=== PATIENT | female | born 1945 | race Caucasian/White ===

== ENCOUNTER 2019-07-06 10:15 | Outpatient (CLI) | payer MEDICARE, SELFPAY ==
[2019-07-06 10:27] LABS: Basophils Absolute Auto 0.04 K/mm3 (0.00-0.10); Basophils Percent Auto 0.6 % (0.0-1.0); Eosinophils Percent Auto 1.4 % (1.0-6.0); Hematocrit 41.4 % (35.0-42.0); Hemoglobin 13.6 g/dL (11.7-13.8); Immature Granulocyte Absolute 0.02 K/mm3 (0.00-0.00); Immature Granulocyte Percent A 0.3 % (0.0-0.0); Lymphocytes Absolute Auto 1.87 K/mm3 (1.10-4.50); Lymphocytes Percent Auto 26.4 % (18.0-42.0); Mean Corpuscular HGB Conc 32.9 g/dL (32.0-36.0); Mean Corpuscular Hemoglobin 32.6 pg (27.0-31.0); Mean Corpuscular Volume 99.3 fL (78.0-102.0); Mean Platelet Volume 10.6 fl (9.2-11.8); Monocytes Absolute Auto 0.55 K/mm3 (0.10-0.90); Monocytes Percent Auto 7.8 % (2.0-11.0); Neutrophils Absolute Auto 4.5 K/mm3 (1.7-7.2); Neutrophils Percent Auto 63.5 % (50.0-70.0); Platelet Count Result 237 K/mm3 (150-420); Red Blood Count 4.17 M/mm3 (4.20-5.40); Red Cell Distribution Width 12.1 % (11.6-14.4); White Blood Count 7.1 K/mm3 (4.8-10.8)
[2019-07-06 11:57] LABS: Alanine Aminotransferase 14 U/L (14-59); Albumin Level 4.2 g/dL (3.4-5.0); Alkaline Phosphatase 65 U/L (46-116); Anion Gap 11.5 mmol/L (7-16); Aspartate Amino Transferase 18 U/L (15-37); Bilirubin,Total 0.5 mg/dL (0.00-1.00); Blood Urea Nitrogen 17 mg/dL (7-18); Calcium 9.2 mg/dL (8.5-10.1); Carbon Dioxide 33 mmol/L (21-32); Chloride 103 mmol/L (98-108); Estimated Glomerular Filt Rate 49; Folic Acid 17.1 ng/mL (8.6->20); Glucose 90 mg/dL (70-99); Osmolality Calculated 297 mOsm/kg (285-295); Potassium 4.5 mmol/L (3.5-5.1); Sodium 143 mmol/L (136-145); Total Protein 7.2 g/dL (6.4-8.2); Vitamin B12 409 pg/mL (193-986)
[2019-07-06 12:10] LABS: Thyroid Stimulating Hormone Reflex 2.58 u/IU/mL (0.36-3.74)
== END 2019-07-06 10:16 | disposition home or self-care (01) ==
LOC: CHSLAB 10:19
PROVIDERS: PCP Family Medicine; Visit Provider Family Medicine
DX: R53.83 Other fatigue (principal)
CPT/HCPCS: 36415; 80053; 82607; 82746; 84443; 85025

== ENCOUNTER 2019-10-25 12:10 | Outpatient (CLI) | payer MEDICARE, SELFPAY ==
--- NOTE | ~2019-10-25 | US_ITS ---
EXAMINATION: US carotid duplex BI DATE: 10/25/2019 16:28 INDICATION: Carotid bruit. TECHNIQUE: Grayscale, color Doppler, and pulsed Doppler images of the cervical carotid arteries were obtained. The degree of vessel stenosis is placed in one of the following categories: normal, <50%, 5 0-69%, >=70% but less than near-occlusion, near-occlusion, or total occlusion. Note that percent sten osis relative to normal distal artery lumen diameter is indirectly measured from velocity measurement s as described by Navid, et al. Radiology 2003; 229:340-346. COMPARISON: Ultrasound 08/17/2013 FINDINGS: RIGHT: The right common carotid artery (CCA) peak systolic velocity (PSV) is 62 cm/s. The right internal car otid artery (ICA) PSV is 67 cm/s. The right ICA end-diastolic velocity (EDV) is 13 cm/s. The right IC A/CCA PSV ratio is 1.1. Grayscale and color Doppler images yield an estimate of <50% diameter reducti on from plaque in the ICA. There is antegrade flow in the right vertebral artery. LEFT: The left CCA PSV is 74 cm/s. The left ICA PSV is 70 cm/s. The left ICA EDV is 11 cm/s. The left ICA/C CA PSV ratio is 0.9. Grayscale and color Doppler images yield an estimate of <50% diameter reduction from plaque in the ICA. There is antegrade flow in the left vertebral artery. IMPRESSION: 1. <50% stenosis in the right internal carotid artery. 2. <50% stenosis in the left internal carotid artery. Reviewed, dictated and finalized at location A.
== END 2019-10-25 12:11 | disposition home or self-care (01) ==
LOC: CHSIMG 12:11
PROVIDERS: PCP Internal Medicine; Visit Provider Internal Medicine
DX: R06.00 Dyspnea, unspecified (principal); R09.89 Other specified symptoms and signs involving the circulatory and respiratory systems
CPT/HCPCS: 93306; 93880

== ENCOUNTER 2020-08-15 15:28 | Outpatient (CLI) | payer MEDICARE, SELFPAY ==
--- NOTE | ~2020-08-15 | XR_ITS ---
EXAMINATION: XR lumbar spine 2-3V DATE: 08/15/2020 15:49 INDICATION: Chronic low back pain. TECHNIQUE: 3 views of lumbar spine were obtained. COMPARISON: Lumbar spine radiographs 07/22/2017 FINDINGS: There is 3 degrees levocurvature of lumbar spine. Vertebral body heights are normal. There is mildly decreased disc height at L2-L3 and L4-L5 and severely decreased disc height at L5-S1. There are endplate osteophytes at all levels. There is multilevel facet joint osteoarthritis, severe at L5 -S1. IMPRESSION: 1. Severe lower lumbar spondylosis. Reviewed, dictated and finalized at location A.
== END 2020-08-15 15:29 | disposition home or self-care (01) ==
LOC: CHSIMG 15:31
PROVIDERS: PCP Internal Medicine; Visit Provider Internal Medicine
DX: M54.5 Low back pain (principal)
CPT/HCPCS: 72100

== ENCOUNTER 2020-11-08 10:12 | Outpatient (CLI) | payer MEDICARE, SELFPAY ==
--- NOTE | ~2020-11-08 | XR_ITS ---
EXAMINATION: XR chest 2V 11/08/2020 10:54 INDICATION: Dyspnea. Chronic fatigue. PROCEDURE: PA and lateral views of the chest COMPARISON: 09/26/2014 FINDINGS: The lungs are clear. There is a calcified nodule in the right upper thorax. The cardiomedia stinal silhouette is within normal limits. There are no pleural effusions. There is no pneumothorax suspected. IMPRESSION: 1: NO ACUTE CARDIOPULMONARY DISEASE. Reviewed, dictated and finalized at location A.
[2020-11-08 10:47] LABS: Basophils Absolute Auto 0.03 K/mm3 (0.00-0.10); Basophils Percent Auto 0.6 % (0.0-1.0); Eosinophils Absolute Auto 0.17 K/mm3 (0.02-0.50); Eosinophils Percent Auto 3.3 % (1.0-6.0); Hemoglobin 13.2 g/dL (11.7-13.8); Immature Granulocyte Absolute 0.01 K/mm3 (0.00-0.00); Immature Granulocyte Percent A 0.2 % (0.0-0.0); Lymphocytes Absolute Auto 1.82 K/mm3 (1.10-4.50); Lymphocytes Percent Auto 35.2 % (18.0-42.0); Mean Corpuscular Hemoglobin 32.9 pg (27.0-31.0); Mean Corpuscular Volume 99.8 fL (78.0-102.0); Mean Platelet Volume 10.8 fl (9.2-11.8); Monocytes Absolute Auto 0.46 K/mm3 (0.10-0.90); Monocytes Percent Auto 8.9 % (2.0-11.0); Neutrophils Absolute Auto 2.7 K/mm3 (1.7-7.2); Neutrophils Percent Auto 51.8 % (50.0-70.0); Platelet Count Result 224 K/mm3 (150-420); Red Blood Count 4.01 M/mm3 (4.20-5.40); Red Cell Distribution Width 12.6 % (11.6-14.4); White Blood Count 5.2 K/mm3 (4.8-10.8)
[2020-11-08 12:08] LABS: Erythrocyte Sedimentation Rate 22 mm/hr (0-20)
[2020-11-08 12:17] LABS: Alanine Aminotransferase 16 U/L (14-59); Albumin Level 4.1 g/dL (3.4-5.0); Alkaline Phosphatase 65 U/L (46-116); Anion Gap 11 mmol/L (8-16); Aspartate Amino Transferase 19 U/L (15-37); Bilirubin,Total 0.5 mg/dL (0.00-1.00); Blood Urea Nitrogen 27 mg/dL (7-18); Carbon Dioxide 30 mmol/L (21-32); Chloride 103 mmol/L (98-108); Estimated Glomerular Filt Rate 45; Free T3 3.07 pg/mL (2.18-3.98); Free T4 Free Thyroxine 1.53 ng/dL (0.76-1.46); Glucose 90 mg/dL (70-99); NT Pro B Type Natriuretic Pept 268 pg/mL (0-450); Osmolality Calculated 303 mOsm/kg (285-295); Potassium 4.7 mmol/L (3.5-5.1); Sodium 144 mmol/L (136-145); Total Protein 6.9 g/dL (6.4-8.2)
[2020-11-08 12:44] LABS: CRP < 0.5 mg/dL (0.0-0.9)
== END 2020-11-08 10:13 | disposition home or self-care (01) ==
LOC: CHSLAB 10:15
PROVIDERS: PCP Internal Medicine; Visit Provider Internal Medicine
DX: R06.00 Dyspnea, unspecified (principal); R53.82 Chronic fatigue, unspecified; R00.2 Palpitations
CPT/HCPCS: 36415; 71046; 80053; 83880; 84439; 84443; 84481; 85025; 85652; 86140

== ENCOUNTER 2020-11-16 11:14 | Outpatient (CLI) | payer MEDICARE, SELFPAY | END 2020-11-16 11:15 | disposition home or self-care (01) | LOC: CHSIMG 11:15 | PROVIDERS: PCP Internal Medicine; Visit Provider Internal Medicine | DX: I34.0 Nonrheumatic mitral (valve) insufficiency (principal) | CPT/HCPCS: 93306 ==

== ENCOUNTER 2021-05-23 11:34 | Outpatient (CLI) | payer MEDICARE, SELFPAY ==
--- NOTE | ~2021-05-23 | DEXA_ITS ---
Bone Density Report Name: JOSÉ MIGUEL CRAVEN Age: 75 Sex: Female Ethnicity: White Date of : 1945 Indication: postmenopausal; screening for osteoporosis; height loss; prior fracture; hysterectomy; Referring Provider: Sowmya Lilly Study: Bone densitometry was performed. Exam Date: May 23, 2021 Accession number: [id number] Bone Density: Region BMD T-score Z-score Classification AP Spine(L1-L4) 0.910 -1.2 1.3 Osteopenia Femoral Neck (Left) 0.577 -2.5 -0.3 Osteoporosis Total Hip (Left) 0.777 -1.4 0.6 Osteopenia Femoral Neck (Right) 0.540 -2.8 -0.6 Osteoporosis Total Hip (Right) 0.754 -1.5 0.4 Osteopenia Femoral Neck Mean 0.558 -2.6 -0.4 Osteoporosis Total Hip Mean 0.766 -1.4 0.5 Osteopenia World Health Organization criteria for BMD impression classify patients as: Normal (T-score at or above -1.0), Osteopenia (T-score between -1.0 and -2.5), or Osteoporosis (T-score at or below -2.5). 10-year Fracture Risk: FRAX not reported because: Some T-score for Spine Total or Hip Total or Femoral Neck at or below -2.5 Clinical Information Provided by Patient: Has had a low trauma fracture Has used the following medications: HRT (i.e. estrogen/hormone therapy), Calcium Has the following medical conditions: Hysterectomy Patient maximum height was 61 Menopause Age: 44 No regular weight bearing exercise Drinks caffeinated beverages Onset of menses at age 11 Number of children 4 Impression: The patient has established osteoporosis, based on the Right Femoral Neck T-score and the existence of a prior fracture. The patient has risk factors, including: previous fracture. Discussion: HIGH RISK OF FRACTURE. BONE DENSITY IS UNDESIRABLY LOW AT ONE OR MORE SKELETAL SITES, CONSISTENT WITH POSTMENOPAUSAL OSTEOPOROSIS. This patient's lowest T-score, in a patient who has previously fractured, meets the World Health Organization's (WHO) criteria for severe osteoporosis. In untreated patients, the risk of osteoporotic fracture increases approximately two-fold for each 1.0 SD decrease in T-score. Low bone density is not the only risk factor for fracture; also consider factors such as patient's age, frailty or poor health, risk of falling, risk of injury, previous osteoporotic fracture, family history of osteoporosis, cigarette smoking, low body weight, etc. Not everyone with low bone mineral density has osteoporosis; osteomalacia and other metabolic bone disorders should also be considered. Patients who have osteoporosis should be evaluated for specific diseases and conditions (secondary causes) that may cause or contribute to bone loss. The [place] [employer] Clinical Endocrinologists (AACE) and National Osteoporosis Foundation (NOF) recommend pharmacologic intervention for all postmenop
--- NOTE | ~2021-05-23 | MM_ITS ---
EXAMINATION: MM screening [facility] HISTORY: Screening mammogram TECHNIQUE: Craniocaudal and mediolateral oblique 3-D tomosynthesis images were obtained and synthetic 2-D images were generated. CAD analysis was submitted and interpreted. COMPARISON: 05/05/2019, 02/24/2018, 08/25/2015 BREAST PARENCHYMAL COMPOSITION: There are scattered areas of fibroglandular density. FINDINGS: RIGHT BREAST: There is no evidence of suspicious mass, calcification, or architectural distortion to suggest malignancy. There has been no significant interval change. LEFT BREAST: There are grouped calcifications in the posterior third of the outer breast best appreci ated 10 cm from the nipple on the craniocaudal view. IMPRESSION: 1. Left breast calcifications. 2. Magnification views are recommended. BI-RADS Category 0: Incomplete: Needs additional imaging evaluation. Reviewed, dictated and finalized at location A. MANAGEMENT SPECIALIST
== END 2021-05-23 11:35 | disposition home or self-care (01) ==
LOC: CHSIMG 11:35
PROVIDERS: PCP Internal Medicine; Visit Provider Internal Medicine
DX: Z12.31 Encounter for screening mammogram for malignant neoplasm of breast (principal); M81.0 Age-related osteoporosis without current pathological fracture
CPT/HCPCS: 77063; 77067; 77080

== ENCOUNTER 2021-05-25 08:51 | Outpatient (CLI) | payer MEDICARE, SELFPAY ==
--- NOTE | ~2021-05-25 | MM_ITS ---
EXAMINATION: MM diagnostic [facility] HISTORY: Left breast calcifications on screening mammogram TECHNIQUE: Magnification views of the left breast were performed and synthetic 2-D images were genera josue. CAD analysis was submitted and interpreted. COMPARISON: 05/23/2021, 05/05/2019, 02/24/2018 FINDINGS: There is subtle grouped calcifications in the posterior third of the outer breast approxima tely 10 cm from the nipple. The morphology is difficult to discern due to their small size. No associ ated mass is identified. IMPRESSION: 1. Probably benign left breast calcifications. 2. Recommend 6 month follow-up left diagnostic mammogram. BI-RADS category 3, probably benign findings. Reviewed, dictated and finalized at location A. PRESIDENT NETWORK
== END 2021-05-25 08:52 | disposition home or self-care (01) ==
LOC: CHSIMG 08:51
PROVIDERS: PCP Internal Medicine; Visit Provider Internal Medicine
DX: R92.8 Other abnormal and inconclusive findings on diagnostic imaging of breast (principal)
CPT/HCPCS: 77061; 77065; G0279

== ENCOUNTER 2021-06-19 12:47 | Outpatient (CLI) | payer MEDICARE, SELFPAY ==
[2021-06-19 13:04] VITALS: BP 123/59; PULSE 60; RESP 14; TEMP 36.6; O2SAT 96
[2021-06-19 13:07] VITALS: BMI 27.8
[2021-06-19] MEDS: ZOLEDRONIC ACID 5 MG/100 ML 100 ML 400 MG IVPB (13:15)
--- NOTE | 2021-06-19 13:15 | PC.NURSE ---
Patient here for yearly Reclast IV infusion. Education on medication given. No concerns voiced. IV Reclast administered. see MAR. Tolerated well. Safe exit of hospital.KJ
== END 2021-06-19 12:48 | disposition home or self-care (01) ==
PROVIDERS: PCP Internal Medicine; Visit Provider Internal Medicine
DX: M81.0 Age-related osteoporosis without current pathological fracture (principal)
CPT/HCPCS: 96365; 96374; J3489

== ENCOUNTER 2021-10-12 11:09 | Outpatient (CLI) | payer MEDICARE, SELFPAY ==
--- NOTE | ~2021-10-12 | XR_ITS ---
EXAMINATION: XR lumbar spine 2-3V DATE: 10/12/2021 11:30 INDICATION: Low back pain TECHNIQUE: Anteroposterior and lateral views of the lumbar spine, and cone-down lateral view of the l umbosacral junction were obtained. COMPARISON: 08/15/2020 FINDINGS: Bone alignment is normal. There is no fracture. There is mild loss of intervertebral disc s pace height at L2-3 and L4-5 and severe loss of disc space height at L5-S1. Severe facet osteoarthrit is is present at L5-S1. The bowel gas pattern is unremarkable. Phleboliths are noted in the pelvis. IMPRESSION: 1. Severe lower lumbar spondylosis without acute findings or significant interval change. Reviewed, dictated and finalized at location F. IMPRESSION: 1. Severe lower lumbar spondylosis without acute findings or significant interv al change.
== END 2021-10-12 11:10 | disposition home or self-care (01) ==
LOC: CHSLAB 11:11
PROVIDERS: PCP Internal Medicine; Visit Provider Internal Medicine
DX: M54.50 Low back pain, unspecified (principal)
CPT/HCPCS: 72100

== ENCOUNTER 2021-12-11 01:03 | Day surgery (SDC) | payer MEDICARE, SELFPAY ==
--- NOTE | 2021-12-06 15:30 | PC.NURSE ---
Report to the Outpatient Waiting Room, entrance under the green pavilion located off [facility], at time 0600 on date _12/11/21 . OR Time: __729 . - You and your visitor will be asked to self-screen and do not enter if you have any COVID symptoms. - Only one visitor and NO children visitors are allowed at this time. - The patient visitor is requested to leave or wait in car when not with patient due to restrictions. - A mask is required within the hospital. Patients may have clear liquids (water, carbonated beverages, clear teas, apple juice) until 3 hours prior to surgery with a maximum of 20 ounces. - No food from midnight until time of surgery - Infants may have breast milk until 4 hours before surgery, infant formula 6 hours prior to surgery. - Children will be allowed to drink immediately following surgery. If applicable, please bring a bottle or sippy cup to assist with drinking. Juice, water, soda, and popsicles are readily available. For infants on formula, please bring formula the day of surgery. Pacifiers are allowed. Take the following medications with a SIP of water the morning of surgery: __CITALOPRAM Medications to discontinue per physician ____NONE Date to take last dose Please no make-up, nail persian, hairspray, perfume, deodorant, or body powder the day of surgery. No jewelry (including any body piercings) or valuables the day of surgery, leave them at home. Please take a shower or bath the night before, or the morning of, surgery with an antibacterial soap. Wear comfortable, loose fitting clothing. Children are encouraged to wear pajamas. - Jewelry must be removed prior to entering the operating room. Rings and piercings that are not removed may be cut off. - The hospital will not accept responsibility for valuables. - Please leave all valuables, including medications, at home the day of surgery. If you are going home after surgery, a licensed regional driver must drive you home. - NO public transportation without another adult. - We recommend that an adult stay with you for 24 hours following discharge. - We also recommend that you do not drive, make important decision, drink alcoholic beverages, or take any drugs that were not prescribed by your health care provider for at least 24 hours after your discharge time. For Pediatric surgeries, we recommend two adults accompany the child home (only one inside the building at this time). Follow any additional instructions given to you from your surgeon. If you or anyone in your household have experienced Covid symptoms in the past week, please notify your surgeon or the nurse liaison at the phone number below for possible testing. Telephone instructions given to __PATIENT and asked if any additional questions and then verbalized understanding. Patient advised to call surgeon office or pre surgery nurse liaison [phone] if any additional questions.
[2021-12-06 15:35] VITALS: BMI 27.0
--- NOTE | 2021-12-10 13:29 | P.PNAN_ITS ---
Anes - Initial Pre Proc Eval Procedure: Operation Date: 12/11/21 12:30 Proposed Procedures p Excision Left Lateral Chest Wall Mass - Prosper Norton DO Date/Time: 12/10/21 13:29 Surgeon: Prosper Norton DO Pre Op Diagnosis: Left Lateral Chest Wall Mass Patient Data Age: 76 Gender: F Height: 1.55 m Weight: 64.9 kg Allergies Allergy/AdvReac Type Severity Reaction Status Date / Time Sulfa (Sulfonamide Allergy Intermediate HIVES Verified 12/11/21 10:40 Antibiotics) DIARRHEA Home Medications Medication Instructions Recorded Confirmed Type citalopram 40 mg tablet 40 mg PO DAILY #90 tabs 07/12/19 12/06/21 Rx furosemide 40 mg tablet (Lasix) 40 mg PO QAM #90 tabs 07/16/19 12/06/21 Rx losartan 50 mg-hydrochlorothiazide 1 tablet PO DAILY 12/06/21 12/06/21 History 12.5 mg tablet Patient hx anesthesia problems: none Family hx anesthesia problems: none Results Review: All pre-operative results and documents have been reviewed as part of the pre- operative evaluation. [facility], LAT[facility] Past Medical History Medical History (Updated 12/10/21 @ 13:30 by Ryan Arnold MD) CAD (coronary artery disease) Depression GERD (gastroesophageal reflux disease) Hypersomnia Hypertension Mass of left chest wall Osteoporosis Surgical History Surgical History H/O removal of cyst Breast cyst removed-Benign History of back surgery 2018. Herniated Disk. History of hysterectomy History of surgery on arm Family History Family History Other Heart disease Social History Social History Smoking packs per day: 0.5 Smoking cigarettes per day: 10.0 Years smoked: 15 Smoking pack-years: 7.50 Smoking status: Former smoker Tobacco type: cigarettes Smoking end date: 04/14/79 Alcohol intake: current Drinks per week: 14 Alcohol use details: RED WINE Substance use: never Living arrangements: with family Additional living arrangements comments: . Spiritual care concerns: No Anes - Eval Final PreProcedure Day of Procedure 12/10/21 13:29 Patient weight: overweight Heart: regular rate and rhythm Lungs: clear to auscultation and normal air movement Airway: Mallampati scale class II Neurological: alert and oriented Last oral intake: >/= 8 hours ASA classification: III Emergent: no Anesthetic plan: proceed Anesthesia type and monitoring: general GIVS Results Review: All pre-operative results and documents have been reviewed as part of the pre- operative evaluation. Informed Consent: The patient's anesthetic plan and its attendant risks and benefits were discussed with the patient/family/POA. Questions were solicited and answers provided to the satisfaction of the patient/family/POA.
[2021-12-11 11:04] VITALS: BP 147/52; PULSE 53; RESP 14; TEMP 37.4; O2SAT 96
[2021-12-11] MEDS: LACTATED RINGERS 1,000 ML 30 ML IV CONT (11:12)
--- NOTE | 2021-12-11 12:46 | WPDHPUPDATE1 ---
History and Physical Update Update Date/Time: 12/11/21 12:46 History and Physical has been reviewed, including an updated exam of the patient. There are NO changes in the patient's condition. Risks, benefits, and alternatives have been discussed and questions answered. Patient agrees to proceed with procedure.
--- NOTE | 2021-12-11 12:46 | PM.IMHP ---
H&P: HPI History of Present Illness Date/Time: 12/11/21 12:47 Chief Complaint: Chest wall mass Narrative: This is a 76-year-old woman who presents for excision of left lateral chest wall mass. She denies any changes since last seen in the office. Review of Systems Review of Systems: All systems reviewed & are unremarkable except as noted in HPI and below Constitutional: Constitutional: Denies chills, Denies fever(s), Denies headache(s) and Denies weight loss Eyes: Eyes: Denies change in vision ENT: Denies dizziness, Denies headache(s), Denies neck mass and Denies throat swelling Cardiovascular: Cardiovascular: Denies chest pain, Denies lightheadedness and Denies dyspnea Respiratory: Respiratory: Denies cough, Denies dyspnea and Denies wheezing Gastrointestinal: Gastrointestinal: Denies abdominal pain, Denies change in bowel habits, Denies nausea and Denies vomiting Genitourinary: Genitourinary: Denies hematuria and Denies dysuria Musculoskeletal: Musculoskeletal: Reports as per HPI Integumentary/Breasts: Skin/Breast: Reports as per HPI Neurologic: Denies dizziness and Denies headache(s) Allergic/Immunologic: Allergic/Immunologic: Denies throat swelling and Denies wheezing [facility] Past Medical History Medical History (Updated 12/10/21 @ 13:30 by Ryan Arnold MD) CAD (coronary artery disease) Depression GERD (gastroesophageal reflux disease) Hypersomnia Hypertension Mass of left chest wall Osteoporosis Surgical History Surgical History H/O removal of cyst Breast cyst removed-Benign History of back surgery 2018. Herniated Disk. History of hysterectomy History of surgery on arm Family History Family History Other Heart disease Social History Social History Smoking packs per day: 0.5 Smoking cigarettes per day: 10.0 Years smoked: 15 Smoking pack-years: 7.50 Smoking status: Former smoker Tobacco type: cigarettes Smoking end date: 04/14/79 Alcohol intake: current Drinks per week: 14 Alcohol use details: RED WINE Substance use: never Living arrangements: with family Additional living arrangements comments: . Spiritual care concerns: No Meds Home Medications and Allergies Home Medications Medication Instructions Recorded Confirmed Type citalopram 40 mg tablet 40 mg PO DAILY #90 tabs 07/12/19 12/06/21 Rx furosemide 40 mg tablet (Lasix) 40 mg PO QAM #90 tabs 07/16/19 12/06/21 Rx losartan 50 mg-hydrochlorothiazide 1 tablet PO DAILY 12/06/21 12/06/21 History 12.5 mg tablet Allergies Allergy/AdvReac Type Severity Reaction Status Date / Time Sulfa (Sulfonamide Allergy Intermediate HIVES Verified 12/11/21 10:40 Antibiotics) DIARRHEA Vital Signs Vital Signs - 24 hr 12/11/21 11:04 Temperature 37.4 C Pulse Rate 53 L Respiratory Rate 14 Blood Pressure 147/52 H Pulse Oximetry 96 Oxygen Delivery Room Air Exam Const: General: no acute distress and alert Orientation/consciousness: patient oriented x3 HENMT: Head: normocephalic and atraumatic Ears: hearing grossly normal bilaterally General nose exam: Normal nares present Mouth: Yes Normal oral and palatal mucosa present Eyes: Periorbital: periorbital findings normal Sclera: sclerae normal EOM: EOMs intact bilaterally Neck: Neck: normal visual inspection, no lymphadenopathy and trachea midline Chest: Chest palpation & inspection: normal inspection of the chest Resp: Effort & Inspection: normal respiratory effort Auscultation: clear to auscultation bilaterally Cardio: Jugular venous distension: no JVD Rate: regular rate Rhythm: regular rhythm Heart sounds: S1 normal heart sound present and S2 normal heart sound present Peripheral pulses: Peripheral pulses 2+ throughout GI: Inspection: normal to i
[2021-12-11] MEDS: LIDO 1%/EPINEPHRINE 1:100,000 50 ML VIAL 10 ML INFILTRATE (13:20)
--- NOTE | 2021-12-11 13:35 | W.PM.PROC2 ---
Procedure Note - Detailed Date of Procedure 12/11/21 Pre-op Diagnosis Left Lateral Chest Wall Mass Post-op Diagnosis Same Procedure Performed Excision of 3 cm left lateral chest wall mass Surgeon Prosper Norton DO School Traffic Supervisor Tayla Haq NP Anesthesia MAC and Local (1% lidocaine with epinephrine) Indications This is a 76-year-old woman who presented with a lump on her left lateral chest wall that had increased in size over time and is now causing some discomfort. She thinks the lump has been there for about 10 years, but recently she has started having some soreness in the region. She was found to have a mobile subcutaneous mass that was likely a lipoma. Discussions were made with the patient about treatment options and decision was made to proceed with excision of the 3 cm left chest wall mass. Findings The left chest wall mass was completely excised. This appeared to be a lipoma within the subcutaneous space. The mass was completely excised and sent to the lab for pathology. No other masses were palpable within the wound bed. Description of Procedure Procedure as well as risks, benefits, and alternatives were discussed with the patient. Written consent was obtained and placed in chart prior to procedure. Patient was brought back to surgical suite. She was placed supine on operating table. Time-out was done to confirm patient and procedure. She was then positioned into right lateral position and her left chest wall area was prepped and draped in sterile fashion using chlorhexidine prep. IV sedation was administered by the anesthesia department. 1% lidocaine with epinephrine was infiltrated locally around the mass. A 15 blade scalpel was then used to make a 4 cm incision directly over the mass. Electrocautery was used for hemostasis and for dissection through the subcutaneous tissue. The mass was identified and carefully dissected free using electrocautery. It was removed completely and sent to the lab for pathology. The wound bed was then inspected. Hemostasis was achieved with electrocautery. No other masses were palpable. The deep dermis is then reapproximated using 3-0 Vicryl inverted interrupted sutures. The skin was approximated using 4 Monocryl running subcuticular suture. Exofin glue was applied on top. The patient was then awakened from anesthesia and transferred to recovery. Estimated Blood Loss 5 Pathology Yes (3 cm left chest wall mass) Complications No immediate complications Condition Stable Disposition Same day [facility] Billing Surgery - Charge Forward: Surgery Billing
[2021-12-11 13:36] VITALS: BP 120/53; PULSE 67; RESP 14; O2SAT 98
[2021-12-11 14:05] VITALS: BP 135/63; PULSE 62; RESP 14; O2SAT 98
[2021-12-11 14:35] VITALS: BP 151/56; PULSE 59; RESP 14
== END 2021-12-11 14:41 | disposition home or self-care (01) ==
PROVIDERS: PCP Internal Medicine; Visit Provider Surgery
PROC: (CPT 21552; principal; 2021-12-11 12:30)
DX: D17.1 Benign lipomatous neoplasm of skin and subcutaneous tissue of trunk (principal); I10 Essential (primary) hypertension; I25.10 Atherosclerotic heart disease of native coronary artery without angina pectoris; M81.0 Age-related osteoporosis without current pathological fracture; K21.9 Gastro-esophageal reflux disease without esophagitis; F32.A Depression, unspecified; Z87.891 Personal history of nicotine dependence
CPT/HCPCS: 21552; 88304; A9270; J2704; J7120

== ENCOUNTER 2021-12-23 07:36 | Emergency (ER) | payer MEDICARE, SELFPAY ==
--- NOTE | ~2021-12-23 | CT_ITS ---
EXAMINATION: CT chest abdomen pelvis wo con DATE: 12/23/2021 08:31 INDICATION: Fall last evening. Lower abdominal pain, lower back and buttock pain TECHNIQUE: Computed tomography (CT) of the chest, abdomen, and pelvis was performed without intraveno us contrast. Automated exposure control and iterative reconstruction technique were employed. Exam do se: 635.28 mGy-cm total exam DLP. COMPARISON: 02/09/2019 CT abdomen pelvis 11/08/2020 PA and lateral chest FINDINGS: CHEST CT: Right upper lobe calcified pulmonary granulomas and calcified right paratracheal and hilar nodes, con sistent with old pulmonary granulomatous disease. There are numerous calcified hepatic and splenic gr anulomas as well. No pulmonary infiltrate or consolidation or pulmonary mass lesion. Up to 1.5 cm left thyroid hypoattenuating mass; consider thyroid ultrasound examination for further e valuation. 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 Normal heart size. No pericardial or pleural effusion. No hilar or mediastinal mass lesion or lymphadenopathy. ABDOMEN/PELVIS CT: Diffuse hepatic steatosis. Multiple splenic and scattered hepatic calcified granulomas. No hepatic, splenic, pancreatic, and adrenal or renal space-occupying mass lesion is detected. No uri nary tract calculus or hydroureteronephrosis. The urinary bladder is unremarkable. Status post hyster ectomy. There is atherosclerotic calcification but normal caliber of the abdominal aorta. No intraperitoneal or retroperitoneal or pelvic mass lesion or adenopathy or ascites. There is a moderately prominent of fecal material in the rectum and colon. No bowel obstruction, devin l wall thickening, pneumatosis or intraperitoneal free air. The appendix is not visualized. Small fat-containing umbilical hernia. Moderate anterior wedge compression fracture deformity of L1, new since 10/31/2020. Degenerative changes of thoracic and lumbar spine including severe degenerative disc disease at L5-S1 . IMPRESSION: Moderate anterior wedge compression fracture deformity of L1, new since 11/08/2020 Degenerative changes of thoracic and lumbar spine including severe degenerative disc disease at L5-S1 1.5 cm left thyroid hypoattenuating mass; consider elective outpatient thyroid ultrasound examination Status post right thyroid lobectomy Hepatic steatosis Status post hysterectomy Reviewed, dictated and finalized at [facility]. Reviewed, dictated and finalized at [facility].
--- NOTE | ~2021-12-23 | CT_ITS ---
EXAMINATION: CT brain wo con DATE: 12/23/2021 08:29 INDICATION: Fall, head injury TECHNIQUE: Computed tomography (CT) of the head was performed without intravenous contrast. The mA wa s adjusted according to patient size. Iterative reconstruction technique was employed. Exam dose: 52 9.67 mGy-cm total exam DLP. COMPARISON: 02/09/2019 CT head FINDINGS: Bilateral carotid siphon internal carotid artery calcifications. There is nonspecific dimin ished attenuation of the cerebral white matter, likely due to chronic small vessel ischemic changes. No intracranial mass lesion or hemorrhage or cerebrovascular accident is detected. No midline shift or mass effect effect. Moderate central and cortical cerebral atrophy. No subdural or epidural hematoma. No fracture or bone destruction of the cranial vault. Included mastoid air cells and paranasal sinuse s are normally developed and aerated. IMPRESSION: Cerebral atherosclerosis and chronic small vessel ischemic changes of the cerebral white matter Moderate central and cortical cerebral atrophy No acute intracranial finding or skull fracture Reviewed, dictated and finalized at [facility]. Reviewed, dictated and finalized at [facility].
[2021-12-23 07:40] VITALS: BP 175/69; PULSE 72; RESP 18; TEMP 36.9; O2SAT 97
--- NOTE | 2021-12-23 08:03 | ECG_ITS ---
Measurements Intervals [place] Rate: 70 P: 54 [place]: 173 QRS: 10 QRSD: 93 T: 4 QT: 412 QTc: 446 Interpretive Statements SINUS RHYTHM BORDERLINE ST-T WAVE ABNORMALITY- ANT/INF LEADS BASELINE ARTIFACT- I, II, III, AVR, AVL, AVF BORDERLINE ECG NO PREVIOUS ECG AVAILABLE FOR COMPARISON Electronically Signed On 12-23-2021 12:24:26 CDT by John Lee D.O.
[2021-12-23] MEDS: SODIUM CHLORIDE 0.9% IV 500 ML 999 ML IV CONT (08:41)
[2021-12-23] MEDS: PANTOPRAZOLE SODIUM IV 40 MG VIAL IV PUSH (08:43)
[2021-12-23] MEDS: ONDANSETRON INJ 4 MG/2 ML VIAL IV PUSH (08:43)
[2021-12-23] MEDS: MORPHINE SULFATE (*CRX) 2 MG/ML INJ IV PUSH (08:51)
[2021-12-23 09:11] LABS: Basophils Absolute Auto 0.03 K/mm3 (0.00-0.10); Basophils Percent Auto 0.5 % (0.0-1.0); Eosinophils Absolute Auto 0.06 K/mm3 (0.02-0.50); Hematocrit 36.7 % (35.0-42.0); Hemoglobin 12.2 g/dL (11.7-13.8); Immature Granulocyte Absolute 0.02 K/mm3 (0.00-0.00); Immature Granulocyte Percent A 0.3 % (0.0-0.0); Lymphocytes Absolute Auto 0.75 K/mm3 (1.10-4.50); Lymphocytes Percent Auto 12.9 % (18.0-42.0); Mean Corpuscular HGB Conc 33.2 g/dL (32.0-36.0); Mean Corpuscular Hemoglobin 33.3 pg (27.0-31.0); Mean Corpuscular Volume 100.3 fL (78.0-102.0); Mean Platelet Volume 11.2 fl (9.2-11.8); Monocytes Percent Auto 6.9 % (2.0-11.0); Neutrophils Absolute Auto 4.6 K/mm3 (1.7-7.2); Neutrophils Percent Auto 78.4 % (50.0-70.0); Platelet Count Result 204 K/mm3 (150-420); Red Blood Count 3.66 M/mm3 (4.20-5.40); White Blood Count 5.8 K/mm3 (4.8-10.8)
[2021-12-23 09:32] LABS: Lactic Acid Reflex 0.8 mmol/L (0.4-2.0)
[2021-12-23 09:39] LABS: Alanine Aminotransferase 13 U/L (14-59); Alkaline Phosphatase 58 U/L (46-116); Anion Gap 10 mmol/L (8-16); Aspartate Amino Transferase 18 U/L (15-37); Bilirubin,Total 0.9 mg/dL (0.00-1.00); Blood Urea Nitrogen 28 mg/dL (7-18); Calcium 8.8 mg/dL (8.5-10.1); Carbon Dioxide 26 mmol/L (21-32); Chloride 102 mmol/L (98-108); Estimated CRCL calculation 28 ml/min; Estimated Glomerular Filt Rate 39; Glucose 101 mg/dL (70-99); Lipase 121 U/L (73-393); Osmolality Calculated 291 mOsm/kg (285-295); Potassium 4.3 mmol/L (3.5-5.1); Sodium 138 mmol/L (136-145); Total Protein 7.1 g/dL (6.4-8.2); Troponin I 17.4 ng/L (0.00-60.4)
[2021-12-23 10:10] VITALS: BP 113/54; PULSE 72; RESP 20; TEMP 36.9; O2SAT 97
--- NOTE | 2021-12-23 10:17 | ED.FALL ---
HPI - Fall General Chief Complaint: Fall Stated Complaint: fall, low back pain and abd pain Time Seen by Provider: 12/23/21 07:40 Source: patient, family and RN notes reviewed Mode of arrival: wheelchair Limitations: no limitations History of Present Illness HPI Narrative: pt hit buttocks and has LBP. also abdominal pain and distention. complaint: fall Onset (ago): day(s) (1) Fall from: standing Place fall occurred: home Loss of consciousness: none Prolonged down time: no Symptoms prior to fall: none Context: tripped/slipped Location of injury: back and buttocks Severity: moderate Quality: dull and aching Related Data Home Medications Medication Instructions Recorded Confirmed losartan 50 mg-hydrochlorothiazide 1 tablet PO DAILY 12/06/21 12/23/21 12.5 mg tablet Allergies Allergy/AdvReac Type Severity Reaction Status Date / Time Sulfa (Sulfonamide Allergy Intermediate HIVES Verified 12/11/21 10:40 Antibiotics) DIARRHEA Review of Systems Review of Systems: All systems reviewed & are unremarkable except as noted in HPI and below Constitutional: Constitutional: Reports no additional constitutional complaints Eyes: Eyes: Reports no additional eye complaints ENT: Reports system reviewed and no additional complaints, except as documented Cardiovascular: Cardiovascular: Reports no additional cardiovascular complaints Respiratory: Respiratory: Reports no additional respiratory complaints Gastrointestinal: Gastrointestinal: Reports no additional gastrointestinal complaints and Reports abdominal pain Genitourinary: Genitourinary: Reports no additional female genitourinary complaints Musculoskeletal: Musculoskeletal: Reports no additional musculoskeletal complaints, Reports back pain and Reports arthralgias (right hip pain) Integumentary/Breasts: Skin/Breast: Reports system reviewed and no additional complaints, except as docu Neurologic: Reports system reviewed and no additional complaints, except as documented Psychiatric: Psychiatric: Reports no additional psychiatric complaints Endocrine: Endocrine: Reports no additional endocrine complaints Hematologic/Lymphatic: Hematologic/Lymphatic: Reports no additional hematologic/lymphatic complaints Allergic/Immunologic: Allergic/Immunologic: Reports no additional allergic/immunologic complaints PMFSH Past Medical History Medical History Backache, unspecified (08/26/17) CAD (coronary artery disease) Depression GERD (gastroesophageal reflux disease) Hypersomnia Hypertension Mass of left chest wall Osteoporosis Surgical History Surgical History H/O removal of cyst Breast cyst removed-Benign History of back surgery 2018. Herniated Disk. History of hysterectomy History of surgery on arm Family History Family History Other Heart disease Social History Social History Smoking packs per day: 0.5 Smoking cigarettes per day: 10.0 Years smoked: 15 Smoking pack-years: 7.50 Smoking status: Former smoker Tobacco type: cigarettes Smoking end date: 04/14/79 Alcohol intake: current Drinks per week: 14 Alcohol use details: RED WINE Substance use: never Additional living arrangements comments: . Spiritual care concerns: No Exam Const: General: no acute distress Nutritional Appearance: well nourished Orientation/consciousness: patient oriented x3 Limitations: no limitations HENMT: Head: normal to inspection Ears: external ears normal, TM's normal bilaterally and EAC's normal General nose exam: Normal external nose present and Normal nares present Face and sinus: normal facial exam and sinuses nontender Mouth: Yes Normal oral and palatal mucosa present and Yes moist mucous membranes Te
[2021-12-23 10:36] VITALS: BP 113/54; PULSE 64; RESP 20; TEMP 36.3; O2SAT 97
== END 2021-12-23 10:45 | disposition home or self-care (01) ==
PROVIDERS: Emergency Provider Emergency Medicine; PCP Internal Medicine
DX: M54.50 Low back pain, unspecified (principal); W19.XXXA Unspecified fall, initial encounter; I25.10 Atherosclerotic heart disease of native coronary artery without angina pectoris; K21.9 Gastro-esophageal reflux disease without esophagitis; I10 Essential (primary) hypertension; M81.0 Age-related osteoporosis without current pathological fracture; Z87.891 Personal history of nicotine dependence
CPT/HCPCS: 36415; 70450; 71250; 74176; 80053; 83605; 83690; 84484; 85025; 93005; 96374; 96375; 99284; C9113; J2270; J2405; J7040

== ENCOUNTER 2021-12-26 11:46 | Outpatient (CLI) | payer MEDICARE, SELFPAY ==
--- NOTE | ~2021-12-26 | US_ITS ---
EXAMINATION: US thyroid DATE: 12/26/2021 12:28 INDICATION: Thyroid nodule. TECHNIQUE: Multiple ultrasound images of the thyroid were obtained. COMPARISON: None. FINDINGS: The right thyroid lobe is absent. The left thyroid lobe measures 4.9 x 1.5 x 2.2 cm. In the left thy roid lobe, there is a 2.5 cm solid, hypoechoic, wider than tall nodule with smooth margin without ech ogenic foci (TI-RADS TR4). IMPRESSION: 1. Left thyroid nodule. Given the history of thyroid surgery, comparison with outside imaging is varinder mmended. If there is no comparison imaging available, consider ultrasound-guided fine-needle aspirati on. Reviewed, dictated and finalized at [facility]. IMPRESSION: 1. Left thyroid nodule. Given the history of thyroid surgery, comparison with o utside imaging is recommended. If there is no comparison imaging available, con manager video games ultrasound-guided fine-needle aspiration.
--- NOTE | ~2021-12-26 | CT_ITS ---
EXAMINATION: CT lumbar spine wo con DATE: 12/26/2021 12:18 INDICATION: Acute low back pain. Fall. TECHNIQUE: Computed tomography (CT) of the lumbar spine was performed without intravenous contrast. A utomated exposure control and iterative reconstruction technique were employed. The dose-length produ ct was 469.09 mGy-cm. COMPARISON: CT lumbar spine 08/07/2017, CT abdomen and pelvis 12/23/2021 FINDINGS: There is 11 degrees levoscoliosis of lumbar spine. There is a burst fracture of L1 with 2/5 loss of height and retropulsion of bone 3 mm into central spinal canal. There is moderately decrease d disc height at L2-L3 and L4-L5 and severely decreased disc height at L5-S1 with endplate remodeling . The following disc levels are specifically discussed: L1-L2: The disc is bulging. There is mild bilateral facet joint osteoarthritis. There is mild bilater al neural foraminal stenosis. There is no central canal stenosis. L2-L3: The disc is bulging. There is mild bilateral facet joint osteoarthritis. There is mild bilater al neural foraminal stenosis. There is mild central canal stenosis. L3-L4: The disc is bulging. There is mild right and moderate left facet joint osteoarthritis. There i s mild bilateral neural foraminal stenosis. There is mild central canal stenosis. L4-L5: The disc is bulging. There is moderate and severe left facet joint osteoarthritis. There is mi ld bilateral neural foraminal stenosis. There is mild central canal stenosis. L5-S1: The disc is bulging. There is moderate right and severe left facet joint osteoarthritis. There is mild right and moderate left neural foraminal stenosis. There is mild central canal stenosis. IMPRESSION: 1. L1 burst fracture, worsened from 12/23/2021. 2. Severe lumbar spondylosis. 3. Lumbar levoscoliosis. Reviewed, dictated and finalized at [facility].
== END 2021-12-26 11:47 | disposition home or self-care (01) ==
PROVIDERS: PCP Internal Medicine; Visit Provider Internal Medicine
DX: M54.50 Low back pain, unspecified (principal); E04.1 Nontoxic single thyroid nodule
CPT/HCPCS: 72131; 76536

== ENCOUNTER 2021-12-26 14:35 | Emergency (ER) | payer MEDICARE, SELFPAY ==
[2021-12-26 14:52] VITALS: BP 119/50; PULSE 77; RESP 16; TEMP 36.6; O2SAT 97
--- NOTE | 2021-12-26 15:30 | ED.LOWEXIN ---
HPI - Extremity Injury (Lower) General Chief Complaint: Extremity Injury, Lower Stated Complaint: sent by PCP Time Seen by Provider: 12/26/21 15:22 History of Present Illness HPI Narrative: 76-year-old female presents to the emergency room for evaluation of low back pain following a mechanical fall from a standing position. Patient states that she was at family members wedding dancing when she lost her footing and slipped and fell landing on her backside. Patient was complaining of lower back pain at that time. States that she went and saw her family practice doctor and the following day and had imaging ordered. Family physician called the ER today stating that there was a possible L1 burst fracture and wanted her to follow-up with neurosurgery. Presently patient is complaining of lower back pain that radiates anteriorly into her abdomen. Denies any saddle anesthesia or lower extremity paresthesias. Reports that she began experiencing some urinary incontinence today, but is also been diagnosed with a urinary tract infection. Denies any bowel incontinence. Patient is ambulatory with mild pain Related Data Home Medications Medication Instructions Recorded Confirmed losartan 50 mg-hydrochlorothiazide 1 tablet PO DAILY 12/06/21 12/23/21 12.5 mg tablet Allergies Allergy/AdvReac Type Severity Reaction Status Date / Time Sulfa (Sulfonamide Allergy Intermediate HIVES Verified 12/26/21 14:55 Antibiotics) DIARRHEA Review of Systems Review of Systems: CONSTITUTIONAL: Denies fever, chills, or sweats. EYES: Denies visual changes, redness, or discharge. ENT: Denies rhinorrhea, congestion, sore throat, or otalgia. CARDIOVASCULAR: Denies chest pain, palpitations, or edema. RESPIRATORY: Denies cough or dyspnea. GASTROINTESTINAL: Denies abdominal pain, nausea, vomiting, or diarrhea. GENITOURINARY: Denies dysuria or hematuria. SKIN: Denies rash or itching. MUSCULOSKELETAL: Reports low back pain NEUROLOGIC: Denies headache, numbness, dizziness, or weakness. PSYCHIATRIC: Denies anxiety or depression. [facility] Past Medical History Medical History Backache, unspecified (08/26/17) CAD (coronary artery disease) Depression GERD (gastroesophageal reflux disease) Hypersomnia Hypertension Mass of left chest wall Osteoporosis Surgical History Surgical History H/O removal of cyst Breast cyst removed-Benign History of back surgery 2018. Herniated Disk. History of hysterectomy History of surgery on arm Family History Family History Other Heart disease Social History Social History Smoking packs per day: 0.5 Smoking cigarettes per day: 10.0 Years smoked: 15 Smoking pack-years: 7.50 Smoking status: Former smoker Tobacco type: cigarettes Smoking end date: 04/14/79 Alcohol intake: current Drinks per week: 14 Alcohol use details: RED WINE Substance use: never Additional living arrangements comments: . Spiritual care concerns: No Exam Narrative: GENERAL: Well-appearing, well-nourished, no physical limitations, and in no acute distress. HEAD: Normocephalic, atraumatic. EYES: Conjunctivae normal, PERRLA and EOMI. CHEST: Clear to auscultation. No respiratory distress. No wheezes rales or rhonchi. No tenderness. HEART: Regular rate and rhythm. No murmur heard. Normal peripheral pulses. ABDOMEN: Soft, nontender, nondistended, normal active bowel sounds. BACK: Midline tenderness to the lumbar spine. Limited range of motion due to pain no step-offs EXTREMITIES: Normal range of motion. No edema. No clubbing or cyanosis SKIN: Warm, dry, no rash. No noted wounds NEURO: No focal deficits. Alert and oriented x3. MAEW. CN's II-XI intact bilaterally, normal gait PSYCH: Cooperative.
== END 2021-12-26 16:39 | disposition home or self-care (01) ==
LOC: ANHED 16:30
PROVIDERS: Emergency Provider Nurse Practitioner Family; PCP Internal Medicine
DX: S32.011A Stable burst fracture of first lumbar vertebra, initial encounter for closed fracture (principal); S39.92XA Unspecified injury of lower back, initial encounter; I25.10 Atherosclerotic heart disease of native coronary artery without angina pectoris; K21.9 Gastro-esophageal reflux disease without esophagitis; I10 Essential (primary) hypertension; M81.0 Age-related osteoporosis without current pathological fracture; Z90.710 Acquired absence of both cervix and uterus; Z87.891 Personal history of nicotine dependence; W01.0XXA Fall on same level from slipping, tripping and stumbling without subsequent striking against object, initial encounter; Y93.41 Activity, dancing
CPT/HCPCS: 99283

== ENCOUNTER 2022-01-11 11:31 | Emergency (ER) | payer MEDICARE, SELFPAY ==
--- NOTE | ~2022-01-11 | XR_ITS ---
EXAMINATION: XR abdomen/kub 1V INDICATION: Abdominal pain TECHNIQUE: Supine view of the abdomen is obtained. COMPARISON: None FINDINGS: There is a moderate volume of colonic stool. Dilated loops of bowel are evident. The visual ized lung bases are clear. Punctate left upper quadrant calcifications likely healed granulomatous di sease of the spleen. There are phleboliths of pelvis. There is mild osteoarthritis of the hips. IMPRESSION: 1. Moderate volume of colonic stool. Reviewed, dictated and finalized at location [facility].
[2022-01-11 11:56] VITALS: BP 146/97; PULSE 76; RESP 20; TEMP 36.7; O2SAT 98
--- NOTE | 2022-01-11 11:58 | ECG_ITS ---
Measurements Intervals [place] Rate: 68 P: 56 IA: 164 QRS: 29 QRSD: 90 T: 27 QT: 403 QTc: 431 Interpretive Statements SINUS RHYTHM NONSPECIFIC ST & T-WAVE ABNORMALITY- ANTEROLAT/INF LEADS BASELINE ARTIFACT- I, II, AVR, AVL, AVF, V1 BORDERLINE ECG COMPARED TO ECG 12/23/2021 08:40:23 NO SIGNIFICANT CHANGES Electronically Signed On 01-11-2022 16:48:12 CDT by John Lee D.O.
--- NOTE | 2022-01-11 12:20 | ED.GENADULT ---
HPI - General Adult General Chief complaint: Weakness Stated complaint: weight los/shaky/ swollen neck/cant eat Time Seen by Provider: 01/11/22 11:46 History of Present Illness HPI narrative: Cesia is a 76F with a PMH of HTN, osteoporosis, depression, CAD, GERD and a recent lumbar fracture on 12/26 for which she is wearing a brace. She was also given a fentanyl patch for pain but stopped it a couple days ago because when thought it caused neck pain so she is taking tramadol now. She has also had severe constipation. She went a week without a BM but then took a laxative. She is still a few days between BMs. Since the fracture she has also had some nausea, indigestion, belching, poor appetite, lightheaded and weak. No saddle anesthesia, loss of bowel or bladder control noted or paralysis. Related Data Home Medications Medication Instructions Recorded Confirmed losartan 50 mg-hydrochlorothiazide 1 tablet PO DAILY 12/06/21 01/11/22 12.5 mg tablet fentanyl 12 mcg/hr transdermal 1 patch topical Q72H 01/11/22 01/11/22 patch Allergies Allergy/AdvReac Type Severity Reaction Status Date / Time Sulfa (Sulfonamide Allergy Intermediate HIVES Verified 01/11/22 13:19 Antibiotics) DIARRHEA Review of Systems Review of Systems: All systems reviewed & are unremarkable except as noted in HPI and below PMFSH Past Medical History Medical History Backache, unspecified (08/26/17) CAD (coronary artery disease) Depression GERD (gastroesophageal reflux disease) Hypersomnia Hypertension Mass of left chest wall Osteoporosis Surgical History Surgical History H/O removal of cyst Breast cyst removed-Benign History of back surgery 2018. Herniated Disk. History of hysterectomy History of surgery on arm Family History Family History Other Heart disease Social History Social History Smoking packs per day: 0.5 Smoking cigarettes per day: 10.0 Years smoked: 15 Smoking pack-years: 7.50 Smoking status: Former smoker Tobacco type: cigarettes Smoking end date: 04/14/79 Alcohol intake: current Drinks per week: 14 Alcohol use details: RED WINE Substance use: never Additional living arrangements comments: . Spiritual care concerns: No Exam Const: General: healthy appearing, no acute distress and alert; No confusion Nutritional Appearance: well nourished Orientation/consciousness: patient oriented x3 HENMT: Head: normal to inspection Ears: external ears normal General nose exam: Normal external nose present Eyes: Conjunctivae: conjunctivae normal Pupils: Equal, round and reactive pupils present Neck: Neck: normal visual inspection Chest: Chest palpation & inspection: normal inspection of the chest Resp: Effort & Inspection: normal respiratory effort Auscultation: clear to auscultation bilaterally Cardio: Rate: regular rate Rhythm: regular rhythm Heart sounds: no murmurs GI: Other: Normal to inspection. TTP in the epigastric region and lower abdomen bilaterally. No guarding or rebound tenderness. : Other: No CVA tenderness Skin: General skin exam: normal color Rashes: no rashes Neuro: General: patient oriented x3, moves all extremities, no focal motor deficits and CN's II-XI intact bilaterally Extrem: General: normal to inspection Psych: Mental Status: mental status grossly normal Course Course Emergency Course: Cesia declined meds. Ordered EKG and labs as well as KUB. EKG showed NSR with a rate of 68, normal axis, no ectopy and no ST elevation/depression EXAMINATION: XR abdomen/kub 1V INDICATION: Abdominal pain TECHNIQUE: Supine view of the abdomen is obtained. COMPARISON: None FINDINGS: There is a moderate volume of colonic stool.
[2022-01-11 12:45] LABS: Basophils Absolute Auto 0.04 K/mm3 (0.00-0.10); Basophils Percent Auto 0.7 % (0.0-1.0); Eosinophils Absolute Auto 0.04 K/mm3 (0.02-0.50); Eosinophils Percent Auto 0.7 % (1.0-6.0); Hematocrit 37.7 % (35.0-42.0); Hemoglobin 12.8 g/dL (11.7-13.8); Immature Granulocyte Absolute 0.03 K/mm3 (0.00-0.00); Immature Granulocyte Percent A 0.6 % (0.0-0.0); Lymphocytes Absolute Auto 1.17 K/mm3 (1.10-4.50); Lymphocytes Percent Auto 21.7 % (18.0-42.0); Mean Corpuscular Hemoglobin 33.2 pg (27.0-31.0); Mean Corpuscular Volume 97.9 fL (78.0-102.0); Monocytes Absolute Auto 0.43 K/mm3 (0.10-0.90); Neutrophils Absolute Auto 3.7 K/mm3 (1.7-7.2); Neutrophils Percent Auto 68.3 % (50.0-70.0); Platelet Count Result 250 K/mm3 (150-420); Red Blood Count 3.85 M/mm3 (4.20-5.40); Red Cell Distribution Width 12.5 % (11.6-14.4); White Blood Count 5.4 K/mm3 (4.8-10.8)
[2022-01-11 12:50] LABS: Lactic Acid Reflex 1.1 mmol/L (0.4-2.0)
[2022-01-11 12:57] LABS: Add Urine Microscopic? YES; Appearance Urine Clear (Clear); Bacteria Urine 1+ /hpf; Bilirubin Urine 2+ (Negative); Blood Urine Negative (Negative); Color Urine Yellow (Yellow); Glucose Urine UA Negative (Negative); Ketones Urine 1+ (Negative); Leukocyte Esterase Ur Negative (Negative); Nitrate Urine Negative (Negative); Protein Urine 1+ (Negative); RBC Urine None seen /hpf (0-2); Specific Grav Ur >= 1.030 (1.010-1.020); Squamous Epithelial Cell Urine Few /hpf (Few); WBC Urine None seen /hpf (0-3)
[2022-01-11 12:59] LABS: Alanine Aminotransferase 11 U/L (14-59); Albumin Level 4.4 g/dL (3.4-5.0); Alkaline Phosphatase 168 U/L (46-116); Anion Gap 10 mmol/L (8-16); Aspartate Amino Transferase 17 U/L (15-37); Bilirubin,Total 0.7 mg/dL (0.00-1.00); Blood Urea Nitrogen 40 mg/dL (7-18); CRP < 0.2 mg/dL (0.0-0.9); Calcium 9.4 mg/dL (8.5-10.1); Carbon Dioxide 26 mmol/L (21-32); Chloride 101 mmol/L (98-108); Estimated CRCL calculation 18 ml/min; Estimated Glomerular Filt Rate 27; Glucose 130 mg/dL (70-99); Lipase 194 U/L (73-393); Magnesium 2.1 mg/dL (1.8-2.4); Osmolality Calculated 295 mOsm/kg (285-295); Potassium 3.8 mmol/L (3.5-5.1); Sodium 137 mmol/L (136-145); Total Protein 7.8 g/dL (6.4-8.2)
[2022-01-11] MEDS: SODIUM CHLORIDE 0.9% IV 1,000 ML 999 ML IV CONT (13:45)
[2022-01-11 14:10] VITALS: BP 147/82; PULSE 72; RESP 20; O2SAT 98
[2022-01-11 15:21] VITALS: BP 145/79; PULSE 77; RESP 20; O2SAT 98
== END 2022-01-11 15:29 | disposition home or self-care (01) ==
PROVIDERS: Emergency Provider Family Medicine; PCP Internal Medicine
DX: N17.9 Acute kidney failure, unspecified (principal); K59.09 Other constipation; I25.10 Atherosclerotic heart disease of native coronary artery without angina pectoris; K21.9 Gastro-esophageal reflux disease without esophagitis; I10 Essential (primary) hypertension; M81.0 Age-related osteoporosis without current pathological fracture; Z87.891 Personal history of nicotine dependence
CPT/HCPCS: 36415; 74018; 80053; 81001; 83605; 83690; 83735; 84443; 84484; 85025; 85610; 86140; 93005; 96360; 96361; 99284; J7030

== ENCOUNTER 2022-02-08 11:48 | Outpatient (CLI) | payer MEDICARE, SELFPAY ==
--- NOTE | ~2022-02-08 | US_ITS ---
EXAMINATION: US FNA w image guidance DATE: 02/08/2022 13:18 INDICATION: Left thyroid nodule TECHNIQUE: A time-out was performed to verify the patient's name, date of , and procedure to be performed . The procedure and its benefits and risks were discussed with the patient. Risks specifically discus sed included bleeding and infection. The patient understood the risks and agreed to proceed. The neck was prepped and draped in the usual sterile manner. 3 mL 1% lidocaine was used for local anesthesia . 6 passes were made with a 25G needle into the lesion. Appropriate needle location was documented with continuous sonographic guidance. A sterile bandage was applied. There were no immediate compli cations. FINDINGS: Grayscale ultrasound images demonstrate biopsy needles advanced into a 1.8 x 1.7 x 1.4 cm predominant ly solid nodules of concern at the inferior left thyroid. IMPRESSION: 1. Successful ultrasound-guided fine needle aspiration of a 1.8 cm left thyroid nodule of concern. Reviewed, dictated and finalized at location [facility]. IMPRESSION: 1. Successful ultrasound-guided fine needle aspiration of a 1.8 cm left thyroi d nodule of concern.
== END 2022-02-08 11:49 | disposition home or self-care (01) ==
PROVIDERS: PCP Internal Medicine; Visit Provider Internal Medicine
DX: E04.1 Nontoxic single thyroid nodule (principal)
CPT/HCPCS: 10005; 88173; 88305

== ENCOUNTER 2022-02-27 13:22 | Outpatient (CLI) | payer MEDICARE, SELFPAY ==
--- NOTE | ~2022-02-27 | XR_ITS ---
XR lumbar spine 2-3V DATE: 02/27/2022 13:48 INDICATION: L1 vertebral fracture after fall in December TECHNIQUE: AP, lateral, coned lateral lumbosacral views COMPARISON: 12/26/2021 CT lumbar spine FINDINGS: Again noted is prominent burst fracture deformity of L1, relatively stable since 12/26/2021. No other fracture or bone destruction is evident. Included lower thoracic and lumbar pedicles are in tact. There is osteopenia. There is minimal levoscoliosis of the thoracolumbar spine. No spondylolisthesis. There is degenerative disc disease throughout the lumbar spine, most prominent at L5-S1. The sacroiliac joints are intact. IMPRESSION: Stable burst fracture of L1 since 12/26/2021 Multilevel degenerative disc disease Reviewed, dictated and finalized at [facility]. [facility]
== END 2022-02-27 13:23 | disposition home or self-care (01) ==
LOC: CHSIMG 13:24
PROVIDERS: PCP Internal Medicine; Visit Provider Internal Medicine
DX: S32.019D Unspecified fracture of first lumbar vertebra, subsequent encounter for fracture with routine healing (principal)
CPT/HCPCS: 72100

== ENCOUNTER 2022-03-05 10:55 | Outpatient (RCR) | payer MEDICARE, SELFPAY ==
--- NOTE | 2022-03-05 11:42 | PTOPEVAL1 ---
Assessment and note entered by Chitra Beverly, PT Evaluation Information Assessment Status Evaluation Diagnosis LBP, L1 Fx Onset 12/23/21 Subjective Information Cesia Doss reports she slipped on some water on cement on 12/23/21 and landed on her buttocks. She went to the ER the next day due to severe pain and underwent x-rays and a CT scan that showed a L1 fracture. She was put into a brace for 6 weeks. She is still getting pain in the lower back with prolonged sitting and frequent bending. Reported Pain Level Pain Score 5: Self Report Assessment PT Clinical Summary Cesia Doss presents with low back pain following a L1 fracture sustained on 12/23/21 after a fall on wet concrete. 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 She objectively demonstrates decreased lumbar ROM, decreased core and hip strength, tenderness and tension in the lumbar paraspinals, and decreased functional abilities. She will benefit from skilled PT to address these physical and functional limitations. Plan of Care Interventions Electrical Stimulation,Hot Pack/Cold Pack,Manual Therapy,Neuro Re-education,Patient/Caregiver Educati,Therapeutic Activities,Therapeutic Exercise PT Services Indicated Yes Treatment Frequency and 3 times a week for 12 visits Duration These treatments will address the objective and functional deficits as defined above. The patient will be advanced safely and appropriately in order for the patient to progress towards his/her prior level of function. Additional exercises will be introduced and as well as a comprehensive home exercise program upon discharge, if needed, ?to ensure carryover of functional gains achieved in the clinic. This treatment plan has been reviewed and agreement upon by the patient.
--- NOTE | 2022-07-30 16:35 | PCPTNOTE ---
07/30/22: Patient was last treated in PT on 04/01/22 and has not returned. She is discharged. Chitra Beverly, PT
== END 2022-04-01 23:59 | disposition home or self-care (01) ==
LOC: CHSPT 10:55
PROVIDERS: PCP Internal Medicine; Visit Provider Internal Medicine
DX: M54.9 Dorsalgia, unspecified (principal); S32.019D Unspecified fracture of first lumbar vertebra, subsequent encounter for fracture with routine healing
CPT/HCPCS: 97014; 97110; 97140; 97161; G0283

== ENCOUNTER 2022-04-01 09:37 | Outpatient (CLI) | payer MEDICARE, SELFPAY ==
--- NOTE | ~2022-04-01 | XR_ITS ---
Lumbosacral Spine: AP and lateral views Clinical History: L1 fracture, pain COMPARISON: 02/27/2022 Findings: Moderate compression fracture deformity of L1 is unchanged from prior exam. Stable facet franky int degenerative changes in the lower lumbar spine. Stable grade 1 anterolisthesis of L5 over S1. The intervertebral disc spaces are preserved. The sacroiliac joints are normally outlined. Impression: Stable L1 compression fracture. Stable degenerative changes and grade 1 anterolisthesis of L5 over S1. Reviewed, dictated and finalized at location [] ER MEASURER Impression: Stable L1 compression fracture. Stable degenerative changes and grade 1 anterolisthesis of L5 over S1.
== END 2022-04-01 09:38 | disposition home or self-care (01) ==
LOC: CHSLAB 09:40
PROVIDERS: PCP Internal Medicine; Visit Provider Internal Medicine
DX: M48.56XA Collapsed vertebra, not elsewhere classified, lumbar region, initial encounter for fracture (principal); M43.17 Spondylolisthesis, lumbosacral region
CPT/HCPCS: 72100

== ENCOUNTER 2022-07-11 09:46 | Outpatient (CLI) | payer MEDICARE, SELFPAY ==
[2022-07-11] MEDS: ZOLEDRONIC ACID 5 MG/100 ML 100 ML 300 MG IVPB (10:05)
[2022-07-11 10:11] VITALS: BP 154/54; PULSE 58; RESP 14; TEMP 36.4; O2SAT 98; BMI 26.6
--- NOTE | 2022-07-11 10:24 | PC.NURSE ---
Patient here for yearly IV Reclast infusion. No concerns voiced. Education given. Reports no problem with it last year. IV Reclast administered. See MAR. Tolerated well. Safe exit of hospital per ambulatory per self.
== END 2022-07-11 09:47 | disposition home or self-care (01) ==
PROVIDERS: PCP Internal Medicine; Visit Provider Internal Medicine
DX: M81.0 Age-related osteoporosis without current pathological fracture (principal)
CPT/HCPCS: 96365; 96374; J3489

== ENCOUNTER 2023-01-15 11:44 | Outpatient (CLI) | payer MEDICARE, SELFPAY ==
--- NOTE | ~2023-01-15 | XR_ITS ---
XR hand RT min 3V DATE: 01/15/2023 11:58 INDICATION: Right hand pain, thumb pain for 3 weeks TECHNIQUE: 3 views COMPARISON: None FINDINGS: Diffuse osteopenia. There is chondrocalcinosis. ]There is moderate osteoarthritis at the first carpometacarpal joint. There is osteoarthritic change of mild to moderate degree at some interphalangeal joints. No fracture or dislocation, periosteal reaction or bone destruction or erosive change. IMPRESSION: Osteopenia Polyarticular osteoarthritis Reviewed, dictated and finalized at location B.
== END 2023-01-15 11:45 | disposition home or self-care (01) ==
LOC: CHSIMG 11:46
PROVIDERS: PCP Internal Medicine; Visit Provider Internal Medicine
DX: M79.641 Pain in right hand (principal); M85.88 Other specified disorders of bone density and structure, other site; M19.041 Primary osteoarthritis, right hand
CPT/HCPCS: 73130

== ENCOUNTER 2023-03-11 09:13 | Outpatient (CLI) | payer MEDICARE, SELFPAY ==
--- NOTE | ~2023-03-11 | MM_ITS ---
EXAMINATION: MM diagnostic arianne BI w elba HISTORY: Previously recommended follow-up of left breast calcifications TECHNIQUE: ML, MLO and CC 3-D tomosynthesis images of both breasts were performed and synthetic 2-D i mages were generated. Magnification views of left breast. CAD analysis was submitted and interpreted. COMPARISON: 07/23/2021 diagnostic left mammogram May 23, 2021, May 05, 2019 bilateral screening mammogram examinations BREAST PARENCHYMAL COMPOSITION: The breasts are heterogeneously dense, which may obscure small masses . FINDINGS: There are scattered benign calcifications. No malignant calcifications are detected. IMPRESSION: 1. Benign calcifications 2. Routine annual mammographic examination is recommended. BI-RADS Category 2: Benign finding(s). Reviewed, dictated and finalized at location A. DIRECTOR
--- NOTE | ~2023-03-11 | US_ITS ---
US pelvic limited 03/11/2023 09:35 Indication: Incontinence. Evaluate post void residual. Procedure: High-resolution Limited pelvic ultrasound using transabdominal technique Comparison: No prior studies for comparison. Findings: Bladder wall is unremarkable. No focal bladder wall abnormalities. Prevoid volume is 39 cc. Postvoid volume is 5 cc. Impression: 1: Unremarkable pelvic ultrasound. Reviewed, dictated and finalized at location L. FORM INSPECTOR Impression: 1: Unremarkable pelvic ultrasound.
== END 2023-03-11 09:14 | disposition home or self-care (01) ==
PROVIDERS: PCP Internal Medicine; Visit Provider Internal Medicine
DX: N39.41 Urge incontinence (principal); R92.8 Other abnormal and inconclusive findings on diagnostic imaging of breast
CPT/HCPCS: 76857; 77062; 77066; G0279

== ENCOUNTER 2023-03-28 15:13 | Outpatient (CLI) | payer MEDICARE, SELFPAY ==
--- NOTE | ~2023-03-28 | XR_ITS ---
EXAMINATION: XR chest 2V DATE: 03/28/2023 15:47 INDICATION: Upper respiratory infection TECHNIQUE: PA and lateral views of the chest are obtained. COMPARISON: 11/08/2020, 04/01/2022 FINDINGS: The lungs are free of acute opacities. No pleural effusion or pneumothorax. The cardiomedia stinal silhouette is normal. There is moderate thoracic spondylosis. An L1 compression fracture is ag ain noted. IMPRESSION: 1. No acute cardiopulmonary abnormality. Reviewed, dictated and finalized at location B. TANK TENDER
[2023-03-28 15:33] LABS: Basophils Absolute Auto 0.04 K/mm3 (0.00-0.10); Basophils Percent Auto 0.6 % (0.0-1.0); Eosinophils Absolute Auto 0.16 K/mm3 (0.02-0.50); Eosinophils Percent Auto 2.4 % (1.0-6.0); Hematocrit 38.3 % (35.0-42.0); Hemoglobin 12.5 g/dL (11.7-13.8); Immature Granulocyte Absolute 0.03 K/mm3 (0.00-0.00); Immature Granulocyte Percent A 0.4 % (0.0-0.0); Lymphocytes Absolute Auto 1.76 K/mm3 (1.10-4.50); Mean Corpuscular HGB Conc 32.6 g/dL (32.0-36.0); Mean Corpuscular Hemoglobin 33.3 pg (27.0-31.0); Mean Corpuscular Volume 102.1 fL (78.0-102.0); Mean Platelet Volume 10.3 fl (9.2-11.8); Monocytes Absolute Auto 0.61 K/mm3 (0.10-0.90); Neutrophils Absolute Auto 4.2 K/mm3 (1.7-7.2); Neutrophils Percent Auto 61.6 % (50.0-70.0); Platelet Count Result 224 K/mm3 (150-420); Red Blood Count 3.75 M/mm3 (4.20-5.40); Red Cell Distribution Width 12.9 % (11.6-14.4); White Blood Count 6.8 K/mm3 (4.8-10.8)
[2023-03-28 16:12] LABS: Strep Group A RT-PCR NOT DETECTED (Negative)
[2023-03-28 16:20] LABS: Influenza A QL RT-PCR Negative (Negative); Influenza B QL RT-PCR Negative (Negative); SARS-CoV-2 RNA PCR Negative (Negative)
== END 2023-03-28 15:14 | disposition home or self-care (01) ==
LOC: CHSLAB 15:16
PROVIDERS: PCP Internal Medicine; Visit Provider Internal Medicine
DX: J06.9 Acute upper respiratory infection, unspecified (principal); R05.9 Cough, unspecified
CPT/HCPCS: 36415; 71046; 85025; 87636; 87651

== ENCOUNTER 2023-04-16 14:30 | Outpatient (CLI) | payer MEDICARE, SELFPAY ==
--- NOTE | ~2023-04-16 | XR_ITS ---
XR chest 2V DATE: 04/16/2023 14:51 INDICATION: Cough for 2 weeks. Sinus infection for one month. TECHNIQUE: 2 views COMPARISON: 03/28/2023 2 view chest FINDINGS: Normal heart size. Aortic calcification and mild unfolding. No hilar or mediastinal enlarge ment. There is old pulmonary granulomatous disease. No pulmonary infiltrate or consolidation, pleural effusion or pulmonary vascular congestion or pneumo thorax is detected. Osteopenia. Prominent loss of height of L1, present on 03/28/2023. Osteopenia. IMPRESSION: No active cardiac pulmonary disease Aortic atherosclerosis Chronic prominent L1 vertebral body loss of height Reviewed, dictated and finalized at location B. ALGAMATOR
[2023-04-16 14:45] LABS: Basophils Absolute Auto 0.03 K/mm3 (0.00-0.10); Basophils Percent Auto 0.4 % (0.0-1.0); Eosinophils Absolute Auto 0.19 K/mm3 (0.02-0.50); Eosinophils Percent Auto 2.3 % (1.0-6.0); Hemoglobin 12.8 g/dL (11.7-13.8); Immature Granulocyte Absolute 0.04 K/mm3 (0.00-0.00); Immature Granulocyte Percent A 0.5 % (0.0-0.0); Lymphocytes Absolute Auto 2.07 K/mm3 (1.10-4.50); Lymphocytes Percent Auto 24.7 % (18.0-42.0); Mean Corpuscular Hemoglobin 32.8 pg (27.0-31.0); Mean Corpuscular Volume 102.6 fL (78.0-102.0); Mean Platelet Volume 10.6 fl (9.2-11.8); Monocytes Absolute Auto 0.66 K/mm3 (0.10-0.90); Monocytes Percent Auto 7.9 % (2.0-11.0); Neutrophils Absolute Auto 5.4 K/mm3 (1.7-7.2); Neutrophils Percent Auto 64.2 % (50.0-70.0); Platelet Count Result 238 K/mm3 (150-420); Red Cell Distribution Width 13.6 % (11.6-14.4); White Blood Count 8.4 K/mm3 (4.8-10.8)
[2023-04-16 15:54] LABS: Alanine Aminotransferase 15 U/L (14-59); Albumin Level 3.6 g/dL (3.4-5.0); Alkaline Phosphatase 45 U/L (46-116); Anion Gap 6 mmol/L (8-16); Aspartate Amino Transferase 11 U/L (15-37); Bilirubin,Total 0.6 mg/dL (0.00-1.00); Blood Urea Nitrogen 17 mg/dL (7-18); Carbon Dioxide 34 mmol/L (21-32); Chloride 103 mmol/L (98-108); Estimated Glomerular Filt Rate 43; Glucose 86 mg/dL (70-99); NT Pro B Type Natriuretic Pept 513 pg/mL (0-450); Osmolality Calculated 296 mOsm/kg (285-295); Potassium 4.3 mmol/L (3.5-5.1); Sodium 143 mmol/L (136-145); Total Protein 6.7 g/dL (6.4-8.2)
== END 2023-04-16 14:31 | disposition home or self-care (01) ==
LOC: CHSLAB 14:32
PROVIDERS: PCP Internal Medicine; Visit Provider Internal Medicine
DX: R05.9 Cough, unspecified (principal); I70.0 Atherosclerosis of aorta; R06.02 Shortness of breath
CPT/HCPCS: 36415; 71046; 80053; 83880; 85025

== ENCOUNTER 2023-04-21 09:56 | Outpatient (CLI) | payer MEDICARE, SELFPAY ==
--- NOTE | ~2023-04-21 | CT_ITS ---
EXAMINATION: CT sinus wo con DATE: 04/21/2023 10:24 INDICATION: Congestion for one month. Facial soreness. Chronic sinusitis. TECHNIQUE: Computed tomography (CT) of the paranasal sinuses was performed without contrast. Iterativ e reconstruction technique was employed. Exam dose: 292.34 mGy-cm total exam DLP. COMPARISON: None FINDINGS: There is leftward deviation of the nasal septum. The nasal turbinates are moderately promin ent but relatively symmetric in size. There is intralamellar cell of both middle nasal turbinates. Slight mucoperiosteal thickening of the left maxillary sinus. The paranasal sinuses are otherwise nor beau developed and aerated. The ostiomeatal units are patent. The mastoid air cells are normally developed and aerated. Middle and inner ear apparatus appear nichelle l bilaterally. IMPRESSION: Leftward deviation of nasal septum Intralamellar cell of both middle nasal turbinates Slight mucoperiosteal thickening of left maxillary Sinus Reviewed, dictated and finalized at Location A. Reviewed, dictated and finalized at location B. E MILL HAND
== END 2023-04-21 09:57 | disposition home or self-care (01) ==
LOC: CHSIMG 09:58
PROVIDERS: PCP Internal Medicine; Visit Provider Internal Medicine
DX: J32.9 Chronic sinusitis, unspecified (principal); J34.2 Deviated nasal septum; J34.3 Hypertrophy of nasal turbinates
CPT/HCPCS: 70486

== ENCOUNTER 2023-05-19 10:24 | Outpatient (CLI) | payer MEDICARE, SELFPAY ==
--- NOTE | 2023-05-19 10:31 | ECHO_ITS ---
Patient Info Name: Cesia Doss Age: 77 years : 1945 Gender: Female Ht: 62 in Wt: 138 lbs BSA: 1.67 m2 HR: 68 bpm BP: 154 / 103 mmHg Heart Rhythm: Sinus Rhythm Technical Quality: Good Exam Date: 05/19/2023 11:25 AM Exam Location: Echo Lab Patient Status: Outpatient Admit Date: 05/19/2023 Staff Ordering Physician: Sowmya Lilly MD Telemetry Monitor: Aguilar Rose RDCS Attending Provider: Sowmya Lilly MD Referring Physician: Maxx MCGOVERN; Exam Type: CA echo doppler color flow Study Info Indications - elevated BNP, SOB Complete two-dimensional, color flow and Doppler transthoracic echocardiogram is performed. History/Risk Factors Hypertension: No Dyslipidemia: No Congenital Heart Disease (CHD): No Peripheral Arterial Disease (PAD): No Myocardial Infarction (NC): No Chronic Lung Disease: No Obesity: No Renal Disease: No Coronary Artery Disease (CAD) No Congestive Heart Failure (CHF): No Cardiomyopathy/LV Systolic Dysfunction: No Diabetes Mellitus: No COPD: No Tobacco Use: Never Cerebrovascular Disease: No Family History: Coronary Artery Disease Deep Vein Thrombosis (DVT): None Dialysis: None Frailty Scale (CSHA): 1: Very Fit Cardiac Arrest: No Summary 1. Complete two-dimensional, color flow and Doppler transthoracic echocardiogram is performed. 2. Left ventricular chamber dimension is normal. 3. Left ventricular systolic function is normal, estimated at 60-65%. 4. The left ventricular diastolic function is grade I diastolic dysfunction. 5. E/e' 11 is mildly elevated. 6. There is mild aortic valve sclerosis. 7. There is mild aortic valve regurgitation. 8. There is trace mitral valve regurgitation. 9. There is trace tricuspid valve regurgitation. 10. No pulmonary hypertension, estimated pulmonary arterial systolic pressure is 23 mmHg. 11. There is trace pulmonic regurgitation. Left Ventricle E/e' 11 is mildly elevated. Left ventricular chamber dimension is normal. Left ventricular systolic function is normal, estimated at 60-65%. The left ventricular diastolic function is grade I diastolic dysfunction. Right Ventricle Right ventricular systolic function is normal and with normal TAPSE 3.3 cm. Right ventricular chamber dimension is normal. Left Atria Left atrial chamber dimension is normal. Right Atria Right atrial chamber dimension is normal. Aortic Valve The aortic valve is trileaflet. There is mild aortic valve sclerosis. There is no aortic valve stenosis. There is mild aortic valve regurgitation. Pulmonic Valve There is trace pulmonic regurgitation. Mitral Valve There is no mitral valve stenosis. There is trace mitral valve regurgitation. Tricuspid Valve There is trace tricuspid valve regurgitation. No pulmonary hypertension, estimated pulmonary arterial systolic pressure is 23 mmHg. Pericardium/Pleural There is no pericardial effusion. Inferior Vena Cava Normal inferior vena cava with >50% collapse upon inspiration consistent with normal right atrial pressure, 5 mmHg. Aorta The aortic root size at the sinus of Valsalva is normal. Left Ventricular Outflow Tract Name Value Normal LVOT 2D LVOT Diameter 2.1 cm LVOT Doppler -----
--- NOTE | 2023-05-19 11:05 | ECG_ITS ---
Measurements Intervals [place] Rate: 68 P: 65 [place]: 178 QRS: 54 QRSD: 87 T: 43 QT: 404 QTc: 432 Interpretive Statements SINUS RHYTHM MINIMAL ST DEPRESSION [0.025+ mV ST DEPRESSION] ABNORMAL ECG COMPARED TO ECG 01/11/2022 12:11:11 NO SIGNIFICANT CHANGE Electronically Signed On 05-19-2023 17:10:41 GAS LINE INSTALLER SUPERVISOR by Tobias Chisholm M.D.
== END 2023-05-19 10:25 | disposition home or self-care (01) ==
LOC: CHSIMG 10:26
PROVIDERS: PCP Internal Medicine; Visit Provider Internal Medicine
DX: R06.02 Shortness of breath (principal); R94.31 Abnormal electrocardiogram [ECG] [EKG]; I35.1 Nonrheumatic aortic (valve) insufficiency
CPT/HCPCS: 93005; 93306

== ENCOUNTER 2023-06-23 15:17 | Outpatient (CLI) | payer MEDICARE, SELFPAY ==
--- NOTE | ~2023-06-23 | XR_ITS ---
EXAM: XR shoulder RT min 2V DATE: 06/23/2023 15:46 HISTORY: R shoulder pain . COMPARISON: 12/03/2013. FINDINGS: Decreased mineralization. No fracture or dislocation. No lytic or blastic lesion. Status p ost distal clavicular resection. Mild degenerative change at the glenohumeral joint. No erosion or pe riosteal change. Calcified right upper lung granuloma. IMPRESSION: Osteopenia. Mild glenohumeral osteoarthritis. Reviewed, dictated and finalized at location K.
== END 2023-06-23 15:18 | disposition home or self-care (01) ==
LOC: CHSIMG 15:18
PROVIDERS: PCP Internal Medicine; Visit Provider Internal Medicine
DX: M85.89 Other specified disorders of bone density and structure, multiple sites (principal); M19.011 Primary osteoarthritis, right shoulder
CPT/HCPCS: 73030

== ENCOUNTER 2023-06-28 08:04 | Outpatient (CLI) | payer MEDICARE, SELFPAY ==
--- NOTE | ~2023-06-28 | MR_ITS ---
EXAMINATION: MR shoulder RT wo con DATE: 06/28/2023 09:54 INDICATION: Rt. shoulder pain x3 months . TECHNIQUE: Magnetic resonance imaging (MRI) of the right shoulder was performed without intravenous c ontrast. Sequences included axial PD-weighted FS FSE, coronal oblique PD-weighted FS FSE and T2-weigh josue FS FSE, and sagittal oblique T2-weighted FS FSE and T1-weighted FSE. COMPARISON: 12/06/2015; x-ray right shoulder FINDINGS: Coronal sequences are limited by motion. Coracoacromial arch: Mild lateral downsloping of the type I acromion. Status post distal clavicular resection. No signific ant subacromial or subcoracoid narrowing. Rotator cuff: 7 mm articular sided partial tear of the supraspinatus. 5 mm bursal sided partial tear of the infrasp inatus. Teres minor and subscapularis are intact. Biceps tendon and glenoid labrum: Moderate degenerative change in the glenoid labrum, without focal tear. The long head of biceps tendo n is not confidently identified at the biceps anchor and may be torn or surgically fixed at the proxi mal humerus. Fluid: Mild subacromial subdeltoid fluid. Moderate glenohumeral joint fluid. Bones/cartilage: Moderate osteoarthritic change at the glenohumeral joint. IMPRESSION: Articular sided partial tear of the supraspinatus. Bursal sided partial tear of the infraspinatus. Mild subacromial subdeltoid bursitis. Long head of biceps tendon tear versus post surgical change. Moderate glenohumeral joint osteoarthritis. Reviewed, dictated and finalized at location K.
== END 2023-06-28 08:05 | disposition home or self-care (01) ==
LOC: CHSIMG 08:04
PROVIDERS: PCP Internal Medicine; Visit Provider Internal Medicine
DX: M25.511 Pain in right shoulder (principal); S46.811A Strain of other muscles, fascia and tendons at shoulder and upper arm level, right arm, initial encounter; M75.51 Bursitis of right shoulder; M19.011 Primary osteoarthritis, right shoulder
CPT/HCPCS: 73221

== ENCOUNTER 2023-07-09 11:49 | Outpatient (CLI) | payer MEDICARE, SELFPAY ==
--- NOTE | ~2023-07-09 | DEXA_ITS ---
Bone Density Report Name: JOSÉ MIGUEL CRAVEN Age: 77 Sex: Female Ethnicity: White Date of : 1945 Indication: postmenopausal; screening for osteoporosis; height loss; prior fracture; hysterectomy; Referring Provider: Sowmya Lilly Study: Bone densitometry was performed. Exam Date: July 09, 2023 Accession number: [id number] Bone Density: Region BMD T-score Z-score Classification AP Spine(L2, L3, L4) 0.991 -0.8 1.9 Normal Femoral Neck (Left) 0.601 -2.2 0.0 Osteopenia Total Hip (Left) 0.822 -1.0 1.0 Normal Femoral Neck (Right) 0.563 -2.6 -0.3 Osteoporosis Total Hip (Right) 0.783 -1.3 0.7 Osteopenia Femoral Neck Mean 0.582 -2.4 -0.1 Osteopenia Total Hip Mean 0.803 -1.1 0.9 Osteopenia World Health Organization criteria for BMD impression classify patients as: Normal (T-score at or above -1.0), Osteopenia (T-score between -1.0 and -2.5), or Osteoporosis (T-score at or below -2.5). 10-year Fracture Risk: FRAX not reported because: Some T-score for Spine Total or Hip Total or Femoral Neck at or below -2.5 Prior hip or vertebral fracture Treated for osteoporosis Clinical Information Provided by Patient: Have had a previous hip or vertebral fracture Has had a low trauma fracture Is being treated for osteoporosis Has used the following medications: HRT (i.e. estrogen/hormone therapy), Reclast (i.e. zoledronate), Calcium Has the following medical conditions: Hysterectomy Patient maximum height was 61 Menopause Age: 44 No regular weight bearing exercise Does not regularly consume dairy products Drinks caffeinated beverages Onset of menses at age 11 Number of children 4 Impression: The patient has established osteoporosis, based on the Right Femoral Neck T-score and the existence of a prior fracture. The patient has risk factors, including: previous fracture. Discussion: It is important to ask patients whether they are taking their medications and to encourage continued and appropriate compliance with their osteoporosis therapies to reduce fracture risk. It is also important to review their risk factors and encourage appropriate calcium and vitamin D intakes, exercise, fall prevention and other lifestyle measures. Follow-Up: Consider a repeat BMD and Vertebral Fracture Assessment (VFA) exam in 2 years or sooner if medically necessary, to reassess this patient's status. Reported by: Dr. Matt Malone on 07/09/2023 12:19:00 PM. Reviewed, dictated and finalized at location A.
== END 2023-07-09 11:50 | disposition home or self-care (01) ==
LOC: CHSIMG 11:50
PROVIDERS: PCP Internal Medicine; Visit Provider Internal Medicine
DX: Z78.0 Asymptomatic menopausal state (principal); M85.89 Other specified disorders of bone density and structure, multiple sites; M81.0 Age-related osteoporosis without current pathological fracture
CPT/HCPCS: 77080

== ENCOUNTER 2023-07-21 09:39 | Outpatient (RCR) | payer MEDICARE, SELFPAY ==
[2023-07-21 10:01] VITALS: BP_SYST 139
--- NOTE | 2023-07-21 10:56 | OPREHPOC ---
Outpatient Therapy Plan of Care This is a Multidisciplinary Plan of Care that may contain components documented by all disciplines (PT, OT, and ST.) PT Problem 1 PT Problem #1 Knowledge Deficit PT Goal 1 Goal Patient to demonstrate independence with HEP Target Visit 5 PT Problem 2 PT Problem #2 Pain PT Goal 1 Goal 1. patient to demonstrate highest pain at 2/10 Target Visit 10 PT Problem 3 PT Problem #3 Impaired Range of Motion PT Goal 1 Goal 1. Patient to demonstrate 140 deg of R shoulder AROM flexion and abduction to return to reaching into cabinets 2. Patient to demonstrate ability to reach to midline of lumbar spine to return to dressing tasks Target Visit 10 PT Problem 4 PT Problem #4 Impaired Strength PT Goal 1 Goal Patient to demonstrate 4/5 R shoulder strength to return to house hold tasks at PLOF Target Visit 10 PT Problem 5 PT Problem #5 Impaired Functional Mobil PT Goal 1 Goal 1. Patient to demonstrate 30% improvement on QUICKDash 2. Patient to report ability to dress with no increase in pain Target Visit 10
--- NOTE | 2023-07-21 10:56 | PTOPEVAL1 ---
Assessment and note entered by Emmy Christina DPT Evaluation Information Assessment Status Evaluation Diagnosis R shoulder pain Onset 07/08/23 Subjective Information Patient reports in April she was putting [place] decorations away and the next day she had a lot of R shoulder. She reports she has let it rest and iced and it pain has just continued to get worse. She has gotten an MRI that shows a partial tear in infraspinatus and supraspinatus. Patient reports difficulty with reaching out away from her body and reach her back. She reports daily hygiene tasks take her increased time due to pain. She reports she has only taken Tylenol. She returns to PCP in 4 weeks. She reports history of R bicep injury with surgical repair. Reported Pain Level Pain Score 8: Self Report Assessment PT Clinical Summary Mrs. Doss is a 76 year old female who presents to PT with R shoulder pain with partial tear at the R supraspinatus and infraspinatus. She demonstrates decreased R shoulder AROM, decreased R shoulder strength and increased pain limiting her ability to reach away from her body for house hold tasks and complete daily hygiene tasks. She would benefit from skilled PT to address remaining impairments and return to PLOF. Plan of Care Interventions Electrical Stimulation,Hot Pack/Cold Pack,Manual Therapy,Neuro Re-education,Patient/Caregiver Educati,Therapeutic Activities,Therapeutic Exercise PT Services Indicated Yes Treatment Frequency and 2x weekly for 10 visits Duration These treatments will address the objective and functional deficits as defined above. The patient will be advanced safely and appropriately in order for the patient to progress towards his/her prior level of function. Additional exercises will be introduced and as well as a comprehensive home exercise program upon discharge, if needed, ?to ensure carryover of functional gains achieved in the clinic. This treatment plan has been reviewed and agreement upon by the patient.
== END 2023-08-06 20:00 | disposition home or self-care (01) ==
LOC: CHSPT 09:39
PROVIDERS: Visit Provider Internal Medicine
DX: M25.511 Pain in right shoulder (principal); M19.011 Primary osteoarthritis, right shoulder; M75.111 Incomplete rotator cuff tear or rupture of right shoulder, not specified as traumatic
CPT/HCPCS: 97014; 97110; 97161; G0283

== ENCOUNTER 2023-07-29 12:52 | Outpatient (CLI) | payer MEDICARE, SELFPAY ==
[2023-07-29] MEDS: ZOLEDRONIC ACID 5 MG/100 ML 100 ML 400 MG IVPB (13:05)
[2023-07-29 13:14] VITALS: BP 123/59; PULSE 72; RESP 14; TEMP 36.6; O2SAT 97; BMI 32.3
--- NOTE | 2023-07-29 13:22 | PC.NURSE ---
Patient here for yearly IV Reclast infusion. Education given. No concerns voiced. Infusion administered. SEE MAR. Tolerated well. Safe exit of hospital per self/ambulatory.
== END 2023-07-29 12:53 | disposition home or self-care (01) ==
PROVIDERS: PCP Internal Medicine; Visit Provider Internal Medicine
DX: M81.0 Age-related osteoporosis without current pathological fracture (principal)
CPT/HCPCS: 96374; J3489

== ENCOUNTER 2023-12-24 10:06 | Outpatient (CLI) | payer MEDICARE, SELFPAY ==
--- NOTE | ~2023-12-24 | XR_ITS ---
EXAMINATION: XR foot LT min 3V DATE: 12/24/2023 10:43 INDICATION: Left foot pain and swelling TECHNIQUE: Dorsoplantar, two oblique and lateral views of the left foot were obtained. COMPARISON: 03/17/2017 FINDINGS: Diffuse osteopenia. Bone alignment is normal. No fracture. Mild polyarticular osteoarthritis at the f irst metatarsophalangeal and multiple tarsometatarsal and interphalangeal joints. No cortical erosion s to suggest inflammatory arthritis. Small plantar calcaneal spur. Additional tiny the hepatic ossicl es at the distal Achilles tendon and proximal plantar aponeurosis. Additional small enthesophytes at the lateral base of the fifth metatarsal. Soft tissues are unremarkable IMPRESSION: 1. Mild polyarticular osteoarthritis in the left mid and forefoot. No acute osseous abnormality. Reviewed, dictated and finalized at location B. IMPRESSION: 1. Mild polyarticular osteoarthritis in the left mid and forefoot. No acute oss eous abnormality.
--- NOTE | ~2023-12-24 | US_ITS ---
EXAMINATION: US venous doppler [facility] DATE: 12/24/2023 10:34 INDICATION: Left lower limb swelling TECHNIQUE: Grayscale ultrasound images without and with compression and Doppler ultrasound images of the left lower extremity veins were obtained. COMPARISON: None. FINDINGS: The visualized portions of left common femoral vein, profunda (deep) femoral vein, femoral vein, popl iteal vein, peroneal veins, posterior tibial veins, gastrocnemius vein and greater saphenous vein out flow are patent. IMPRESSION: 1. No deep venous thrombosis in the left lower limb. Reviewed, dictated and finalized at location B.
== END 2023-12-24 10:07 | disposition home or self-care (01) ==
LOC: CHSIMG 10:09
PROVIDERS: PCP Internal Medicine; Visit Provider Internal Medicine
DX: M79.89 Other specified soft tissue disorders (principal); M19.072 Primary osteoarthritis, left ankle and foot
CPT/HCPCS: 73630; 93971

== ENCOUNTER 2024-05-27 11:45 | Outpatient (CLI) | payer MEDICARE, SELFPAY ==
--- NOTE | ~2024-05-27 | MM_ITS ---
EXAMINATION: MM screening arianne BI w elba HISTORY: Screening TECHNIQUE: Craniocaudal and mediolateral oblique 3-D tomosynthesis images were obtained and synthetic 2-D images were generated. CAD analysis was submitted and interpreted. COMPARISON: Comparison to multiple prior studies sequentially, with oldest reviewed study dated 08/24. BREAST PARENCHYMAL COMPOSITION: Dense: The breasts are heterogeneously dense, which may obscure small masses FINDINGS: There is a developing cluster of indeterminate calcifications in the upper outer quadrant o f the left breast, middle third. The right breast is stable without evidence for malignancy. IMPRESSION: 1. Developing cluster of left breast calcifications. 2. Magnification views are recommended. BI-RADS Category 0: Incomplete: Needs additional imaging evaluation. Reviewed, dictated and finalized at location B. ON TACKER
--- OUTSIDE RECORDS SUMMARY | 2024-05-27 11:47 | XMS_ITS | Clinical Summary ---
Author Organization [facility] Address [address] [place] [address] Care Team Providers Care Lumber Sales Supervisor Name Role Phone Arcadio Leggett MD Unavailable [phone] Sowmya Lilly MD Primary Care Provider [phone] Allergies Active Allergy Reactions Criticality Noted Date Comments Sulfa Antibiotics Rash Medium 10/13/2017 Diarrhea also Medications clotrimazole 1 % cream APPLY ZAINA THICKNESS ON TO AFFECTED NAILS DAILY FOR NAIL FUNGUS 0 Active furosemide 40 MG tablet 0 Active ibuprofen 200 MG tablet Take by mouth every 6 (six) hours as needed. Active meclizine 12.5 MG tablet TAKE 1 TABLET BY MOUTH THREE TIMES DAILY NEEDED FOR VERTIGO 9 Active citalopram 40 MG tablet Take 40 mg by mouth daily. 1 Active Active Problems Problem Noted Date Diagnosed Date SOB (shortness of breath) 12/03/2019 Nonrheumatic mitral valve regurgitation 12/02/19 20 Abnormal stress test 04/25/2017 Social History Tobacco Use Types Packs/Day Years Used Date Smoking Tobacco: Former Cigarettes Q uit: 1979 Smokeless Tobacco: Never Alcohol Use Standard Drinks/Week Comments Yes 16.7 (1 standard drink = 0.6 oz pure alcohol) Comments Unknown Sex and Gender Information Value Date Recorded Sex Assigned at Not on file Legal Sex Female 8:46 PM CDT Gender Identity Not on file Sexual Orientation Not on file Last Filed Vital Signs Vital Sign Reading Time Taken Comments Blood Pressure 120/60 03/19/2022 3:48 PM INTERNAL MEDICINE NURSE PRACTITIONER Pulse 66 03/19/2022 3:48 PM INTERNAL MEDICINE NURSE PRACTITIONER Temperature - - Respiratory Rate 18 03/19/2022 3:48 PM INTERNAL MEDICINE NURSE PRACTITIONER Oxygen Saturation 99% 02/28/2021 12:53 PM INTERNAL MEDICINE NURSE PRACTITIONER Inhaled Oxygen Concentration - - Weight 63.5 kg (140 lb) 03/19/2022 3:48 PM INTERNAL MEDICINE NURSE PRACTITIONER Height 154.9 cm (5' 1 ) 03/19/2022 3:48 PM INTERNAL MEDICINE NURSE PRACTITIONER Body Mass Index 26.45 03/19/2022 3:48 PM INTERNAL MEDICINE NURSE PRACTITIONER Plan of Treatment Health Maintenance Due Date Last Done Comments Pneumococcal Vaccine: 65+ Years (1 of 2 - PCV) 12[birth year]10/1951 DTaP, Tdap and Td Vaccines ( 1 - Tdap) 12/10/1962 Zoster Vaccines (1 of 2) 12/10/1993 Annual Medicare Wellness Visit 12/10/2008 Dexa Scan (General) 12/10/2008 RSV Immunization or 60+ Years (1 - 1-dose 75+ series) 12/10/2018 COVID-19 Vaccine (3 - 2023-2 5 season) 2023 06/28/2020, 06/07/2020 Influenza Adult (#1) 2024 12/06/2020, 02/15/2020 Meningococcal B Vaccine Aged Out No l onger eligible based on patient's age to complete this topic Meningococcal Vaccine Aged Out No burt refugio eligible based on patient's age to complete this topic RSV Immunizations Under 20 Months Aged Out No longer eligible b ased on patient's age to complete this topic Insurance [facility]IC[facility] Advance Directives Documents on File Type Date Recorded 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 Power of Eyelet Cutter 02/28/2021 12:46 PM POA Vu Doss Advance Directives and Living Will 05/02/2017 SHORT FORM POWER OF CYLINDER STEAMER Healthcare Agents on File Name Relationship Healthcare Agent Relationshi p Communication Kayla Valentin Other First Alternate Health Care Agent Thuan Kenrick Doss Other Second Alternate H [facility] Care Agent Care Teams Lumber Sales Supervisor Relationship Specialty Start Date End Date Sowmya Lilly MD [address] [place] [address] PCP - General INTERNAL MEDICINE 11/09/19 Arcadio Leggett MD [address] [place], [place] [id number] CARDIOVASCULAR DISEASE 04/25/17
--- OUTSIDE RECORDS SUMMARY | 2024-05-27 11:48 | XMS_ITS | Clinical Summary ---
Author Organization [facility] Address [address] [place] [address] Care Team Providers Care Hat Liner Name Role Phone Sowmya Lilly MD Primary Care Provider [phone] Source Comments [facility],non-[facility] Affiliates and Associated Physician Practices is amultiple site organization consisting of ambulatory clinics and hospital sitesin [place], [place], [place] and [place]. This disclosure is being madepursuant to the Care Everywhere program and may not contain all information available regarding this patient. Last updated 18.[facility] Allergies Active Allergy Reactions Criticality Noted Date Comments Sulfa Drugs Rash Medium 10/13/2017 Diarrhea also Medications * Be aware that medications may not be up to date on this document. Alwaysverify current medications with the patient. Medication Sig Dispensed Refills Start Date End Date Status furosemide (LASIX) 40 MG tablet Take 40 mg by mouth once daily Active ibuprofen (MOTRIN) 200 MG tablet Take by mouth every 6 hours as needed for Pain Active citalopram (CELEXA) 20 MG tablet Take 20 mg by mouth at bedtime Active Social History Tobacco Use Types Packs/Day Years Used Date Smoking Tobacco: Never Smokeless Tobacco: Never Sex and Gender Information Value Date Recorded Sex Assigned at Not on file Gender Identity Not on file Sexual Orientation Not on file Last Filed Vital Signs Vital Sign Reading Time Taken Comments Blood Pressure 123/62 10/20/2017 10:47 AM CDT Pulse 65 10/20/2017 10:47 AM CDT Temperature - - Respiratory Rate 16 10/20/2017 10:47 AM CDT Oxygen Saturation 94% 10/20/2017 10:47 AM CDT Inhaled Oxygen Concentration - - Weight - - Height - - Body Mass Index - - Plan of Treatment Health Maintenance Due Date Last Done Comments BONE DENSITY TESTING 1945 MEDICARE AWV 12 MONTHS 1945 DTAP/TDAP/TD VACCINES (1 - Tdap) 12/10/1962 PNEUMOCOCCAL VACCINE 50+ (1 of 1 - PCV) 12/10/1993 ZOSTER VACCINE (1 of 2) 12/10/1993 Respiratory Syncytial Virus (RSV) Vaccine Pt: or over 60 yrs (1 - 1-dose 75+ series) 12/10/2018 COVID-19 VACCINE (1 - 2023-2 5 season) 2023 INFLUENZA VACCINE (#1) 2023 DEPRESSION SCREENING 04/14/2024 HEPATITIS B VACCINE Aged Out No longe r eligible based on patient's age to complete this topic HIB VACCINE Aged Out No longer eligi ble based on patient's age to complete this topic HPV VACCINE Aged Out No longer eligi ble based on patient's age to complete this topic MENINGOCOCCAL (Group B) VACCINE Aged Out No longer eligible based on patient's age to complete this topic MENINGOCOCCAL VACCINE Aged Out No burt refugio eligible based on patient's age to complete this topic Care Teams Hat Liner Relationship Specialty Start Date End Date Sowmya Lilly MD [address] [place] [address] [facility] - General 12/14/21
--- OUTSIDE RECORDS SUMMARY | 2024-05-27 11:48 | XMS_ITS | Patient Health Summary ---
Author Organization [facility] Address [address] [facility] [place] [address] Care Team Providers Care Product Support Consultant Name Role Phone Sowmya Lilly MD Primary Care Provider Note from [facility],non-owned Affiliates and Associated Physician Practices is amultiple site organization consisting of ambulatory clinics and hospital sitesin [place], [place], [place] and [place]. This disclosure is being madepursuant to the Care Everywhere program and may not contain all information available regarding this patient. Last updated 18.[facility] Allergies * Sulfa Drugs(Rash) -Medium Criticality Medications * Be aware that medications may not be up to date on this document. Alwaysverify current medications with the patient. * furosemide (LASIX) 40 MG tablet Take 40 mg by mouth once daily * ibuprofen (MOTRIN) 200 MG tablet Take by mouth every 6 hours as needed for Pain * citalopram (CELEXA) 20 MG tablet Take 20 mg by mouth at bedtime Social History Tobacco Use Types Packs/Day Years [...] - - Body Mass Index - - Procedures * PAIN MANAGEMENT PROCEDURE TIME(Performed 10/20/2017) Performed for Intervertebral disc disorder with radiculopathy of lumbosacral region, Spinal stenosis of lumbar region without neurogenic claudication, Low back pain, unspecified back pain laterality,unspecified chronicity, with sciatica presence unspecified, Other chronic pain * PAIN MANAGEMENT PROCEDURE TIME(Performed 10/13/2017) Performed for Intervertebral disc disorder with radiculopathy of lumbosacral region, Spinal stenosis of lumbar region with radiculopathy, Low back pain, unspecified back pain laterality, unspecified chronicity, with sciatica presence unspecified, Other chronic pain * PAIN MANAGEMENT PROCEDURE TIME(Performed 10/06/2017) Performed for Intervertebral disc disorder with radiculopathy of lumbosacral region, Low back pain,unspecified back pain laterality, unspecified chronicity, with sciatica presence unspecified, Otherchronic pain Results * PAIN MANAGEMENT PROCEDURE TIME (10/20/2017 10:39 AM CDT) Only the most recent of3 resultswithin the time period is included. Anatomical Region Laterality Modality X-Ray Angiograph y Narrative 10/20/2017 10:52 AM CDT Aguila Sanders MD 10/20/2017 10:52 AM Right L5 & S1 Transforaminal Epidural Injection Patient Name: Cesia Mckeonelderleonard Provider: Aguila Sanders MD Date of : 1945 Date: 10/20/2017 PCP: No primary care provider on file. Allergies: Allergies as of 10/20/2017 - Negrito as Reviewed 10/20/2017 Allergen Reaction Noted Sulfa drugs Rash 10/13/2017 Medical History: No past medical history on file. Current Medications: Current Outpatient Prescriptions Medication furosemide (LASIX) 40 MG tablet ibuprofen (MOTRIN) 200 MG tablet citalopram (CELEXA) 20 MG tablet Current Facility-Administered Medications Medication iopamidol (ISOVUE M 200) 41 % contrast Procedure: TFE Right L5 & S1 Diagnosis/Indication::Lumbar Transforaminal epidural injection M54.17, M48.06 M51.17 Indication for Procedure: Intractable radicular pain of the lower extremity. Other conservative therapies and/or treatments provided inadequate pain relief. Procedure: Lumbar/Sacral Transforaminal Injection. Informed Consent: After the patient ,Cesia Selam was informed of the risks and benefits of the procedure and all questions were answered, consent was signed. Risks benefits, and alternative were discussed including risk of infection, bleeding , nerve damage, worsening pain, no pain relief whatsoever, transient increase in blood pressure, blood sugar, fluid retention,possibility of headache, possibility of shingles, or any other viral outbreak secondary to immunosuppressant effects of steroid use. Prep: Pt identified, proper procedure identified, site identified, and marked by Dr. Sanders. Responsible cdl team truck driver is not needed due to the patient not having sedation.The patient was placed in a prone position and was prepped with Chloraprep. Fluoroscopy: Procedure done under fluoroscopy; verifying needle placement with fluoroscopy . The transverse process/sacral foramen was identified and lidocaine 1% was injected. Local Injection: Lidocaine 1.0% into the skin and subcutaneous tissues using a 25 gauge needle. Needle Placement: A 22 gauge 3 1/2 spinal needle was then inserted through the anesthetized area until the tip stimulated the nerve root or was in the six o'clock position to the pedicle in AP and superior foramen in Lat fluoroscopic visualization. Nerve Root injected: Right L5 & S1. Total Lidocaine: 1%; 6 ml Dexamethasone 10mg, 5mg per level Isovue-M 200.5cc per level Estimated Blood Loss: None Isovue-M 200 waste: 9cc The patient tolerated the procedure well and there were no complications. The patient was taken to the recovery area. The patient remained in stable condition with no apparent complications. Vital signs stable. Injection site clean, dry, and intact. Post procedure instructions were given to the patient and a follow up appointment was confirmed. The patient was discharged with information on how to reach the clinic at anytime for questions or concerns. Pt ambulatory, denies complaints, DC to home. Pt survey given. Procedure codes: Epi Transfor Lumbar/Sac (S), Epi Add Levels Lumb/Sac, Fluoro. Aguila Sanders MD Aguila Sanders MD DIAGNOSTIC IMAGING O [facility] Care Teams Product Support Consultant Relationship Specialty Start Date End Date Sowmya Lilly MD [address] [place] [id number] PCP - General 12/14/21
--- OUTSIDE RECORDS SUMMARY | 2024-05-27 11:48 | XMS_ITS | Referral Summary ---
Author Organization [facility] Address [address] [place] [address] Care Team Providers Care Hand Booked Folder And Stitcher Name Role Phone Tai Adams MD Primary Care Provider [phone] Allergies Active Allergy Reactions Criticality Noted Date Comments Sulfa (Sulfonamide Antibiotics) Medications citalopram (CeleXA) 40 mg tablet 04/10/2022 Active losartan-hydroCHLO ROthiazide (HYZAAR) 50-12.5 mg per tablet 03/26/2022 Activ e Active Problems Problem Noted Date Diagnosed Date Primary hypertension 04/11/2022 Assessment & Plan (10/21/2022 11:01 AM CDT): Controlled with medication - continue treatment plan per PCP Assessment & Plan (04/11/2022 11:37 AM SAND CLEANING MACHINE OPERATOR): Controlled with medication - continue treatment plan per PCP Nontoxic uninodular goiter 04/11/2022 Assessment & Plan (10/21/2022 11:11 AM CDT): Detected on Thyroid ultrasound on 12/26/21 Right lobe is absent ( no surgery) Left lobe nodule 2.5 cm TR4 FNA biopsy done on 02/08/22 Inadequate for diagnosis Repeat thyroid Ultrasound on 05/06/22 Left lobe nodules 1.9 cm TR3 and 1.0 TR4 Patient is clinically euthyroid TSH was normal at 1.4 on 01/11/22 Plan: The abnormal thyroid ultrasound reviewed and explained to patient. We will recheck thyroid ultrasound this month Follow up and further recommendation will be decided after we obtain above test results. Assessment & Plan (04/11/2022 11:36 AM SAND CLEANING MACHINE OPERATOR): Detected on Thyroid ultrasound on 12/26/21 Right lobe is absent ( no surgery) Left lobe nodule 2.5 cm TR4 FNA biopsy done on 02/08/22 Inadequate for diagnosis Patient is clinically euthyroid TSH was normal at 1.4 on 01/11/22 Plan: The abnormal thyroid ultrasound reviewed and explained to patient. I recommend further evaluation of thyroid nodule to rule out cancer. We will repeat thyroid ultrasound. Consider repeating thyroid biopsy [facility] to obtain better sample. Follow up and further recommendation will be decided after we obtai above test results. Hoarseness of voice 04/11/2022 Assessment & Plan (04/11/2022 11:37 AM SAND CLEANING MACHINE OPERATOR): Chronic and evaluated by ENT years ago, patient reports history of vocal cord issues. - I recommend that she has an evaluation by ENT. 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 Social History Tobacco Use Types Packs/Day Years Used Date Smoking Tobacco: Former Cigarettes Q uit: 1980 Tobacco Cessation:Counseling Given: Not Answered Alcohol Use Standard Drinks/Week Comments Yes 0 (1 standard drink = 0.6 oz pur e alcohol) Comments Unknown Sex and Gender Information Value Date Recorded Sex Assigned at Not on file Legal Sex Female 10:33 AM SAND CLEANING MACHINE OPERATOR Gender Identity Not on file Sexual Orientation Not on file Last Filed Vital Signs Vital Sign Reading Time Taken Comments Blood Pressure 126/62 10/21/2022 10:45 AM CDT Pulse 57 03/09/2014 11:39 AM SAND CLEANING MACHINE OPERATOR Temperature - - Respiratory Rate - - Oxygen Saturation 95% 03/09/2014 11:39 AM SAND CLEANING MACHINE OPERATOR Inhaled Oxygen Concentration - - Weight 63.7 kg (140 lb 6.4 oz) 10/21/2022 10:45 AM CDT Height 154.9 cm (5' 1 ) 10/21/2022 10:45 AM CDT Body Mass Index 26.53 10/21/2022 10:45 AM CDT Plan of Treatment Not on file Insurance [employer] Care Teams Hand Booked Folder And Stitcher Relationship Specialty Start Date End Date Tai Adams MD [address] [place] [address] PCP - General 03/08/14
--- OUTSIDE RECORDS SUMMARY | 2024-05-27 11:48 | XMS_ITS | Clinical Summary ---
Author Organization [facility] Address [address] [place] [address] Care Team Providers Care Acid Purifier Name Role Phone Tai Adams MD Primary Care Provider [phone] Allergies Active Allergy Reactions Criticality Noted Date Comments Sulfa (Sulfonamide Antibiotics) Medications citalopram (CeleXA) 40 mg tablet 04/10/2022 Active losartan-hydroCHLO ROthiazide (HYZAAR) 50-12.5 mg per tablet 03/26/2022 Activ e Active Problems Problem Noted Date Diagnosed Date Primary hypertension 04/11/2022 Assessment & Plan (10/21/2022 11:01 AM CDT): Controlled with medication - continue treatment plan per PCP Assessment & Plan (04/11/2022 11:37 AM WALLPAPER INSPECTOR): Controlled with medication - continue treatment plan [...] results. Assessment & Plan (04/11/2022 11:36 AM WALLPAPER INSPECTOR): Detected on Thyroid ultrasound on 12/26/21 Right [...] repeat thyroid ultrasound. Consider repeating thyroid biopsy @[facility] to obtain better sample. Follow up and further recommendation will be decided after we obtai above test results. Hoarseness of voice 04/11/2022 Assessment & Plan (04/11/2022 11:37 AM WALLPAPER INSPECTOR): Chronic and evaluated by ENT years ago, patient reports history of vocal cord issues. - I recommend that she has an evaluation by ENT. 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 Family History Medical History Relation Name Comments Dementia Father Dementia; Dementia Mother Dementia; Relation Name Status Comments Father Mother Social History Tobacco Use Types Packs/Day Years Used Date Smoking Tobacco: Former Cigarettes Q uit: 1980 Tobacco Cessation:Counseling Given: Not Answered Alcohol Use Standard Drinks/Week Comments Yes 0 (1 standard drink = 0.6 oz pur e alcohol) Comments Unknown Sex and Gender Information Value Date Recorded Sex Assigned at Not on file Legal Sex Female 10:33 AM WALLPAPER INSPECTOR Gender Identity Not on file Sexual Orientation Not on file Obstetrics History Last Filed Vital Signs Vital Sign Reading Time Taken Comments Blood Pressure 126/62 10/21/2022 10:45 AM CDT Pulse 57 03/09/2014 11:39 AM WALLPAPER INSPECTOR Temperature - - Respiratory Rate - - Oxygen Saturation 95% 03/09/2014 11:39 AM WALLPAPER INSPECTOR Inhaled Oxygen Concentration - - Weight 63.7 kg (140 lb 6.4 oz) 10/21/2022 10:45 AM CDT Height 154.9 cm (5' 1 ) 10/21/2022 10:45 AM CDT Body Mass Index 26.53 10/21/2022 10:45 AM CDT Plan of Treatment Health Maintenance Due Date Last Done Comments Depression Screening 1945 Fall Risk Assessment 1945 Osteoporosis Screening-Bone Density Scan 1945 DTaP/Tdap/Td Vaccine (1 - Tdap) 12/10/1954 Hepatitis B Screening 12/10/1961 Zoster Vaccine (1 of 2) 12/10/1993 Pneumococcal vaccine 65+ (1 of 1 - PCV) 12/10/2008 Well Visit 65+ 12/10/2008 Covid-19 Vaccine (3 - season) 2023, 06/07/2020 Influenza Vaccine (#1) 2023 12/06/2020, 2019 Insurance [facility] Address: [address] [address] MED[employer]ARE [employer] Care Teams Acid Purifier Relationship Specialty Start Date End Date Tai Adams MD [address] [place] [address], [place] [address] PCP - General 03/08/14
--- OUTSIDE RECORDS SUMMARY | 2024-05-27 11:48 | XMS_ITS | Referral Summary ---
Author Organization [facility] Address [address] [place] [address] Care Team Providers Care Hedis Specialist Name Role Phone Sowmya Lilly MD Primary Care Provider [phone] Source Comments [facility],non-[facility] Affiliates and Associated Physician Practices is amultiple site organization consisting of ambulatory clinics and hospital sitesin [place], [place] and [place]. This disclosure is being madepursuant to the Care Everywhere program and may not contain all information available regarding this patient. Last updated 18.[facility] [email or web address] Allergies Active Allergy Reactions Criticality Noted Date [...] Mass Index - - Plan of Treatment Not on file Care Teams Hedis Specialist Relationship Specialty Start Date End Date Sowmya Lilly MD [address] [place] [phone] PCP - General 12/14/21
== END 2024-05-27 11:46 | disposition home or self-care (01) ==
PROVIDERS: PCP Internal Medicine; Visit Provider Internal Medicine
DX: Z12.31 Encounter for screening mammogram for malignant neoplasm of breast (principal); R92.8 Other abnormal and inconclusive findings on diagnostic imaging of breast
CPT/HCPCS: 77063; 77067

== ENCOUNTER 2024-05-31 09:45 | Outpatient (CLI) | payer MEDICARE, SELFPAY ==
--- NOTE | ~2024-05-31 | MM_ITS ---
EXAMINATION: MM diagnostic arianne LT w ebla HISTORY: Follow-up left breast calcifications TECHNIQUE: Additional 3-D tomosynthesis images of the left breast were performed and synthetic 2-D im ages were generated. CAD analysis was submitted and interpreted. COMPARISON: Comparison to multiple prior studies sequentially, with oldest reviewed study dated 02/12. BREAST PARENCHYMAL COMPOSITION: Dense: The breasts are heterogeneously dense, which may obscure small masses FINDINGS: There is a developing cluster of indeterminate calcifications in the upper outer quadrant o f the left breast, posterior depth. There are no suspicious masses or architectural distortion. IMPRESSION: 1. Helping cluster of indeterminate calcifications upper outer quadrant of the left breast. 2. Stereotactic left breast biopsy recommended. BI-RADS category 4, suspicious findings. Reviewed, dictated and finalized at location B. HANT TAILOR
--- OUTSIDE RECORDS SUMMARY | 2024-05-31 12:34 | XMS_ITS | Clinical Summary ---
Author Organization [facility] [employer] Address [address] [facility] [place] [address] Care Team Providers Care Manager Water Wastewater Name Role Phone Sowmya Lilly MD Primary Care Provider [phone] Source Comments [facility],non-[facility] Affiliates and Associated Physician Practices is amultiple site organization consisting of ambulatory clinics and hospital sitesin [place], [place], [place] and [place]. This disclosure is being madepursuant to the Care Everywhere program and may not contain all information available regarding this patient. Last updated 18.[facility] [employer] Allergies Active Allergy Reactions Criticality Noted Date [...] age to complete this topic Care Teams Manager Water Wastewater Relationship Specialty Start Date End Date Sowmya Lilly MD [address] [place] [address] [facility] - General 12/14/21
--- OUTSIDE RECORDS SUMMARY | 2024-05-31 12:34 | XMS_ITS | Referral Summary ---
Author Organization [facility] Address [address] [place] [address] Care Team Providers Care Retail Cosmetics Sales Beauty Advisor Name Role Phone Tai Adams MD Primary Care Provider [phone] Allergies Active Allergy Reactions Criticality Noted Date Comments Sulfa (Sulfonamide Antibiotics) Medications citalopram (CeleXA) 40 mg tablet 04/10/2022 Active losartan-hydroCHLO ROthiazide (HYZAAR) 50-12.5 mg per tablet 03/26/2022 Activ e Active Problems Problem Noted Date Diagnosed Date Primary hypertension 04/11/2022 Assessment & Plan (10/21/2022 11:01 AM CDT): Controlled with medication - continue treatment plan per PCP Assessment & Plan (04/11/2022 11:37 AM BOX OFFICE MANAGER): Controlled with medication - continue treatment plan [...] results. Assessment & Plan (04/11/2022 11:36 AM BOX OFFICE MANAGER): Detected on Thyroid ultrasound on 12/26/21 Right [...] repeat thyroid ultrasound. Consider repeating thyroid biopsy @[facility] to obtain better sample. Follow up and further recommendation will be decided after we obtai above test results. Hoarseness of voice 04/11/2022 Assessment & Plan (04/11/2022 11:37 AM BOX OFFICE MANAGER): Chronic and evaluated by ENT years ago, [...] on file Legal Sex Female 10:33 AM BOX OFFICE MANAGER Gender Identity Not on file Sexual Orientation Not on file Last Filed Vital Signs Vital Sign Reading Time Taken Comments Blood Pressure 126/62 10/21/2022 10:45 AM CDT Pulse 57 03/09/2014 11:39 AM BOX OFFICE MANAGER Temperature - - Respiratory Rate - - Oxygen Saturation 95% 03/09/2014 11:39 AM BOX OFFICE MANAGER Inhaled Oxygen Concentration - - Weight 63.7 kg (140 lb 6.4 oz) 10/21/2022 10:45 AM CDT Height 154.9 cm (5' 1 ) 10/21/2022 10:45 AM CDT Body Mass Index 26.53 10/21/2022 10:45 AM CDT Plan of Treatment Not on file Insurance [employer] Care Teams Retail Cosmetics Sales Beauty Advisor Relationship Specialty Start Date End Date Tai Adams MD [address] [place] [address] PCP - General 03/08/14
--- OUTSIDE RECORDS SUMMARY | 2024-05-31 12:34 | XMS_ITS | Clinical Summary ---
Author Organization [facility] Address [address] [place] [address] Care Team Providers Care Solidworks Drafter Name Role Phone Tai Adams MD Primary Care Provider [phone] Allergies Active Allergy Reactions Criticality Noted Date Comments Sulfa (Sulfonamide Antibiotics) Medications citalopram (CeleXA) 40 mg tablet 04/10/2022 Active losartan-hydroCHLO ROthiazide (HYZAAR) 50-12.5 mg per tablet 03/26/2022 Activ e Active Problems Problem Noted Date Diagnosed Date Primary hypertension 04/11/2022 Assessment & Plan (10/21/2022 11:01 AM CDT): Controlled with medication - continue treatment plan per PCP Assessment & Plan (04/11/2022 11:37 AM WEB COORDINATOR): Controlled with medication - continue treatment plan [...] results. Assessment & Plan (04/11/2022 11:36 AM WEB COORDINATOR): Detected on Thyroid ultrasound on 12/26/21 Right [...] repeat thyroid ultrasound. Consider repeating thyroid biopsy @[facility] to obtain better sample. Follow up and further recommendation will be decided after we obtai above test results. Hoarseness of voice 04/11/2022 Assessment & Plan (04/11/2022 11:37 AM WEB COORDINATOR): Chronic and evaluated by ENT years ago, [...] on file Legal Sex Female 10:33 AM WEB COORDINATOR Gender Identity Not on file Sexual Orientation Not on file Obstetrics History Last Filed Vital Signs Vital Sign Reading Time Taken Comments Blood Pressure 126/62 10/21/2022 10:45 AM CDT Pulse 57 03/09/2014 11:39 AM WEB COORDINATOR Temperature - - Respiratory Rate - - Oxygen Saturation 95% 03/09/2014 11:39 AM WEB COORDINATOR Inhaled Oxygen Concentration - - Weight 63.7 [...] (#1) 2023 12/06/2020, 2019 Insurance [employer] Care Teams Solidworks Drafter Relationship Specialty Start Date End Date Tai Adams MD [address] [place] [address], [place] [address] PCP - General 03/08/14
--- OUTSIDE RECORDS SUMMARY | 2024-05-31 12:34 | XMS_ITS | Patient Health Summary ---
Author Organization [facility] [employer] Address [address] [facility] [place] [address] Care Team Providers Care Sheet Rock Hanger Name Role Phone Sowmya Lilly MD Primary Care Provider [phone] Note from [facility],non-owned Affiliates and Associated Physician Practices is amultiple site organization consisting of ambulatory clinics and hospital sitesin [place], [place], [place] and [place]. This disclosure is being madepursuant to the Care Everywhere program and may not contain all information available regarding this patient. Last updated 18.[facility] [employer] Allergies * Sulfa Drugs(Rash) -Medium Criticality Medications [...] identified, and marked by Dr. Sanders. Responsible truck driver is not needed due to [...] MD Aguila Sanders MD DIAGNOSTIC IMAGING O [facility] Care Teams Sheet Rock Hanger Relationship Specialty Start Date End Date Sowmya Lilly MD [address] [place] [phone] PCP - General 12/14/21
--- OUTSIDE RECORDS SUMMARY | 2024-05-31 12:34 | XMS_ITS | Clinical Summary ---
Author Organization [facility] Address [address] [place] [address] Care Team Providers Care Professor Of Rhetoric Name Role Phone Arcadio Leggett MD Unavailable [phone] Sowmya Lilly MD Primary Care Provider [phone] Allergies Active Allergy Reactions Criticality Noted Date [...] Comments Blood Pressure 120/60 03/19/2022 3:48 PM LABEL SEWER Pulse 66 03/19/2022 3:48 PM LABEL SEWER Temperature - - Respiratory Rate 18 03/19/2022 3:48 PM LABEL SEWER Oxygen Saturation 99% 02/28/2021 12:53 PM LABEL SEWER Inhaled Oxygen Concentration - - Weight 63.5 kg (140 lb) 03/19/2022 3:48 PM LABEL SEWER Height 154.9 cm (5' 1 ) 03/19/2022 3:48 PM LABEL SEWER Body Mass Index 26.45 03/19/2022 3:48 PM LABEL SEWER Plan of Treatment Health Maintenance Due Date [...] age to complete this topic Insurance MEDICARE [facility] MEDIC[facility] Advance Directives Documents on File Type Date Recorded Patient Community Service Representative Expl anation Power of Commodity Loan Clerk 02/28/2021 12:46 PM POA Vu Doss Advance Directives and Living Will 05/02/2017 SHORT FORM POWER OF SERVICE MECHANIC Healthcare Agents on File Name Relationship Healthcare Agent Relationshi p Communication Kayla Valentin Other First Alternate Health Care Agent Thuan Kenrick Doss Other Second Alternate H [facility] Care Agent Care Teams Professor Of Rhetoric Relationship Specialty Start Date End Date Sowmya Lilly MD [address] [place] [address] PCP - General INTERNAL MEDICINE 11/09/19 Arcadio Leggett MD [address] [place], [place] [id number] CARDIOVASCULAR DISEASE 04/25/17
--- OUTSIDE RECORDS SUMMARY | 2024-05-31 12:34 | XMS_ITS | Referral Summary ---
Author Organization [facility] Address [address] [place] [address] Care Team Providers Care Featheredger And Reducer Machine Name Role Phone Sowmya Lilly MD Primary Care Provider [phone] Source Comments [facility] Affiliates and Associated Physician Practices is amultiple site organization consisting of ambulatory clinics and hospital sitesin [place], [place], [place] and [place]. This disclosure is being madepursuant to the Care Everywhere program and may not contain all information available regarding this patient. Last updated 18.[facility] [employer] Allergies Active Allergy Reactions Criticality Noted Date [...] of Treatment Not on file Care Teams Featheredger And Reducer Machine Relationship Specialty Start Date End Date Sowmya Lilly MD [address] [place] [phone] PCP - General 12/14/21
== END 2024-05-31 09:46 | disposition home or self-care (01) ==
LOC: CHSIMG 09:48
PROVIDERS: PCP Internal Medicine; Visit Provider Internal Medicine
DX: R92.8 Other abnormal and inconclusive findings on diagnostic imaging of breast (principal)
CPT/HCPCS: 77061; 77065; G0279

== ENCOUNTER 2024-07-09 09:55 | Outpatient (CLI) | payer MEDICARE, SELFPAY ==
--- NOTE | ~2024-07-09 | XR_ITS ---
XR hand LT min 3V, XR wrist LT min 3V 07/09/2024 10:21 Indication: Chronic wrist and hand pain Procedure: 3 views left wrist and 3 views left hand Comparison: No prior studies for comparison. Findings: There is polyarticular osteoarthritis most advanced at the triscaphe and first carpal metac arpal joint. Osteopenia. No fracture or traumatic malalignment. No foreign bodies. Impression: 1: Mild-moderate polyarticular osteoarthritis. Reviewed, dictated and finalized at location A. Impression: 1: Mild-moderate polyarticular osteoarthritis. Impression: 1: Mild-moderate polyarticular osteoarthritis.
--- NOTE | ~2024-07-09 | XR_ITS ---
XR wrist RT min 3V, XR hand RT min 3V 07/09/2024 10:21 (accession [id number]), 07/09/2024 10:22 (accession [id number]) Indication: Chronic wrist and hand pain Procedure: 3 views right wrist and 3 views right hand Comparison: No prior studies for comparison. Findings: There is mild-moderate polyarticular osteoarthritis most severe at the triscaphe, first car pal metacarpal and MCP joints. Osteopenia. No erosive changes. There is an old ulnar styloid avulsion fracture. No acute bone or joint abnormality. Impression: 1: Mild-moderate polyarticular osteoarthritis. Reviewed, dictated and finalized at location A. Impression: 1: Mild-moderate polyarticular osteoarthritis. Impression: 1: Mild-moderate polyarticular osteoarthritis.
--- OUTSIDE RECORDS SUMMARY | 2024-07-09 10:52 | XMS_ITS | Clinical Summary ---
Author Organization [facility] Address [address] [place] [address] Care Team Providers Care Baby Registry Sales Consultant Name Role Phone Sowmya Lilly MD Primary Care Provider [phone] Source Comments [facility] Affiliates and Associated Physician Practices is amultiple site organization consisting of ambulatory clinics and hospital sitesin [place], [place], [place] and [place]. This disclosure is being madepursuant to the Care Everywhere program and may not contain all information available regarding this patient. Last updated 18.[facility] Allergies Active Allergy Reactions Criticality Noted Date [...] to complete this topic MENINGOCOCCAL (Group B) VACC INE SHARED DECISION-MAKING Aged Out No longer eligibl e based on patient's age to complete this topic MENINGOCOCCAL GROUPS A/C/Y/W VACCINE Aged Out No longer eligible b ased on patient's age to complete this topic Care Teams Baby Registry Sales Consultant Relationship Specialty Start Date End Date Sowmya Lilly MD [address] [place] [address] [facility] - General 12/14/21
--- OUTSIDE RECORDS SUMMARY | 2024-07-09 10:52 | XMS_ITS | Clinical Summary ---
Author Organization [facility] Address [address] [place] [address] Care Team Providers Care Shuttle Spotter Name Role Phone Tai Adams MD Primary Care Provider [phone] Sowmya Lilly MD Unavailable [phone] Allergies Active Allergy Reactions Criticality Noted Date Comments Sulfa (Sulfonamide Antibiotics) Medications citalopram (CeleXA) 40 mg tablet 04/10/2022 Active losartan-hydroCHLO ROthiazide (HYZAAR) 50-12.5 mg per tablet 03/26/2022 Activ e Active Problems Problem Noted Date Diagnosed Date Primary hypertension 04/11/2022 Assessment & Plan (10/21/2022 11:01 AM CDT): Controlled with medication - continue treatment plan per PCP Assessment & Plan (04/11/2022 11:37 AM SURGICAL ASSISTANT CERTIFIED): Controlled with medication - continue treatment plan [...] results. Assessment & Plan (04/11/2022 11:36 AM SURGICAL ASSISTANT CERTIFIED): Detected on Thyroid ultrasound on 12/26/21 Right [...] repeat thyroid ultrasound. Consider repeating thyroid biopsy @[facility] to obtain better sample. Follow up and further recommendation will be decided after we obtai above test results. Hoarseness of voice 04/11/2022 Assessment & Plan (04/11/2022 11:37 AM SURGICAL ASSISTANT CERTIFIED): Chronic and evaluated by ENT years ago, patient reports history of vocal cord issues. - I recommend that she has an evaluation by ENT. 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 Encounters Date Type Department Care Team Description 06/18/2024 Telephone [facility] ([facility]) [address] [place] [id number] Thania Gant RN 06/18/2024 Telephone [facility] ([facility]) [address] [place] [address] Thania Gant RN 06/17/2024 9:56 PM SURGICAL ASSISTANT CERTIFIED - 06/17/2024 11:59 PM SURGICAL ASSISTANT CERTIFIED Hospital Encounter [facility] ([facility]) [address] [place] [address] Discharge Disposition: Discharge to home or self care 06/07/2024 Orders Only [facility] [address] [facility] [address] [place] [address] Zully Schaeffer NP 06/04/2024 Documentation [facility] [address] [facility] [address] [place] [phone] Carito Sullivan RN 06/04/2024 Telephone [facility] [address] [facility] [address] [place] [address] Zully Schaeffer NP Medical Question/Miscellaneo us 06/02/2024 Orders Only [facility] Surgery [address] [facility] [address] [place] [phone] Anum Cardoso NP Abnormal mammogram (Primary Dx) 05/31/2024 - 05/31/2024 11:59 PM SURGICAL ASSISTANT CERTIFIED Hospital Encounter [facility] ([facility]) [address] [place] [address] Discharge Disposition: Discharge to home or self care 05/27/2024 - 05/27/2024 11:59 PM SURGICAL ASSISTANT CERTIFIED Hospital Encounter [facility] ([facility]) [address] [place] [address] Discharge Disposition: Discharge to home or self care from Last 3 Months Family History Medical History Relation Name Comments [...] on file Legal Sex Female 10:33 AM SURGICAL ASSISTANT CERTIFIED Gender Identity Not on file Sexual Orientation Not on file Obstetrics History Last Filed Vital Signs Vital Sign Reading Time Taken Comments Blood Pressure 126/62 10/21/2022 10:45 AM CDT Pulse 57 03/09/2014 11:39 AM SURGICAL ASSISTANT CERTIFIED Temperature - - Respiratory Rate - - Oxygen Saturation 95% 03/09/2014 11:39 AM SURGICAL ASSISTANT CERTIFIED Inhaled Oxygen Concentration - - Weight 63.7 [...] - Tdap) 12/10/1954 Hepatitis B Screening 12/10/1961 Pneumococcal vaccine 65+ (1 of 1 - PCV) 12/10/1993 Zoster Vaccine (1 of 2) 12/10/1993 Well Visit 65+ 12/10/2008 Covid-19 Vaccine (3 - season) 2023, 06/07/2020 Influenza Vaccine (#1) 2023 12/06/2020, 2019 Procedures Procedure Name Priority Date/Time Associated Diagnosis Comments BREAST IMAGING MG DIAGNOSTIC OUTSIDE CONSULT Routine 06/17/2024 9:57 PM SURGICAL ASSISTANT CERTIFIED BREAST IMAGING MG DIAGNOSTIC OUTSIDE REFERENCE Routine 05/31/2024 12:00 AM SURGICAL ASSISTANT CERTIFIED BREAST IMAGING MG SCREENING OUTSIDE REFERENCE Routine 05/27/2024 12:00 AM SURGICAL ASSISTANT CERTIFIED from Last 3 Months Results * Breast Imaging DX Outside Consult (06/17/2024 9:57 PM SURGICAL ASSISTANT CERTIFIED) Anatomical Region Laterality Modality Breast N/A Mammography 06/18/2024 10:5 9 AM SURGICAL ASSISTANT CERTIFIED Impressions 06/18/2024 12:10 PM SURGICAL ASSISTANT CERTIFIED 1. Developing grouped calcifications in the posterior upper outer LEFT breast are at low suspicion for malignancy. Stereotactic biopsy is recommended. 2. Developing grouped calcifications in the inner upper RIGHT breast appear to be similar in appearance to the calcifications in the LEFT breast, however no magnification views of these calcifications have been performed. Recommend dedicated RIGHT diagnostic mammogram with magnification views as this was not performed at the outside hospital. Management of the upper inner group of calcifications and likely be based on pathology results of the LEFT breast biopsy. OVERALL FINAL ASSESSMENT: BI-RADS Category 0: Incomplete - Need Additional Imaging Evaluation. RECOMMENDATION: 1. Stereotactic biopsy of upper outer LEFT breast calcifications. 2. RIGHT diagnostic mammogram with magnification views of calcifications within the upper inner RIGHT breast. These appear likely similar to the calcifications in question in the LEFT breast. Management of the inner upper calcifications pending biopsy results. NOTE: The findings, conclusions and recommendations within this report do not replace the initial findings, conclusions and recommendations made at the facility where the study was performed based upon the imaging and clinical condition at that time. Review of the prior report and correlation with the clinical history are necessary. The provided images may or may not represent the [place] source data set and thus may contain changes which may lower the sensitivity of the second opinion interpretation. Dictated by: Jackelyn Lomeli MD The radiology attending physician has personally reviewed this study, and had reviewed and/or edited this written report and agrees with it. Electronically signed by: Anabel Duran M.D. Narrative 06/18/2024 12:10 PM SURGICAL ASSISTANT CERTIFIED EXAMINATION: REVIEW AND INTERPRETATION OF OUTSIDE IMAGING FACILITY PERFORMING OUTSIDE IMAGING: [place], [place] EXAM(S) REVIEWED: 1. BILATERAL SCREENING MAMMOGRAM WITH TOMOSYNTHESIS, 05/27/2024 2. LEFT UNILATERAL DIAGNOSTIC MAMMOGRAM WITH TOMOSYNTHESIS, 05/31/2024 DATE OF INTERPRETATION: 06/18/2024 HISTORY: 78-year-old woman with screen detected calcifications in the LEFT breast at an outside hospital. COMPARISON: Multiple prior mammograms dating back to 05/05/2019, most recent from 03/11/2023. BREAST PARENCHYMAL COMPOSITION: The breasts are heterogeneously dense, which may obscure small masses. FINDINGS: BILATERAL SCREENING MAMMOGRAM WITH TOMOSYNTHESIS, 05/27/2024: There are developing grouped coarse calcifications in the posterior upper outer LEFT breast AND in the posterior upper inner RIGHT breast. There is no suspicious mass, area of architectural distortion, or grouped microcalcifications in the RIGHT breast. LEFT UNILATERAL DIAGNOSTIC MAMMOGRAM WITH TOMOSYNTHESIS, 05/31/2024: Redemonstrated developing, grouped coarse heterogeneous calcifications in the posterior upper outer LEFT breast. There is no associated suspicious mass or architectural distortion. Procedure Note Anabel Duran MD - 06/18/2024 EXAMINATION: REVIEW AND INTERPRETATION OF OUTSIDE IMAGING FACILITY PERFORMING OUTSIDE IMAGING: [place], [place] EXAM(S) REVIEWED: 1. BILATERAL SCREENING MAMMOGRAM WITH TOMOSYNTHESIS, 05/27/2024 2. LEFT UNILATERAL DIAGNOSTIC MAMMOGRAM WITH TOMOSYNTHESIS, 05/31/2024 DATE OF INTERPRETATION: 06/18/2024 HISTORY: 78-year-old woman with screen detected calcifications in the LEFT breast at an outside hospital. COMPARISON: Multiple prior mammograms dating back to 05/05/2019, most recent from 03/11/2023. BREAST PARENCHYMAL COMPOSITION: The breasts are heterogeneously dense, which may obscure small masses. FINDINGS: BILATERAL SCREENING MAMMOGRAM WITH TOMOSYNTHESIS, 05/27/2024: There are developing grouped coarse calcifications in the posterior upper outer LEFT breast AND in the posterior upper inner RIGHT breast. There is no suspicious mass, area of architectural distortion, or grouped microcalcifications in the RIGHT breast. LEFT UNILATERAL DIAGNOSTIC MAMMOGRAM WITH TOMOSYNTHESIS, 05/31/2024: Redemonstrated developing, grouped coarse heterogeneous calcifications in the posterior upper outer LEFT breast. There is no associated suspicious mass or architectural distortion. IMPRESSION: 1. Developing grouped calcifications in the posterior upper outer LEFT breast are at low suspicion for malignancy. Stereotactic biopsy is recommended. 2. Developing grouped calcifications in the inner upper RIGHT breast appear to be similar in appearance to the calcifications in the LEFT breast, however no magnification views of these calcifications have been performed. Recommend dedicated RIGHT diagnostic mammogram with magnification views as this was not performed at the outside hospital. Management of the upper inner group of calcifications and likely be based on pathology results of the LEFT breast biopsy. OVERALL FINAL ASSESSMENT: BI-RADS Category 0: Incomplete - Need Additional Imaging Evaluation. RECOMMENDATION: 1. Stereotactic biopsy of upper outer LEFT breast calcifications. 2. RIGHT diagnostic mammogram with magnification views of calcifications within the upper inner RIGHT breast. These appear likely similar to the calcifications in question in the LEFT breast. Management of the inner upper calcifications pending biopsy results. NOTE: The findings, conclusions and recommendations within this report do not replace the initial findings, conclusions and recommendations made at the facility where the study was performed based upon the imaging and clinical condition at that time. Review of the prior report and correlation with the clinical history are necessary. The provided images may or may not represent the [place] source data set and thus may contain changes which may lower the sensitivity of the second opinion interpretation. Dictated by: Jackelyn Lomeli MD The radiology attending physician has personally reviewed this study, and had reviewed and/or edited this written report and agrees with it. Electronically signed by: Anabel Duran M.D. Zully Storyessence Schaeffer CODING QUALITY COORDINATOR IMG MAMMO PROCEDURES Final Result * Breast Imaging Diagnostic Outside Reference (05/31/2024 12:00 AM SURGICAL ASSISTANT CERTIFIED) Impressions [facility] - 06/17/2024 9:48 PM SURGICAL ASSISTANT CERTIFIED These images are for Reference purposes only and have not been reviewed by [facility] Radiology. There will be no report generated by a [facility] Radiologist. Narrative [facility] - 06/17/2024 9:48 PM SURGICAL ASSISTANT CERTIFIED EXAMINATION: Images For Reference Purposes Only Zully Valientenell CODING QUALITY COORDINATOR IMG MAMMO PROCEDURES Final Result Performing Organization Address [facility] Co de Phone Number [facility] * Breast Imaging Screening Outside Reference (05/27/2024 12:00 AM SURGICAL ASSISTANT CERTIFIED) Impressions [facility] - 06/17/2024 9:48 PM SURGICAL ASSISTANT CERTIFIED These images are for Reference purposes only and have not been reviewed by [facility] Radiology. There will be no report generated by a [facility] Radiologist. Narrative [facility] - 06/17/2024 9:48 PM SURGICAL ASSISTANT CERTIFIED EXAMINATION: Images For Reference Purposes Only Zully Monson Laury CODING QUALITY COORDINATOR IMG MAMMO PROCEDURES Final Result [facility] from Last 3 Months Insurance [facility] MEDICARE ADVANTAGE MEDICARE ADVANTAGE MEDICARE ADVANTAGE Care Teams Shuttle Spotter Relationship Specialty Start Date End Date Tai Adams MD [address] [place] [address] PCP - General 03/08/14 Sowmya Lilly MD [address] [place] [address] Referring Physician Internal Medicine 05/31/24
--- OUTSIDE RECORDS SUMMARY | 2024-07-09 10:52 | XMS_ITS | Encounter Summary ---
Author Organization [facility] Healthcare Address [address] [place] [address] Care Team Providers Care Bar Helper Name Role Phone Tai Adams MD Primary Care Provider [phone] Reason for Visit * Diagnostic Imaging (Routine) - Pending Review Specialty Diagnoses / Procedures Referred By Tammy t Referred To Contact Procedures Breast Imaging Screening Outside Reference Zully Schaeffer NP [address] [facility] [id number] [place] [address] Phone: tel: fax: Referral ID Status Reason Start Date Expiration Date V isits Requested Visits Authorized [id number] Pending Review 06/17/2024 07/17/2025 1 1 Encounter Details Date Type Department Care Team (Late st Contact Info) Description 05/05/2019 Hospital Encounter [facility]) [address] [place] [address] Social History Tobacco Use Types Packs/Day Years Used Date Smoking Tobacco: Former Cigarettes Q uit: 1980 Alcohol Use Standard Drinks/Week Comments Yes 0 (1 standard drink = 0.6 oz pur e alcohol) Comments Unknown Sex and Gender Information Value Date Recorded Sex Assigned at Not on file Legal Sex Female 10:33 AM ADVERTISING CONSULTANT Gender Identity Not on file Sexual Orientation Not on file documented as of this encounter Plan of Treatment Not on file documented as of this encounter Procedures Procedure Name Priority Date/Time Associated Diagnosis Comments BREAST IMAGING MG SCREENING OUTSIDE REFERENCE Routine 05/05/2019 12:00 AM ADVERTISING CONSULTANT documented in this encounter Results * Breast Imaging Screening Outside Reference (05/05/2019 12:00 AM ADVERTISING CONSULTANT) Impressions [facility] - 06/17/2024 9:48 PM ADVERTISING CONSULTANT These images are for Reference purposes only and have not been reviewed by [facility] Radiology. There will be no report generated by a [facility] Radiologist. Narrative [facility] - 06/17/2024 9:48 PM ADVERTISING CONSULTANT EXAMINATION: Images For Reference Purposes Only Zully Schaeffer NP IMG MAMMO PROCEDURES Final Result [facility] documented in this encounter Visit Diagnoses Not on filedocumented in this encounter Care Teams Bar Helper Relationship Specialty Start Date End Date aTi Adams MD [address] [address] PCP - General 03/08/14 documented as of this encounter
--- OUTSIDE RECORDS SUMMARY | 2024-07-09 10:52 | XMS_ITS | Clinical Summary ---
Author Organization [facility] Address [address] [place] [address] Care Team Providers Care Caustics Loader Name Role Phone Arcadio Leggett MD Unavailable [phone] Sowmya Lilly MD Primary Care Provider Allergies Active Allergy Reactions Criticality Noted Date [...] Comments Blood Pressure 120/60 03/19/2022 3:48 PM KNEE BOLTER Pulse 66 03/19/2022 3:48 PM KNEE BOLTER Temperature - - Respiratory Rate 18 03/19/2022 3:48 PM KNEE BOLTER Oxygen Saturation 99% 02/28/2021 12:53 PM KNEE BOLTER Inhaled Oxygen Concentration - - Weight 63.5 kg (140 lb) 03/19/2022 3:48 PM KNEE BOLTER Height 154.9 cm (5' 1 ) 03/19/2022 3:48 PM KNEE BOLTER Body Mass Index 26.45 03/19/2022 3:48 PM KNEE BOLTER Plan of Treatment Health Maintenance Due Date [...] age to complete this topic Insurance MEDICARE [facility] MEDIC[facility] Advance Directives Documents on File Type Date Recorded Patient Washtub Worker Helper Expl anation Power of Learning Designer 02/28/2021 12:46 PM POA Vu Doss Advance Directives and Living Will 05/02/2017 SHORT FORM POWER OF AUDITOR/QUALITY Healthcare Agents on File Name Relationship Healthcare Agent Relationshi p Communication Kayla Valentin Other First Alternate Health Care Agent Thuan Kenrick Doss Other [facility] Care Teams Caustics Loader Relationship Specialty Start Date End Date Sowmya Lilly MD [address] [place] [phone] PCP - General INTERNAL MEDICINE 11/09/19 Arcadio Leggett MD CARDIOVASCULAR DISEASE 04/25/17
--- OUTSIDE RECORDS SUMMARY | 2024-07-09 10:52 | XMS_ITS | Referral Summary ---
Author Organization [facility] Medical Office Building B Address [address] [place] [id number] Care Team Providers Care Assistant Child Care Teacher Name Role Phone Tai Adams MD Primary Care Provider [phone] Sowmya Lilly MD Unavailable [phone] Encounters Date Type Department Care Team Description 06/18/2024 Telephone [facility] ([facility]) [address] [place] [phone] Thania Gant RN 06/18/2024 Telephone [facility] ([facility]) [address] [place] [phone] Thania Gant RN 06/17/2024 9:56 PM RUBBER VULCANIZING MACHINE OPERATOR - 06/17/2024 11:59 PM RUBBER VULCANIZING MACHINE OPERATOR Hospital Encounter [facility] ([facility]) [address] [place] [phone] Discharge Disposition: Discharge to home or self care 06/07/2024 Orders Only [facility] [address] [place] [address] 8 [place] [phone] Zully Schaeffer NP 06/04/2024 Documentation [facility] [address] [place] [address] Floor 8 [place] [phone] Carito Sullivan RN 06/04/2024 Telephone [facility] Breast Imaging [address] [facility] Floor 8 [place] [address] Zully Schaeffer NP Medical Question/Miscellaneo us 06/02/2024 Orders Only [facility] [address] [facility] 8 [place] [address] Anum Cardoso NP Abnormal mammogram (Primary Dx) 05/31/2024 - 05/31/2024 11:59 PM RUBBER VULCANIZING MACHINE OPERATOR Hospital Encounter [facility] ([facility]) [address] [place] [phone] Discharge Disposition: Discharge to home or self care 05/27/2024 - 05/27/2024 11:59 PM RUBBER VULCANIZING MACHINE OPERATOR Hospital Encounter [facility] ([facility]) [address] [place] [phone] Discharge Disposition: Discharge to home or self care from Last 3 Months Allergies Active Allergy Reactions Criticality Noted Date Comments Sulfa (Sulfonamide Antibiotics) Medications citalopram (CeleXA) 40 mg tablet 04/10/2022 Active losartan-hydroCHLO ROthiazide (HYZAAR) 50-12.5 mg per tablet 03/26/2022 Activ e Active Problems Problem Noted Date Diagnosed Date Primary hypertension 04/11/2022 Assessment & Plan (10/21/2022 11:01 AM CDT): Controlled with medication - continue treatment plan per PCP Assessment & Plan (04/11/2022 11:37 AM RUBBER VULCANIZING MACHINE OPERATOR): Controlled with medication - continue [...] results. Assessment & Plan (04/11/2022 11:36 AM RUBBER VULCANIZING MACHINE OPERATOR): Detected on Thyroid ultrasound on [...] ultrasound. Consider repeating thyroid biopsy @[facility] to obtain better sample. Follow up and further recommendation will be decided after we obtai above test results. Hoarseness of voice 04/11/2022 Assessment & Plan (04/11/2022 11:37 AM RUBBER VULCANIZING MACHINE OPERATOR): Chronic and evaluated by ENT years ago, patient reports history of vocal cord issues. - I recommend that she has an evaluation by ENT. 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 Social History Tobacco Use Types Packs/Day Years Used Date Smoking Tobacco: Former Cigarettes Q uit: 1979 Tobacco Cessation:Counseling Given: Not Answered Alcohol Use Standard Drinks/Week Comments Yes 0 (1 standard drink = 0.6 oz pur e alcohol) Comments Unknown Sex and Gender Information Value Date Recorded Sex Assigned at Not on file Legal Sex Female 10:33 AM RUBBER VULCANIZING MACHINE OPERATOR Gender Identity Not on file Sexual Orientation Not on file Last Filed Vital Signs Vital Sign Reading Time Taken Comments Blood Pressure 126/62 10/21/2022 10:45 AM CDT Pulse 57 03/09/2014 11:39 AM RUBBER VULCANIZING MACHINE OPERATOR Temperature - - Respiratory Rate - - Oxygen Saturation 95% 03/09/2014 11:39 AM RUBBER VULCANIZING MACHINE OPERATOR Inhaled Oxygen Concentration - - Weight 63.7 kg (140 lb 6.4 oz) 10/21/2022 10:45 AM CDT Height 154.9 cm (5' 1 ) 10/21/2022 10:45 AM CDT Body Mass Index 26.53 10/21/2022 10:45 AM CDT Plan of Treatment Not on file Procedures Procedure Name Priority Date/Time Associated Diagnosis Comments BREAST IMAGING MG DIAGNOSTIC OUTSIDE CONSULT Routine 06/17/2024 9:57 PM RUBBER VULCANIZING MACHINE OPERATOR BREAST IMAGING MG DIAGNOSTIC OUTSIDE REFERENCE Routine 05/31/2024 12:00 AM RUBBER VULCANIZING MACHINE OPERATOR BREAST IMAGING MG SCREENING OUTSIDE REFERENCE Routine 05/27/2024 12:00 AM RUBBER VULCANIZING MACHINE OPERATOR from Last 3 Months Results * Breast Imaging DX Outside Consult (06/17/2024 9:57 PM RUBBER VULCANIZING MACHINE OPERATOR) Anatomical Region Laterality Modality Breast N/A Mammography 06/18/2024 10:5 9 AM RUBBER VULCANIZING MACHINE OPERATOR Impressions 06/18/2024 12:10 PM RUBBER VULCANIZING MACHINE OPERATOR 1. Developing grouped calcifications in the posterior [...] images may or may not represent the [place] source data set and thus may contain changes which may lower the sensitivity of the second opinion interpretation. Dictated by: Jackelyn Lomeli MD The radiology attending physician has personally reviewed this study, and had reviewed and/or edited this written report and agrees with it. Electronically signed by: Balaji Sheppard 06/18/2024 12:10 PM RUBBER VULCANIZING MACHINE OPERATOR EXAMINATION: REVIEW AND INTERPRETATION OF OUTSIDE IMAGING FACILITY PERFORMING OUTSIDE IMAGING: [place], [place] EXAM(S) REVIEWED: 1. BILATERAL SCREENING MAMMOGRAM [...] OF OUTSIDE IMAGING FACILITY PERFORMING OUTSIDE IMAGING: [place], [place] EXAM(S) REVIEWED: 1. BILATERAL SCREENING MAMMOGRAM [...] images may or may not represent the [place] source data set and thus may contain changes which may lower the sensitivity of the second opinion interpretation. Dictated by: Jackelyn Lomeli MD The radiology attending physician has personally reviewed this study, and had reviewed and/or edited this written report and agrees with it. Electronically signed by: Anabel Duran M.D. Zully Schaeffer NP [facility] MAMMO PROCEDURES Final Result * Breast Imaging Diagnostic Outside Reference (05/31/2024 12:00 AM RUBBER VULCANIZING MACHINE OPERATOR) Impressions RAD_MAMMO_[facility] - 06/17/2024 9:48 PM RUBBER VULCANIZING MACHINE OPERATOR These images are for Reference purposes only and have not been reviewed by [facility] Radiology. There will be no report generated by a [facility] Radiologist. Narrative RAD_MAMMO_[facility] - 06/17/2024 9:48 PM RUBBER VULCANIZING MACHINE OPERATOR EXAMINATION: Images For Reference Purposes Only Zully Iona Hunsel ENTRY CLERK IMG MAMMO PROCEDURES Final Result RAD_MAMMO[facility] * Breast Imaging Screening Outside Reference (05/27/2024 12:00 AM RUBBER VULCANIZING MACHINE OPERATOR) Impressions [facility]_MAMMO[facility] - 06/17/2024 9:48 PM RUBBER VULCANIZING MACHINE OPERATOR These images are for Reference purposes only and have not been reviewed by [facility]iology. There will be no report generated by a [facility] Radiologist. Narrative [facility]_MAMMO[facility] - 06/17/2024 9:48 PM RUBBER VULCANIZING MACHINE OPERATOR EXAMINATION: Images For Reference Purposes Only us Zully Schaeffer NP IMG MAMMO PROCEDURES Final Result [facility]_M[facility] from Last 3 Months Insurance [facility] MEDICARE ADVANTAGE Care Teams Assistant Child Care Teacher Relationship Specialty Start Date End Date Tai Adams MD [address] [place] [id number] PCP - General 03/08/14 Sowmya Lilly MD [address] [place] [address] Referring Physician Internal Medicine 05/31/24
== END 2024-07-09 09:56 | disposition home or self-care (01) ==
LOC: CHSIMG 10:02
PROVIDERS: PCP Internal Medicine; Visit Provider Internal Medicine
DX: M25.542 Pain in joints of left hand (principal); M25.541 Pain in joints of right hand; M19.042 Primary osteoarthritis, left hand; M19.041 Primary osteoarthritis, right hand; M19.032 Primary osteoarthritis, left wrist; M19.031 Primary osteoarthritis, right wrist
CPT/HCPCS: 73110; 73130

== ENCOUNTER 2024-07-16 11:32 | Emergency (ER) | payer MEDICARE, SELFPAY ==
--- NOTE | ~2024-07-16 | XR_ITS ---
EXAMINATION: XR ribs RT 2V w CXR 2V DATE: 07/16/2024 11:56 INDICATION: Posterior lateral right rib pain post fall TECHNIQUE: PA and lateral views of the chest and 3 views of the right ribs were obtained. COMPARISON: Chest radiograph dated 04/16/2023 FINDINGS: No rib fractures identified. Calcified nodule at the right upper lung zone as well as calcified media stinal lymph nodes and a few small splenic calcific lesions consistent with old granulomatous disease . No airspace opacities, pulmonary edema, pleural effusion or pneumothorax. Cardiomediastinal silhoue tte is normal. No change in a chronic T12 burst fracture with 75% anterior vertebral body height loss . Mild anterior wedging with 10% anterior vertebral body height loss at T6 which appears new since e prior study. IMPRESSION: 1. No rib fracture or acute cardiopulmonary disease. 2. Stable chronic T12 burst fracture and age-indeterminate T6 compression fracture with minimal anter ior vertebral body height loss, new since 04/16/2023. Reviewed, dictated and finalized at location A. IMPRESSION: 1. No rib fracture or acute cardiopulmonary disease. 2. Stable chronic T12 burst fracture and age-indeterminate T6 compression fract ure with minimal anterior vertebral body height loss, new since 04/16/2023.
[2024-07-16 11:32] VITALS: BP 178/71; PULSE 75; RESP 15; TEMP 36.6; O2SAT 97
--- NOTE | 2024-07-16 11:42 | ED.FALL ---
HPI - Fall General Chief Complaint: Fall Stated Complaint: fall; right rib pain Time Seen by Provider: 07/16/24 11:40 Source: patient Mode of arrival: ambulatory Limitations: no limitations History of Present Illness HPI Narrative: patient is an 78-year-old female with a fall out of bed onto her right ribcage. She has pain on the right side ribs. This happened last night. She has nightmares and this happens from time to time. Has rails on the bed. complaint: fall Onset (ago): day(s) ( One) Fall from: out of bed Fall witnessed: no Place fall occurred: home Loss of consciousness: none Prolonged down time: no Symptoms prior to fall: none Context: history of frequent falls ( she falls out of bed with her nightmares) Location of injury: chest ( right side) Severity: moderate Severity scale (1-10): 5 Quality: sharp Associated symptoms (after fall): denies Related Data Home Medications ?Medication ?Instructions ?Recorded ?Confirmed ?Last Taken ?Type losartan 50 mg-hydrochlorothiazide 1 tablet PO DAILY 12/06/21 07/29/23 01/10/22 History 12.5 mg tablet fentanyl 12 mcg/hr transdermal 1 patch topical Q72H 01/11/22 07/29/23 01/08/22 History patch Allergies Allergy/AdvReac Type Severity Reaction Status Date / Time Sulfa (Sulfonamide Allergy Intermediate HIVES Verified 01/11/22 13:19 Antibiotics) DIARRHEA Review of Systems Review of Systems: All systems reviewed & are unremarkable except as noted in HPI and below Constitutional: Constitutional: Reports no additional constitutional complaints Eyes: Eyes: Reports no additional eye complaints ENT: Reports system reviewed and no additional complaints, except as documented Cardiovascular: Cardiovascular: Reports no additional cardiovascular complaints Respiratory: Respiratory: Reports no additional respiratory complaints Gastrointestinal: Gastrointestinal: Reports no additional gastrointestinal complaints Genitourinary: Genitourinary: Reports no additional female genitourinary complaints Musculoskeletal: Musculoskeletal: Reports no additional musculoskeletal complaints Integumentary/Breasts: Skin/Breast: Reports system reviewed and no additional complaints, except as docu Neurologic: Reports system reviewed and no additional complaints, except as documented Psychiatric: Psychiatric: Reports no additional psychiatric complaints Endocrine: Endocrine: Reports no additional endocrine complaints Hematologic/Lymphatic: Hematologic/Lymphatic: Reports no additional hematologic/lymphatic complaints Allergic/Immunologic: Allergic/Immunologic: Reports no additional allergic/immunologic complaints PMFSH Past Medical History Medical History Backache, unspecified (08/26/17) Mass of left chest wall Hypertension Hypersomnia Osteoporosis Depression GERD (gastroesophageal reflux disease) CAD (coronary artery disease) Surgical History Surgical History History of hysterectomy H/O removal of cyst Breast cyst removed-Benign History of surgery on arm History of back surgery 2018. Herniated Disk. Family History Family History Other Heart disease Social History Social History Smoking packs per day: 0.5 Smoking cigarettes per day: 10.0 Years smoked: 15 Smoking pack-years: 7.50 Smoking status: Former smoker Tobacco type: cigarettes Smoking end date: 04/14/79 Alcohol intake: current Drinks per week: 14 Alcohol use details: RED WINE Substance use: never Living arrangements: with family Additional living arrangements comments: . Spiritual care concerns: No Exam Const: General: healthy appearing Nutritional Appearance: well nourished Orientation/consciousness: patient oriented x3 HENMT: Head: normal to inspection Ears: external ears normal Face/Nose/Sinus: Normal external nose present Face and sinus: normal facial exam Mouth: Yes Normal oral and palatal mucosa present Teeth and gingiva: dentition normal Eyes: Conjunctivae: conjunctivae normal Pupils: Equal, round and reactive pupils present EOM: EOMs intact bilaterally Neck: Neck: normal visual inspection Chest: Chest palpation & inspection: normal inspection of the chest Resp: Effort & Inspection: normal respiratory effort and not labored Auscultation: clear to auscultation bilaterally and no crackles Cardio: Rate: regular rate Rhythm: regular rhythm Heart sounds: no murmurs GI: Inspection: non-distended GI Palp: Yes Soft to palpation and No Tenderness to palpation present (GI) Auscultation: normal bowel sounds : General: Yes bladder normal to palpation Back/Spine/Pelvis: Back: no CVA tenderness Other: patient has tenderness to the right ribcage without skin changes; no deformities Skin: General skin exam: normal color Rashes: no rashes Wounds: no wounds Neuro: General: patient oriented x3 Cranial nerves: Yes Nystagmus not present Speech: normal speech Extrem: General: normal to inspection Psych: Mental Status: mental status grossly normal Affect: normal affect Attitude: cooperative Course Vital Signs Vital signs: Vital Signs Temperature 36.6 C 07/16/24 11:32 Pulse Rate 75 07/16/24 11:32 Respiratory Rate 15 07/16/24 11:32 Blood Pressure 178/71 H 07/16/24 11:32 Pulse Oximetry 97 07/16/24 11:32 Oxygen Delivery Room Air 07/16/24 11:32 Temperature 36.6 C 07/16/24 11:32 Pulse Rate 75 07/16/24 11:32 Respiratory Rate 15 07/16/24 11:32 Blood Pressure 178/71 H 07/16/24 11:32 Pulse Oximetry 97 07/16/24 11:32 Oxygen Delivery Room Air 07/16/24 11:32 MDM - Fall MDM Narrative Medical decision making narrative: patient is a 78-year-old female with a fall out of bed onto her right ribcage. We will do x-rays at this time. We will pain control. Imaging Data Attestation: I personally reviewed and interpreted this imaging study as follows: Radiologist's impression: chest x-ray with ribs on the right shows IMPRESSION: 1. No rib fracture or acute cardiopulmonary disease. 2. Stable chronic T12 burst fracture and age-indeterminate T6 compression fracture with minimal anterior vertebral body height loss, new since 04/16/2023. Discharge Plan Discharge Clinical Impression: Contusion of rib on right side Qualifiers: Encounter type: initial encounter Qualified Code(s): S20.211A - Contusion of right front wall of thorax, initial encounter Patient Disposition: Home, Self-Care Condition: Stable Instructions: Contusion in Adults (ED) Patient Language: Salvadorean Prescriptions: New hydrocodone-acetaminophen 5-325 mg tablet 1 tablet PO Q8H PRN (Reason: pain) Qty: 20 0RF No Action acetaminophen [Tylenol] 325 mg capsule 650 mg PO Q8H PRN (Reason: pain) Qty: 20 0RF tramadol 50 mg tablet 50 mg PO BID Qty: 4 0RF fentanyl 12 mcg/hr patch 72 hour 1 patch topical Q72H hydrocodone-acetaminophen 5-325 mg tablet 1 tablet PO Q8H PRN (Reason: pain) Qty: 10 0RF losartan-hydrochlorothiazide 50-12.5 mg tablet 1 tablet PO DAILY citalopram 40 mg tablet 40 mg PO DAILY Qty: 90 0RF Follow-up/Referrals: Sowmya Lilly MD [Primary Care Provider] - Time of Disposition: 12:36
[2024-07-16] MEDS: HYDROcodone/acetaminophen (*CRX) 5-325 MG TABLET 1 TAB PO (11:54)
--- OUTSIDE RECORDS SUMMARY | 2024-07-16 11:57 | XMS_ITS | Clinical Summary ---
Author Organization [facility] Address [address] [place] [address] Care Team Providers Care Clinical Documentation Manager Name Role Phone Sowmya Lilly MD Primary Care Provider [phone] Source Comments [facility] Affiliates and Associated Physician Practices is amultiple site organization consisting of ambulatory clinics and hospital sitesin [place], [place], [place] and [place]. This disclosure is being madepursuant to the Care Everywhere program and may not contain all information available regarding this patient. Last updated 18.[facility] Allergies Active Allergy Reactions Criticality Noted Date [...] age to complete this topic Care Teams Clinical Documentation Manager Relationship Specialty Start Date End Date Sowmya Lilly MD [address] [place] [address] [facility] - General 12/14/21
--- OUTSIDE RECORDS SUMMARY | 2024-07-16 11:57 | XMS_ITS | Clinical Summary ---
Author Organization [facility] Building B Address [address] [place] [address] Care Team Providers Care Staff Field Engineer Name Role Phone Sowmya Lilly MD Unavailable [phone] Sowmya Lilly MD Primary Care Provider [phone] Allergies Active Allergy Reactions Criticality Noted Date Comments Sulfa (Sulfonamide Antibiotics) Medications citalopram (CeleXA) 40 mg tablet 04/10/2022 Active losartan-hydroCHLO ROthiazide (HYZAAR) 50-12.5 mg per tablet 03/26/2022 Activ e Active Problems Problem Noted Date Diagnosed Date Primary hypertension 04/11/2022 Assessment & Plan (10/21/2022 11:01 AM CDT): Controlled with medication - continue treatment plan per PCP Assessment & Plan (04/11/2022 11:37 AM MICROSTRATEGY ARCHITECT DEVELOPER): Controlled with medication - continue treatment plan [...] results. Assessment & Plan (04/11/2022 11:36 AM MICROSTRATEGY ARCHITECT DEVELOPER): Detected on Thyroid ultrasound on 12/26/21 Right [...] repeat thyroid ultrasound. Consider repeating thyroid biopsy @[facility] to obtain better sample. Follow up and further recommendation will be decided after we obtai above test results. Hoarseness of voice 04/11/2022 Assessment & Plan (04/11/2022 11:37 AM MICROSTRATEGY ARCHITECT DEVELOPER): Chronic and evaluated by ENT years ago, patient reports history of vocal cord issues. - I recommend that she has an evaluation by ENT. 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 Encounters Date Type Department Care Team Description 06/18/2024 Telephone [facility] ([facility]) [address] [place] [address] Thania Gant RN 06/18/2024 Telephone [facility] ([facility]) [address] [place] [address] Thania Gant RN 06/17/2024 9:56 PM MICROSTRATEGY ARCHITECT DEVELOPER - 06/17/2024 11:59 PM MICROSTRATEGY ARCHITECT DEVELOPER Hospital Encounter [facility] ([facility]) [address] [place] [address] Discharge Disposition: Discharge to home or self care 06/07/2024 Orders Only [facility] [address] [facility] Floor 8 [place] [address] Zully Schaeffer NP 06/04/2024 Documentation [facility] [address] [facility] 8 [place] [phone] Carito Sullivan RN 06/04/2024 Telephone [facility] [place] - Breast Imaging [address] [place] [address] 8 [place] [address] Zully Schaeffer NP Medical Question/Miscellaneo us 06/02/2024 Orders Only [facility] 8 [place] [address] Anum Cardoso NP Abnormal mammogram (Primary Dx) 05/31/2024 - 05/31/2024 11:59 PM MICROSTRATEGY ARCHITECT DEVELOPER Hospital Encounter [facility] ([facility]) [address] [place] [address] Discharge Disposition: Discharge to home or self care 05/27/2024 - 05/27/2024 11:59 PM MICROSTRATEGY ARCHITECT DEVELOPER Hospital Encounter [facility] ([facility]) [address] [place] [address] Discharge Disposition: Discharge to home or self [...] on file Legal Sex Female 10:33 AM MICROSTRATEGY ARCHITECT DEVELOPER Gender Identity Not on file Sexual Orientation Not on file Obstetrics History Last Filed Vital Signs Vital Sign Reading Time Taken Comments Blood Pressure 126/62 10/21/2022 10:45 AM CDT Pulse 57 03/09/2014 11:39 AM MICROSTRATEGY ARCHITECT DEVELOPER Temperature - - Respiratory Rate - - Oxygen Saturation 95% 03/09/2014 11:39 AM MICROSTRATEGY ARCHITECT DEVELOPER Inhaled Oxygen Concentration - - Weight 63.7 [...] (3 - season) 2023, 06/07/2020 Influenza Vaccine (Season Ended) 2024 12/07/19, 02/15/2020 Procedures Procedure Name Priority Date/Time Associated Diagnosis Comments BREAST IMAGING MG DIAGNOSTIC OUTSIDE CONSULT Routine 06/17/2024 9:57 PM MICROSTRATEGY ARCHITECT DEVELOPER BREAST IMAGING MG DIAGNOSTIC OUTSIDE REFERENCE Routine 05/31/2024 12:00 AM MICROSTRATEGY ARCHITECT DEVELOPER BREAST IMAGING MG SCREENING OUTSIDE REFERENCE Routine 05/27/2024 12:00 AM MICROSTRATEGY ARCHITECT DEVELOPER from Last 3 Months Results * Breast Imaging DX Outside Consult (06/17/2024 9:57 PM MICROSTRATEGY ARCHITECT DEVELOPER) Anatomical Region Laterality Modality Breast N/A Mammography 06/18/2024 10:5 9 AM MICROSTRATEGY ARCHITECT DEVELOPER Impressions 06/18/2024 12:10 PM MICROSTRATEGY ARCHITECT DEVELOPER 1. Developing grouped calcifications in the posterior [...] images may or may not represent the [place] source data set and thus may contain changes which may lower the sensitivity of the second opinion interpretation. Dictated by: Jackelyn Lomeli MD The radiology attending physician has personally reviewed this study, and had reviewed and/or edited this written report and agrees with it. Electronically signed by: Anabel Duran M.D. Narrative 06/18/2024 12:10 PM MICROSTRATEGY ARCHITECT DEVELOPER EXAMINATION: REVIEW AND INTERPRETATION OF OUTSIDE IMAGING FACILITY PERFORMING OUTSIDE IMAGING: [place], [place] EXAM(S) REVIEWED: 1. BILATERAL SCREENING MAMMOGRAM [...] OF OUTSIDE IMAGING FACILITY PERFORMING OUTSIDE IMAGING: [place], [place] EXAM(S) REVIEWED: 1. BILATERAL SCREENING MAMMOGRAM [...] images may or may not represent the [place] source data set and thus may contain changes which may lower the sensitivity of the second opinion interpretation. Dictated by: Jackelyn Lomeli MD The radiology attending physician has personally reviewed this study, and had reviewed and/or edited this written report and agrees with it. Electronically signed by: Anabel Duran M.D. Zully Valientenell AUTOMOBILE ENGINE ASSEMBLER IMG MAMMO PROCEDURES Final Result * Breast Imaging Diagnostic Outside Reference (05/31/2024 12:00 AM MICROSTRATEGY ARCHITECT DEVELOPER) Impressions [facility] - 06/17/2024 9:48 PM MICROSTRATEGY ARCHITECT DEVELOPER These images are for Reference purposes only and have not been reviewed by [facility]. There will be no report generated by a [facility]iologist. Narrative [facility] - 06/17/2024 9:48 PM MICROSTRATEGY ARCHITECT DEVELOPER EXAMINATION: Images For Reference Purposes Only us Zully Valientenell AUTOMOBILE ENGINE ASSEMBLER IMG MAMMO PROCEDURES Final Result Performing Organization Address [facility] Co de Phone Number [facility] * Breast Imaging Screening Outside Reference (05/27/2024 12:00 AM MICROSTRATEGY ARCHITECT DEVELOPER) Impressions [facility] - 06/17/2024 9:48 PM MICROSTRATEGY ARCHITECT DEVELOPER These images are for Reference purposes only and have not been reviewed by [facility]. There will be no report generated by a [facility]iologist. Narrative [facility] - 06/17/2024 9:48 PM MICROSTRATEGY ARCHITECT DEVELOPER EXAMINATION: Images For Reference Purposes Only Zully Valientenell AUTOMOBILE ENGINE ASSEMBLER IMG MAMMO PROCEDURES Final Result [facility] from Last 3 Months Insurance [facility] MEDICARE ADVANTAGE Care Teams Staff Field Engineer Relationship Specialty Start Date End Date Sowmya Lilly MD [address] [place] [address] PCP - General Internal Medicine 07/09/24 Sowmya Lilly MD [facility] [place] [address] Referring Physician Internal Medicine 05/31/24
--- OUTSIDE RECORDS SUMMARY | 2024-07-16 11:57 | XMS_ITS | Referral Summary ---
Author Organization [facility] Medical Office Building B Address [address] [place] [address] Care Team Providers Care Airplane Mechanic Name Role Phone Sowmya Lilly MD Unavailable [phone] Sowmya Lilly MD Primary Care Provider Encounters Date Type Department Care Team Description 06/18/2024 Telephone [facility] ([facility]) [address] [place] [address] Thania Gant RN 06/18/2024 Telephone [facility] ([facility]) [address] [place] [address] Thania Gant, MARVIN 06/17/2024 9:56 PM VEST BUSHELER - 06/17/2024 11:59 PM VEST BUSHELER Hospital Encounter [facility] ([facility]) [address] [place] [address] Discharge Disposition: Discharge to home or self care 06/07/2024 Orders Only [facility] [address] [place] [address] 8 [place] [phone] Zully Schaeffer NP 06/04/2024 Documentation [facility] [address] [place] [address] Floor 8 [place] [id number] Cairto Sullivan RN 06/04/2024 Telephone [facility] - Breast Imaging [address] [facility] Floor 8 [place] [address] Zully Schaeffer NP Medical Question/Miscellaneo us 06/02/2024 Orders Only [facility] [address] [facility] 8 [place] [address] Anum Cardoso NP Abnormal mammogram (Primary Dx) 05/31/2024 - 05/31/2024 11:59 PM VEST BUSHELER Hospital Encounter [facility] ([facility]) [address] [place] [address] Discharge Disposition: Discharge to home or self care 05/27/2024 - 05/27/2024 11:59 PM VEST BUSHELER Hospital Encounter [facility]) [address] [place] [address] Discharge Disposition: Discharge to home or self [...] PCP Assessment & Plan (04/11/2022 11:37 AM VEST BUSHELER): Controlled with medication - continue treatment plan [...] results. Assessment & Plan (04/11/2022 11:36 AM VEST BUSHELER): Detected on Thyroid ultrasound on 12/26/21 Right [...] repeat thyroid ultrasound. Consider repeating thyroid biopsy @[facility] to obtain better sample. Follow up and further recommendation will be decided after we obtai above test results. Hoarseness of voice 04/11/2022 Assessment & Plan (04/11/2022 11:37 AM VEST BUSHELER): Chronic and evaluated by ENT years ago, [...] on file Legal Sex Female 10:33 AM VEST BUSHELER Gender Identity Not on file Sexual Orientation Not on file Last Filed Vital Signs Vital Sign Reading Time Taken Comments Blood Pressure 126/62 10/21/2022 10:45 AM CDT Pulse 57 03/09/2014 11:39 AM VEST BUSHELER Temperature - - Respiratory Rate - - Oxygen Saturation 95% 03/09/2014 11:39 AM VEST BUSHELER Inhaled Oxygen Concentration - - Weight 63.7 kg (140 lb 6.4 oz) 10/21/2022 10:45 AM CDT Height 154.9 cm (5' 1 ) 10/21/2022 10:45 AM CDT Body Mass Index 26.53 10/21/2022 10:45 AM CDT Plan of Treatment Not on file Procedures Procedure Name Priority Date/Time Associated Diagnosis Comments BREAST IMAGING MG DIAGNOSTIC OUTSIDE CONSULT Routine 06/17/2024 9:57 PM VEST BUSHELER BREAST IMAGING MG DIAGNOSTIC OUTSIDE REFERENCE Routine 05/31/2024 12:00 AM VEST BUSHELER BREAST IMAGING MG SCREENING OUTSIDE REFERENCE Routine 05/27/2024 12:00 AM VEST BUSHELER from Last 3 Months Results * Breast Imaging DX Outside Consult (06/17/2024 9:57 PM VEST BUSHELER) Anatomical Region Laterality Modality Breast N/A Mammography 06/18/2024 10:5 9 AM VEST BUSHELER Impressions 06/18/2024 12:10 PM VEST BUSHELER 1. Developing grouped calcifications in the posterior [...] images may or may not represent the [place] source data set and thus may contain changes which may lower the sensitivity of the second opinion interpretation. Dictated by: Jackelyn Lomeli MD The radiology attending physician has personally reviewed this study, and had reviewed and/or edited this written report and agrees with it. Electronically signed by: Balaji Sheppard 06/18/2024 12:10 PM VEST BUSHELER EXAMINATION: REVIEW AND INTERPRETATION OF OUTSIDE IMAGING FACILITY PERFORMING OUTSIDE IMAGING: [place], [place] EXAM(S) REVIEWED: 1. BILATERAL SCREENING MAMMOGRAM [...] OF OUTSIDE IMAGING FACILITY PERFORMING OUTSIDE IMAGING: [place], [place] EXAM(S) REVIEWED: 1. BILATERAL SCREENING MAMMOGRAM [...] images may or may not represent the [place] source data set and thus may contain changes which may lower the sensitivity of the second opinion interpretation. Dictated by: Jackelyn Lomeli MD The radiology attending physician has personally reviewed this study, and had reviewed and/or edited this written report and agrees with it. Electronically signed by: Anabel Duran M.D. Zully Schaeffer NP [facility] MAMMO PROCEDURES Final Result * Breast Imaging Diagnostic Outside Reference (05/31/2024 12:00 AM VEST BUSHELER) Impressions [facility] - 06/17/2024 9:48 PM VEST BUSHELER These images are for Reference purposes only and have not been reviewed by [facility]. There will be no report generated by a [facility] Radiologist. Narrative [facility]MO[facility] - 06/17/2024 9:48 PM VEST BUSHELER EXAMINATION: Images For Reference Purposes Only Zully Iona Hunsel PUNCH PRESS OPERATOR HELPER IMG MAMMO PROCEDURES Final Result [facility] * Breast Imaging Screening Outside Reference (05/27/2024 12:00 AM VEST BUSHELER) Impressions [facility] - 06/17/2024 9:48 PM VEST BUSHELER These images are for Reference purposes only and have not been reviewed by [facility]. There will be no report generated by a [facility] Radiologist. Narrative [facility] - 06/17/2024 9:48 PM VEST BUSHELER EXAMINATION: Images For Reference Purposes Only us Zully Schaeffer NP IMG MAMMO PROCEDURES Final Result Performing Organization Address City/[facility]/ZIP Co de Phone Number [facility] from Last 3 Months Insurance [facility] MEDICARE ADVANTAGE [facility] MEDICARE ADVANTAGE [facility] MEDICARE ADVANTAGE Care Teams Airplane Mechanic Relationship Specialty Start Date End Date Sowmya Lilly MD [address] [place] [address] PCP - General Internal Medicine 07/09/24 Sowmya Lilly MD [address] [place] [address] Referring Physician Internal Medicine 05/31/24
--- OUTSIDE RECORDS SUMMARY | 2024-07-16 11:57 | XMS_ITS | Encounter Summary ---
Author Organization [facility] Healthcare Address [address] [place] [address] Care Team Providers Care Astro Technician Name Role Phone Tai Adams MD Primary Care Provider [phone] Reason for Visit * Diagnostic Imaging (Routine) - Pending Review Specialty Diagnoses / Procedures Referred By Tammy baker Referred To Contact Procedures Breast Imaging Screening Outside Reference Zully Schaeffer NP [address] [facility] [id number] [place] [address] Phone: tel: fax: Referral ID Status Reason Start Date Expiration Date V isits Requested Visits Authorized [id number] Pending Review 06/17/2024 07/17/2025 1 1 Encounter Details Date Type Department Care Team (Late st Contact Info) Description 05/05/2019 Hospital Encounter [facility] ([facility]) [address] [place] [address] Social History Tobacco Use Types Packs/Day Years Used Date Smoking Tobacco: Former Cigarettes Q uit: 1980 Alcohol Use Standard Drinks/Week Comments Yes 0 (1 standard drink = 0.6 oz pur e alcohol) Comments Unknown Sex and Gender Information Value Date Recorded Sex Assigned at Not on file Legal Sex Female 10:33 AM SILVERER Gender Identity Not on file Sexual Orientation Not on file documented as of this encounter Plan of Treatment Not on file documented as of this encounter Procedures Procedure Name Priority Date/Time Associated Diagnosis Comments BREAST IMAGING MG SCREENING OUTSIDE REFERENCE Routine 05/05/2019 12:00 AM SILVERER documented in this encounter Results * Breast Imaging Screening Outside Reference (05/05/2019 12:00 AM SILVERER) Impressions [facility] - 06/17/2024 9:48 PM SILVERER These images are for Reference purposes only and have not been reviewed by [facility] Radiology. There will be no report generated by a [facility] Radiologist. Narrative RAD_M[facility]MO[facility] - 06/17/2024 9:48 PM SILVERER EXAMINATION: Images For Reference Purposes Only Zully Schaeffer PRISON GUARD IMG MAMMO PROCEDURES Final Result [facility] documented in this encounter Visit Diagnoses Not on filedocumented in this encounter Care Teams Astro Technician Relationship Specialty Start Date End Date Tai Adams MD [address] [place] [address] PCP - General 03/08/14 07/08/24 documented as of this encounter
--- OUTSIDE RECORDS SUMMARY | 2024-07-16 11:57 | XMS_ITS | Clinical Summary ---
Author Organization [facility] Address [address] [place] [address] Care Team Providers Care Chip Silo Tender Name Role Phone Arcadio Leggett MD Unavailable [phone] Sowmya Lilly MD Primary Care Provider [phone] Allergies Active Allergy Reactions Criticality Noted Date [...] Comments Blood Pressure 120/60 03/19/2022 3:48 PM SCHOOL BUS DISPATCHER Pulse 66 03/19/2022 3:48 PM SCHOOL BUS DISPATCHER Temperature - - Respiratory Rate 18 03/19/2022 3:48 PM SCHOOL BUS DISPATCHER Oxygen Saturation 99% 02/28/2021 12:53 PM SCHOOL BUS DISPATCHER Inhaled Oxygen Concentration - - Weight 63.5 kg (140 lb) 03/19/2022 3:48 PM SCHOOL BUS DISPATCHER Height 154.9 cm (5' 1 ) 03/19/2022 3:48 PM SCHOOL BUS DISPATCHER Body Mass Index 26.45 03/19/2022 3:48 PM SCHOOL BUS DISPATCHER Plan of Treatment Health Maintenance Due Date [...] - 2023-2 5 season) 2023 06/28/2020, 06/07/2020 Meningococcal B Vaccine Aged Out No l onger eligible based on patient's age to complete this topic Meningococcal Vaccine Aged Out No burt refugio eligible based on patient's age to complete this topic RSV Immunizations Under 20 Months Aged Out No longer eligible b ased on patient's age to complete this topic Insurance MEDICARE [facility] MEDICARE Advance Directives Documents on File Type Date Recorded Patient Inventory Specialist Manager Expl anation Power of Field Party Manager 02/28/2021 12:46 PM POA Vu Doss Advance Directives and Living Will 05/02/2017 SHORT FORM POWER OF STAIN WIPER Healthcare Agents on File Name Relationship Healthcare Agent Relationshi p Communication Kayla Valentin Other First Alternate Health Care Agent Thuan Kenrick Doss Other Second Alternate [facility] Care Agent Care Teams Chip Silo Tender Relationship Specialty Start Date End Date Sowmya Lilly MD [address] [place] [address] PCP - General INTERNAL MEDICINE 11/09/19 Arcadio Leggett MD CARDIOVASCULAR DISEASE 04/25/17
[2024-07-16 12:24] VITALS: TEMP 36.8
[2024-07-16 12:45] VITALS: BP 166/65; PULSE 51; RESP 18; TEMP 36.8; O2SAT 95
== END 2024-07-16 12:54 | disposition home or self-care (01) ==
PROVIDERS: Emergency Provider Emergency Medicine; PCP Internal Medicine
DX: S20.211A Contusion of right front wall of thorax, initial encounter (principal); I10 Essential (primary) hypertension; I25.10 Atherosclerotic heart disease of native coronary artery without angina pectoris; F17.210 Nicotine dependence, cigarettes, uncomplicated; W06.XXXA Fall from bed, initial encounter; Y92.003 Bedroom of unspecified non-institutional (private) residence as the place of occurrence of the external cause
CPT/HCPCS: 71046; 71100; 99283; A9270

== ENCOUNTER 2024-07-18 15:16 | Emergency (ER) | payer MEDICARE, SELFPAY ==
[2024-07-18] VITALS (7 sets, daily range): BP systolic 167–197; BP diastolic 81–101; PULSE 89–107; RESP 18–20; TEMP 35.9–37.3; O2SAT 95–99
--- NOTE | ~2024-07-18 | XR_ITS ---
CHEST RADIOGRAPH CLINICAL HISTORY: onset today, sob/weakness . COMPARISON: 07/16/2024 TECHNIQUE: Single portable view of the chest. FINDINGS The cardiomediastinal silhouette is unremarkable. The lungs are clear. IMPRESSION: No focal infiltrate or effusion. Reviewed, dictated and finalized at location A.
--- OUTSIDE RECORDS SUMMARY | 2024-07-18 15:20 | XMS_ITS | Clinical Summary ---
Author Organization [facility] Building B Address [address] [place] [address] Care Team Providers Care Supervisor Harvesting Name Role Phone Sowmya Lilly MD Unavailable [phone] Sowmya Lilly MD Primary Care Provider [phone] Allergies Active Allergy Reactions Criticality Noted Date Comments Sulfa (Sulfonamide Antibiotics) Medications citalopram (CeleXA) 40 mg tablet 04/10/2022 Active losartan-hydroCHLO ROthiazide (HYZAAR) 50-12.5 mg per tablet 03/26/2022 Activ e Active Problems Problem Noted Date Diagnosed Date Primary hypertension 04/11/2022 Assessment & Plan (10/21/2022 11:01 AM CDT): Controlled with medication - continue treatment plan per PCP Assessment & Plan (04/11/2022 11:37 AM SLUNK SKINNER): Controlled with medication - continue treatment plan [...] results. Assessment & Plan (04/11/2022 11:36 AM SLUNK SKINNER): Detected on Thyroid ultrasound on 12/26/21 Right [...] thyroid ultrasound. Consider repeating thyroid biopsy @[facility] to obtain better sample. Follow up and further recommendation will be decided after we obtai above test results. Hoarseness of voice 04/11/2022 Assessment & Plan (04/11/2022 11:37 AM SLUNK SKINNER): Chronic and evaluated by ENT years ago, patient reports history of vocal cord issues. - I recommend that she has an evaluation by ENT. 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 Encounters Date Type Department Care Team Description 06/18/2024 Telephone [facility] ([facility]) [address] [place] [address] Thania Gant RN 06/18/2024 Telephone [facility] ([facility]) [address] [place] [address] Thania Gant RN 06/17/2024 9:56 PM SLUNK SKINNER - 06/17/2024 11:59 PM SLUNK SKINNER Hospital Encounter [facility] ([facility]) [address] [place] [address] Discharge Disposition: Discharge to home or self care 06/07/2024 Orders Only [facility] [address] [facility] [place] Floor [address] [place] [address] Zully Schaeffer NP 06/04/2024 Documentation [facility] [address] [facility] [address] [place] [address] Carito Sullivan RN 06/04/2024 Telephone [facility] - Breast Imaging [address] [place] [address] 8 [place] [address] Zully Schaeffer NP Medical Question/Miscellaneo us 06/02/2024 Orders Only [facility] [address] [place] [address] Anum Cardoso NP Abnormal mammogram (Primary Dx) 05/31/2024 - 05/31/2024 11:59 PM SLUNK SKINNER Hospital Encounter [facility] ([facility]) [address] [place] [address] Discharge Disposition: Discharge to home or self care 05/27/2024 - 05/27/2024 11:59 PM SLUNK SKINNER Hospital Encounter [facility] ([facility]) [address] [place] [address] Discharge Disposition: Discharge to home or self [...] on file Legal Sex Female 10:33 AM SLUNK SKINNER Gender Identity Not on file Sexual Orientation Not on file Obstetrics History Last Filed Vital Signs Vital Sign Reading Time Taken Comments Blood Pressure 126/62 10/21/2022 10:45 AM CDT Pulse 57 03/09/2014 11:39 AM SLUNK SKINNER Temperature - - Respiratory Rate - - Oxygen Saturation 95% 03/09/2014 11:39 AM SLUNK SKINNER Inhaled Oxygen Concentration - - Weight 63.7 [...] DIAGNOSTIC OUTSIDE CONSULT Routine 06/17/2024 9:57 PM SLUNK SKINNER BREAST IMAGING MG DIAGNOSTIC OUTSIDE REFERENCE Routine 05/31/2024 12:00 AM SLUNK SKINNER BREAST IMAGING MG SCREENING OUTSIDE REFERENCE Routine 05/27/2024 12:00 AM SLUNK SKINNER from Last 3 Months Results * Breast Imaging DX Outside Consult (06/17/2024 9:57 PM SLUNK SKINNER) Anatomical Region Laterality Modality Breast N/A Mammography 06/18/2024 10:5 9 AM SLUNK SKINNER Impressions 06/18/2024 12:10 PM SLUNK SKINNER 1. Developing grouped calcifications in the posterior [...] images may or may not represent the kashia source data set and thus may contain changes which may lower the sensitivity of the second opinion interpretation. Dictated by: Jackelyn Lomeli MD The radiology attending physician has personally reviewed this study, and had reviewed and/or edited this written report and agrees with it. Electronically signed by: Anabel Duran M.D. Narrative 06/18/2024 12:10 PM SLUNK SKINNER EXAMINATION: REVIEW AND INTERPRETATION OF OUTSIDE IMAGING FACILITY PERFORMING OUTSIDE IMAGING: [place], [place] EXAM(S) REVIEWED: 1. BILATERAL SCREENING MAMMOGRAM [...] OF OUTSIDE IMAGING FACILITY PERFORMING OUTSIDE IMAGING: [place], [place] EXAM(S) REVIEWED: 1. BILATERAL SCREENING MAMMOGRAM [...] images may or may not represent the kashia source data set and thus may contain changes which may lower the sensitivity of the second opinion interpretation. Dictated by: Jackelyn Lomeli MD The radiology attending physician has personally reviewed this study, and had reviewed and/or edited this written report and agrees with it. Electronically signed by: Anabel Duran M.D. Zully Valientenell MEDICAL TECHNOLOGIST MICROBIOLOGY IMG MAMMO PROCEDURES Final Result * Breast Imaging Diagnostic Outside Reference (05/31/2024 12:00 AM SLUNK SKINNER) Impressions [facility] - 06/17/2024 9:48 PM SLUNK SKINNER These images are for Reference purposes only and have not been reviewed by [facility]. There will be no report generated by a [facility]. Narrative [facility]MO[facility] - 06/17/2024 9:48 PM SLUNK SKINNER EXAMINATION: Images For Reference Purposes Only us Zully Valientenell MEDICAL TECHNOLOGIST MICROBIOLOGY IMG MAMMO PROCEDURES Final Result Performing Organization Address [facility] Co de Phone Number [facility] * Breast Imaging Screening Outside Reference (05/27/2024 12:00 AM SLUNK SKINNER) Impressions [facility] - 06/17/2024 9:48 PM SLUNK SKINNER These images are for Reference purposes only and have not been reviewed by [facility]. There will be no report generated by a [facility]. Narrative [facility] - 06/17/2024 9:48 PM SLUNK SKINNER EXAMINATION: Images For Reference Purposes Only Zully Valientenell MEDICAL TECHNOLOGIST MICROBIOLOGY IMG MAMMO PROCEDURES Final Result [facility]_M[facility]MO[facility] from Last 3 Months Insurance [facility] MEDICARE ADVANTAGE Care Teams Supervisor Harvesting Relationship Specialty Start Date End Date Sowmya Lilly MD [address] [place] [address] PCP - General Internal Medicine 07/09/24 Sowmya Lilly MD [facility] [place] [address] Referring Physician Internal Medicine 05/31/24
--- OUTSIDE RECORDS SUMMARY | 2024-07-18 15:20 | XMS_ITS | Clinical Summary ---
Author Organization [facility] [employer] Address [address] [facility] [place] [address] Care Team Providers Care Server Security Administrator Name Role Phone Sowmya Lilly MD Primary Care Provider [phone] Source Comments [facility] Affiliates and Associated Physician Practices is amultiple site organization consisting of ambulatory clinics and hospital sitesin [place], [place], [place] and [place]. This disclosure is being madepursuant to the Care Everywhere program and may not contain all information available regarding this patient. Last updated 18.[facility] [employer] Allergies Active Allergy Reactions Criticality Noted Date [...] age to complete this topic Care Teams Server Security Administrator Relationship Specialty Start Date End Date Sowmya Lilly MD [address] [place] [address] [facility] - General 12/14/21
--- OUTSIDE RECORDS SUMMARY | 2024-07-18 15:20 | XMS_ITS | Encounter Summary ---
Author Organization [facility] Healthcare Address [address] [place] [address] Care Team Providers Care Keno Writer/Runner Name Role Phone Tai Adams MD Primary Care Provider [phone] Reason for Visit * Diagnostic Imaging (Routine) - Pending Review Specialty Diagnoses / Procedures Referred By Tammy baker Referred To Contact Procedures Breast Imaging Screening Outside Reference Zully Schaeffer NP [address] [facility] [id number] [place] [address] Phone: tel: fax: Referral ID Status Reason Start Date Expiration Date V isits Requested Visits Authorized [id number] Pending Review 06/17/2024 07/17/2025 1 1 Encounter Details Date Type Department Care Team (Late st Contact Info) Description 05/05/2019 Hospital Encounter [facility] ([facility]) [address] [place] [address] Social History Tobacco Use Types Packs/Day Years Used Date Smoking Tobacco: Former Cigarettes Q uit: 1980 Alcohol Use Standard Drinks/Week Comments Yes 0 (1 standard drink = 0.6 oz pur e alcohol) Comments Unknown Sex and Gender Information Value Date Recorded Sex Assigned at Not on file Legal Sex Female 10:33 AM AUTOMATION QA ANALYST Gender Identity Not on file Sexual Orientation Not on file documented as of this encounter Plan of Treatment Not on file documented as of this encounter Procedures Procedure Name Priority Date/Time Associated Diagnosis Comments BREAST IMAGING MG SCREENING OUTSIDE REFERENCE Routine 05/05/2019 12:00 AM AUTOMATION QA ANALYST documented in this encounter Results * Breast Imaging Screening Outside Reference (05/05/2019 12:00 AM AUTOMATION QA ANALYST) Impressions [facility]MO[facility] - 06/17/2024 9:48 PM AUTOMATION QA ANALYST These images are for Reference purposes only and have not been reviewed by [facility]. There will be no report generated by a [facility] Radiologist. Narrative RAD_MAMMO[facility] - 06/17/2024 9:48 PM AUTOMATION QA ANALYST EXAMINATION: Images For Reference Purposes Only Zully Schaeffer CAMPGROUND ATTENDANT IMG MAMMO PROCEDURES Final Result [facility] documented in this encounter Visit Diagnoses Not on filedocumented in this encounter Care Teams Keno Writer/Runner Relationship Specialty Start Date End Date Tai Adams MD [address] [place] [address] PCP - General 03/08/14 07/08/24 documented as of this encounter
--- OUTSIDE RECORDS SUMMARY | 2024-07-18 15:20 | XMS_ITS | Referral Summary ---
Author Organization [facility] Medical Office Building B Address [address] [place] [address] Care Team Providers Care Day Light Relief Operator Name Role Phone Sowmya Lilly MD Unavailable [phone] Sowmya Lilly MD Primary Care Provider Encounters Date Type Department Care Team Description 06/18/2024 Telephone [facility] ([facility]) [address] [place] [address] Thania Gant RN 06/18/2024 Telephone [facility] ([facility]) [address] [place] [address] Thania Gant, MARVIN 06/17/2024 9:56 PM SUPERVISOR CUTTING AND SEWING ROOM - 06/17/2024 11:59 PM SUPERVISOR CUTTING AND SEWING ROOM Hospital Encounter [facility] ([facility]) [address] [place] [address] Discharge Disposition: Discharge to home or self care 06/07/2024 Orders Only [facility] [address] [place] [address] [address] [place] [phone] Zully Schaeffer NP 06/04/2024 Documentation [facility] [address] [place] [address] Floor [address] [place] [address] Carito Sullivan RN 06/04/2024 Telephone [facility] - Breast Imaging [address] [facility] Floor [address] [place] [address] Zully Schaeffer NP Medical Question/Miscellaneo us 06/02/2024 Orders Only [facility] [address] [facility] [address] [place] [address] Anum Cardoso NP Abnormal mammogram (Primary Dx) 05/31/2024 - 05/31/2024 11:59 PM SUPERVISOR CUTTING AND SEWING ROOM Hospital Encounter [facility]) [address] [place] [address] Discharge Disposition: Discharge to home or self care 05/27/2024 - 05/27/2024 11:59 PM SUPERVISOR CUTTING AND SEWING ROOM Hospital Encounter [facility]) [address] [place] [address] Discharge Disposition: Discharge to home or self [...] PCP Assessment & Plan (04/11/2022 11:37 AM SUPERVISOR CUTTING AND SEWING ROOM): Controlled with medication - continue treatment plan [...] results. Assessment & Plan (04/11/2022 11:36 AM SUPERVISOR CUTTING AND SEWING ROOM): Detected on Thyroid ultrasound on 12/26/21 Right [...] repeat thyroid ultrasound. Consider repeating thyroid biopsy @[facility] to obtain better sample. Follow up and further recommendation will be decided after we obtai above test results. Hoarseness of voice 04/11/2022 Assessment & Plan (04/11/2022 11:37 AM SUPERVISOR CUTTING AND SEWING ROOM): Chronic and evaluated by ENT years ago, [...] on file Legal Sex Female 10:33 AM SUPERVISOR CUTTING AND SEWING ROOM Gender Identity Not on file Sexual Orientation Not on file Last Filed Vital Signs Vital Sign Reading Time Taken Comments Blood Pressure 126/62 10/21/2022 10:45 AM CDT Pulse 57 03/09/2014 11:39 AM SUPERVISOR CUTTING AND SEWING ROOM Temperature - - Respiratory Rate - - Oxygen Saturation 95% 03/09/2014 11:39 AM SUPERVISOR CUTTING AND SEWING ROOM Inhaled Oxygen Concentration - - Weight 63.7 kg (140 lb 6.4 oz) 10/21/2022 10:45 AM CDT Height 154.9 cm (5' 1 ) 10/21/2022 10:45 AM CDT Body Mass Index 26.53 10/21/2022 10:45 AM CDT Plan of Treatment Not on file Procedures Procedure Name Priority Date/Time Associated Diagnosis Comments BREAST IMAGING MG DIAGNOSTIC OUTSIDE CONSULT Routine 06/17/2024 9:57 PM SUPERVISOR CUTTING AND SEWING ROOM BREAST IMAGING MG DIAGNOSTIC OUTSIDE REFERENCE Routine 05/31/2024 12:00 AM SUPERVISOR CUTTING AND SEWING ROOM BREAST IMAGING MG SCREENING OUTSIDE REFERENCE Routine 05/27/2024 12:00 AM SUPERVISOR CUTTING AND SEWING ROOM from Last 3 Months Results * Breast Imaging DX Outside Consult (06/17/2024 9:57 PM SUPERVISOR CUTTING AND SEWING ROOM) Anatomical Region Laterality Modality Breast N/A Mammography 06/18/2024 10:5 9 AM SUPERVISOR CUTTING AND SEWING ROOM Impressions 06/18/2024 12:10 PM SUPERVISOR CUTTING AND SEWING ROOM 1. Developing grouped calcifications in the posterior [...] images may or may not represent the stebbins source data set and thus may contain changes which may lower the sensitivity of the second opinion interpretation. Dictated by: Jackelyn Lomeli MD The radiology attending physician has personally reviewed this study, and had reviewed and/or edited this written report and agrees with it. Electronically signed by: Balaji Sheppard 06/18/2024 12:10 PM SUPERVISOR CUTTING AND SEWING ROOM EXAMINATION: REVIEW AND INTERPRETATION OF OUTSIDE IMAGING FACILITY PERFORMING OUTSIDE IMAGING: [place], [place] EXAM(S) REVIEWED: 1. BILATERAL SCREENING MAMMOGRAM [...] OF OUTSIDE IMAGING FACILITY PERFORMING OUTSIDE IMAGING: [place], [place] EXAM(S) REVIEWED: 1. BILATERAL SCREENING MAMMOGRAM [...] images may or may not represent the stebbins source data set and thus may contain changes which may lower the sensitivity of the second opinion interpretation. Dictated by: Jackelyn Lomeli MD The radiology attending physician has personally reviewed this study, and had reviewed and/or edited this written report and agrees with it. Electronically signed by: Anabel Duran M.D. Zully Schaeffer NP [facility] MAMMO PROCEDURES Final Result * Breast Imaging Diagnostic Outside Reference (05/31/2024 12:00 AM SUPERVISOR CUTTING AND SEWING ROOM) Impressions RAD_MAMMO[facility] - 06/17/2024 9:48 PM SUPERVISOR CUTTING AND SEWING ROOM These images are for Reference purposes only and have not been reviewed by [facility]. There will be no report generated by a [facility] Radiologist. Narrative RAD_MAMMO[facility] - 06/17/2024 9:48 PM SUPERVISOR CUTTING AND SEWING ROOM EXAMINATION: Images For Reference Purposes Only Zully Iona Hunsel BOTTOM SCRUBBER IMG MAMMO PROCEDURES Final Result [facility] * Breast Imaging Screening Outside Reference (05/27/2024 12:00 AM SUPERVISOR CUTTING AND SEWING ROOM) Impressions [facility]MO[facility] - 06/17/2024 9:48 PM SUPERVISOR CUTTING AND SEWING ROOM These images are for Reference purposes only and have not been reviewed by [facility]. There will be no report generated by a [facility] Radiologist. Narrative RAD_M[facility]MO[facility] - 06/17/2024 9:48 PM SUPERVISOR CUTTING AND SEWING ROOM EXAMINATION: Images For Reference Purposes Only us Zully Schaeffer NP IMG MAMMO PROCEDURES Final Result Performing Organization Address City/[facility]/ZIP Co de Phone Number RAD_M[facility]MO[facility] from Last 3 Months Insurance [facility] MEDICARE ADVANTAGE [facility]ICARE Address: [facility] [id number] [place] [phone] [facility] MEDICARE ADVANTAGE [facility] MEDICARE Address: [facility] [address] [place] [address] [facility] MEDICARE ADVANTAGE [facility] MEDICARE Address: [facility] [address] [place] [address] Care Teams Day Light Relief Operator Relationship Specialty Start Date End Date Sowmya Lilly MD [address] [place] [address] PCP - General Internal Medicine 07/09/24 Sowmya Lilly MD [address] [place] [address] Referring Physician Internal Medicine 05/31/24
--- OUTSIDE RECORDS SUMMARY | 2024-07-18 15:20 | XMS_ITS | Clinical Summary ---
Author Organization [facility] Address [address] [place] [address] Care Team Providers Care Metal Products Fabricator Assembler Name Role Phone Arcadio Leggett MD Unavailable [phone] Sowmya Lilly MD Primary Care Provider [phone] Allergies Active Allergy Reactions Criticality Noted Date [...] Comments Blood Pressure 120/60 03/19/2022 3:48 PM STRATEGIC PARTNERSHIP SPECIALIST Pulse 66 03/19/2022 3:48 PM STRATEGIC PARTNERSHIP SPECIALIST Temperature - - Respiratory Rate 18 03/19/2022 3:48 PM STRATEGIC PARTNERSHIP SPECIALIST Oxygen Saturation 99% 02/28/2021 12:53 PM STRATEGIC PARTNERSHIP SPECIALIST Inhaled Oxygen Concentration - - Weight 63.5 kg (140 lb) 03/19/2022 3:48 PM STRATEGIC PARTNERSHIP SPECIALIST Height 154.9 cm (5' 1 ) 03/19/2022 3:48 PM STRATEGIC PARTNERSHIP SPECIALIST Body Mass Index 26.45 03/19/2022 3:48 PM STRATEGIC PARTNERSHIP SPECIALIST Plan of Treatment Health Maintenance Due Date [...] age to complete this topic Insurance [facility]ICARE [facility] MEDIC[facility] Advance Directives Documents on File Type Date Recorded Patient Rouge Sifter And Miller Expl anation Power of Backup Administrator 02/28/2021 12:46 PM POA Vu Doss Advance Directives and Living Will 05/02/2017 SHORT FORM POWER OF FORENSIC SPECIALIST Healthcare Agents on File Name Relationship Healthcare Agent Relationshi p Communication Kayla Valentin Other First Alternate Health Care Agent Thuan Kenrick Doss Other Second [facility] Care Agent Care Teams Metal Products Fabricator Assembler Relationship Specialty Start Date End Date Sowmya Lilly MD [address] [place] [address] PCP - General INTERNAL MEDICINE 11/09/19 Arcadio Leggett MD CARDIOVASCULAR DISEASE 04/25/17
[2024-07-18 15:25] LABS: Glucose Point of Care 98 mg/dl (65-105)
--- NOTE | 2024-07-18 15:32 | ED_ITS ---
HPI - Weakness General Chief complaint: Weakness Stated complaint: high bp Time Seen by Provider: 07/18/24 15:29 Source: patient and family Mode of arrival: ambulatory Limitations: no limitations History of Present Illness HPI Narrative: patient is an 78-year-old female who was here just the other day for right rib contusion after falling out of bed and given Rew. She is now here for full- body shaking and flushing sensation. She is losing her urine often. Her blood pressure is elevated. MD Complaint: generalized weakness Onset (ago): day(s) ( One) Duration: constant Location: generalized Migration: none Severity: mild Severity scale (1-10): 2 Quality: other ( patient is having shaking whole body today) Relieving factors: none Exacerbating factors: none Context: new medication ( new Rew) Associated symptoms: other ( urinary loss, diaphoresis) Related Data Home Medications ?Medication ?Instructions ?Recorded ?Confirmed ?Last Taken ?Type losartan 50 mg-hydrochlorothiazide 1 tablet PO DAILY 12/06/21 07/29/23 01/10/22 History 12.5 mg tablet fentanyl 12 mcg/hr transdermal 1 patch topical Q72H 01/11/22 07/29/23 01/08/22 History patch Allergies Allergy/AdvReac Type Severity Reaction Status Date / Time Sulfa (Sulfonamide Allergy Intermediate HIVES Verified 07/18/24 16:19 Antibiotics) DIARRHEA Review of Systems 2 Review of Systems: All systems reviewed & are unremarkable except as noted in HPI and below Constitutional: Constitutional: Reports no additional constitutional complaints Eyes: Eyes: Reports no additional eye complaints ENT: Reports system reviewed and no additional complaints, except as documented Cardiovascular: Cardiovascular: Reports no additional cardiovascular complaints Respiratory: Respiratory: Reports no additional respiratory complaints Gastrointestinal: Gastrointestinal: Reports no additional gastrointestinal complaints Genitourinary: Genitourinary: Reports no additional female genitourinary complaints Musculoskeletal: Musculoskeletal: Reports no additional musculoskeletal complaints Integumentary/Breasts: Skin/Breast: Reports system reviewed and no additional complaints, except as docu Neurologic: Reports system reviewed and no additional complaints, except as documented Psychiatric: Psychiatric: Reports no additional psychiatric complaints Endocrine: Endocrine: Reports no additional endocrine complaints Hematologic/Lymphatic: Hematologic/Lymphatic: Reports no additional hematologic/lymphatic complaints Allergic/Immunologic: Allergic/Immunologic: Reports no additional allergic/immunologic complaints PMFSH Past Medical History Medical History Backache, unspecified (08/26/17) Mass of left chest wall Hypertension Hypersomnia Osteoporosis Depression GERD (gastroesophageal reflux disease) CAD (coronary artery disease) Surgical History Surgical History History of hysterectomy H/O removal of cyst Breast cyst removed-Benign History of surgery on arm History of back surgery 2018. Herniated Disk. Family History Family History Other Heart disease Social History Social History Smoking packs per day: 0.5 Smoking cigarettes per day: 10.0 Years smoked: 15 Smoking pack-years: 7.50 Smoking status: Former smoker Tobacco type: cigarettes Smoking end date: 04/14/79 Alcohol intake: current Drinks per week: 14 Alcohol use details: RED WINE Substance use: never Living arrangements: with family Additional living arrangements comments: . Spiritual care concerns: No Exam 2 Const: General: healthy appearing Nutritional Appearance: well nourished Orientation/consciousness: patient oriented x3 Limitations: no limitations HENMT: Head: normal to inspection Ears: external ears normal F phu/Nose/Sinus: Normal external nose present Eyes: Conjunctivae: conjunctivae normal Pupils: Equal, round and reactive pupils present EOM: EOMs intact bilaterally Neck: Neck: normal visual inspection Chest: Chest palpation & inspection: normal inspection of the chest Resp: Effort & Inspection: normal respiratory effort and not labored A uscultation: clear to auscultation bilaterally and no crackles Cardio: Rate: regular rate Rhythm: regular rhythm Heart sounds: no murmurs GI: Inspection: non-distended GI Palp: Yes Soft to palpation, No Tenderness to palpation present (GI) and No Guarding due to palpation present (GI) A uscultation: normal bowel sounds : General: Yes bladder normal to palpation Back/Spine/Pelvis: Back: no CVA tenderness Skin: General skin exam: normal color Rashes: no rashes Wounds: no wounds Neuro: General: patient oriented x3 Cranial nerves: Yes Nystagmus not present Speech: normal speech Gait exam (Neuro): Normal gait present Extrem: General: normal to inspection Psych: Mental Status: mental status grossly normal Affect: Anxious affect present Attitude: cooperative Course Vital Signs Vital signs: Vital Signs Temperature 35.9 C L 07/18/24 15:17 Pulse Rate 99 07/18/24 15:17 Respiratory Rate 18 07/18/24 15:17 Blood Pressure 197/101 H 07/18/24 15:17 Pulse Oximetry 97 07/18/24 15:17 Oxygen Delivery Room Air 07/18/24 15:17 Temperature 37.3 C 07/18/24 16:57 Pulse Rate 94 07/18/24 16:20 Respiratory Rate 19 07/18/24 16:20 Blood Pressure 190/81 H 07/18/24 16:20 Pulse Oximetry 95 07/18/24 16:20 Oxygen Delivery Room Air 07/18/24 16:20 MDM - Weakness MDM Narrative Medical decision making narrative: patient is an 78-year-old female with diaphoresis and shaking with urinary loss. We will go ahead and do a septic workup at this time. Suspect urinary source. Lab Data Attestation: I reviewed the patient's lab results. 07/18/24 15:44 07/18/24 15:44 Labs: Lab Results 07/18/24 07/18/24 07/18/24 Range/Units 15:19 15:44 15:45 WBC 7.9 (4.8-10.8) K/mm3 RBC 4.05 L (4.20-5.40) M/mm3 Hgb 13.3 (11.7-13.8) g/dL Hct 40.8 (35.0-42.0) % MCV 100.7 (78.0-102.0) fL MCH 32.8 H (27.0-31.0) pg MCHC 32.6 (32-36) g/dL RDW 12.8 (11.6-14.4) % Plt Count 238 (150-420) K/mm3 MPV 10.7 (9.2-11.8) fl Immature Gran % (Auto) 0.3 H (0.0-0.0) % Neut % (Auto) 60.7 (50.0-70.0) % Lymph % (Auto) 29.0 (18.0-42.0) % Marshall % (Auto) 9.1 (2.0-11.0) % Eos % (Auto) 0.4 L (1.0-6.0) % Baso % (Auto) 0.5 (0.0-1.0) % Lymph # (Auto) 2.29 (1.10-4.50) K/mm3 Marshall # (Auto) 0.72 (0.10-0.90) K/mm3 Eos # (Auto) 0.03 (0.02-0.50) K/mm3 Baso # (Auto) 0.04 (0.00-0.10) K/mm3 Abs Immat Gran (auto) 0.02 H (0.00-0.00) K/mm3 Absolute Neuts (auto) 4.79 (1.70-7.20) K/mm3 Absolute Nucleated RBC 0.00 (0.00-0.00) K/mm3 Nucleated RBC % 0.0 (0-0.0) % Sodium 142 (136-145) mmol/L Potassium 4.2 (3.5-5.1) mmol/L Chloride 105 (98-108) mmol/L Carbon Dioxide 27 (21-32) mmol/L Anion Gap 10 (4-12) mmol/L BUN 24 H (7-18) mg/dL Creatinine 1.43 H (0.55-1.02) mg/dL Estim Creat Clear Calc 28 ml/min Estimated GFR 35 L (59 - ) Glucose 107 H (70-99) mg/dL POC Capillary Glucose 98 (65-105) mg/dl Calculated Osmolality 298 H (285-295) mOsm/kg Lactic Acid 1.5 (0.4-2.0) mmol/L Calcium 9.5 (8.5-10.1) mg/dL Total Bilirubin 0.6 (0.00-1.00) mg/dL AST 16 (15-37) U/L ALT 7 L (14-59) U/L Alkaline Phosphatase 80 (46-116) U/L Troponin I 8.8 (0.00-60.4) ng/L Total Protein 8.1 (6.4-8.2) g/dL Albumin 4.2 (3.4-5.0) g/dL Urine Color Light yellow (Yellow) Urine Appearance Clear (Clear) Urine pH 6.0 (5.0-8.0) Ur Specific [place] 1.015 (1.010-1.020) Urine Protein Negative (Negative) Urine Glucose (UA) Negative (Negative) Urine Ketones 1+ H (Negative) Ur Blood (Man) Trace-intact H (Negative) Urine Nitrate Negative (Negative) Urine Bilirubin Negative (Negative) Urine Urobilinogen 0.2 (0.2-1.0) mg/dL Leukocyte Esterase Rfl 2+ H (Negative) SKIP/UL Urine RBC 0-2 (0-2) /hpf Urine WBC 6-10 H (0-3) /hpf Urine WBC Clumps Present H (None) /hpf Ur Squamous Epith Cells Occasional (Few) /hpf Amorphous Sediment Few H (None) Urine Bacteria 1+ H (None) /hpf Imaging Data Attestation: I personally reviewed and interpreted this imaging study as follows: Radiologist's impression: chest x-rays negative for acute process ECG Data EKG #1: Attestation: I personally reviewed and interpreted this ECG as follows: ECG completion date: 07/18/24 ECG completion time: 16:02 EKG Interpretation: tachycardia, PVCs ( trigeminy), no ST changes, normal QRS, normal QT and left axis Discharge Plan Discharge Clinical Impression: Acute UTI Patient Disposition: Home, Self-Care Condition: Improved Instructions: Antibiotic Form, Urinary Tract Infection in Older Adults (ED) Patient Language: Polish Prescriptions: New cephalexin 500 mg capsule 500 mg PO BID 7 Days Qty: 14 0RF No Action acetaminophen [Tylenol] 325 mg capsule 650 mg PO Q8H PRN (Reason: pain) Qty: 20 0RF tramadol 50 mg tablet 50 mg PO BID Qty: 4 0RF fentanyl 12 mcg/hr patch 72 hour 1 patch topical Q72H hydrocodone-acetaminophen 5-325 mg tablet 1 tablet PO Q8H PRN (Reason: pain) Qty: 10 0RF hydrocodone-acetaminophen 5-325 mg tablet 1 tablet PO Q8H PRN (Reason: pain) Qty: 20 0RF losartan-hydrochlorothiazide 50-12.5 mg tablet 1 tablet PO DAILY citalopram 40 mg tablet 40 mg PO DAILY Qty: 90 0RF Follow-up/Referrals: Sowmya Lilly MD [Primary Care Provider] - Time of Disposition: 17:23
--- NOTE | 2024-07-18 15:43 | ECG_ITS ---
Test Date: 2024-07-18 15:24:37 Measurements Intervals [place] Rate: 102 P: 54 ID: [id number] QRS: 14 QRSD: 86 T: 33 QT: 328 QTc: 429 Interpretive Statements SINUS TACHYCARDIA VENTRICULAR TRIGEMINY BASELINE ARTIFACT- I, II, III, AVR, AVL, AVF, V1-V6 ABNORMAL ECG No previous ECG available for comparison Electronically Signed On 07-18-2024 16:54:27 CDT by John Lee D.O.
[2024-07-18 15:58] LABS: Basophils Absolute Auto 0.04 K/mm3 (0.00-0.10); Basophils Percent Auto 0.5 % (0.0-1.0); Eosinophils Absolute Auto 0.03 K/mm3 (0.02-0.50); Eosinophils Percent Auto 0.4 % (1.0-6.0); Hematocrit 40.8 % (35.0-42.0); Hemoglobin 13.3 g/dL (11.7-13.8); Immature Granulocyte Absolute 0.02 K/mm3 (0.00-0.00); Immature Granulocyte Percent A 0.3 % (0.0-0.0); Lymphocytes Absolute Auto 2.29 K/mm3 (1.10-4.50); Mean Corpuscular HGB Conc 32.6 g/dL (32-36); Mean Corpuscular Hemoglobin 32.8 pg (27.0-31.0); Mean Corpuscular Volume 100.7 fL (78.0-102.0); Mean Platelet Volume 10.7 fl (9.2-11.8); Monocytes Absolute Auto 0.72 K/mm3 (0.10-0.90); Monocytes Percent Auto 9.1 % (2.0-11.0); Neutrophils Absolute Auto 4.79 K/mm3 (1.70-7.20); Neutrophils Percent Auto 60.7 % (50.0-70.0); Platelet Count Result 238 K/mm3 (150-420); Red Blood Count 4.05 M/mm3 (4.20-5.40); Red Cell Distribution Width 12.8 % (11.6-14.4); White Blood Count 7.9 K/mm3 (4.8-10.8)
--- OUTSIDE RECORDS SUMMARY | 2024-07-18 15:58 | XMS_ITS | Clinical Summary ---
Author Organization [facility] Wall[facility] Address [address] [facility] [place] [address] Care Team Providers Care Scallop Cutter Machine Name Role Phone Sowmya Lilly MD Primary Care Provider [phone] Source Comments [facility] Affiliates and Associated Physician Practices is amultiple site organization consisting of ambulatory clinics and hospital sitesin [place], [place], [place] and [place]. This disclosure is being madepursuant to the Care Everywhere program and may not contain all information available regarding this patient. Last updated 18.[facility] Allergies Active Allergy Reactions Criticality Noted Date [...] age to complete this topic Care Teams Scallop Cutter Machine Relationship Specialty Start Date End Date Sowmya Lilly MD [address] [place] [address] [facility] - General 12/14/21
--- OUTSIDE RECORDS SUMMARY | 2024-07-18 15:58 | XMS_ITS | Encounter Summary ---
Author Organization [facility] Healthcare Address [address] [place] [address] Care Team Providers Care Director Of Strategy & Mobile Name Role Phone Tai Adams MD Primary Care Provider [phone] Reason for Visit * Diagnostic Imaging (Routine) - Pending Review Specialty Diagnoses / Procedures Referred By Tammy baker Referred To Contact Procedures Breast Imaging Screening Outside Reference Zully Schaeffer NP [address] [facility] [id number] [place] [address] Phone: tel: fax: Referral ID Status Reason Start Date Expiration Date V isits Requested Visits Authorized [id number] Pending Review 06/17/2024 07/17/2025 1 1 Encounter Details Date Type Department Care Team (Late st Contact Info) Description 05/05/2019 Hospital Encounter [facility]) [address] [place] [id number] Social History Tobacco Use Types Packs/Day Years Used Date Smoking Tobacco: Former Cigarettes Q uit: 1980 Alcohol Use Standard Drinks/Week Comments Yes 0 (1 standard drink = 0.6 oz pur e alcohol) Comments Unknown Sex and Gender Information Value Date Recorded Sex Assigned at Not on file Legal Sex Female 10:33 AM TACK COVERER Gender Identity Not on file Sexual Orientation Not on file documented as of this encounter Plan of Treatment Not on file documented as of this encounter Procedures Procedure Name Priority Date/Time Associated Diagnosis Comments BREAST IMAGING MG SCREENING OUTSIDE REFERENCE Routine 05/05/2019 12:00 AM TACK COVERER documented in this encounter Results * Breast Imaging Screening Outside Reference (05/05/2019 12:00 AM TACK COVERER) Impressions [facility] - 06/17/2024 9:48 PM TACK COVERER These images are for Reference purposes only and have not been reviewed by [facility]iology. There will be no report generated by a [facility] Radiologist. Narrative [facility] - 06/17/2024 9:48 PM TACK COVERER EXAMINATION: Images For Reference Purposes Only Zully Schaeffer SPEED BELT SANDER IMG MAMMO PROCEDURES Final Result [facility] documented in this encounter Visit Diagnoses Not on filedocumented in this encounter Care Teams Director Of Strategy & Mobile Relationship Specialty Start Date End Date Tai Adams MD [address] [place] [id number] PCP - General 03/08/14 07/08/24 documented as of this encounter
--- OUTSIDE RECORDS SUMMARY | 2024-07-18 15:58 | XMS_ITS | Clinical Summary ---
Author Organization [facility] Address [address] [place] [address] Care Team Providers Care Approver Name Role Phone Sowmya Lilly MD Unavailable [phone] Sowmya Lilly MD Primary Care Provider [phone] Allergies Active Allergy Reactions Criticality Noted Date Comments Sulfa (Sulfonamide Antibiotics) Medications citalopram (CeleXA) 40 mg tablet 04/10/2022 Active losartan-hydroCHLO ROthiazide (HYZAAR) 50-12.5 mg per tablet 03/26/2022 Activ e Active Problems Problem Noted Date Diagnosed Date Primary hypertension 04/11/2022 Assessment & Plan (10/21/2022 11:01 AM CDT): Controlled with medication - continue treatment plan per PCP Assessment & Plan (04/11/2022 11:37 AM LEAF FAT SCRAPER): Controlled with medication - continue treatment plan [...] results. Assessment & Plan (04/11/2022 11:36 AM LEAF FAT SCRAPER): Detected on Thyroid ultrasound on 12/26/21 Right [...] repeat thyroid ultrasound. Consider repeating thyroid biopsy @[facility] to obtain better sample. Follow up and further recommendation will be decided after we obtai above test results. Hoarseness of voice 04/11/2022 Assessment & Plan (04/11/2022 11:37 AM LEAF FAT SCRAPER): Chronic and evaluated by ENT years ago, patient reports history of vocal cord issues. - I recommend that she has an evaluation by ENT. 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 Encounters Date Type Department Care Team Description 06/18/2024 Telephone [facility] ([facility]) [address] [place] [address] Thania Gant RN 06/18/2024 Telephone [facility] ([facility]) [address] [place] [address] Thania Gant RN 06/17/2024 9:56 PM LEAF FAT SCRAPER - 06/17/2024 11:59 PM LEAF FAT SCRAPER Hospital Encounter [facility] ([facility]) [address] [place] [phone] Discharge Disposition: Discharge to home or self care 06/07/2024 Orders Only [facility] [address] [facility] [address] [place] [address] Zully Schaeffer NP 06/04/2024 Documentation [facility] [address] [facility] [address] [place] [phone] Carito Sullivan RN 06/04/2024 Telephone [facility] [place] [facility] [address] [place] [address] 8 [place] [address] Zully Schaeffer NP Medical Question/Miscellaneo us 06/02/2024 Orders Only [facility] [address] [place] [address] Anum Cardoso NP Abnormal mammogram (Primary Dx) 05/31/2024 - 05/31/2024 11:59 PM LEAF FAT SCRAPER Hospital Encounter [facility] ([facility]) [address] [place] [address] Discharge Disposition: Discharge to home or self care 05/27/2024 - 05/27/2024 11:59 PM LEAF FAT SCRAPER Hospital Encounter [facility]) [address] [place] [address] Discharge Disposition: Discharge to home or self [...] on file Legal Sex Female 10:33 AM LEAF FAT SCRAPER Gender Identity Not on file Sexual Orientation Not on file Obstetrics History Last Filed Vital Signs Vital Sign Reading Time Taken Comments Blood Pressure 126/62 10/21/2022 10:45 AM CDT Pulse 57 03/09/2014 11:39 AM LEAF FAT SCRAPER Temperature - - Respiratory Rate - - Oxygen Saturation 95% 03/09/2014 11:39 AM LEAF FAT SCRAPER Inhaled Oxygen Concentration - - Weight 63.7 [...] DIAGNOSTIC OUTSIDE CONSULT Routine 06/17/2024 9:57 PM LEAF FAT SCRAPER BREAST IMAGING MG DIAGNOSTIC OUTSIDE REFERENCE Routine 05/31/2024 12:00 AM LEAF FAT SCRAPER BREAST IMAGING MG SCREENING OUTSIDE REFERENCE Routine 05/27/2024 12:00 AM LEAF FAT SCRAPER from Last 3 Months Results * Breast Imaging DX Outside Consult (06/17/2024 9:57 PM LEAF FAT SCRAPER) Anatomical Region Laterality Modality Breast N/A Mammography 06/18/2024 10:5 9 AM LEAF FAT SCRAPER Impressions 06/18/2024 12:10 PM LEAF FAT SCRAPER 1. Developing grouped calcifications in the posterior [...] images may or may not represent the [place] source data set and thus may contain changes which may lower the sensitivity of the second opinion interpretation. Dictated by: Jackelyn Lomeli MD The radiology attending physician has personally reviewed this study, and had reviewed and/or edited this written report and agrees with it. Electronically signed by: Anabel Duran M.D. Narrative 06/18/2024 12:10 PM LEAF FAT SCRAPER EXAMINATION: REVIEW AND INTERPRETATION OF OUTSIDE IMAGING FACILITY PERFORMING OUTSIDE IMAGING: [place], [place] EXAM(S) REVIEWED: 1. BILATERAL SCREENING MAMMOGRAM [...] OF OUTSIDE IMAGING FACILITY PERFORMING OUTSIDE IMAGING: [place], [place] EXAM(S) REVIEWED: 1. BILATERAL SCREENING MAMMOGRAM [...] images may or may not represent the [place] source data set and thus may contain changes which may lower the sensitivity of the second opinion interpretation. Dictated by: Jackelyn Lomeli MD The radiology attending physician has personally reviewed this study, and had reviewed and/or edited this written report and agrees with it. Electronically signed by: Anabel Duran M.D. Zully Valientenell CONCRETE BUCKET HOOKER IMG MAMMO PROCEDURES Final Result * Breast Imaging Diagnostic Outside Reference (05/31/2024 12:00 AM LEAF FAT SCRAPER) Impressions [facility] - 06/17/2024 9:48 PM LEAF FAT SCRAPER These images are for Reference purposes only and have not been reviewed by [facility]. There will be no report generated by a [facility] Radiologist. Narrative [facility] - 06/17/2024 9:48 PM LEAF FAT SCRAPER EXAMINATION: Images For Reference Purposes Only us Zully Valientenell CONCRETE BUCKET HOOKER IMG MAMMO PROCEDURES Final Result Performing Organization Address [facility] Co de Phone Number [facility] * Breast Imaging Screening Outside Reference (05/27/2024 12:00 AM LEAF FAT SCRAPER) Impressions [facility] - 06/17/2024 9:48 PM LEAF FAT SCRAPER These images are for Reference purposes only and have not been reviewed by [facility]. There will be no report generated by a [facility] Radiologist. Narrative [facility] - 06/17/2024 9:48 PM LEAF FAT SCRAPER EXAMINATION: Images For Reference Purposes Only Zully Valientenell CONCRETE BUCKET HOOKER IMG MAMMO PROCEDURES Final Result [facility] from Last [address] [facility] MEDICARE ADVANTAGE [facility] Address: [place] [address] [facility] Address: [place] [address] [facility] MED[facility] Address: [place] [address] Care Teams Approver Relationship Specialty Start Date End Date Sowmya Lilly MD [address] [place] [id number] PCP - General Internal Medicine 07/09/24 Sowmya Lilly MD [facility] [place] [address] Referring Physician Internal Medicine 05/31/24
--- OUTSIDE RECORDS SUMMARY | 2024-07-18 15:58 | XMS_ITS | Referral Summary ---
Author Organization [facility] Medical Office Building B Address [address] [place] [address] Care Team Providers Care Business Account Specialist Name Role Phone Sowmya Lilly MD Unavailable [phone] Sowmya Lilly MD Primary Care Provider Encounters Date Type Department Care Team Description 06/18/2024 Telephone [facility] ([facility]) [address] [place] [address] Thania Gant RN 06/18/2024 Telephone [facility] Advanced [facility] ([facility]) [address] [place] [address] Thania Gant, MARVIN 06/17/2024 9:56 PM PLASTIC BOAT BUFFER - 06/17/2024 11:59 PM PLASTIC BOAT BUFFER Hospital Encounter [facility] ([facility]) [address] [place] [address] Discharge Disposition: Discharge to home or self care 06/07/2024 Orders Only [facility] Surgery [address] [place] [address] 8 [place] [phone] Zully Schaeffer NP 06/04/2024 Documentation [facility] Surgery [address] [place] [address] Floor 8 [place] [id number] Carito Sullivan RN 06/04/2024 Telephone [facility] - Breast Imaging [address] [facility] Floor 8 [place] [address] Zully Schaeffer NP Medical Question/Miscellaneo us 06/02/2024 Orders Only [facility] Surgery [address] [facility] 8 [place] [address] Anum Cardoso NP Abnormal mammogram (Primary Dx) 05/31/2024 - 05/31/2024 11:59 PM PLASTIC BOAT BUFFER Hospital Encounter [facility] ([facility]) [address] [place] [address] Discharge Disposition: Discharge to home or self care 05/27/2024 - 05/27/2024 11:59 PM PLASTIC BOAT BUFFER Hospital Encounter [facility] ([facility]) [address] [place] [address] Discharge Disposition: Discharge to home or self [...] PCP Assessment & Plan (04/11/2022 11:37 AM PLASTIC BOAT BUFFER): Controlled with medication - continue treatment plan [...] results. Assessment & Plan (04/11/2022 11:36 AM PLASTIC BOAT BUFFER): Detected on Thyroid ultrasound on 12/26/21 Right [...] repeat thyroid ultrasound. Consider repeating thyroid biopsy [facility] to obtain better sample. Follow up and further recommendation will be decided after we obtai above test results. Hoarseness of voice 04/11/2022 Assessment & Plan (04/11/2022 11:37 AM PLASTIC BOAT BUFFER): Chronic and evaluated by ENT years ago, [...] on file Legal Sex Female 10:33 AM PLASTIC BOAT BUFFER Gender Identity Not on file Sexual Orientation Not on file Last Filed Vital Signs Vital Sign Reading Time Taken Comments Blood Pressure 126/62 10/21/2022 10:45 AM CDT Pulse 57 03/09/2014 11:39 AM PLASTIC BOAT BUFFER Temperature - - Respiratory Rate - - Oxygen Saturation 95% 03/09/2014 11:39 AM PLASTIC BOAT BUFFER Inhaled Oxygen Concentration - - Weight 63.7 kg (140 lb 6.4 oz) 10/21/2022 10:45 AM CDT Height 154.9 cm (5' 1 ) 10/21/2022 10:45 AM CDT Body Mass Index 26.53 10/21/2022 10:45 AM CDT Plan of Treatment Not on file Procedures Procedure Name Priority Date/Time Associated Diagnosis Comments BREAST IMAGING MG DIAGNOSTIC OUTSIDE CONSULT Routine 06/17/2024 9:57 PM PLASTIC BOAT BUFFER BREAST IMAGING MG DIAGNOSTIC OUTSIDE REFERENCE Routine 05/31/2024 12:00 AM PLASTIC BOAT BUFFER BREAST IMAGING MG SCREENING OUTSIDE REFERENCE Routine 05/27/2024 12:00 AM PLASTIC BOAT BUFFER from Last 3 Months Results * Breast Imaging DX Outside Consult (06/17/2024 9:57 PM PLASTIC BOAT BUFFER) Anatomical Region Laterality Modality Breast N/A Mammography 06/18/2024 10:5 9 AM PLASTIC BOAT BUFFER Impressions 06/18/2024 12:10 PM PLASTIC BOAT BUFFER 1. Developing grouped calcifications in the posterior [...] images may or may not represent the [place] source data set and thus may contain changes which may lower the sensitivity of the second opinion interpretation. Dictated by: Jackelyn Lomeli MD The radiology attending physician has personally reviewed this study, and had reviewed and/or edited this written report and agrees with it. Electronically signed by: Balaji Sheppard 06/18/2024 12:10 PM PLASTIC BOAT BUFFER EXAMINATION: REVIEW AND INTERPRETATION OF OUTSIDE IMAGING FACILITY PERFORMING OUTSIDE IMAGING: [place], [place] EXAM(S) REVIEWED: 1. BILATERAL SCREENING MAMMOGRAM [...] OF OUTSIDE IMAGING FACILITY PERFORMING OUTSIDE IMAGING: [place], [place] EXAM(S) REVIEWED: 1. BILATERAL SCREENING MAMMOGRAM [...] images may or may not represent the [place] source data set and thus may contain changes which may lower the sensitivity of the second opinion interpretation. Dictated by: Jackelyn Lomeli MD The radiology attending physician has personally reviewed this study, and had reviewed and/or edited this written report and agrees with it. Electronically signed by: Anabel Duran M.D. Zully Schaeffer NP [facility] MAMMO PROCEDURES Final Result * Breast Imaging Diagnostic Outside Reference (05/31/2024 12:00 AM PLASTIC BOAT BUFFER) Impressions [facility] - 06/17/2024 9:48 PM PLASTIC BOAT BUFFER These images are for Reference purposes only and have not been reviewed by [facility] Radiology. There will be no report generated by a [facility] Radiologist. Narrative [facility] - 06/17/2024 9:48 PM PLASTIC BOAT BUFFER EXAMINATION: Images For Reference Purposes Only Zully Iona Hunsel GLOBAL COMPENSATION DIRECTOR IMG MAMMO PROCEDURES Final Result [facility] * Breast Imaging Screening Outside Reference (05/27/2024 12:00 AM PLASTIC BOAT BUFFER) Impressions [facility] - 06/17/2024 9:48 PM PLASTIC BOAT BUFFER These images are for Reference purposes only and have not been reviewed by [facility] Radiology. There will be no report generated by a [facility] Radiologist. Narrative [facility] - 06/17/2024 9:48 PM PLASTIC BOAT BUFFER EXAMINATION: Images For Reference Purposes Only us Zully Schaeffer NP IMG MAMMO PROCEDURES Final Result Performing Organization Address City/[facility]/ZIP Co de Phone Number [facility] from Last 3 Months Insurance [facility] MEDICARE ADVANTAGE [facility] MEDICARE ADVANTAGE [facility] MEDICARE ADVANTAGE Care Teams Business Account Specialist Relationship Specialty Start Date End Date Sowmya Lilly MD [address] [place] [address] PCP - General Internal Medicine 07/09/24 Sowmya Lilly MD [address] [place] [address] Referring Physician Internal Medicine 05/31/24
--- OUTSIDE RECORDS SUMMARY | 2024-07-18 15:58 | XMS_ITS | Clinical Summary ---
Author Organization [facility] Address [address] [place] [address] Care Team Providers Care Theatrical Dresser Name Role Phone Arcadio Leggett MD Unavailable [phone] Sowmya Lilly MD Primary Care Provider [phone] Allergies Active Allergy Reactions Criticality Noted Date [...] Comments Blood Pressure 120/60 03/19/2022 3:48 PM GROUP CHIEF OPERATOR Pulse 66 03/19/2022 3:48 PM GROUP CHIEF OPERATOR Temperature - - Respiratory Rate 18 03/19/2022 3:48 PM GROUP CHIEF OPERATOR Oxygen Saturation 99% 02/28/2021 12:53 PM GROUP CHIEF OPERATOR Inhaled Oxygen Concentration - - Weight 63.5 kg (140 lb) 03/19/2022 3:48 PM GROUP CHIEF OPERATOR Height 154.9 cm (5' 1 ) 03/19/2022 3:48 PM GROUP CHIEF OPERATOR Body Mass Index 26.45 03/19/2022 3:48 PM GROUP CHIEF OPERATOR Plan of Treatment Health Maintenance Due Date [...] age to complete this topic Insurance MEDICARE [facility] MEDIC[facility] Advance Directives Documents on File Type Date Recorded Patient Sampler Pickup Expl anation Power of Feed Research Technician 02/28/2021 12:46 PM POA Vu Doss Advance Directives and Living Will 05/02/2017 SHORT FORM POWER OF DIRECTOR CORPORATE Healthcare Agents on File Name Relationship Healthcare Agent Relationshi p Communication Kayla Valentin Other First Alternate Health Care Agent Thuan Kenrick Doss Other Second Alternate [facility] Care Agent Care Teams Theatrical Dresser Relationship Specialty Start Date End Date Sowmya Lilly MD [address] [place] [address] PCP - General INTERNAL MEDICINE 11/09/19 Arcadio Leggett MD CARDIOVASCULAR DISEASE 04/25/17
[2024-07-18 16:04] LABS: Add Urine Microscopic? YES; Appearance Urine Clear (Clear); Bilirubin Urine Negative (Negative); Blood Urine Trace-intact (Negative); Color Urine Light Yellow (Yellow); Glucose Urine UA Negative (Negative); Ketones Urine 1+ (Negative); Leukocyte Esterase Ur 2+ LEU/UL (Negative); Nitrate Urine Negative (Negative); Protein Urine Negative (Negative); Specific Grav Ur 1.015 (1.010-1.020); Urobilinogen Urine 0.2 mg/dL (0.2-1.0)
[2024-07-18 16:08] LABS: Alanine Aminotransferase 7 U/L (14-59); Albumin Level 4.2 g/dL (3.4-5.0); Alkaline Phosphatase 80 U/L (46-116); Anion Gap 10 mmol/L (4-12); Aspartate Amino Transferase 16 U/L (15-37); Bilirubin,Total 0.6 mg/dL (0.00-1.00); Blood Urea Nitrogen 24 mg/dL (7-18); Calcium 9.5 mg/dL (8.5-10.1); Carbon Dioxide 27 mmol/L (21-32); Chloride 105 mmol/L (98-108); Estimated CRCL calculation 28 ml/min; Estimated Glomerular Filt Rate 35; Glucose 107 mg/dL (70-99); Osmolality Calculated 298 mOsm/kg (285-295); Potassium 4.2 mmol/L (3.5-5.1); Sodium 142 mmol/L (136-145); Total Protein 8.1 g/dL (6.4-8.2); Troponin I 8.8 ng/L (0.00-60.4)
[2024-07-18 16:11] LABS: RBC Urine 0-2 /hpf (0-2); Squamous Epithelial Cell Urine Occasional /hpf (Few); WBC Clumps Urine Present /hpf
[2024-07-18 16:11] LABS: Lactic Acid Reflex 1.5 mmol/L (0.4-2.0)
[2024-07-18 16:12] LABS: Amorphous Sediment Urine Few; Bacteria Urine 1+ /hpf
--- NOTE | 2024-07-18 16:50 | PC.NURSE ---
ERP aware of BP, no orders at this time.
== END 2024-07-18 17:40 | disposition home or self-care (01) ==
PROVIDERS: Emergency Provider Emergency Medicine; PCP Internal Medicine
DX: N39.0 Urinary tract infection, site not specified (principal); Z87.891 Personal history of nicotine dependence
CPT/HCPCS: 36415; 71045; 80053; 81001; 82948; 83605; 84484; 85025; 87040; 87086; 93005; 96365; 99284; J0696

== ENCOUNTER 2024-07-31 10:36 | Outpatient (CLI) | payer MEDICARE, SELFPAY ==
--- NOTE | ~2024-07-31 | MR_ITS ---
MRI of the brain Clinical History: Ataxia Technique: Axial and sagittal T1-weighted images were acquired. These were followed by axial T2-weigh josue, diffusion weighted, gradient, and FLAIR images. Following intravenous administration of 12 cc Mu ltiHance gadolinium, T1-weighted fat-sat imaging was performed in the axial and coronal planes. Findings: There is no acute infarct, intracranial hemorrhage, or mass lesion. There is moderate to ad vanced chronic microvascular ischemic change throughout the periventricular white matter bilaterally. Ventricles and subarachnoid spaces are dilated. Orbits are unremarkable. Paranasal sinuses and mastoi d air cells are clear. Major intracranial flow voids are intact. Sagittal midline structures are intact. No abnormal postcontrast enhancement identified. IMPRESSION: No acute infarct, intracranial hemorrhage, or mass lesion. Moderate to advanced chronic microvascular ischemic change and moderate generalized atrophy. Reviewed, dictated and finalized at [facility]. IMPRESSION: No acute infarct, intracranial hemorrhage, or mass lesion. Moderate to advanced chronic microvascular ischemic change and moderate general ized atrophy.
--- OUTSIDE RECORDS SUMMARY | 2024-07-31 10:38 | XMS_ITS | Referral Summary ---
Author Organization [facility] Medical Office Building B Address [address] [place] [address] Care Team Providers Care Registered Travel Nurse Name Role Phone Sowmya Lilly MD Unavailable [phone] Sowmya Lilly MD Primary Care Provider [phone] Encounters Date Type Department Care Team Description 07/21/2024 Telephone [facility] Advanced [facility] ([facility]) [address] [place] [address] Arielle Bland, MARVIN 07/20/2024 [facility] ([facility]) [address] [place] [address] Thania Gant, MARVIN 07/20/2024 [facility] ([facility]) [facility] [place] [address] Thania Gant, MARVIN 06/18/2024 [facility] ([facility]) [facility] [place] [address] Thania Gant, RN 06/18/2024 [facility] ([facility]) [facility] [place] [address] Thania Gant, MARVIN 06/17/2024 9:56 PM BLOW DOWN OPERATOR - 06/17/2024 11:59 PM BLOW DOWN OPERATOR Hospital Encounter [facility] ([facility]) [address] [place] [address] Discharge Disposition: Discharge to home or self care 06/07/2024 Orders Only [facility] Surgery [facility] [address] [place] [address] Zully Schaefefr NP 06/04/2024 Documentation [facility] Surgery [address] [place] [address] 8 [place] [address] Carito Sullivan RN 06/04/2024 Telephone [facility] - Breast Imaging [address] [place] [address] Zully Schaeffer NP Medical Question/Miscellane ous 06/02/2024 Orders Only [facility] Surgery [address] [place] [address] [address] [place] [address] Anum Cardoso NP Abnormal mammogram (Primary Dx) 05/31/2024 - 05/31/2024 11:59 PM BLOW DOWN OPERATOR Hospital Encounter [facility] ([facility]) [address] [place] [address] Discharge Disposition: Discharge to home or self care 05/27/2024 - 05/27/2024 11:59 PM BLOW DOWN OPERATOR Hospital Encounter [facility]) [address] [place] [address] Discharge Disposition: Discharge to home or self [...] PCP Assessment & Plan (04/11/2022 11:37 AM BLOW DOWN OPERATOR): Controlled with medication - continue treatment [...] results. Assessment & Plan (04/11/2022 11:36 AM BLOW DOWN OPERATOR): Detected on Thyroid ultrasound on 12/26/21 [...] repeat thyroid ultrasound. Consider repeating thyroid biopsy @[facility] to obtain better sample. Follow up and further recommendation will be decided after we obtai above test results. Hoarseness of voice 04/11/2022 Assessment & Plan (04/11/2022 11:37 AM BLOW DOWN OPERATOR): Chronic and evaluated by ENT years [...] on file Legal Sex Female 10:33 AM BLOW DOWN OPERATOR Gender Identity Not on file Sexual Orientation Not on file Last Filed Vital Signs Vital Sign Reading Time Taken Comments Blood Pressure 126/62 10/21/2022 10:45 AM CDT Pulse 57 03/09/2014 11:39 AM BLOW DOWN OPERATOR Temperature - - Respiratory Rate - - Oxygen Saturation 95% 03/09/2014 11:39 AM BLOW DOWN OPERATOR Inhaled Oxygen Concentration - - Weight 63.7 kg (140 lb 6.4 oz) 10/21/2022 10:45 AM CDT Height 154.9 cm (5' 1 ) 10/21/2022 10:45 AM CDT Body Mass Index 26.53 10/21/2022 10:45 AM CDT Plan of Treatment Not on file Procedures Procedure Name Priority Date/Time Associated Diagnosis Comments BREAST IMAGING MG DIAGNOSTIC OUTSIDE CONSULT Routine 06/17/2024 9:57 PM BLOW DOWN OPERATOR BREAST IMAGING MG DIAGNOSTIC OUTSIDE REFERENCE Routine 05/31/2024 12:00 AM BLOW DOWN OPERATOR BREAST IMAGING MG SCREENING OUTSIDE REFERENCE Routine 05/27/2024 12:00 AM BLOW DOWN OPERATOR from Last 3 Months Results * Breast Imaging DX Outside Consult (06/17/2024 9:57 PM BLOW DOWN OPERATOR) Anatomical Region Laterality Modality Breast N/A Mammography 06/18/2024 10:5 9 AM BLOW DOWN OPERATOR Impressions 06/18/2024 12:10 PM BLOW DOWN OPERATOR 1. Developing grouped calcifications in the [...] images may or may not represent the [place] source data set and thus may contain changes which may lower the sensitivity of the second opinion interpretation. Dictated by: Jackelyn Lomeli MD The radiology attending physician has personally reviewed this study, and had reviewed and/or edited this written report and agrees with it. Electronically signed by: Anabel Duran M.D. Narrative 06/18/2024 12:10 PM BLOW DOWN OPERATOR EXAMINATION: REVIEW AND INTERPRETATION OF OUTSIDE IMAGING FACILITY PERFORMING OUTSIDE IMAGING: [place], [place] EXAM(S) REVIEWED: 1. BILATERAL SCREENING MAMMOGRAM [...] OF OUTSIDE IMAGING FACILITY PERFORMING OUTSIDE IMAGING: [place], [place] EXAM(S) REVIEWED: 1. BILATERAL SCREENING MAMMOGRAM [...] images may or may not represent the [place] source data set and thus may contain changes which may lower the sensitivity of the second opinion interpretation. Dictated by: Jackelyn Lomeli MD The radiology attending physician has personally reviewed this study, and had reviewed and/or edited this written report and agrees with it. Electronically signed by: Anabel E Renee, M.D. us Zully Schaeffer HANDBAG OPERATOR IMG MAMMO PROCEDURES Final Result * Breast Imaging Diagnostic Outside Reference (05/31/2024 12:00 AM BLOW DOWN OPERATOR) Impressions [facility] - 06/17/2024 9:48 PM BLOW DOWN OPERATOR These images are for Reference purposes only and have not been reviewed by [facility] Radiology. There will be no report generated by a [facility] Radiologist. Narrative [facility] - 06/17/2024 9:48 PM BLOW DOWN OPERATOR EXAMINATION: Images For Reference Purposes Only us Zully Schaeffer HANDBAG OPERATOR IMG MAMMO PROCEDURES Final Result Performing Organization Address City/[facility]/ZIP Co de Phone Number [facility] * Breast Imaging Screening Outside Reference (05/27/2024 12:00 AM BLOW DOWN OPERATOR) Impressions [facility] - 06/17/2024 9:48 PM BLOW DOWN OPERATOR These images are for Reference purposes only and have not been reviewed by [facility] Radiology. There will be no report generated by a [facility] Radiologist. Narrative [facility] - 06/17/2024 9:48 PM BLOW DOWN OPERATOR EXAMINATION: Images For Reference Purposes Only us Zully Schaeffer HANDBAG OPERATOR IMG MAMMO PROCEDURES Final Result [facility] from Last 3 Months Insurance [facility] MEDICARE ADVANTAGE [facility] MEDICARE ADVANTAGE [facility] MEDICARE ADVANTAGE Care Teams Registered Travel Nurse Relationship Specialty Start Date End Date Sowmya Lilly MD [address] [place] [address] PCP - General Internal Medicine 07/09/24 Sowmya Lilly MD [address] [place] [address] Referring Physician Internal Medicine 05/31/24
--- OUTSIDE RECORDS SUMMARY | 2024-07-31 10:38 | XMS_ITS | Encounter Summary ---
Author Organization [facility] Address [address] [place] [address] Care Team Providers Care Pick Up Truck Driver Name Role Phone Tai Adams MD Primary Care Provider [phone] Reason for Visit * Diagnostic Imaging (Routine) - Pending Review Specialty Diagnoses / Procedures Referred By Tammy baker Referred To Contact Procedures Breast Imaging Screening Outside Reference Zully Schaeffer NP [address] [facility] [phone] [place] [address] Phone: tel: fax: Referral ID Status Reason Start Date Expiration Date V isits Requested Visits Authorized [id number] Pending Review 06/17/2024 07/17/2025 1 1 Encounter Details Date Type Department Care Team (Late st Contact Info) Description 05/05/2019 Hospital Encounter [facility]) [address] [place] [address] Social History Tobacco Use Types Packs/Day Years Used Date Smoking Tobacco: Former Cigarettes Q uit: 1980 Alcohol Use Standard Drinks/Week Comments Yes 0 (1 standard drink = 0.6 oz pur e alcohol) Comments Unknown Sex and Gender Information Value Date Recorded Sex Assigned at Not on file Legal Sex Female 10:33 AM GRAPE PRUNER Gender Identity Not on file Sexual Orientation Not on file documented as of this encounter Plan of Treatment Not on file documented as of this encounter Procedures Procedure Name Priority Date/Time Associated Diagnosis Comments BREAST IMAGING MG SCREENING OUTSIDE REFERENCE Routine 05/05/2019 12:00 AM GRAPE PRUNER documented in this encounter Results * Breast Imaging Screening Outside Reference (05/05/2019 12:00 AM GRAPE PRUNER) Impressions [facility] - 06/17/2024 9:48 PM GRAPE PRUNER These images are for Reference purposes only and have not been reviewed by [facility] Radiology. There will be no report generated by a [facility] Radiologist. Narrative [facility]MO[facility] - 06/17/2024 9:48 PM GRAPE PRUNER EXAMINATION: Images For Reference Purposes Only Zully Schaeffer ROTARY DRILLER IMG MAMMO PROCEDURES Final Result [facility] documented in this encounter Visit Diagnoses Not on filedocumented in this encounter Care Teams Pick Up Truck Driver Relationship Specialty Start Date End Date Tai Adams MD [address] [place] [address] PCP - General 03/08/14 07/08/24 documented as of this encounter
--- OUTSIDE RECORDS SUMMARY | 2024-07-31 10:38 | XMS_ITS | Clinical Summary ---
Author Organization [facility] Address [address] [facility] [place] [address] Care Team Providers Care Master Ship Name Role Phone Sowmya Lilly MD Primary Care Provider [phone] Source Comments [facility]non-owned Affiliates and Associated Physician Practices is amultiple site organization consisting of ambulatory clinics and hospital sitesin [place], [place], [place] and [place]. This disclosure is being madepursuant to the Care Everywhere program and may not contain all information available regarding this patient. Last updated 18.[facility] Allergies Active Allergy Reactions Criticality Noted Date Comments Sulfa Drugs Rash Medium 10/13/2017 Diarrhea also Medications * Be aware that medications may not be up to date on this document. Alwaysverify current medications with the patient. furosemide (LASIX) 40 MG tablet Take 40 mg by mouth once daily Active ibuprofen (MOTRIN) 200 MG tablet Take by mouth every 6 hours as needed for Pain Active citalopram (CELEXA) 20 MG tablet Take 20 mg by mouth at bedtime Active Social History Tobacco Use Types Packs/Day Years Used Date Smoking Tobacco: Never Smokeless Tobacco: Never Comments Unknown Sex and Gender Information Value Date Recorded Sex Assigned at Not on file Legal Sex Female 8:44 AM CDT Gender Identity Not on file Sexual [...] - 1-dose 75+ series) 12/10/2018 COVID-19 VACCINE ( - 2023-2 5 season) 2023 DEPRESSION SCREENING 04/14/2024 INFLUENZA VACCINE (Season Ended) 2024 HEPATITIS B VACCINE Aged Out No longe [...] age to complete this topic Insurance MEDICARE [employer] MEDICARE Care Teams Master Ship Relationship Specialty Start Date End Date Sowmya Lilly MD [address] [place] [address] PCP - General 12/14/21
--- OUTSIDE RECORDS SUMMARY | 2024-07-31 10:38 | XMS_ITS | Clinical Summary ---
Author Organization [facility] Medical Office Building B Address [address] [place] [address] Care Team Providers Care Obstetrical Tech Name Role Phone Sowmya Lilly MD Unavailable [phone] Sowmya Lilly MD Primary Care Provider [phone] Allergies Active Allergy Reactions Criticality Noted Date Comments Sulfa (Sulfonamide Antibiotics) Medications citalopram (CeleXA) 40 mg tablet 04/10/2022 Active losartan-hydroCHLO ROthiazide (HYZAAR) 50-12.5 mg per tablet 03/26/2022 Activ e Active Problems Problem Noted Date Diagnosed Date Primary hypertension 04/11/2022 Assessment & Plan (10/21/2022 11:01 AM CDT): Controlled with medication - continue treatment plan per PCP Assessment & Plan (04/11/2022 11:37 AM DRESSED POULTRY GRADER): Controlled with medication - continue treatment plan [...] results. Assessment & Plan (04/11/2022 11:36 AM DRESSED POULTRY GRADER): Detected on Thyroid ultrasound on 12/26/21 Right [...] ultrasound. Consider repeating thyroid biopsy [facility] to obtain better sample. Follow up and further recommendation will be decided after we obtai above test results. Hoarseness of voice 04/11/2022 Assessment & Plan (04/11/2022 11:37 AM DRESSED POULTRY GRADER): Chronic and evaluated by ENT years ago, patient reports history of vocal cord issues. - I recommend that she has an evaluation by ENT. 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 Encounters Date Type Department Care Team Description 07/21/2024 Telephone [facility] ([facility]) [address] [place] [address] Arielle Bland RN 07/20/2024 Telephone [facility] ([facility]) [facility] [place] [address] Thania Gant RN 07/20/2024 Telephone [facility] ([facility]) [facility] [place] [address] Thania Gant RN 06/18/2024 Telephone [facility] Medicine [facility] ([facility]) [address] [place] [phone] Thania Gant RN 06/18/2024 Telephone [facility] ([facility]) [address] [place] [address] Thania Gant RN 06/17/2024 9:56 PM DRESSED POULTRY GRADER - 06/17/2024 11:59 PM DRESSED POULTRY GRADER Hospital Encounter [facility] ([facility]) [address] [place] [address] Discharge Disposition: Discharge to home or self care 06/07/2024 Orders Only [facility] Surgery [address] [place] [address] [phone] Zully Schaeffer NP 06/04/2024 Documentation [facility] [address] [place] [address] [phone] Carito Sullivan RN 06/04/2024 Telephone [facility] [place] - Breast Imaging [address] [place] [address] [address] [place] [address] Zully Schaeffer NP Medical Question/Miscellane ous 06/02/2024 Orders Only [facility] [address] [place] [address] [phone] Anum Cardoso NP Abnormal mammogram (Primary Dx) 05/31/2024 - 05/31/2024 11:59 PM DRESSED POULTRY GRADER Hospital Encounter [facility] ([facility]) [address] [place] [address] Discharge Disposition: Discharge to home or self care 05/27/2024 - 05/27/2024 11:59 PM DRESSED POULTRY GRADER Hospital Encounter [facility] ([facility]) [address] [place] [address] Discharge Disposition: Discharge to home or self [...] on file Legal Sex Female 10:33 AM DRESSED POULTRY GRADER Gender Identity Not on file Sexual Orientation Not on file Obstetrics History Last Filed Vital Signs Vital Sign Reading Time Taken Comments Blood Pressure 126/62 10/21/2022 10:45 AM CDT Pulse 57 03/09/2014 11:39 AM DRESSED POULTRY GRADER Temperature - - Respiratory Rate - - Oxygen Saturation 95% 03/09/2014 11:39 AM DRESSED POULTRY GRADER Inhaled Oxygen Concentration - - Weight 63.7 [...] 2023, 06/07/2020 Influenza Vaccine (Season Ended) 2024 12/07/19 21, 02/15/2020 Procedures Procedure Name Priority Date/Time Associated Diagnosis Comments BREAST IMAGING MG DIAGNOSTIC OUTSIDE CONSULT Routine 06/17/2024 9:57 PM DRESSED POULTRY GRADER BREAST IMAGING MG DIAGNOSTIC OUTSIDE REFERENCE Routine 05/31/2024 12:00 AM DRESSED POULTRY GRADER BREAST IMAGING MG SCREENING OUTSIDE REFERENCE Routine 05/27/2024 12:00 AM DRESSED POULTRY GRADER from Last 3 Months Results * Breast Imaging DX Outside Consult (06/17/2024 9:57 PM DRESSED POULTRY GRADER) Anatomical Region Laterality Modality Breast N/A Mammography 06/18/2024 10:5 9 AM DRESSED POULTRY GRADER Impressions 06/18/2024 12:10 PM DRESSED POULTRY GRADER 1. Developing grouped calcifications in the posterior [...] images may or may not represent the [place] source data set and thus may contain changes which may lower the sensitivity of the second opinion interpretation. Dictated by: Jackelyn Lomeli MD The radiology attending physician has personally reviewed this study, and had reviewed and/or edited this written report and agrees with it. Electronically signed by: Anabel Duran M.D. Narrative 06/18/2024 12:10 PM DRESSED POULTRY GRADER EXAMINATION: REVIEW AND INTERPRETATION OF OUTSIDE IMAGING FACILITY PERFORMING OUTSIDE IMAGING: [place], [place] EXAM(S) REVIEWED: 1. BILATERAL SCREENING MAMMOGRAM [...] OF OUTSIDE IMAGING FACILITY PERFORMING OUTSIDE IMAGING: [place], [place] EXAM(S) REVIEWED: 1. BILATERAL SCREENING MAMMOGRAM [...] images may or may not represent the [place] source data set and thus may contain changes which may lower the sensitivity of the second opinion interpretation. Dictated by: Jackelyn Lomeli MD The radiology attending physician has personally reviewed this study, and had reviewed and/or edited this written report and agrees with it. Electronically signed by: Anabel Duran M.D. us Zully Schaeffer NP IMG MAMMO PROCEDURES Final Result * Breast Imaging Diagnostic Outside Reference (05/31/2024 12:00 AM DRESSED POULTRY GRADER) Impressions [facility]MO[facility] - 06/17/2024 9:48 PM DRESSED POULTRY GRADER These images are for Reference purposes only and have not been reviewed by [facility]iology. There will be no report generated by a [facility] Radiologist. Narrative [facility]AMMO[facility] - 06/17/2024 9:48 PM DRESSED POULTRY GRADER EXAMINATION: Images For Reference Purposes Only us Zully Schaeffer NP IMG MAMMO PROCEDURES Final Result [facility] * Breast Imaging Screening Outside Reference (05/27/2024 12:00 AM DRESSED POULTRY GRADER) Impressions [facility] - 06/17/2024 9:48 PM DRESSED POULTRY GRADER These images are for Reference purposes only and have not been reviewed by [facility] Radiology. There will be no report generated by a [facility] Radiologist. Narrative [facility] - 06/17/2024 9:48 PM DRESSED POULTRY GRADER EXAMINATION: Images For Reference Purposes Only us Zully Schaeffer CARPET INSTALLATION SPECIALIST IMG MAMMO PROCEDURES Final Result [facility] from Last 3 Months Insurance [facility] MEDICARE ADVANTAGE [facility] MEDICARE ADVANTAGE [place] [id number] [facility] MEDICARE ADVANTAGE Care Teams Obstetrical Tech Relationship Specialty Start Date End Date Sowmya Lilly MD [address] [place] [address] PCP - General Internal Medicine 07/09/24 Sowmya Lilly MD [address] [place] [address] Referring Physician Internal Medicine 05/31/24
--- OUTSIDE RECORDS SUMMARY | 2024-07-31 10:38 | XMS_ITS | Clinical Summary ---
Author Organization [facility] Address [address] [place] [address] Care Team Providers Care Motorcycle Police Officer Name Role Phone Arcadio Leggett MD Unavailable [phone] Sowmya Lilly MD Primary Care Provider [phone] Allergies Active Allergy Reactions Criticality Noted Date [...] Comments Blood Pressure 120/60 03/19/2022 3:48 PM BSA/AML COMPLIANCE OFFICER Pulse 66 03/19/2022 3:48 PM BSA/AML COMPLIANCE OFFICER Temperature - - Respiratory Rate 18 03/19/2022 3:48 PM BSA/AML COMPLIANCE OFFICER Oxygen Saturation 99% 02/28/2021 12:53 PM BSA/AML COMPLIANCE OFFICER Inhaled Oxygen Concentration - - Weight 63.5 kg (140 lb) 03/19/2022 3:48 PM BSA/AML COMPLIANCE OFFICER Height 154.9 cm (5' 1 ) 03/19/2022 3:48 PM BSA/AML COMPLIANCE OFFICER Body Mass Index 26.45 03/19/2022 3:48 PM BSA/AML COMPLIANCE OFFICER Plan of Treatment Health Maintenance Due Date Last Done Comments DTaP, Tdap and Td Vaccines ( 1 - Tdap) 12/10/1962 Pneumococcal Vaccine: 50+ Years (1 of 2 - PCV) 12/10/1962 Zoster Vaccines (1 of 2) 12/10/1993 [...] age to complete this topic Insurance MEDICARE [facility] MEDICARE [place] Directives Documents on File Type Date Recorded Patient Class B Driver Expl anation Power of Cage Manager 02/28/2021 12:46 PM POA Vu Doss Advance Directives and Living Will 05/02/2017 SHORT FORM POWER OF INDUSTRIAL WORKERS Healthcare Agents on File Name Relationship Healthcare Agent Relationshi p Communication Kayla Valentin Other First Alternate Health Care Agent Thuan Kenrick Doss Other Second Alternate [facility] Care Agent Care Teams Motorcycle Police Officer Relationship Specialty Start Date End Date Sowmya Lilly MD [address] [place] [address] PCP - General INTERNAL MEDICINE 11/09/19 Arcadio Leggett MD CARDIOVASCULAR DISEASE 04/25/17
== END 2024-07-31 10:37 | disposition home or self-care (01) ==
PROVIDERS: PCP Internal Medicine; Visit Provider Internal Medicine
DX: R27.0 Ataxia, unspecified (principal)
CPT/HCPCS: 70553; A9577

== ENCOUNTER 2024-08-04 14:33 | Outpatient (CLI) | payer MEDICARE, SELFPAY ==
--- NOTE | ~2024-08-04 | US_ITS ---
EXAMINATION: US carotid duplex BI DATE: 08/04/2024 14:52 INDICATION: Dizziness TECHNIQUE: Grayscale, color Doppler, and pulsed Doppler images of the cervical carotid arteries were obtained. The degree of vessel stenosis is placed in one of the following categories: normal, <50%, 5 0-69%, >=70% but less than near-occlusion, near-occlusion, or total occlusion. Note that percent sten osis relative to normal distal artery lumen diameter is indirectly measured from velocity measurement s as described by Navid, et al. Radiology 2003; 229:340-346. Notes: Normal: Peak systolic velocity <125 centimeters/sec and no plaque <50%. Peak systolic velocity <125 ( EDV <40; ICA/CCA PSV ratio <2.0; used these factors only a tandem lesions or low cardiac output or co ntralateral disease) 50-69 %: PSV 125-230 (EDV 40-100; ratio 2-4) >= 70% but less than near occlusion: PSV greater than 230 (EDV > 100; ratio> 4.0) Near Occlusion: PSV that is variable; markedly narrowed lumen Occlusion: Absent flow on color/spectral Doppler and no lumen on rushing scale. COMPARISON: None. FINDINGS: RIGHT: The right common carotid artery (CCA) peak systolic velocity (PSV) is 93 cm/s. The right internal car otid artery (ICA) PSV is 70 cm/s. The right ICA end-diastolic velocity (EDV) is 10 cm/s. The right IC A/CCA PSV ratio is 0.75. The external carotid artery (ECA) PSV is 104 cm/s. There is antegrade flow i n the right vertebral artery. LEFT: The left CCA PSV is 84 cm/s. The left ICA PSV is 91 cm/s. The left ICA EDV is 11 cm/s. The left ICA/C CA PSV ratio is 1.1. The ECA PSV is 106 cm/s. There is antegrade flow in the left vertebral artery. IMPRESSION: 1. Less than 50% stenosis in the right internal carotid artery by sonographic criteria. 2. Less than 50% stenosis in the left internal carotid artery by sonographic criteria. Reviewed, dictated and finalized at location A. IMPRESSION: 1. Less than 50% stenosis in the right internal carotid artery by sonographic montse ricci. 2. Less than 50% stenosis in the left internal carotid artery by sonographic nazanin roberson.
--- OUTSIDE RECORDS SUMMARY | 2024-08-04 16:37 | XMS_ITS | Clinical Summary ---
Author Organization [facility] Medical Office Building B Address [address] [place] [address] Care Team Providers Care Control Equipment Electrician Name Role Phone Sowmya Lilly MD Unavailable [phone] Sowmya Lilly MD Primary Care Provider [phone] Allergies Active Allergy Reactions Criticality Noted Date Comments Sulfa (Sulfonamide Antibiotics) Medications citalopram (CeleXA) 40 mg tablet 04/10/2022 Active losartan-hydroCHLO ROthiazide (HYZAAR) 50-12.5 mg per tablet 03/26/2022 Activ e Active Problems Problem Noted Date Diagnosed Date Primary hypertension 04/11/2022 Assessment & Plan (10/21/2022 11:01 AM CDT): Controlled with medication - continue treatment plan per PCP Assessment & Plan (04/11/2022 11:37 AM GRADUATE ASSISTANT): Controlled with medication - continue treatment plan [...] results. Assessment & Plan (04/11/2022 11:36 AM GRADUATE ASSISTANT): Detected on Thyroid ultrasound on 12/26/21 Right [...] 04/11/2022 Assessment & Plan (04/11/2022 11:37 AM GRADUATE ASSISTANT): Chronic and evaluated by ENT years ago, patient reports history of vocal cord issues. - I recommend that she has an evaluation by ENT. 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 Encounters Date Type Department Care Team Description 07/21/2024 Telephone [facility] ([facility]) [address] [place] [address] Arielle Bland RN 07/20/2024 Telephone [facility] ([facility]) [facility] [place] [address] Thania Gant RN 07/20/2024 Telephone [facility] ([facility]) [facility] [place] [address] Thania Gant RN 06/18/2024 Telephone [facility] Medicine [facility] ([facility]) [address] [place] [address] Thania Gant RN 06/18/2024 Telephone [facility] for [facility] Medicine [facility] ([facility]) [address] [place] [address] Thania Gant RN 06/17/2024 9:56 PM GRADUATE ASSISTANT - 06/17/2024 11:59 PM GRADUATE ASSISTANT Hospital Encounter [facility] ([facility]) [address] [place] [address] Discharge Disposition: Discharge to home or self care 06/07/2024 Orders Only [facility] Surgery [address] [place] [address] [phone] Zully Schaeffer NP 06/04/2024 Documentation [facility] [address] [place] [address] [phone] Carito Sullivan RN 06/04/2024 Telephone [facility] [place] - Breast Imaging [address] [place] [address] [address] [place] [address] Zully Schaeffer NP Medical Question/Miscellane ous 06/02/2024 Orders Only [facility] [address] [place] [address] [phone] Anum Cardoso NP Abnormal mammogram (Primary Dx) 05/31/2024 - 05/31/2024 11:59 PM GRADUATE ASSISTANT Hospital Encounter [facility] ([facility]) [address] [place] [phone] Discharge Disposition: Discharge to home or self care 05/27/2024 - 05/27/2024 11:59 PM GRADUATE ASSISTANT Hospital Encounter [facility] ([facility]) [address] [place] [address] Discharge Disposition: Discharge to home or self [...] on file Legal Sex Female 10:33 AM GRADUATE ASSISTANT Gender Identity Not on file Sexual Orientation Not on file Obstetrics History Last Filed Vital Signs Vital Sign Reading Time Taken Comments Blood Pressure 126/62 10/21/2022 10:45 AM CDT Pulse 57 03/09/2014 11:39 AM GRADUATE ASSISTANT Temperature - - Respiratory Rate - - Oxygen Saturation 95% 03/09/2014 11:39 AM GRADUATE ASSISTANT Inhaled Oxygen Concentration - - Weight 63.7 [...] DIAGNOSTIC OUTSIDE CONSULT Routine 06/17/2024 9:57 PM GRADUATE ASSISTANT BREAST IMAGING MG DIAGNOSTIC OUTSIDE REFERENCE Routine 05/31/2024 12:00 AM GRADUATE ASSISTANT BREAST IMAGING MG SCREENING OUTSIDE REFERENCE Routine 05/27/2024 12:00 AM GRADUATE ASSISTANT from Last 3 Months Results * Breast Imaging DX Outside Consult (06/17/2024 9:57 PM GRADUATE ASSISTANT) Anatomical Region Laterality Modality Breast N/A Mammography 06/18/2024 10:5 9 AM GRADUATE ASSISTANT Impressions 06/18/2024 12:10 PM GRADUATE ASSISTANT 1. Developing grouped calcifications in the posterior [...] images may or may not represent the [place] source data set and thus may contain changes which may lower the sensitivity of the second opinion interpretation. Dictated by: Jackelyn Lomeli MD The radiology attending physician has personally reviewed this study, and had reviewed and/or edited this written report and agrees with it. Electronically signed by: Anabel Duran M.D. Narrative 06/18/2024 12:10 PM GRADUATE ASSISTANT EXAMINATION: REVIEW AND INTERPRETATION OF OUTSIDE IMAGING FACILITY PERFORMING OUTSIDE IMAGING: [place], [place] EXAM(S) REVIEWED: 1. BILATERAL SCREENING MAMMOGRAM [...] OF OUTSIDE IMAGING FACILITY PERFORMING OUTSIDE IMAGING: [place], [place] EXAM(S) REVIEWED: 1. BILATERAL SCREENING MAMMOGRAM [...] images may or may not represent the [place] source data set and thus may contain [...] Imaging Diagnostic Outside Reference (05/31/2024 12:00 AM GRADUATE ASSISTANT) Impressions [facility] - 06/17/2024 9:48 PM GRADUATE ASSISTANT These images are for Reference purposes only and have not been reviewed by [facility] Radiology. There will be no report generated by a [facility] Radiologist. Narrative [facility] - 06/17/2024 9:48 PM GRADUATE ASSISTANT EXAMINATION: Images For Reference Purposes Only us Zully Schaeffer NP IMG MAMMO PROCEDURES Final Result [facility] * Breast Imaging Screening Outside Reference (05/27/2024 12:00 AM GRADUATE ASSISTANT) Impressions [facility] - 06/17/2024 9:48 PM GRADUATE ASSISTANT These images are for Reference purposes only and have not been reviewed by [facility] Radiology. There will be no report generated by a [facility] Radiologist. Narrative [facility] - 06/17/2024 9:48 PM GRADUATE ASSISTANT EXAMINATION: Images For Reference Purposes Only us Zully Schaeffer OIL SCOUT IMG MAMMO PROCEDURES Final Result [facility] from Last 3 Months Insurance [facility] MEDICARE ADVANTAGE [facility] MEDICARE ADVANTAGE [place] [id number] [facility] MEDICARE ADVANTAGE Care Teams Control Equipment Electrician Relationship Specialty Start Date End Date Sowmya Lilly MD [address] [place] [address] PCP - General Internal Medicine 07/09/24 Sowmya Lilly MD [address] [place] [address] Referring Physician Internal Medicine 05/31/24
--- OUTSIDE RECORDS SUMMARY | 2024-08-04 16:37 | XMS_ITS | Referral Summary ---
Author Organization [facility] Address [address] [place] [address] Care Team Providers Care Hearing Aid Assistant Name Role Phone Sowmya Lilly MD Unavailable [phone] Sowmya Lilly MD Primary Care Provider [phone] Encounters Date Type Department Care Team Description 07/21/2024 Telephone [facility] ([facility]) [address] [place] [address] Arielle Bland, MARVIN 07/20/2024 [facility] ([facility]) [address] [place] [address] Thania Gant, MARVIN 07/20/2024 [facility]) [facility] [place] [address] Thania Gant, MARVIN 06/18/2024 [facility]) [facility] [place] [address] Thania Gant, RN 06/18/2024 [facility]) [facility] [place] [address] Thania Gant, MARVIN 06/17/2024 9:56 PM CAPTAIN/AIRLINE PILOT - 06/17/2024 11:59 PM CAPTAIN/AIRLINE PILOT Hospital Encounter [facility] ([facility]) [address] [place] [address] Discharge Disposition: Discharge to home or self care 06/07/2024 Orders Only [facility] [address] [place] [address] Zully Schaeffer NP 06/04/2024 Documentation [facility] Surgery [address] [place] [address] 8 [place] [address] Carito Sullivan RN 06/04/2024 Telephone [facility] Breast [facility] [address] [place] [address] Zully Schaeffer NP Medical Question/Miscellane ous 06/02/2024 Orders Only [facility] Surgery [address] [place] [address] 8 [place] [address] Anum Cardoso NP Abnormal mammogram (Primary Dx) 05/31/2024 - 05/31/2024 11:59 PM CAPTAIN/AIRLINE PILOT Hospital Encounter [facility] ([facility]) [address] [place] [address] Discharge Disposition: Discharge to home or self care 05/27/2024 - 05/27/2024 11:59 PM CAPTAIN/AIRLINE PILOT Hospital Encounter [facility] ([facility]) [address] [place] [address] Discharge Disposition: Discharge to home or self [...] PCP Assessment & Plan (04/11/2022 11:37 AM CAPTAIN/AIRLINE PILOT): Controlled with medication - continue treatment plan [...] results. Assessment & Plan (04/11/2022 11:36 AM CAPTAIN/AIRLINE PILOT): Detected on Thyroid ultrasound on 12/26/21 Right [...] repeat thyroid ultrasound. Consider repeating thyroid biopsy @[facility] to obtain better sample. Follow up and further recommendation will be decided after we obtai above test results. Hoarseness of voice 04/11/2022 Assessment & Plan (04/11/2022 11:37 AM CAPTAIN/AIRLINE PILOT): Chronic and evaluated by ENT years ago, [...] on file Legal Sex Female 10:33 AM CAPTAIN/AIRLINE PILOT Gender Identity Not on file Sexual Orientation Not on file Last Filed Vital Signs Vital Sign Reading Time Taken Comments Blood Pressure 126/62 10/21/2022 10:45 AM CDT Pulse 57 03/09/2014 11:39 AM CAPTAIN/AIRLINE PILOT Temperature - - Respiratory Rate - - Oxygen Saturation 95% 03/09/2014 11:39 AM CAPTAIN/AIRLINE PILOT Inhaled Oxygen Concentration - - Weight 63.7 kg (140 lb 6.4 oz) 10/21/2022 10:45 AM CDT Height 154.9 cm (5' 1 ) 10/21/2022 10:45 AM CDT Body Mass Index 26.53 10/21/2022 10:45 AM CDT Plan of Treatment Not on file Procedures Procedure Name Priority Date/Time Associated Diagnosis Comments BREAST IMAGING MG DIAGNOSTIC OUTSIDE CONSULT Routine 06/17/2024 9:57 PM CAPTAIN/AIRLINE PILOT BREAST IMAGING MG DIAGNOSTIC OUTSIDE REFERENCE Routine 05/31/2024 12:00 AM CAPTAIN/AIRLINE PILOT BREAST IMAGING MG SCREENING OUTSIDE REFERENCE Routine 05/27/2024 12:00 AM CAPTAIN/AIRLINE PILOT from Last 3 Months Results * Breast Imaging DX Outside Consult (06/17/2024 9:57 PM CAPTAIN/AIRLINE PILOT) Anatomical Region Laterality Modality Breast N/A Mammography 06/18/2024 10:5 9 AM CAPTAIN/AIRLINE PILOT Impressions 06/18/2024 12:10 PM CAPTAIN/AIRLINE PILOT 1. Developing grouped calcifications in the posterior [...] images may or may not represent the [place] source data set and thus may contain changes which may lower the sensitivity of the second opinion interpretation. Dictated by: Jackelyn Lomeli MD The radiology attending physician has personally reviewed this study, and had reviewed and/or edited this written report and agrees with it. Electronically signed by: Anabel Duran M.D. Narrative 06/18/2024 12:10 PM CAPTAIN/AIRLINE PILOT EXAMINATION: REVIEW AND INTERPRETATION OF OUTSIDE IMAGING FACILITY PERFORMING OUTSIDE IMAGING: [place], [place] EXAM(S) REVIEWED: 1. BILATERAL SCREENING MAMMOGRAM [...] OF OUTSIDE IMAGING FACILITY PERFORMING OUTSIDE IMAGING: [place], [place] EXAM(S) REVIEWED: 1. BILATERAL SCREENING MAMMOGRAM [...] images may or may not represent the [place] source data set and thus may contain changes which may lower the sensitivity of the second opinion interpretation. Dictated by: Jackelyn Lomeli MD The radiology attending physician has personally reviewed this study, and had reviewed and/or edited this written report and agrees with it. Electronically signed by: Anabel E Renee, M.D. us Zully Schaeffer ALARM ADJUSTER IMG MAMMO PROCEDURES Final Result * Breast Imaging Diagnostic Outside Reference (05/31/2024 12:00 AM CAPTAIN/AIRLINE PILOT) Impressions [facility] - 06/17/2024 9:48 PM CAPTAIN/AIRLINE PILOT These images are for Reference purposes only and have not been reviewed by [facility]. There will be no report generated by a [facility] Radiologist. Narrative [facility] - 06/17/2024 9:48 PM CAPTAIN/AIRLINE PILOT EXAMINATION: Images For Reference Purposes Only us Zluly Schaeffer ALARM ADJUSTER IMG MAMMO PROCEDURES Final Result Performing Organization Address City/[facility]/ZIP Co de Phone Number [facility] * Breast Imaging Screening Outside Reference (05/27/2024 12:00 AM CAPTAIN/AIRLINE PILOT) Impressions [facility] - 06/17/2024 9:48 PM CAPTAIN/AIRLINE PILOT These images are for Reference purposes only and have not been reviewed by [facility]. There will be no report generated by a [facility] Radiologist. Narrative [facility] - 06/17/2024 9:48 PM CAPTAIN/AIRLINE PILOT EXAMINATION: Images For Reference Purposes Only us Zully Schaeffer ALARM ADJUSTER IMG MAMMO PROCEDURES Final Result [facility] from Last 3 Months Insurance [facility] MEDICARE ADVANTAGE [facility] MEDICARE ADVANTAGE [facility] MEDICARE ADVANTAGE Care Teams Hearing Aid Assistant Relationship Specialty Start Date End Date Sowmya Lilly MD [address] [place] [address] PCP - General Internal Medicine 07/09/24 Sowmya Lilly MD [address] [place] [address] Referring Physician Internal Medicine 05/31/24
--- OUTSIDE RECORDS SUMMARY | 2024-08-04 16:37 | XMS_ITS | Clinical Summary ---
Author Organization [facility] Address [address] [address] Care Team Providers Care Azure Principal Solution Specialist Name Role Phone Sowmya Lilly MD Primary Care Provider [phone] Source Comments [facility],non-owned Affiliates and Associated Physician Practices is amultiple site organization consisting of ambulatory clinics and hospital sitesin [place], [place] and [place]. This disclosure is being madepursuant to the Care Everywhere program and may not contain all information available regarding this patient. Last updated 18.[facility] Allergies Active Allergy Reactions Criticality Noted Date [...] Last Done Comments BONE DENSITY TESTING 1943 DTAP/TDAP/TD VACCINES (1 - Tdap) 12/10/1962 [...] age to complete this topic Insurance MEDICARE [facility] MEDICARE Care Teams Azure Principal Solution Specialist Relationship Specialty Start Date End Date Sowmya Lilly MD [address] [place] [address] PCP - General 12/14/21
--- OUTSIDE RECORDS SUMMARY | 2024-08-04 16:37 | XMS_ITS | Clinical Summary ---
Author Organization [facility] Address [address] [place] [address] Care Team Providers Care System Technologist Name Role Phone Arcadio Leggett MD Unavailable [phone] Sowmya Lilly MD Primary Care Provider [phone] Allergies Active Allergy Reactions Criticality Noted Date [...] Comments Blood Pressure 120/60 03/19/2022 3:48 PM CATTLE BRANDER Pulse 66 03/19/2022 3:48 PM CATTLE BRANDER Temperature - - Respiratory Rate 18 03/19/2022 3:48 PM CATTLE BRANDER Oxygen Saturation 99% 02/28/2021 12:53 PM CATTLE BRANDER Inhaled Oxygen Concentration - - Weight 63.5 kg (140 lb) 03/19/2022 3:48 PM CATTLE BRANDER Height 154.9 cm (5' 1 ) 03/19/2022 3:48 PM CATTLE BRANDER Body Mass Index 26.45 03/19/2022 3:48 PM CATTLE BRANDER Plan of Treatment Health Maintenance Due Date [...] age to complete this topic Insurance MEDICARE [facility] MEDICARE Advance Directives Documents on File Type Date Recorded Patient Matcher Offbearer Expl anation Power of Dive Master 02/28/2021 12:46 PM POA Vu Doss Advance Directives and Living Will 05/02/2017 SHORT FORM POWER OF PIT WORKER POWER SHOVEL Healthcare Agents on File Name Relationship Healthcare Agent Relationshi p Communication Kayla Valentin Other First Alternate Health Care Agent Thuan Kenrick Doss Other Second Alternate [facility] Care Agent Care Teams System Technologist Relationship Specialty Start Date End Date Sowmya Lilly MD [address] [place] [address] PCP - General INTERNAL MEDICINE 11/09/19 Arcadio Leggett MD CARDIOVASCULAR DISEASE 04/25/17
--- OUTSIDE RECORDS SUMMARY | 2024-08-04 16:37 | XMS_ITS | Encounter Summary ---
Author Organization [facility] Healthcare Address [address] [place] [address] Care Team Providers Care Boring Machine Operator Production Name Role Phone Tai Adams MD Primary Care Provider [phone] Reason for Visit * Diagnostic Imaging (Routine) - Pending Review Specialty Diagnoses / Procedures Referred By Tammy baker Referred To Contact Procedures Breast Imaging Screening Outside Reference Zully Schaeffer NP [address] [facility] [id number] [place] [address] Phone: tel: fax: Referral ID Status Reason Start Date Expiration Date V isits Requested Visits Authorized [id number] Pending Review 06/17/2024 07/17/2025 1 1 Encounter Details Date Type Department Care Team (Late st Contact Info) Description 05/05/2019 Hospital Encounter [facility] ([facility]) [address] [place] [address] Social History Tobacco Use Types Packs/Day Years Used Date Smoking Tobacco: Former Cigarettes Q uit: 1980 Alcohol Use Standard Drinks/Week Comments Yes 0 (1 standard drink = 0.6 oz pur e alcohol) Comments Unknown Sex and Gender Information Value Date Recorded Sex Assigned at Not on file Legal Sex Female 10:33 AM SKEIN DRIER Gender Identity Not on file Sexual Orientation Not on file documented as of this encounter Plan of Treatment Not on file documented as of this encounter Procedures Procedure Name Priority Date/Time Associated Diagnosis Comments BREAST IMAGING MG SCREENING OUTSIDE REFERENCE Routine 05/05/2019 12:00 AM SKEIN DRIER documented in this encounter Results * Breast Imaging Screening Outside Reference (05/05/2019 12:00 AM SKEIN DRIER) Impressions [facility] - 06/17/2024 9:48 PM SKEIN DRIER These images are for Reference purposes only and have not been reviewed by [facility]iology. There will be no report generated by a [facility] Radiologist. Narrative [facility]MO[facility] - 06/17/2024 9:48 PM SKEIN DRIER EXAMINATION: Images For Reference Purposes Only Zully Schaeffer DUPLICATING MACHINE SERVICER IMG MAMMO PROCEDURES Final Result [facility] documented in this encounter Visit Diagnoses Not on filedocumented in this encounter Care Teams Boring Machine Operator Production Relationship Specialty Start Date End Date Tai Adams MD [address] [place] [address] PCP - General 03/08/14 07/08/24 documented as of this encounter
== END 2024-08-04 14:34 | disposition home or self-care (01) ==
PROVIDERS: PCP Internal Medicine; Visit Provider Internal Medicine
DX: R42 Dizziness and giddiness (principal); I65.23 Occlusion and stenosis of bilateral carotid arteries
CPT/HCPCS: 93880

== ENCOUNTER 2024-08-09 15:42 | Outpatient (CLI) | payer MEDICARE, SELFPAY ==
[2024-08-09 16:00] LABS: Hematocrit 39.2 % (35.0-42.0); Hemoglobin 12.5 g/dL (11.7-13.8); Mean Corpuscular HGB Conc 31.9 g/dL (32-36); Mean Corpuscular Hemoglobin 32.3 pg (27.0-31.0); Mean Corpuscular Volume 101.3 fL (78.0-102.0); Mean Platelet Volume 11.1 fl (9.2-11.8); Platelet Count Result 255 K/mm3 (150-420); Red Blood Count 3.87 M/mm3 (4.20-5.40); Red Cell Distribution Width 12.3 % (11.6-14.4); White Blood Count 6.3 K/mm3 (4.8-10.8)
[2024-08-09 16:41] LABS: Alanine Aminotransferase 11 U/L (14-59); Albumin Level 4.4 g/dL (3.4-5.0); Alkaline Phosphatase 112 U/L (46-116); Amylase 72 U/L (25-115); Anion Gap 9 mmol/L (4-12); Aspartate Amino Transferase 12 U/L (15-37); Bilirubin,Total 0.8 mg/dL (0.00-1.00); Blood Urea Nitrogen 29 mg/dL (7-18); Calcium 10.3 mg/dL (8.5-10.1); Carbon Dioxide 29 mmol/L (21-32); Chloride 107 mmol/L (98-108); Estimated Glomerular Filt Rate 33; Glucose 120 mg/dL (70-99); Lipase 55 U/L (16-77); Osmolality Calculated 306 mOsm/kg (285-295); Potassium 4.4 mmol/L (3.5-5.1); Sodium 145 mmol/L (136-145); Total Protein 7.7 g/dL (6.4-8.2)
--- OUTSIDE RECORDS SUMMARY | 2024-08-09 17:49 | XMS_ITS | Clinical Summary ---
Author Organization [facility] Address [address] [place] [address] Care Team Providers Care Brimmer Blocker Name Role Phone Sowmya Lilly MD Unavailable [phone] Sowmya Lilly MD Primary Care Provider [phone] Allergies Active Allergy Reactions Criticality Noted Date Comments Sulfa (Sulfonamide Antibiotics) Medications citalopram (CeleXA) 40 mg tablet 04/10/2022 Active losartan-hydroCHLO ROthiazide (HYZAAR) 50-12.5 mg per tablet 03/26/2022 Activ e Active Problems Problem Noted Date Diagnosed Date Primary hypertension 04/11/2022 Assessment & Plan (10/21/2022 11:01 AM CDT): Controlled with medication - continue treatment plan per PCP Assessment & Plan (04/11/2022 11:37 AM CASING MIXER): Controlled with medication - continue treatment plan [...] results. Assessment & Plan (04/11/2022 11:36 AM CASING MIXER): Detected on Thyroid ultrasound on 12/26/21 Right [...] repeat thyroid ultrasound. Consider repeating thyroid biopsy @[facility] to obtain better sample. Follow up and further recommendation will be decided after we obtai above test results. Hoarseness of voice 04/11/2022 Assessment & Plan (04/11/2022 11:37 AM CASING MIXER): Chronic and evaluated by ENT years ago, patient reports history of vocal cord issues. - I recommend that she has an evaluation by ENT. 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 Encounters Date Type Department Care Team Description 07/21/2024 Telephone [facility] ([facility]) [address] [place] [address] Arielle Bland RN 07/20/2024 Telephone [facility] ([facility]) [facility] [place] [address] Thania Gant RN 07/20/2024 Telephone [facility] ([facility]) [facility] [place] [address] Thania Gant RN 06/18/2024 Telephone [facility] Medicine [facility] ([facility]) [address] [place] [address] Thania Gant RN 06/18/2024 Telephone [facility] for [facility] ([facility]) [address] [place] [address] Thania Gant RN 06/17/2024 9:56 PM CASING MIXER - 06/17/2024 11:59 PM CASING MIXER Hospital Encounter [facility] ([facility]) [address] [place] [address] Discharge Disposition: Discharge to home or self care 06/07/2024 Orders Only [facility] Surgery [address] [place] [phone] Zully Schaeffer NP 06/04/2024 Documentation [facility] [address] [place] [phone] Carito Sullivan RN 06/04/2024 Telephone [facility] - Breast Imaging [address] [place] [address] 8 [place] [address] Zully Schaeffer NP Medical Question/Miscellane ous 06/02/2024 Orders Only [facility] [address] [place] [phone] Anum Cardoso NP Abnormal mammogram (Primary Dx) 05/31/2024 - 05/31/2024 11:59 PM CASING MIXER Hospital Encounter [facility] ([facility]) [address] [place] [address] Discharge Disposition: Discharge to home or self care 05/27/2024 - 05/27/2024 11:59 PM CASING MIXER Hospital Encounter [facility] ([facility]) [address] [place] [address] Discharge Disposition: Discharge to home or self [...] on file Legal Sex Female 10:33 AM CASING MIXER Gender Identity Not on file Sexual Orientation Not on file Obstetrics History Last Filed Vital Signs Vital Sign Reading Time Taken Comments Blood Pressure 126/62 10/21/2022 10:45 AM CDT Pulse 57 03/09/2014 11:39 AM CASING MIXER Temperature - - Respiratory Rate - - Oxygen Saturation 95% 03/09/2014 11:39 AM CASING MIXER Inhaled Oxygen Concentration - - Weight 63.7 [...] DIAGNOSTIC OUTSIDE CONSULT Routine 06/17/2024 9:57 PM CASING MIXER BREAST IMAGING MG DIAGNOSTIC OUTSIDE REFERENCE Routine 05/31/2024 12:00 AM CASING MIXER BREAST IMAGING MG SCREENING OUTSIDE REFERENCE Routine 05/27/2024 12:00 AM CASING MIXER from Last 3 Months Results * Breast Imaging DX Outside Consult (06/17/2024 9:57 PM CASING MIXER) Anatomical Region Laterality Modality Breast N/A Mammography 06/18/2024 10:5 9 AM CASING MIXER Impressions 06/18/2024 12:10 PM CASING MIXER 1. Developing grouped calcifications in the posterior [...] images may or may not represent the [place] source data set and thus may contain changes which may lower the sensitivity of the second opinion interpretation. Dictated by: Jackelyn Lomeli MD The radiology attending physician has personally reviewed this study, and had reviewed and/or edited this written report and agrees with it. Electronically signed by: Anabel Duran M.D. Narrative 06/18/2024 12:10 PM CASING MIXER EXAMINATION: REVIEW AND INTERPRETATION OF OUTSIDE IMAGING FACILITY PERFORMING OUTSIDE IMAGING: [place], [place] EXAM(S) REVIEWED: 1. BILATERAL SCREENING MAMMOGRAM [...] OF OUTSIDE IMAGING FACILITY PERFORMING OUTSIDE IMAGING: [place], [place] EXAM(S) REVIEWED: 1. BILATERAL SCREENING MAMMOGRAM [...] images may or may not represent the [place] source data set and thus may contain [...] Imaging Diagnostic Outside Reference (05/31/2024 12:00 AM CASING MIXER) Impressions [facility] - 06/17/2024 9:48 PM CASING MIXER These images are for Reference purposes only and have not been reviewed by [facility]. There will be no report generated by a [facility] Radiologist. Narrative [facility] - 06/17/2024 9:48 PM CASING MIXER EXAMINATION: Images For Reference Purposes Only us Zully Schaeffer NP IMG MAMMO PROCEDURES Final Result [facility] * Breast Imaging Screening Outside Reference (05/27/2024 12:00 AM CASING MIXER) Impressions [facility] - 06/17/2024 9:48 PM CASING MIXER These images are for Reference purposes only and have not been reviewed by [facility]. There will be no report generated by a [facility] Radiologist. Narrative [facility] - 06/17/2024 9:48 PM CASING MIXER EXAMINATION: Images For Reference Purposes Only us Zully Schaeffer MACHINE PAINT MIXER IMG MAMMO PROCEDURES Final Result [facility] from Last 3 Months Insurance [facility] MEDICARE ADVANT[facility] Address: [place] [id number] [place] [address] [facility] MEDICARE ADVANTAGE [facility] Address: [address] [address] [place] [phone] [facility] MEDICARE ADVANTAGE Care Teams Brimmer Blocker Relationship Specialty Start Date End Date Sowmya Lilly MD [address] [place] [address] PCP - General Internal Medicine 07/09/24 Sowmya Lilly MD [address] [place] [address] Referring Physician Internal Medicine 05/31/24
--- OUTSIDE RECORDS SUMMARY | 2024-08-09 17:49 | XMS_ITS | Referral Summary ---
Author Organization [facility] Medical Office Building B Address [address] [place] [address] Care Team Providers Care Child Custody Evaluator Name Role Phone Sowmya Lilly MD Unavailable [phone] Sowmya Lilly MD Primary Care Provider [phone] Encounters Date Type Department Care Team Description 07/21/2024 Telephone [facility] ([facility]) [address] [place] [address] Arielle Bland, MARVIN 07/20/2024 [facility] ([facility]) [address] [place] [address] Thania Gant, MARVIN 07/20/2024 [facility] ([facility]) [facility] [place] [address] Thania Gant, MARVIN 06/18/2024 [facility] ([facility]) [facility] [place] [address] Thania Gant, RN 06/18/2024 [facility] ([facility]) [facility] [place] [address] Thania Gant, MARVIN 06/17/2024 9:56 PM SENIOR ANALYST PROGRAMMER - 06/17/2024 11:59 PM SENIOR ANALYST PROGRAMMER Hospital Encounter [facility] ([facility]) [address] [place] [address] Discharge Disposition: Discharge to home or self care 06/07/2024 Orders Only [facility] Surgery [facility]0 [facility] 8 [place] [address] Zully Schaeffer NP 06/04/2024 Documentation [facility] Surgery [address] [place] [address] 8 [place] [address] Carito Sullivan RN 06/04/2024 Telephone [facility] [place] - Breast Imaging [address] [place] [address] Zully Schaeffer NP Medical Question/Miscellane ous 06/02/2024 Orders Only [facility] Surgery [address] [place] [address] 8 [place] [address] Anum Cardoso NP Abnormal mammogram (Primary Dx) 05/31/2024 - 05/31/2024 11:59 PM SENIOR ANALYST PROGRAMMER Hospital Encounter [facility] ([facility]) [address] [place] [address] Discharge Disposition: Discharge to home or self care 05/27/2024 - 05/27/2024 11:59 PM SENIOR ANALYST PROGRAMMER Hospital Encounter [facility] ([facility]) [address] [place] [address] Discharge Disposition: Discharge to home or self [...] PCP Assessment & Plan (04/11/2022 11:37 AM SENIOR ANALYST PROGRAMMER): Controlled with medication - continue treatment plan [...] results. Assessment & Plan (04/11/2022 11:36 AM SENIOR ANALYST PROGRAMMER): Detected on Thyroid ultrasound on 12/26/21 Right [...] ultrasound. Consider repeating thyroid biopsy @[facility] to obtain better sample. Follow up and further recommendation will be decided after we obtai above test results. Hoarseness of voice 04/11/2022 Assessment & Plan (04/11/2022 11:37 AM SENIOR ANALYST PROGRAMMER): Chronic and evaluated by ENT years ago, [...] on file Legal Sex Female 10:33 AM SENIOR ANALYST PROGRAMMER Gender Identity Not on file Sexual Orientation Not on file Last Filed Vital Signs Vital Sign Reading Time Taken Comments Blood Pressure 126/62 10/21/2022 10:45 AM CDT Pulse 57 03/09/2014 11:39 AM SENIOR ANALYST PROGRAMMER Temperature - - Respiratory Rate - - Oxygen Saturation 95% 03/09/2014 11:39 AM SENIOR ANALYST PROGRAMMER Inhaled Oxygen Concentration - - Weight 63.7 kg (140 lb 6.4 oz) 10/21/2022 10:45 AM CDT Height 154.9 cm (5' 1 ) 10/21/2022 10:45 AM CDT Body Mass Index 26.53 10/21/2022 10:45 AM CDT Plan of Treatment Not on file Procedures Procedure Name Priority Date/Time Associated Diagnosis Comments BREAST IMAGING MG DIAGNOSTIC OUTSIDE CONSULT Routine 06/17/2024 9:57 PM SENIOR ANALYST PROGRAMMER BREAST IMAGING MG DIAGNOSTIC OUTSIDE REFERENCE Routine 05/31/2024 12:00 AM SENIOR ANALYST PROGRAMMER BREAST IMAGING MG SCREENING OUTSIDE REFERENCE Routine 05/27/2024 12:00 AM SENIOR ANALYST PROGRAMMER from Last 3 Months Results * Breast Imaging DX Outside Consult (06/17/2024 9:57 PM SENIOR ANALYST PROGRAMMER) Anatomical Region Laterality Modality Breast N/A Mammography 06/18/2024 10:5 9 AM SENIOR ANALYST PROGRAMMER Impressions 06/18/2024 12:10 PM SENIOR ANALYST PROGRAMMER 1. Developing grouped calcifications in the posterior [...] images may or may not represent the [place] source data set and thus may contain changes which may lower the sensitivity of the second opinion interpretation. Dictated by: Jackelyn Lomeli MD The radiology attending physician has personally reviewed this study, and had reviewed and/or edited this written report and agrees with it. Electronically signed by: Anabel Duran M.D. Narrative 06/18/2024 12:10 PM SENIOR ANALYST PROGRAMMER EXAMINATION: REVIEW AND INTERPRETATION OF OUTSIDE IMAGING FACILITY PERFORMING OUTSIDE IMAGING: [place], [place] EXAM(S) REVIEWED: 1. BILATERAL SCREENING MAMMOGRAM [...] OF OUTSIDE IMAGING FACILITY PERFORMING OUTSIDE IMAGING: [place], [place] EXAM(S) REVIEWED: 1. BILATERAL SCREENING MAMMOGRAM [...] images may or may not represent the [place] source data set and thus may contain changes which may lower the sensitivity of the second opinion interpretation. Dictated by: Jackelyn Lomeli MD The radiology attending physician has personally reviewed this study, and had reviewed and/or edited this written report and agrees with it. Electronically signed by: Anabel E Renee, M.D. us Zully Schaeffer RECORD KEEPER IMG MAMMO PROCEDURES Final Result * Breast Imaging Diagnostic Outside Reference (05/31/2024 12:00 AM SENIOR ANALYST PROGRAMMER) Impressions [facility]MO[facility] - 06/17/2024 9:48 PM SENIOR ANALYST PROGRAMMER These images are for Reference purposes only and have not been reviewed by [facility]iology. There will be no report generated by a [facility] Radiologist. Narrative [facility] - 06/17/2024 9:48 PM SENIOR ANALYST PROGRAMMER EXAMINATION: Images For Reference Purposes Only us Zully Schaeffer RECORD KEEPER IMG MAMMO PROCEDURES Final Result Performing Organization Address City/[facility]/ZIP Co de Phone Number [facility]MO[facility] * Breast Imaging Screening Outside Reference (05/27/2024 12:00 AM SENIOR ANALYST PROGRAMMER) Impressions [facility] - 06/17/2024 9:48 PM SENIOR ANALYST PROGRAMMER These images are for Reference purposes only and have not been reviewed by [facility]iology. There will be no report generated by a [facility] Radiologist. Narrative [facility] - 06/17/2024 9:48 PM SENIOR ANALYST PROGRAMMER EXAMINATION: Images For Reference Purposes Only us Zully Schaeffer RECORD KEEPER IMG MAMMO PROCEDURES Final Result [facility] from Last 3 Months Insurance [facility] MEDICARE [facility] Address: [address] [address] [place] [address] [facility] MEDICARE [facility] Address: [address] [address] [facility] MEDICARE [facility] Address: [address] [place] [phone] Care Teams Child Custody Evaluator Relationship Specialty Start Date End Date Sowmya Lilly MD [address] [place] [address] PCP - General Internal Medicine 07/09/24 Sowmya Lilly MD [address] [place] [address] Referring Physician Internal Medicine 05/31/24
--- OUTSIDE RECORDS SUMMARY | 2024-08-09 17:49 | XMS_ITS | Clinical Summary ---
Author Organization [facility] Address [address] [facility] [place] [address] Care Team Providers Care Ready Mix Truck Driver Name Role Phone Sowmya Lilly MD Primary Care Provider Source Comments [facility],non-owned Affiliates and Associated Physician Practices is amultiple site organization consisting of ambulatory clinics and hospital sitesin [place], [place], [place] and [place]. This disclosure is being madepursuant to the Care Everywhere program and may not contain all information available regarding this patient. Last updated 18.[facility] Allergies Active Allergy Reactions Criticality Noted Date [...] age to complete this topic Insurance MEDICARE [facility] MEDICARE Care Teams Ready Mix Truck Driver Relationship Specialty Start Date End Date Sowmya Lilly MD [address] [place] [address] PCP - General 12/14/21
--- OUTSIDE RECORDS SUMMARY | 2024-08-09 17:49 | XMS_ITS | Clinical Summary ---
Author Organization [facility] Address [address] [place] [address] Care Team Providers Care Welfare Investigator Name Role Phone Arcadio Leggett MD Unavailable [phone] Sowmya Lilly MD Primary Care Provider [phone] Allergies Active Allergy Reactions Criticality Noted Date [...] Comments Blood Pressure 120/60 03/19/2022 3:48 PM METALLOGRAPHER Pulse 66 03/19/2022 3:48 PM METALLOGRAPHER Temperature - - Respiratory Rate 18 03/19/2022 3:48 PM METALLOGRAPHER Oxygen Saturation 99% 02/28/2021 12:53 PM METALLOGRAPHER Inhaled Oxygen Concentration - - Weight 63.5 kg (140 lb) 03/19/2022 3:48 PM METALLOGRAPHER Height 154.9 cm (5' 1 ) 03/19/2022 3:48 PM METALLOGRAPHER Body Mass Index 26.45 03/19/2022 3:48 PM METALLOGRAPHER Plan of Treatment Health Maintenance Due Date [...] age to complete this topic Insurance MEDICARE [facility] MEDICARE Advance Directives Documents on File Type Date Recorded Patient Loading Rack Supervisor Expl anation Power of Engineered Wood Designer 02/28/2021 12:46 PM POA Vu Doss Advance Directives and Living Will 05/02/2017 SHORT FORM POWER OF LABORER [employer]CR[employer]E [employer]ANT Healthcare Agents on File Name Relationship Healthcare Agent Relationshi p Communication Kayla Valentin Other First Alternate Health Care Agent Thuan Kenrick Doss Other Second Alternate [facility] Care Agent Care Teams Welfare Investigator Relationship Specialty Start Date End Date Sowmya Lilly MD [address] [place] [address] PCP - General INTERNAL MEDICINE 11/09/19 Arcadio Leggett MD CARDIOVASCULAR DISEASE 04/25/17
--- OUTSIDE RECORDS SUMMARY | 2024-08-09 17:49 | XMS_ITS | Encounter Summary ---
Author Organization [facility] Healthcare Address [address] [place] [address] Care Team Providers Care Lease Purchase Truck Driver Name Role Phone Tai Adams MD Primary Care Provider [phone] Reason for Visit * Diagnostic Imaging (Routine) - Pending Review Specialty Diagnoses / Procedures Referred By Tammy baker Referred To Contact Procedures Breast Imaging Screening Outside Reference Zully Schaeffer NP [address] [facility] [id number] [place] [address] Phone: tel: fax: Referral ID Status Reason Start Date Expiration Date V isits Requested Visits Authorized [id number] Pending Review 06/17/2024 07/17/2025 1 1 Encounter Details Date Type Department Care Team (Late st Contact Info) Description 05/05/2019 Hospital Encounter [facility]) [address] [place] [address] Social History Tobacco Use Types Packs/Day Years Used Date Smoking Tobacco: Former Cigarettes Q uit: 1980 Alcohol Use Standard Drinks/Week Comments Yes 0 (1 standard drink = 0.6 oz pur e alcohol) Comments Unknown Sex and Gender Information Value Date Recorded Sex Assigned at Not on file Legal Sex Female 10:33 AM SEAM CLOSER Gender Identity Not on file Sexual Orientation Not on file documented as of this encounter Plan of Treatment Not on file documented as of this encounter Procedures Procedure Name Priority Date/Time Associated Diagnosis Comments BREAST IMAGING MG SCREENING OUTSIDE REFERENCE Routine 05/05/2019 12:00 AM SEAM CLOSER documented in this encounter Results * Breast Imaging Screening Outside Reference (05/05/2019 12:00 AM SEAM CLOSER) Impressions [facility]MO[facility] - 06/17/2024 9:48 PM SEAM CLOSER These images are for Reference purposes only and have not been reviewed by [facility] Radiology. There will be no report generated by a [facility] Radiologist. Narrative RAD_MAMMO[facility] - 06/17/2024 9:48 PM SEAM CLOSER EXAMINATION: Images For Reference Purposes Only Zully Schaeffer RETURNED MATERIALS INSPECTOR IMG MAMMO PROCEDURES Final Result [facility] documented in this encounter Visit Diagnoses Not on filedocumented in this encounter Care Teams Lease Purchase Truck Driver Relationship Specialty Start Date End Date Tai Adams MD [address] [place] [address] PCP - General 03/08/14 07/08/24 documented as of this encounter
== END 2024-08-09 15:43 | disposition home or self-care (01) ==
LOC: CHSIMG 15:45
PROVIDERS: PCP Internal Medicine; Visit Provider Internal Medicine
DX: R10.11 Right upper quadrant pain (principal)
CPT/HCPCS: 36415; 80053; 82150; 83690; 85027

== ENCOUNTER 2024-08-13 08:28 | Outpatient (CLI) | payer MEDICARE, SELFPAY ==
--- NOTE | ~2024-08-13 | US_ITS ---
Limited Abdominal Sonogram: Real-time sonographic imaging of the right upper quadrant was performed. Clinical History: Right upper quadrant pain Findings: The liver appears echogenic, with no evidence of mass lesion or bile duct dilatation. Main portal vein demonstrates normal direction of flow. The gallbladder is well distended, and appears no rmal with no evidence of gallstone or wall thickening. The common bile duct measures 6 mm. The visua lized pancreas, aorta, and IVC are unremarkable. Impression: Diffuse fatty infiltration of the liver. Reviewed, dictated and finalized at location M. Impression: Diffuse fatty infiltration of the liver.
--- NOTE | ~2024-08-13 | US_ITS ---
Renal-Bladder ultrasound Clinical History: Elevated creatinine Technique: Real-time sonographic imaging of the kidneys and urinary bladder was performed. Findings: The right kidney measures 9.5 cm in length and the left kidney measures 9.0 cm. There is no hydronephrosis or renal calculus identified. Renal cortical echogenicity is within normal limits. No renal mass lesion is identified. The urinary bladder is collapsed, limiting evaluation. Impression: Unremarkable ultrasound of the kidneys. Collapsed urinary bladder limits evaluation. Reviewed, dictated and finalized at location M. Impression: Unremarkable ultrasound of the kidneys. Collapsed urinary bladder limits evalua tion.
--- OUTSIDE RECORDS SUMMARY | 2024-08-14 13:15 | XMS_ITS | Clinical Summary ---
Author Organization [facility] Address [address] [place] [address] Care Team Providers Care Aoc Operations Intelligence Officer Name Role Phone Sowmya Lilly MD Primary Care Provider [phone] Source Comments [facility],non-owned Affiliates and Associated Physician Practices is amultiple site organization consisting of ambulatory clinics and hospital sitesin [place], [place], [place] and [place]. This disclosure is being madepursuant to the Care Everywhere program and may not contain all information available regarding this patient. Last updated 18.[facility] Allergies Active Allergy Reactions Criticality Noted Date [...] age to complete this topic Insurance MEDICARE [facility] MEDICARE Care Teams Aoc Operations Intelligence Officer Relationship Specialty Start Date End Date Sowmya Lilly MD [address] [place] [address] PCP - General 12/14/21
--- OUTSIDE RECORDS SUMMARY | 2024-08-14 13:15 | XMS_ITS | Clinical Summary ---
Author Organization [facility] Medical Office Building B Address [address] [place] [address] Care Team Providers Care Crane Follower Name Role Phone Sowmya Lilly MD Unavailable [phone] Sowmya Lilly MD Primary Care Provider [phone] Allergies Active Allergy Reactions Criticality Noted Date Comments Sulfa (Sulfonamide Antibiotics) Medications citalopram (CeleXA) 40 mg tablet 04/10/2022 Active losartan-hydroCHLO ROthiazide (HYZAAR) 50-12.5 mg per tablet 03/26/2022 Activ e Active Problems Problem Noted Date Diagnosed Date Primary hypertension 04/11/2022 Assessment & Plan (10/21/2022 11:01 AM CDT): Controlled with medication - continue treatment plan per PCP Assessment & Plan (04/11/2022 11:37 AM WORK CAR OPERATOR): Controlled with medication - continue treatment [...] results. Assessment & Plan (04/11/2022 11:36 AM WORK CAR OPERATOR): Detected on Thyroid ultrasound on 12/26/21 [...] ultrasound. Consider repeating thyroid biopsy @[facility] to obtain better sample. Follow up and further recommendation will be decided after we obtai above test results. Hoarseness of voice 04/11/2022 Assessment & Plan (04/11/2022 11:37 AM WORK CAR OPERATOR): Chronic and evaluated by ENT years ago, patient reports history of vocal cord issues. - I recommend that she has an evaluation by ENT. 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 Encounters Date Type Department Care Team Description 07/21/2024 Telephone [facility] ([facility]) [address] [place] [address] Arielle Bland RN 07/20/2024 Telephone [facility] ([facility]) [facility] [place] [address] Thania Gant RN 07/20/2024 Telephone [facility] ([facility]) [facility] [place] [address] Thania Gant RN 06/18/2024 Telephone [facility] Breast [facility] ([facility]) [address] [place] [address] Thania Gant RN 06/18/2024 Telephone [facility] ([facility]) [address] [place] [address] Thania Gant RN 06/17/2024 9:56 PM WORK CAR OPERATOR - 06/17/2024 11:59 PM WORK CAR OPERATOR Hospital Encounter [facility] ([facility]) [address] [place] [address] Discharge Disposition: Discharge to home or self care 06/07/2024 Orders Only [facility] Surgery [address] [place] [phone] Zully Schaeffer NP 06/04/2024 Documentation [facility] Surgery [address] [place] [phone] Carito Sullivan RN 06/04/2024 Telephone [facility] [place] - Breast Imaging [address] [place] [address] [address] [place] [address] Zully Schaeffer NP Medical Question/Miscellane ous 06/02/2024 Orders Only [facility] Surgery [address] [place] [phone] Anum Cardoso NP Abnormal mammogram (Primary Dx) 05/31/2024 - 05/31/2024 11:59 PM WORK CAR OPERATOR Hospital Encounter [facility] ([facility]) [address] [place] [address] Discharge Disposition: Discharge to home or self care 05/27/2024 - 05/27/2024 11:59 PM WORK CAR OPERATOR Hospital Encounter [facility] ([facility]) [address] [place] [address] Discharge Disposition: Discharge to home or self [...] on file Legal Sex Female 10:33 AM WORK CAR OPERATOR Gender Identity Not on file Sexual Orientation Not on file Obstetrics History Last Filed Vital Signs Vital Sign Reading Time Taken Comments Blood Pressure 126/62 10/21/2022 10:45 AM CDT Pulse 57 03/09/2014 11:39 AM WORK CAR OPERATOR Temperature - - Respiratory Rate - - Oxygen Saturation 95% 03/09/2014 11:39 AM WORK CAR OPERATOR Inhaled Oxygen Concentration - - Weight [...] DIAGNOSTIC OUTSIDE CONSULT Routine 06/17/2024 9:57 PM WORK CAR OPERATOR BREAST IMAGING MG DIAGNOSTIC OUTSIDE REFERENCE Routine 05/31/2024 12:00 AM WORK CAR OPERATOR BREAST IMAGING MG SCREENING OUTSIDE REFERENCE Routine 05/27/2024 12:00 AM WORK CAR OPERATOR from Last 3 Months Results * Breast Imaging DX Outside Consult (06/17/2024 9:57 PM WORK CAR OPERATOR) Anatomical Region Laterality Modality Breast N/A Mammography 06/18/2024 10:5 9 AM WORK CAR OPERATOR Impressions 06/18/2024 12:10 PM WORK CAR OPERATOR 1. Developing grouped calcifications in the [...] images may or may not represent the [place] source data set and thus may contain changes which may lower the sensitivity of the second opinion interpretation. Dictated by: Jackelyn Lomeli MD The radiology attending physician has personally reviewed this study, and had reviewed and/or edited this written report and agrees with it. Electronically signed by: Anabel Duran M.D. Narrative 06/18/2024 12:10 PM WORK CAR OPERATOR EXAMINATION: REVIEW AND INTERPRETATION OF OUTSIDE IMAGING FACILITY PERFORMING OUTSIDE IMAGING: [place], [place] EXAM(S) REVIEWED: 1. BILATERAL SCREENING MAMMOGRAM [...] OF OUTSIDE IMAGING FACILITY PERFORMING OUTSIDE IMAGING: [place], [place] EXAM(S) REVIEWED: 1. BILATERAL SCREENING MAMMOGRAM [...] images may or may not represent the [place] source data set and thus may contain [...] Imaging Diagnostic Outside Reference (05/31/2024 12:00 AM WORK CAR OPERATOR) Impressions RAD_MAMMO[facility] - 06/17/2024 9:48 PM WORK CAR OPERATOR These images are for Reference purposes only and have not been reviewed by [facility] Radiology. There will be no report generated by a [facility] Radiologist. Narrative RAD_MAMMO[facility] - 06/17/2024 9:48 PM WORK CAR OPERATOR EXAMINATION: Images For Reference Purposes Only us Zully Schaeffer NP IMG MAMMO PROCEDURES Final Result [facility] * Breast Imaging Screening Outside Reference (05/27/2024 12:00 AM WORK CAR OPERATOR) Impressions RAD_M[facility]MO[facility] - 06/17/2024 9:48 PM WORK CAR OPERATOR These images are for Reference purposes only and have not been reviewed by [facility] Radiology. There will be no report generated by a [facility] Radiologist. Narrative RAD_M[facility]MO[facility] - 06/17/2024 9:48 PM WORK CAR OPERATOR EXAMINATION: Images For Reference Purposes Only us Zully Schaeffer ETHANOL OPERATOR IMG MAMMO PROCEDURES Final Result [facility] from Last 3 Months Insurance [facility] MEDICARE [facility] Address: [place] [id number] [place] [id number] [facility] MEDICARE [facility] Address: [address] [address] [place] [id number] [facility] MEDICARE ADVANTAGE Care Teams Crane Follower Relationship Specialty Start Date End Date Sowmya Lilly MD [address] [place] [address] PCP - General Internal Medicine 07/09/24 Sowmya Lilly MD [address] [place] [address] Referring Physician Internal Medicine 05/31/24
--- OUTSIDE RECORDS SUMMARY | 2024-08-14 13:15 | XMS_ITS | Referral Summary ---
Author Organization [facility] Office Building B Address [address] [place] [address] Care Team Providers Care Photographic Intelligence Officer Name Role Phone Sowmya Lilly MD Unavailable [phone] Sowmya Lilly MD Primary Care Provider [phone] Encounters Date Type Department Care Team Description 07/21/2024 Telephone [facility] ([facility]) [address] [place] [address] Arielle Bland, MARVIN 07/20/2024 [facility] Advanced Medicine [facility] ([facility]) [address] [place] [address] Thania Gant, MARVIN 07/20/2024 [facility] ([facility]) [facility] [place] [address] Thania Gant, MARVIN 06/18/2024 [facility] ([facility]) [facility] [place] [address] Thania Gant, RN 06/18/2024 [facility] Advanced [facility] ([facility]) [facility] [place] [address] Thania Gant, MARVIN 06/17/2024 9:56 PM FLOWER ARRANGER - 06/17/2024 11:59 PM FLOWER ARRANGER Hospital Encounter [facility] ([facility]) [address] [place] [address] Discharge Disposition: Discharge to home or self care 06/07/2024 Orders Only [facility] Surgery [facility] 8 [place] [address] Zully Schaeffer NP 06/04/2024 Documentation [facility] Surgery [address] [place] [address] 8 [place] [address] Carito Sullivan RN 06/04/2024 Telephone [facility] - Breast Imaging [address] [place] [address] Zully Schaeffer NP Medical Question/Miscellane ous 06/02/2024 Orders Only [facility] Surgery [address] [place] [address] 8 [place] [address] Anum Cardoso NP Abnormal mammogram (Primary Dx) 05/31/2024 - 05/31/2024 11:59 PM FLOWER ARRANGER Hospital Encounter [facility] ([facility]) [address] [place] [address] Discharge Disposition: Discharge to home or self care 05/27/2024 - 05/27/2024 11:59 PM FLOWER ARRANGER Hospital Encounter [facility] ([facility]) [address] [place] [address] Discharge Disposition: Discharge to home or self [...] PCP Assessment & Plan (04/11/2022 11:37 AM FLOWER ARRANGER): Controlled with medication - continue treatment plan [...] results. Assessment & Plan (04/11/2022 11:36 AM FLOWER ARRANGER): Detected on Thyroid ultrasound on 12/26/21 Right [...] repeat thyroid ultrasound. Consider repeating thyroid biopsy @[facility] to obtain better sample. Follow up and further recommendation will be decided after we obtai above test results. Hoarseness of voice 04/11/2022 Assessment & Plan (04/11/2022 11:37 AM FLOWER ARRANGER): Chronic and evaluated by ENT years ago, [...] on file Legal Sex Female 10:33 AM FLOWER ARRANGER Gender Identity Not on file Sexual Orientation Not on file Last Filed Vital Signs Vital Sign Reading Time Taken Comments Blood Pressure 126/62 10/21/2022 10:45 AM CDT Pulse 57 03/09/2014 11:39 AM FLOWER ARRANGER Temperature - - Respiratory Rate - - Oxygen Saturation 95% 03/09/2014 11:39 AM FLOWER ARRANGER Inhaled Oxygen Concentration - - Weight 63.7 kg (140 lb 6.4 oz) 10/21/2022 10:45 AM CDT Height 154.9 cm (5' 1 ) 10/21/2022 10:45 AM CDT Body Mass Index 26.53 10/21/2022 10:45 AM CDT Plan of Treatment Not on file Procedures Procedure Name Priority Date/Time Associated Diagnosis Comments BREAST IMAGING MG DIAGNOSTIC OUTSIDE CONSULT Routine 06/17/2024 9:57 PM FLOWER ARRANGER BREAST IMAGING MG DIAGNOSTIC OUTSIDE REFERENCE Routine 05/31/2024 12:00 AM FLOWER ARRANGER BREAST IMAGING MG SCREENING OUTSIDE REFERENCE Routine 05/27/2024 12:00 AM FLOWER ARRANGER from Last 3 Months Results * Breast Imaging DX Outside Consult (06/17/2024 9:57 PM FLOWER ARRANGER) Anatomical Region Laterality Modality Breast N/A Mammography 06/18/2024 10:5 9 AM FLOWER ARRANGER Impressions 06/18/2024 12:10 PM FLOWER ARRANGER 1. Developing grouped calcifications in the posterior [...] images may or may not represent the [place] source data set and thus may contain changes which may lower the sensitivity of the second opinion interpretation. Dictated by: Jackelyn Lomeli MD The radiology attending physician has personally reviewed this study, and had reviewed and/or edited this written report and agrees with it. Electronically signed by: Anabel Duran M.D. Narrative 06/18/2024 12:10 PM FLOWER ARRANGER EXAMINATION: REVIEW AND INTERPRETATION OF OUTSIDE IMAGING FACILITY PERFORMING OUTSIDE IMAGING: [place], [place] EXAM(S) REVIEWED: 1. BILATERAL SCREENING MAMMOGRAM [...] OF OUTSIDE IMAGING FACILITY PERFORMING OUTSIDE IMAGING: [place], [place] EXAM(S) REVIEWED: 1. BILATERAL SCREENING MAMMOGRAM [...] images may or may not represent the [place] source data set and thus may contain changes which may lower the sensitivity of the second opinion interpretation. Dictated by: Jackelyn Lomeli MD The radiology attending physician has personally reviewed this study, and had reviewed and/or edited this written report and agrees with it. Electronically signed by: Anabel E Renee, M.D. us Zully Schaeffer BARREL WASHER IMG MAMMO PROCEDURES Final Result * Breast Imaging Diagnostic Outside Reference (05/31/2024 12:00 AM FLOWER ARRANGER) Impressions [facility] - 06/17/2024 9:48 PM FLOWER ARRANGER These images are for Reference purposes only and have not been reviewed by [facility] Radiology. There will be no report generated by a [facility] Radiologist. Narrative [facility]MO[facility] - 06/17/2024 9:48 PM FLOWER ARRANGER EXAMINATION: Images For Reference Purposes Only us Zully Schaeffer BARREL WASHER IMG MAMMO PROCEDURES Final Result Performing Organization Address City/[facility]/ZIP Co de Phone Number [facility] * Breast Imaging Screening Outside Reference (05/27/2024 12:00 AM FLOWER ARRANGER) Impressions [facility] - 06/17/2024 9:48 PM FLOWER ARRANGER These images are for Reference purposes only and have not been reviewed by [facility] Radiology. There will be no report generated by a [facility] Radiologist. Narrative [facility] - 06/17/2024 9:48 PM FLOWER ARRANGER EXAMINATION: Images For Reference Purposes Only us Zully Schaeffer BARREL WASHER IMG MAMMO PROCEDURES Final Result [facility] from Last 3 Months Insurance [facility] MEDICARE [facility] Address: [address] [address] [place] [address] [facility] MEDICARE [facility]VANTAGE [facility] Address: [address] [address] [facility] MEDICARE [facility] Address: [address] [place] [phone] Care Teams Photographic Intelligence Officer Relationship Specialty Start Date End Date Sowmya Lilly MD [address] [place] [address] PCP - General Internal Medicine 07/09/24 Sowmya Lilly MD [address] [place] [address] Referring Physician Internal Medicine 05/31/24
--- OUTSIDE RECORDS SUMMARY | 2024-08-14 13:15 | XMS_ITS | Encounter Summary ---
Author Organization [facility] Address [address] [place] [address] Care Team Providers Care Metal Expediter Name Role Phone Tai Adams MD Primary Care Provider [phone] Reason for Visit * Diagnostic Imaging (Routine) - Pending Review Specialty Diagnoses / Procedures Referred By Tammy baker Referred To Contact Procedures Breast Imaging Screening Outside Reference Zully Schaeffer NP [address] [facility] [phone] [place] [address] Phone: tel: fax: Referral ID Status Reason Start Date Expiration Date V isits Requested Visits Authorized [id number] Pending Review 06/17/2024 07/17/2025 1 1 Encounter Details Date Type Department Care Team (Late st Contact Info) Description 05/05/2019 Hospital Encounter [facility] ([facility]) [address] [place] [address] Social History Tobacco Use Types Packs/Day Years Used Date Smoking Tobacco: Former Cigarettes Q uit: 1980 Alcohol Use Standard Drinks/Week Comments Yes 0 (1 standard drink = 0.6 oz pur e alcohol) Comments Unknown Sex and Gender Information Value Date Recorded Sex Assigned at Not on file Legal Sex Female 10:33 AM HOGSHEAD SALVAGE Gender Identity Not on file Sexual Orientation Not on file documented as of this encounter Plan of Treatment Not on file documented as of this encounter Procedures Procedure Name Priority Date/Time Associated Diagnosis Comments BREAST IMAGING MG SCREENING OUTSIDE REFERENCE Routine 05/05/2019 12:00 AM HOGSHEAD SALVAGE documented in this encounter Results * Breast Imaging Screening Outside Reference (05/05/2019 12:00 AM HOGSHEAD SALVAGE) Impressions [facility] - 06/17/2024 9:48 PM HOGSHEAD SALVAGE These images are for Reference purposes only and have not been reviewed by [facility] Radiology. There will be no report generated by a [facility] Radiologist. Narrative [facility]MO[facility] - 06/17/2024 9:48 PM HOGSHEAD SALVAGE EXAMINATION: Images For Reference Purposes Only Zully Schaeffer CHEMICALS DISTILLER IMG MAMMO PROCEDURES Final Result [facility] documented in this encounter Visit Diagnoses Not on filedocumented in this encounter Care Teams Metal Expediter Relationship Specialty Start Date End Date Tai Adams MD [address] [place] [address] PCP - General 03/08/14 07/08/24 documented as of this encounter
--- OUTSIDE RECORDS SUMMARY | 2024-08-14 13:15 | XMS_ITS | Clinical Summary ---
Author Organization [facility] Address [address] [place] [address] Care Team Providers Care Oceanographer Assistant Name Role Phone Arcadio Leggett MD Unavailable [phone] Sowmya Lilly MD Primary Care Provider Allergies [...] Comments Blood Pressure 120/60 03/19/2022 3:48 PM PRODUCTION SUPPORT SPECIALIST Pulse 66 03/19/2022 3:48 PM PRODUCTION SUPPORT SPECIALIST Temperature - - Respiratory Rate 18 03/19/2022 3:48 PM PRODUCTION SUPPORT SPECIALIST Oxygen Saturation 99% 02/28/2021 12:53 PM PRODUCTION SUPPORT SPECIALIST Inhaled Oxygen Concentration - - Weight 63.5 kg (140 lb) 03/19/2022 3:48 PM PRODUCTION SUPPORT SPECIALIST Height 154.9 cm (5' 1 ) 03/19/2022 3:48 PM PRODUCTION SUPPORT SPECIALIST Body Mass Index 26.45 03/19/2022 3:48 PM PRODUCTION SUPPORT SPECIALIST Plan of Treatment Health Maintenance Due [...] age to complete this topic Insurance MEDICARE [facility] MEDIC[facility] Advance Directives Documents on File Type Date Recorded Patient Bellhop Captain Expl anation Power of Waiter/Waitress [place] 02/28/2021 12:46 PM POA Vu Doss Advance Directives and Living Will 05/02/2017 SHORT FORM POWER OF STOVE MOUNTER Healthcare Agents on File Name Relationship Healthcare Agent Relationshi p Communication Kayla Valentin Other First Alternate Health Care Agent Thuan Kenrick Doss Other Second Alternate [facility] Care Agent Care Teams Oceanographer Assistant Relationship Specialty Start Date End Date Sowmya Lilly MD [address] [place] [address] PCP - General INTERNAL MEDICINE 11/09/19 Arcadio Legegtt MD CARDIOVASCULAR DISEASE 04/25/17
== END 2024-08-13 08:29 | disposition home or self-care (01) ==
LOC: CHSIMG 12:35
PROVIDERS: PCP Internal Medicine; Visit Provider Internal Medicine
DX: R79.89 Other specified abnormal findings of blood chemistry (principal); K76.0 Fatty (change of) liver, not elsewhere classified
CPT/HCPCS: 76705; 76775

== ENCOUNTER 2024-08-17 11:23 | Outpatient (CLI) | payer MEDICARE, SELFPAY ==
[2024-08-17 11:28] VITALS: BMI 32.3
[2024-08-17 11:37] VITALS: BP 145/60; PULSE 60; RESP 14; TEMP 36.3; O2SAT 98
[2024-08-17] MEDS: ZOLEDRONIC ACID 5 MG/100 ML 100 ML 400 MG IVPB (11:40)
[2024-08-17 12:05] VITALS: BP 137/63; PULSE 60
--- NOTE | 2024-08-17 12:07 | PC.NURSE ---
Patient here for yearly IV Recast infusion. Education given. No concerns voiced. Infusion administered. SEE MAR/patient care notes. Tolerated well.
--- OUTSIDE RECORDS SUMMARY | 2024-08-17 12:15 | XMS_ITS | Referral Summary ---
Author Organization [facility] Medical Office Building B Address [address] [place] [address] Care Team Providers Care Mink Farmer Name Role Phone Sowmya Lilly MD Unavailable [phone] Sowmya Lilly MD Primary Care Provider [phone] Encounters Date Type Department Care Team Description 07/21/2024 Telephone [facility] Advanced [facility] ([facility]) [address] [place] [address] Arielle Bland, MARVIN 07/20/2024 [facility] Advanced Medicine [facility] ([facility]) [address] [place] [address] Thania Gant, MARVIN 07/20/2024 [facility] ([facility]) [facility] [place] [address] Thania Gant, MARVIN 06/18/2024 [facility] ([facility]) [facility] [place] [address] Thania Gant, RN 06/18/2024 [facility] Advanced Medicine [facility] ([facility]) [facility] [place] [address] Thania Gant, MARVIN 06/17/2024 9:56 PM GATE SERVICES SUPERVISOR - 06/17/2024 11:59 PM GATE SERVICES SUPERVISOR Hospital Encounter [facility] ([facility]) [address] [place] [address] Discharge Disposition: Discharge to home or self care 06/07/2024 Orders Only [facility] 8 [place] [address] Zully Schaeffer NP 06/04/2024 Documentation [facility] [address] [place] [address] 8 [place] [address] Carito Sullivan RN 06/04/2024 Telephone [facility] [place] - Breast Imaging [address] [place] [address] Zully Schaeffer NP Medical Question/Miscellane ous 06/02/2024 Orders Only [facility] [address] [place] [address] 8 [place] [address] Anum Cardoso NP Abnormal mammogram (Primary Dx) 05/31/2024 - 05/31/2024 11:59 PM GATE SERVICES SUPERVISOR Hospital Encounter [facility] ([facility]) [address] [place] [address] Discharge Disposition: Discharge to home or self care 05/27/2024 - 05/27/2024 11:59 PM GATE SERVICES SUPERVISOR Hospital Encounter [facility] ([facility]) [address] [place] [address] Discharge Disposition: Discharge to home or self [...] PCP Assessment & Plan (04/11/2022 11:37 AM GATE SERVICES SUPERVISOR): Controlled with medication - continue treatment plan [...] results. Assessment & Plan (04/11/2022 11:36 AM GATE SERVICES SUPERVISOR): Detected on Thyroid ultrasound on 12/26/21 Right [...] thyroid ultrasound. Consider repeating thyroid biopsy @[facility] to obtain better sample. Follow up and further recommendation will be decided after we obtai above test results. Hoarseness of voice 04/11/2022 Assessment & Plan (04/11/2022 11:37 AM GATE SERVICES SUPERVISOR): Chronic and evaluated by ENT years ago, [...] on file Legal Sex Female 10:33 AM GATE SERVICES SUPERVISOR Gender Identity Not on file Sexual Orientation Not on file Last Filed Vital Signs Vital Sign Reading Time Taken Comments Blood Pressure 126/62 10/21/2022 10:45 AM CDT Pulse 57 03/09/2014 11:39 AM GATE SERVICES SUPERVISOR Temperature - - Respiratory Rate - - Oxygen Saturation 95% 03/09/2014 11:39 AM GATE SERVICES SUPERVISOR Inhaled Oxygen Concentration - - Weight 63.7 kg (140 lb 6.4 oz) 10/21/2022 10:45 AM CDT Height 154.9 cm (5' 1 ) 10/21/2022 10:45 AM CDT Body Mass Index 26.53 10/21/2022 10:45 AM CDT Plan of Treatment Not on file Procedures Procedure Name Priority Date/Time Associated Diagnosis Comments BREAST IMAGING MG DIAGNOSTIC OUTSIDE CONSULT Routine 06/17/2024 9:57 PM GATE SERVICES SUPERVISOR BREAST IMAGING MG DIAGNOSTIC OUTSIDE REFERENCE Routine 05/31/2024 12:00 AM GATE SERVICES SUPERVISOR BREAST IMAGING MG SCREENING OUTSIDE REFERENCE Routine 05/27/2024 12:00 AM GATE SERVICES SUPERVISOR from Last 3 Months Results * Breast Imaging DX Outside Consult (06/17/2024 9:57 PM GATE SERVICES SUPERVISOR) Anatomical Region Laterality Modality Breast N/A Mammography 06/18/2024 10:5 9 AM GATE SERVICES SUPERVISOR Impressions 06/18/2024 12:10 PM GATE SERVICES SUPERVISOR 1. Developing grouped calcifications in the posterior [...] images may or may not represent the [place]ini source data set and thus may contain changes which may lower the sensitivity of the second opinion interpretation. Dictated by: Jackelyn Lomeli MD The radiology attending physician has personally reviewed this study, and had reviewed and/or edited this written report and agrees with it. Electronically signed by: Anabel Duran M.D. Narrative 06/18/2024 12:10 PM GATE SERVICES SUPERVISOR EXAMINATION: REVIEW AND INTERPRETATION OF OUTSIDE IMAGING FACILITY PERFORMING OUTSIDE IMAGING: [place], [place] EXAM(S) REVIEWED: 1. BILATERAL SCREENING MAMMOGRAM [...] OF OUTSIDE IMAGING FACILITY PERFORMING OUTSIDE IMAGING: [place], [place] EXAM(S) REVIEWED: 1. BILATERAL SCREENING MAMMOGRAM [...] images may or may not represent the resighini source data set and thus may contain changes which may lower the sensitivity of the second opinion interpretation. Dictated by: Jackelyn Lomeli MD The radiology attending physician has personally reviewed this study, and had reviewed and/or edited this written report and agrees with it. Electronically signed by: Anabel E Renee, M.D. us Zully Schaeffer ASPHALT PAVER OPERATOR IMG MAMMO PROCEDURES Final Result * Breast Imaging Diagnostic Outside Reference (05/31/2024 12:00 AM GATE SERVICES SUPERVISOR) Impressions [facility] - 06/17/2024 9:48 PM GATE SERVICES SUPERVISOR These images are for Reference purposes only and have not been reviewed by [facility]iology. There will be no report generated by a [facility] Radiologist. Narrative [facility]MO[facility] - 06/17/2024 9:48 PM GATE SERVICES SUPERVISOR EXAMINATION: Images For Reference Purposes Only us Zully Schaeffer ASPHALT PAVER OPERATOR IMG MAMMO PROCEDURES Final Result Performing Organization Address City/[facility]/ZIP Co de Phone Number [facility] * Breast Imaging Screening Outside Reference (05/27/2024 12:00 AM GATE SERVICES SUPERVISOR) Impressions [facility] - 06/17/2024 9:48 PM GATE SERVICES SUPERVISOR These images are for Reference purposes only and have not been reviewed by [facility]. There will be no report generated by a [facility] Radiologist. Narrative RAD_M[facility]MO[facility] - 06/17/2024 9:48 PM GATE SERVICES SUPERVISOR EXAMINATION: Images For Reference Purposes Only us Zully Schaeffer ASPHALT PAVER OPERATOR IMG MAMMO PROCEDURES Final Result [facility]_M[facility] from Last 3 Months Insurance [facility] MEDICARE ADVANTAGE [facility] MEDICARE ADVANTAGE [facility] MEDICARE ADVANTAGE Care Teams Mink Farmer Relationship Specialty Start Date End Date Sowmya Lilly MD [address] [place] [address] PCP - General Internal Medicine 07/09/24 Sowmya Lilly MD [address] [place] [address] Referring Physician Internal Medicine 05/31/24
--- OUTSIDE RECORDS SUMMARY | 2024-08-17 12:15 | XMS_ITS | Clinical Summary ---
Author Organization [facility] Address [address] [place] [address] Care Team Providers Care Feather Sawyer Name Role Phone Sowmya Lilly MD Primary Care Provider [phone] Source Comments [facility],non-owned Affiliates and Associated Physician Practices is amultiple site organization consisting of ambulatory clinics and hospital sitesin [place], [place], [place] and [place]. This disclosure is being madepursuant to the Care Everywhere program and may not contain all information available regarding this patient. Last updated 18.[facility] Allergies Active Allergy Reactions Criticality Noted [...] age to complete this topic Insurance MEDICARE [facility] MEDICARE Care Teams Feather Sawyer Relationship Specialty Start Date End Date Sowmya Lilly MD [address] [place] [address] PCP - General 12/14/21
--- OUTSIDE RECORDS SUMMARY | 2024-08-17 12:15 | XMS_ITS | Encounter Summary ---
Author Organization [facility] Address [address] [place] [address] Care Team Providers Care Lofter Name Role Phone Tai Adams MD Primary Care Provider [phone] Reason for Visit * Diagnostic Imaging (Routine) - Pending Review Specialty Diagnoses / Procedures Referred By Tammy baker Referred To Contact Procedures Breast Imaging Screening Outside Reference Zully Schaeffer NP [address] [facility] [id number] [place] [address] Phone: tel: fax: Referral ID Status Reason Start Date Expiration Date V isits Requested Visits Authorized [id number] Pending Review 06/17/2024 07/17/2025 1 1 Encounter Details Date Type Department Care Team (Late st Contact Info) Description 05/05/2019 Hospital Encounter [facility]) [address] [place] [address] Social History Tobacco Use Types Packs/Day Years Used Date Smoking Tobacco: Former Cigarettes Q uit: 1980 Alcohol Use Standard Drinks/Week Comments Yes 0 (1 standard drink = 0.6 oz pur e alcohol) Comments Unknown Sex and Gender Information Value Date Recorded Sex Assigned at Not on file Legal Sex Female 10:33 AM OUTPATIENT SERVICES DIRECTOR Gender Identity Not on file Sexual Orientation Not on file documented as of this encounter Plan of Treatment Not on file documented as of this encounter Procedures Procedure Name Priority Date/Time Associated Diagnosis Comments BREAST IMAGING MG SCREENING OUTSIDE REFERENCE Routine 05/05/2019 12:00 AM OUTPATIENT SERVICES DIRECTOR documented in this encounter Results * Breast Imaging Screening Outside Reference (05/05/2019 12:00 AM OUTPATIENT SERVICES DIRECTOR) Impressions RAD_M[facility]MO[facility] - 06/17/2024 9:48 PM OUTPATIENT SERVICES DIRECTOR These images are for Reference purposes only and have not been reviewed by [facility] Radiology. There will be no report generated by a [facility] Radiologist. Narrative RAD_MAMMO[facility] - 06/17/2024 9:48 PM OUTPATIENT SERVICES DIRECTOR EXAMINATION: Images For Reference Purposes Only Zully Schaeffer SHOE CLERK IMG MAMMO PROCEDURES Final Result [facility] documented in this encounter Visit Diagnoses Not on filedocumented in this encounter Care Teams Lofter Relationship Specialty Start Date End Date Tai Adams MD [address] [place] [address] PCP - General 03/08/14 07/08/24 documented as of this encounter
--- OUTSIDE RECORDS SUMMARY | 2024-08-17 12:15 | XMS_ITS | Clinical Summary ---
Author Organization [facility] Address [address] [place] [address] Care Team Providers Care Barrel Stave Inspector Name Role Phone Sowmya Lilly MD Unavailable [phone] Sowmya Lilly MD Primary Care Provider [phone] Allergies Active Allergy Reactions Criticality Noted Date Comments Sulfa (Sulfonamide Antibiotics) Medications citalopram (CeleXA) 40 mg tablet 04/10/2022 Active losartan-hydroCHLO ROthiazide (HYZAAR) 50-12.5 mg per tablet 03/26/2022 Activ e Active Problems Problem Noted Date Diagnosed Date Primary hypertension 04/11/2022 Assessment & Plan (10/21/2022 11:01 AM CDT): Controlled with medication - continue treatment plan per PCP Assessment & Plan (04/11/2022 11:37 AM GAME ROOM ATTENDANT): Controlled with medication - continue treatment plan [...] results. Assessment & Plan (04/11/2022 11:36 AM GAME ROOM ATTENDANT): Detected on Thyroid ultrasound on 12/26/21 Right [...] thyroid ultrasound. Consider repeating thyroid biopsy @[facility] to obtain better sample. Follow up and further recommendation will be decided after we obtai above test results. Hoarseness of voice 04/11/2022 Assessment & Plan (04/11/2022 11:37 AM GAME ROOM ATTENDANT): Chronic and evaluated by ENT years ago, patient reports history of vocal cord issues. - I recommend that she has an evaluation by ENT. 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 Encounters Date Type Department Care Team Description 07/21/2024 Telephone [facility] ([facility]) [address] [place] [id number] Arielle Bland RN 07/20/2024 Telephone [facility] ([facility]) [facility] [place] [address] Thania Gant RN 07/20/2024 Telephone [facility] ([facility]) [facility] [place] [address] Thania Gant RN 06/18/2024 Telephone [facility] ([facility]) [address] [place] [address] Thania Gant RN 06/18/2024 Telephone [facility] ([facility]) [address] [place] [address] Thania Gant RN 06/17/2024 9:56 PM GAME ROOM ATTENDANT - 06/17/2024 11:59 PM GAME ROOM ATTENDANT Hospital Encounter [facility] ([facility]) [address] [place] [address] Discharge Disposition: Discharge to home or self care 06/07/2024 Orders Only [facility] Surgery [address] [place] [address] [phone] Zully Schaeffer NP 06/04/2024 Documentation [facility] [address] [place] [address] [phone] Carito Sullivan RN 06/04/2024 Telephone [facility] Breast [facility] [address] [place] [address] [address] [place] [address] Zully Schaeffer NP Medical Question/Miscellane ous 06/02/2024 Orders Only [facility] Surgery [address] [place] [address] [phone] Anum Cardoso NP Abnormal mammogram (Primary Dx) 05/31/2024 - 05/31/2024 11:59 PM GAME ROOM ATTENDANT Hospital Encounter [facility] ([facility]) [address] [place] [address] Discharge Disposition: Discharge to home or self care 05/27/2024 - 05/27/2024 11:59 PM GAME ROOM ATTENDANT Hospital Encounter [facility] ([facility]) [address] [place] [address] Discharge Disposition: Discharge to home or self [...] on file Legal Sex Female 10:33 AM GAME ROOM ATTENDANT Gender Identity Not on file Sexual Orientation Not on file Obstetrics History Last Filed Vital Signs Vital Sign Reading Time Taken Comments Blood Pressure 126/62 10/21/2022 10:45 AM CDT Pulse 57 03/09/2014 11:39 AM GAME ROOM ATTENDANT Temperature - - Respiratory Rate - - Oxygen Saturation 95% 03/09/2014 11:39 AM GAME ROOM ATTENDANT Inhaled Oxygen Concentration - - Weight 63.7 [...] DIAGNOSTIC OUTSIDE CONSULT Routine 06/17/2024 9:57 PM GAME ROOM ATTENDANT BREAST IMAGING MG DIAGNOSTIC OUTSIDE REFERENCE Routine 05/31/2024 12:00 AM GAME ROOM ATTENDANT BREAST IMAGING MG SCREENING OUTSIDE REFERENCE Routine 05/27/2024 12:00 AM GAME ROOM ATTENDANT from Last 3 Months Results * Breast Imaging DX Outside Consult (06/17/2024 9:57 PM GAME ROOM ATTENDANT) Anatomical Region Laterality Modality Breast N/A Mammography 06/18/2024 10:5 9 AM GAME ROOM ATTENDANT Impressions 06/18/2024 12:10 PM GAME ROOM ATTENDANT 1. Developing grouped calcifications in the posterior [...] images may or may not represent the cherokee source data set and thus may contain changes which may lower the sensitivity of the second opinion interpretation. Dictated by: Jackelyn Lomeli MD The radiology attending physician has personally reviewed this study, and had reviewed and/or edited this written report and agrees with it. Electronically signed by: Anabel Duran M.D. Narrative 06/18/2024 12:10 PM GAME ROOM ATTENDANT EXAMINATION: REVIEW AND INTERPRETATION OF OUTSIDE IMAGING FACILITY PERFORMING OUTSIDE IMAGING: [place], [place] EXAM(S) REVIEWED: 1. BILATERAL SCREENING MAMMOGRAM [...] OF OUTSIDE IMAGING FACILITY PERFORMING OUTSIDE IMAGING: [place], [place] EXAM(S) REVIEWED: 1. BILATERAL SCREENING MAMMOGRAM [...] images may or may not represent the cherokee source data set and thus may contain [...] Imaging Diagnostic Outside Reference (05/31/2024 12:00 AM GAME ROOM ATTENDANT) Impressions [facility]MO[facility] - 06/17/2024 9:48 PM GAME ROOM ATTENDANT These images are for Reference purposes only and have not been reviewed by [facility] Radiology. There will be no report generated by a [facility] Radiologist. Narrative [facility]_MAMMO[facility] - 06/17/2024 9:48 PM GAME ROOM ATTENDANT EXAMINATION: Images For Reference Purposes Only us Zully Schaeffer NP IMG MAMMO PROCEDURES Final Result [facility] * Breast Imaging Screening Outside Reference (05/27/2024 12:00 AM GAME ROOM ATTENDANT) Impressions [facility] - 06/17/2024 9:48 PM GAME ROOM ATTENDANT These images are for Reference purposes only and have not been reviewed by [facility] Radiology. There will be no report generated by a [facility] Radiologist. Narrative [facility] - 06/17/2024 9:48 PM GAME ROOM ATTENDANT EXAMINATION: Images For Reference Purposes Only us Zully Schaeffer MS SQL DBA IMG MAMMO PROCEDURES Final Result [facility] from Last 3 Months Insurance [facility] MEDICARE [employer] MED[facility] Address: [place] [id number] [place] [address] [facility] MEDICARE [facility] Address: [address] [address] [place] [id number] [facility] MEDICARE ADVANTAGE Care Teams Barrel Stave Inspector Relationship Specialty Start Date End Date Sowmya Lilly MD [address] [place] [address] PCP - General Internal Medicine 07/09/24 Sowmya Lilly MD [address] [place] [address] Referring Physician Internal Medicine 05/31/24
--- OUTSIDE RECORDS SUMMARY | 2024-08-17 12:15 | XMS_ITS | Clinical Summary ---
Author Organization [facility] Address [address] [place] [address] Care Team Providers Care Marketing Rotation Associate Name Role Phone Arcadio Leggett MD Unavailable [phone] Sowmya Lilly MD Primary Care Provider [phone] Allergies Active Allergy Reactions Criticality Noted Date [...] Comments Blood Pressure 120/60 03/19/2022 3:48 PM BICYCLE TAXI DRIVER Pulse 66 03/19/2022 3:48 PM BICYCLE TAXI DRIVER Temperature - - Respiratory Rate 18 03/19/2022 3:48 PM BICYCLE TAXI DRIVER Oxygen Saturation 99% 02/28/2021 12:53 PM BICYCLE TAXI DRIVER Inhaled Oxygen Concentration - - Weight 63.5 kg (140 lb) 03/19/2022 3:48 PM BICYCLE TAXI DRIVER Height 154.9 cm (5' 1 ) 03/19/2022 3:48 PM BICYCLE TAXI DRIVER Body Mass Index 26.45 03/19/2022 3:48 PM BICYCLE TAXI DRIVER Plan of Treatment Health Maintenance Due Date [...] complete this topic Insurance MEDICARE [facility] MEDICARE Advance Directives Documents on File Type Date Recorded Patient Scheduling Analyst Expl anation Power of Employer Relations Representative 02/28/2021 12:46 PM POA Vu Doss Advance Directives and Living Will 05/02/2017 SHORT FORM POWER OF SUPERVISOR [employer] Healthcare Agents on File Name Relationship Healthcare Agent Relationshi p Communication Kayla Valentin Other First Alternate Health Care Agent Thuan Kenrick Doss Other Second [facility] Care Agent Care Teams Marketing Rotation Associate Relationship Specialty Start Date End Date Sowmya Lilly MD [address] [place] [address] PCP - General INTERNAL MEDICINE 11/09/19 Arcadio Leggett MD CARDIOVASCULAR DISEASE 04/25/17
== END 2024-08-17 11:24 | disposition home or self-care (01) ==
PROVIDERS: PCP Internal Medicine; Visit Provider Internal Medicine
DX: M81.0 Age-related osteoporosis without current pathological fracture (principal)
CPT/HCPCS: 96365; 96374; J3489

== ENCOUNTER 2024-09-14 02:17 | Day surgery (SDC) | payer MEDICARE, SELFPAY ==
[2024-09-07 08:31] VITALS: BMI 24.0
--- OUTSIDE RECORDS SUMMARY | 2024-09-10 01:29 | XMS_ITS | Clinical Summary ---
Author Organization [facility] Address [address] [place] [address] Care Team Providers Care Game Agent Name Role Phone Sowmya Lilly MD Primary Care Provider [phone] Source Comments [facility],non-owned Affiliates and Associated Physician Practices is amultiple site organization consisting of ambulatory clinics and hospital sitesin [place], [place], [place] and [place]. This disclosure is being madepursuant to the Care Everywhere program and may not contain all information available regarding this patient. Last updated 18.[facility] Allergies Active Allergy Reactions Criticality Noted Date [...] age to complete this topic Insurance MEDICARE [facility] MEDICARE Care Teams Game Agent Relationship Specialty Start Date End Date Sowmya Lilly MD [address] [place] [address] PCP - General 12/14/21
--- NOTE | 2024-09-10 09:45 | SUR.PREOP ---
Patient had not shown up for her scheduled procedure. Patient was called and she stated that she was at [facility], that she thought it was to be done there. She stated she would get to [facility] as soon as she could but then stated she had breakfast this morning. At this point we advised her that she would need to reschedule due to having breakfast and gave her the office's number.
--- NOTE | 2024-09-10 13:28 | PC.NURSE ---
Called and spoke with patient regarding rescheduled procedure. Updated patient with new dates and times. Patient denies any changes to health history, medications, or allergies. Answered all questions at this time.
--- OUTSIDE RECORDS SUMMARY | 2024-09-14 02:19 | XMS_ITS | Clinical Summary ---
Author Organization [facility] Address [address] [place] [address] Care Team Providers Care Physician Liaison Name Role Phone Sowmya Lilly MD Primary Care Provider [phone] Source Comments [facility] [employer] [employer],non-owned Affiliates and Associated Physician Practices is amultiple site organization consisting of ambulatory clinics and hospital sitesin [place], [place], [place] and [place]. This disclosure is being madepursuant to the Care Everywhere program and may not contain all information available regarding this patient. Last updated 18.[facility] [employer] [employer] Allergies Active Allergy Reactions Criticality Noted Date [...] age to complete this topic Insurance MEDICARE [facility] MEDICARE Care Teams Physician Liaison Relationship Specialty Start Date End Date Sowmya Lilly MD [address] [place] [address] PCP - General 12/14/21
--- OUTSIDE RECORDS SUMMARY | 2024-09-14 02:19 | XMS_ITS | Clinical Summary ---
Author Organization [facility] Medical Office Building [address] Address [address] [place] [address] Care Team Providers Care Marine Design Engineer Name Role Phone Sowmya Lilly MD Unavailable [phone] Sowmya Lilly MD Primary Care Provider [phone] Allergies Active Allergy Reactions Criticality Noted Date Comments Sulfa (Sulfonamide Antibiotics) Medications citalopram (CeleXA) 40 mg tablet 04/10/2022 Active losartan-hydroCHLO ROthiazide (HYZAAR) 50-12.5 mg per tablet 03/26/2022 Activ e Active Problems Problem Noted Date Diagnosed Date Primary hypertension 04/11/2022 Assessment & Plan (10/21/2022 11:01 AM CDT): Controlled with medication - continue treatment plan per PCP Assessment & Plan (04/11/2022 11:37 AM TABLE TOP TILE SETTER): Controlled with medication - continue treatment plan [...] results. Assessment & Plan (04/11/2022 11:36 AM TABLE TOP TILE SETTER): Detected on Thyroid ultrasound on 12/26/21 Right [...] repeat thyroid ultrasound. Consider repeating thyroid biopsy [facility] to obtain better sample. Follow up and further recommendation will be decided after we obtai above test results. Hoarseness of voice 04/11/2022 Assessment & Plan (04/11/2022 11:37 AM TABLE TOP TILE SETTER): Chronic and evaluated by ENT years ago, patient reports history of vocal cord issues. - I recommend that she has an evaluation by ENT. 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 Encounters Date Type Department Care Team Description 09/02/2024 Telephone [facility] ([facility]) [facility] [place] [address] Isaura Maldonado, RN Test Results (Left Breast Biopsy Results 08/30/24) 09/01/2024 Telephone [facility] ([facility]) [address] [place] [address] Isaura Maldonado, RN 08/31/2024 Telephone [facility] ([facility]) [address] [place] [address] Anh Schwartz Test Results (Left breast biopsy 08/30/24) 08/30/2024 11:04 AM CDT - 08/30/2024 11:59 PM CDT Hospital Encounter [facility] - [facility] [address] [place] [address] Abnormal mammogram Discharge Disposition: Discharge to home or self care 08/30/2024 9:19 AM CDT - 08/30/2024 11:59 PM CDT Hospital Encounter [facility] - Breast Imaging [address] [place] [address] Abnormal mammogram Discharge Disposition: Discharge to home or self care 08/30/2024 9:18 AM CDT - 08/30/2024 11:59 PM CDT Hospital Encounter [facility] - Breast Imaging [address] [facility] [address] [place] [address] Abnormal mammogram Discharge Disposition: Discharge to home or self care 07/21/2024 Telephone [facility] ([facility]) [address] [place] [address] Arielle Bland, MARVIN 07/20/2024 Telephone [facility] ([facility]) [address] [place] [address] Thania Gant, MARVIN 07/20/2024 Telephone [facility] ([facility]) [address] [place] [address] Thania Gant, RN 06/18/2024 Telephone [facility] ([facility]) [address] [place] [address] Thania Gant, MARVIN 06/18/2024 Telephone [facility] ([facility]) [address] [place] [address] Thania Gant, MARVIN 06/17/2024 9:56 PM TABLE TOP TILE SETTER - 06/17/2024 11:59 PM TABLE TOP TILE SETTER Hospital Encounter [facility] ([facility]) [address] [place] [address] Discharge Disposition: Discharge to home or self care from Last 3 Months Surgical History Surgery Date Site/Laterality Comments BREAST BIOPSY 08/30/2024 Left Family History Medical History Relation Name Comments [...] on file Legal Sex Female 10:33 AM TABLE TOP TILE SETTER Gender Identity Not on file Sexual Orientation Not on file Obstetrics History Last Filed Vital Signs Vital Sign Reading Time Taken Comments Blood Pressure 126/62 10/21/2022 10:45 AM CDT Pulse 57 03/09/2014 11:39 AM TABLE TOP TILE SETTER Temperature - - Respiratory Rate - - Oxygen Saturation 95% 03/09/2014 11:39 AM TABLE TOP TILE SETTER Inhaled Oxygen Concentration - - Weight 63.7 kg (140 lb 6.4 oz) 10/21/2022 10:45 AM CDT Height 154.9 cm (5' 1) 10/21/2022 10:45 AM CDT Body Mass Index [...] 12/10/1993 Well Visit 65+ 12/10/2008 Covid-19 Vaccine ( - season) 2023, 06/07/2020 Influenza Vaccine (Season Ended) 2024 12/07/19 21, 02/15/2020 Medical Devices Implanted Type Area Harbor Master Device Identifier Shelf Expiration Date Model / Serial / Lot Product World Limited Partnership Marker Biospy Site Mini Cork Shape Deployment Device Titanium Securmark Eviva 13cm [id number] - [id number] Implanted:Qty: 1 on 08/30/2024 by Pham Mora MD at [facility] Left: Breast [employer] [id number] [facility]18/20[facility] / [id number] Procedures Procedure Name Priority Date/Time Associated Diagnosis Comments DONNY POST CLIP PLACEMENT LEFT Schedule Routine, Read Routine (OP Routine) 08/30/2024 11:18 AM CDT Abnormal mammogram STEREOTACTIC BREAST BIOPSY LEFT Schedule Routine, Read Routine (OP Routine) 08/30/2024 11:05 AM CDT Abnormal mammogram SURGICAL PATHOLOGY Routine 08/30/2024 10 :51 AM CDT Abnormal mammogram DIAGNOSTIC MAMMOGRAM RIGHT W DONNY Schedule Routine, Read Routine (OP Routine) 08/30/2024 10:12 AM CDT Abnormal mammogram BREAST IMAGING [facility] DIAGNOSTIC OUTSIDE CONSULT Routine 06/17/2024 9:57 PM TABLE TOP TILE SETTER from Last 3 Months Results * Donny Post Clip Placement Left (08/30/2024 11:18 AM CDT) Anatomical Region Laterality Modality Breast Left Mammography 08/30/2024 11:4 2 AM CDT Addenda Addendum by Pham Mora MD on 08/31/2024 3:52 PM CDT ADDENDUM: Pathology from biopsy of the LEFT breast showed benign breast tissue with fibroadenomatoid changes and associated calcifications. Negative for atypia or malignancy; please refer to pathology report for details. Pathology is benign and concordant. Normal interval screening mammography is recommended. Radiology-pathology concordance was reviewed with Dr. Sue Julio. Results and recommendations will be discussed with the patient by [facility] or referring provider staff and will be separately documented in the medical record. Electronically signed by: Pham Mora M.D. Impressions 08/30/2024 11:42 AM CDT Successful vacuum-assisted core needle biopsy of the LEFT breast. Pathology is pending. ASSESSMENT: Post Procedure Mammograms for Marker Placement Electronically signed by: Pham Mora M.D. Narrative 08/30/2024 11:42 AM CDT EXAMINATION: LEFT STEREOTACTIC BREAST VACUUM-ASSISTED CORE BIOPSY UTILIZING TOMOSYNTHESIS AND STEREOTACTIC GUIDANCE, PLACEMENT OF A BIOPSY SITE TISSUE MARKER CLIP, AND LEFT FULL FIELD DIGITAL MAMMOGRAM WITH DIGITAL BREAST TOMOSYNTHESIS HISTORY: Abnormal mammogram. 78-year-old woman with screen detected calcifications in the upper outer LEFT breast. Image guided core needle biopsy is requested to evaluate for malignancy. COMPARISON: Outside hospital mammograms dating back to 2019, most recent bilateral 05/27/2024, and diagnostic left breast mammogram 05/31/2024. BREAST PARENCHYMAL COMPOSITION: The breasts are heterogeneously dense, which may obscure small masses. PROCEDURE AND FINDINGS: The risks and potential benefits of the procedures were discussed with the patient and written informed consent was obtained. After a time-out procedure, the patient was placed in the prone position on the biopsy unit. The area of interest was localized and targeted utilizing digital imaging with tomosynthesis and stereotaxis. After sterile preparation of the skin, 1% lidocaine and 2% lidocaine with epinephrine were utilized for local anesthesia. A small skin incision was made with a #11 scalpel blade and a 9 gauge Brevera vacuum-assisted biopsy needle was advanced to the area of interest from a superior approach utilizing stereotactic guidance. A total of 3 tissue cores were then obtained; these were submitted to surgical pathology in formalin for histologic analysis. The specimen radiograph demonstrates that the calcifications of interest are included within the tissue cores. A Sybari[employer] Mini Cork tissue marker clip was placed at the biopsy site. The needle was removed, hemostasis was achieved, and Dermabond was applied. There was no evidence of significant immediate complication. The patient was given verbal as well as written post procedural instructions prior to release from the department. A two-view LEFT digital mammogram, including digital breast tomosynthesis, post procedure demonstrates that the tissue marker clip is in the expected position. The attending radiologist, Dr. Pham Mora M.D., performed the entire procedure. Procedure Note Pham Mora MD - 08/30/2024 EXAMINATION: LEFT STEREOTACTIC BREAST VACUUM-ASSISTED CORE BIOPSY UTILIZING TOMOSYNTHESIS AND STEREOTACTIC GUIDANCE, PLACEMENT OF A BIOPSY SITE TISSUE MARKER CLIP, AND LEFT FULL FIELD DIGITAL MAMMOGRAM WITH DIGITAL BREAST TOMOSYNTHESIS HISTORY: Abnormal mammogram. 78-year-old woman with screen detected calcifications in the upper outer LEFT breast. Image guided core needle biopsy is requested to evaluate for malignancy. COMPARISON: Outside hospital mammograms dating back to 2019, most recent bilateral 05/27/2024, and diagnostic left breast mammogram 05/31/2024. BREAST PARENCHYMAL COMPOSITION: The breasts are heterogeneously dense, which may obscure small masses. PROCEDURE AND FINDINGS: The risks and potential benefits of the procedures were discussed with the patient and written informed consent was obtained. After a time-out procedure, the patient was placed in the prone position on the biopsy unit. The area of interest was localized and targeted utilizing digital imaging with tomosynthesis and stereotaxis. After sterile preparation of the skin, 1% lidocaine and 2% lidocaine with epinephrine were utilized for local anesthesia. A small skin incision was made with a #11 scalpel blade and a 9 gauge Brevera vacuum-assisted biopsy needle was advanced to the area of interest from a superior approach utilizing stereotactic guidance. A total of 3 tissue cores were then obtained; these were submitted to surgical pathology in formalin for histologic analysis. The specimen radiograph demonstrates that the calcifications of interest are included within the tissue cores. A SecurMark Mini Cork tissue marker clip was placed at the biopsy site. The needle was removed, hemostasis was achieved, and Dermabond was applied. There was no evidence of significant immediate complication. The patient was given verbal as well as written post procedural instructions prior to release from the department. A two-view LEFT digital mammogram, including digital breast tomosynthesis, post procedure demonstrates that the tissue marker clip is in the expected position. The attending radiologist, Dr. Pham Mora M.D., performed the entire procedure. IMPRESSION: Successful vacuum-assisted core needle biopsy of the LEFT breast. Pathology is pending. ASSESSMENT: Post Procedure Mammograms for Marker Placement Electronically signed by: Pham Mora M.D. Sowmya Lilly MD IMG MAMMO PROCEDURES Edited Result - Final * Stereotactic Breast Biopsy Left (08/30/2024 11:05 AM CDT) Anatomical Region Laterality Modality Breast Left Mammography 08/30/2024 11:4 2 AM CDT Addenda Addendum by Pham Mora MD on 08/31/2024 3:52 PM CDT ADDENDUM: Pathology from biopsy of the LEFT breast showed benign breast tissue with fibroadenomatoid changes and associated calcifications. Negative for atypia or malignancy; please refer to pathology report for details. Pathology is benign and concordant. Normal interval screening mammography is recommended. Radiology-pathology concordance was reviewed with Dr. Sue Julio. Results and recommendations will be discussed with the patient by [facility] or referring provider staff and will be separately documented in the medical record. Electronically signed by: Pham Mora M.D. Impressions 08/30/2024 11:42 AM CDT Successful vacuum-assisted core needle biopsy of the LEFT breast. Pathology is pending. ASSESSMENT: Post Procedure Mammograms for Marker Placement Electronically signed by: Pham Mora M.D. Narrative 08/30/2024 11:42 AM CDT EXAMINATION: LEFT STEREOTACTIC BREAST VACUUM-ASSISTED CORE BIOPSY UTILIZING TOMOSYNTHESIS AND STEREOTACTIC GUIDANCE, PLACEMENT OF A BIOPSY SITE TISSUE MARKER CLIP, AND LEFT FULL FIELD DIGITAL MAMMOGRAM WITH DIGITAL BREAST TOMOSYNTHESIS HISTORY: Abnormal mammogram. 78-year-old woman with screen detected calcifications in the upper outer LEFT breast. Image guided core needle biopsy is requested to evaluate for malignancy. COMPARISON: Outside hospital mammograms dating back to 2019, most recent bilateral 05/27/2024, and diagnostic left breast mammogram 05/31/2024. BREAST PARENCHYMAL COMPOSITION: The breasts are heterogeneously dense, which may obscure small masses. PROCEDURE AND FINDINGS: The risks and potential benefits of the procedures were discussed with the patient and written informed consent was obtained. After a time-out procedure, the patient was placed in the prone position on the biopsy unit. The area of interest was localized and targeted utilizing digital imaging with tomosynthesis and stereotaxis. After sterile preparation of the skin, 1% lidocaine and 2% lidocaine with epinephrine were utilized for local anesthesia. A small skin incision was made with a #11 scalpel blade and a 9 gauge Brevera vacuum-assisted biopsy needle was advanced to the area of interest from a superior approach utilizing stereotactic guidance. A total of 3 tissue cores were then obtained; these were submitted to surgical pathology in formalin for histologic analysis. The specimen radiograph demonstrates that the calcifications of interest are included within the tissue cores. A SecurMark Mini Cork tissue marker clip was placed at the biopsy site. The needle was removed, hemostasis was achieved, and Dermabond was applied. There was no evidence of significant immediate complication. The patient was given verbal as well as written post procedural instructions prior to release from the department. A two-view LEFT digital mammogram, including digital breast tomosynthesis, post procedure demonstrates that the tissue marker clip is in the expected position. The attending radiologist, Dr. Pham Mora M.D., performed the entire procedure. Procedure Note Pham Mora MD - 08/30/2024 EXAMINATION: LEFT STEREOTACTIC BREAST VACUUM-ASSISTED CORE BIOPSY UTILIZING TOMOSYNTHESIS AND STEREOTACTIC GUIDANCE, PLACEMENT OF A BIOPSY SITE TISSUE MARKER CLIP, AND LEFT FULL FIELD DIGITAL MAMMOGRAM WITH DIGITAL BREAST TOMOSYNTHESIS HISTORY: Abnormal mammogram. 78-year-old woman with screen detected calcifications in the upper outer LEFT breast. Image guided core needle biopsy is requested to evaluate for malignancy. COMPARISON: Outside hospital mammograms dating back to 2019, most recent bilateral 05/27/2024, and diagnostic left breast mammogram 05/31/2024. BREAST PARENCHYMAL COMPOSITION: The breasts are heterogeneously dense, which may obscure small masses. PROCEDURE AND FINDINGS: The risks and potential benefits of the procedures were discussed with the patient and written informed consent was obtained. After a time-out procedure, the patient was placed in the prone position on the biopsy unit. The area of interest was localized and targeted utilizing digital imaging with tomosynthesis and stereotaxis. After sterile preparation of the skin, 1% lidocaine and 2% lidocaine with epinephrine were utilized for local anesthesia. A small skin incision was made with a #11 scalpel blade and a 9 gauge Brevera vacuum-assisted biopsy needle was advanced to the area of interest from a superior approach utilizing stereotactic guidance. A total of 3 tissue cores were then obtained; these were submitted to surgical pathology in formalin for histologic analysis. The specimen radiograph demonstrates that the calcifications of interest are included within the tissue cores. A SecurMark Mini Cork tissue marker clip was placed at the biopsy site. The needle was removed, hemostasis was achieved, and Dermabond was applied. There was no evidence of significant immediate complication. The patient was given verbal as well as written post procedural instructions prior to release from the department. A two-view LEFT digital mammogram, including digital breast tomosynthesis, post procedure demonstrates that the tissue marker clip is in the expected position. The attending radiologist, Dr. Pham Mora M.D., performed the entire procedure. IMPRESSION: Successful vacuum-assisted core needle biopsy of the LEFT breast. Pathology is pending. ASSESSMENT: Post Procedure Mammograms for Marker Placement Electronically signed by: Pham Mora M.D. Sowmya Lilly MD IMG MAMMO PROCEDURES Edited Result - Final * Surgical pathology (08/30/2024 10:51 AM CDT) Tissue (Breast biopsy, needle core) 08/30/2024 10:51 AM CDT Narrative PATHOLOGY [facility] FOR [facility] - 08/31/2024 3:03 PM CDT EPIC results best viewed via link to PDF [facility] [place] [address] Note to Patients: This report may contain a detailed description of human tissue sent by a health care provider to the laboratory for pathologic evaluation. The content of this report is essential for diagnosis and may provide important critical findings. This information may be unfamiliar to patients to review without a medical professional present. It is advised that the patient review this report in the presence of a health care provider who can answer questions and explain the details. SURGICAL PATHOLOGY REPORT FINAL Patient Name: CESIA DOSS Gender: F : 1945 (Age: 78) Address: [address] [place] [address] Hospital #: [id number] Taken:08/30/2024 Received:08/30/2024 Reported: 08/31/2024 Patient Type: [facility] Ancillary Service: Laboratory Location: Physician(s): Balaji Flores M.D. Diagnosis: A. Breast, left, stereotactic guided core needle biopsy - Benign breast tissue with fibroadenomatoid changes and associated calcifications - Negative for atypia or malignancy joey08/31/2024 13:55 By this signature, I attest that the above diagnosis is based upon my personal examination of the slides(and/or other material indicated in the diagnosis). Harini Jones M.D. Report Electronically Reviewed and Signed Out By Harini Jones M.D. 08/31/2024 15:03:54 Elena Drew M.D. History: The patient is an 78-year-old woman with recent mammogram showing coarse calcifications of the left breast, prompting biopsy evaluation. Operative procedure: Left breast biopsy, BI-RADS 4A. Specimen(s) Received: A: Lt stereotact biopsy calcs, birads 4a Gross Description: Received in formalin, labeled with the patient s identifiers and left stereotactic biopsy calcs BI-RADS 4A are four yellow and white cores of fibrofatty tissue (1.7-2.1 cm each in length by 0.3 cm in diameter). The cores designated on the jar lid are labeled A1 and the remaining cores are labeled A2-A3. Jar 0. Placed in formalin immediately after collection. Total fixation time= 10.0 hours. sxst/08/30/2024 16:32 PA(s): Lesly Ayers By this signature, I attest that the above diagnosis is based upon my personal examination of the slides(and/or other material). Addenda/Procedures The performance characteristics of some immunohistochemical stains, fluorescence in-situ hybridization tests and immunophenotyping by flow cytometry cited in this report (if any) were determined by the Surgical Pathology and Flow Cytometry Departments at [facility] as part of an ongoing quality control inspector heading program and in compliance with federally mandated regulations drawn from the Clinical Laboratory Improvement Act of 1988 (CLIA '88). Some of these tests rely on the use of analyte specific reagents and are subject to specific labeling requirements by the US Food and Drug Administration. Such diagnostic tests may only be performed in a facility that is certified by the Department of Health and Human Services as a high complexity laboratory under CLIA '88. The FDA has determined that such clearance or approval is not necessary. This test is used for clinical purposes. It should not be regarded as investigational or for research. Nevertheless, federal rules concerning the medical use of analyte specific reagents require that the following disclaimer be attached to the report: This test was developed and its performance characteristics determined by the Surgical Pathology and Flow Cytometry Departments of [facility]. It has not been cleared or approved by the U. S. Food and Drug Administration. IMAGES AND SCANNED DOCUMENTS, IF INCLUDED, ONLY VIEWABLE IN PDF VERSION OF REPORT us Sowmya Lilly MD LAB PATHOLOGY ORDERABLES Fin al Result PATHOLOGY [facility] FOR [facility] * Diagnostic Mammogram Right W Donny (08/30/2024 10:12 AM CDT) Anatomical Region Laterality Modality Breast Right Mammography 08/30/2024 11:2 5 AM CDT Impressions 08/30/2024 11:25 AM CDT 1. Benign calcifications in the upper inner RIGHT breast. 2. No mammographic evidence of malignancy in RIGHT breast. OVERALL FINAL ASSESSMENT: BI-RADS Category 2: Benign. RECOMMENDATION: Stereotactic biopsy of the contralateral LEFT breast calcifications is pending as previously recommended per consultation report 06/17/2024, scheduled for later today. Dr. Mora discussed the above findings with the patient, who expressed her understanding of the management plan. This case was reviewed with Dr. Sue Julio. Electronically signed by: Pham Mora M.D. Narrative 08/30/2024 11:25 AM CDT EXAMINATION: RIGHT UNILATERAL DIGITAL DIAGNOSTIC MAMMOGRAM AND DIGITAL BREAST TOMOSYNTHESIS HISTORY: 78-year-old woman with outside hospital screening detected calcifications in BOTH breasts. She is undergoing stereotactic biopsy of the LEFT breast calcifications later today. She presents for further evaluation of the calcifications in the RIGHT breast. COMPARISON: Prior outside also mammograms dating back to 2019, most recent bilateral 05/27/2024. TECHNIQUE: Full field digital mammographic views of the RIGHT breast were performed, including computer aided detection (CAD) and digital breast tomosynthesis (DBT). BREAST PARENCHYMAL COMPOSITION: The breasts are heterogeneously dense, which may obscure small masses. MAMMOGRAM FINDINGS: There are 2 groups of coarse calcifications in the posterior upper inner RIGHT breast; the more medial group corresponds to the calcifications queried on recent screening mammogram. These are coarsening over prior studies with benign appearance. No new suspicious mass, architectural distortion or microcalcification the RIGHT breast. Procedure Note Pham Mora MD - 08/30/2024 EXAMINATION: RIGHT UNILATERAL DIGITAL DIAGNOSTIC MAMMOGRAM AND DIGITAL BREAST TOMOSYNTHESIS HISTORY: 78-year-old woman with outside hospital screening detected calcifications in BOTH breasts. She is undergoing stereotactic biopsy of the LEFT breast calcifications later today. She presents for further evaluation of the calcifications in the RIGHT breast. COMPARISON: Prior outside also mammograms dating back to 2019, most recent bilateral 05/27/2024. TECHNIQUE: Full field digital mammographic views of the RIGHT breast were performed, including computer aided detection (CAD) and digital breast tomosynthesis (DBT). BREAST PARENCHYMAL COMPOSITION: The breasts are heterogeneously dense, which may obscure small masses. MAMMOGRAM FINDINGS: There are 2 groups of coarse calcifications in the posterior upper inner RIGHT breast; the more medial group corresponds to the calcifications queried on recent screening mammogram. These are coarsening over prior studies with benign appearance. No new suspicious mass, architectural distortion or microcalcification the RIGHT breast. IMPRESSION: 1. Benign calcifications in the upper inner RIGHT breast. 2. No mammographic evidence of malignancy in RIGHT breast. OVERALL FINAL ASSESSMENT: BI-RADS Category 2: Benign. RECOMMENDATION: Stereotactic biopsy of the contralateral LEFT breast calcifications is pending as previously recommended per consultation report 06/17/2024, scheduled for later today. Dr. Mora discussed the above findings with the patient, who expressed her understanding of the management plan. This case was reviewed with Dr. Sue Julio. Electronically signed by: Pham Mora M.D. us Sowmya Lilly MD IMG MAMMO PROCEDURES Final R esult * Breast Imaging DX Outside Consult (06/17/2024 9:57 PM TABLE TOP TILE SETTER) Anatomical Region Laterality Modality Breast N/A Mammography 06/18/2024 10:5 9 AM TABLE TOP TILE SETTER Impressions 06/18/2024 12:10 PM TABLE TOP TILE SETTER 1. Developing grouped calcifications in the posterior [...] images may or may not represent the [place] source data set and thus may contain changes which may lower the sensitivity of the second opinion interpretation. Dictated by: Jackelyn Lomeli MD The radiology attending physician has personally reviewed this study, and had reviewed and/or edited this written report and agrees with it. Electronically signed by: Anabel Duran M.D. Narrative 06/18/2024 12:10 PM TABLE TOP TILE SETTER EXAMINATION: REVIEW AND INTERPRETATION OF OUTSIDE IMAGING FACILITY PERFORMING OUTSIDE IMAGING: [place], [place] EXAM(S) REVIEWED: 1. BILATERAL SCREENING MAMMOGRAM [...] OF OUTSIDE IMAGING FACILITY PERFORMING OUTSIDE IMAGING: [place], [place] EXAM(S) REVIEWED: 1. BILATERAL SCREENING MAMMOGRAM [...] images may or may not represent the [place] source data set and thus may contain changes which may lower the sensitivity of the second opinion interpretation. Dictated by: Jackelyn Lomeli MD The radiology attending physician has personally reviewed this study, and had reviewed and/or edited this written report and agrees with it. Electronically signed by: Anabel Duran M.D. Zully Schaeffer IMPLEMENTATION ARCHITECT IMG MAMMO PROCEDURES Final Result from Last 3 Months Insurance [id number] UHC MEDICARE ADVANTAGE [facility] MEDICARE ADVANTAGE [facility] MEDICARE ADVANTAGE Care Teams Marine Design Engineer Relationship Specialty Start Date End Date Sowmya Lilly MD [address] [place] [address] PCP - General Internal Medicine 07/09/24 Sowmya Lilly MD [address] [place] [address] Referring Physician Internal Medicine 05/31/24
--- OUTSIDE RECORDS SUMMARY | 2024-09-14 02:19 | XMS_ITS | Referral Summary ---
Author Organization [facility] Medical Office Building [address] Address [address] [place] [address] Care Team Providers Care Molasses Preparer Name Role Phone Sowmya Lilly MD Unavailable [phone] Sowmya Lilly MD Primary Care Provider [phone] Encounters Date Type Department Care Team Description 09/02/2024 Telephone [facility] ([facility]) [address] [place] [address] Isaura Maldonado, RN Test Results (Left Breast Biopsy Results 08/30/24) 09/01/2024 Telephone [facility] ([facility]) [address] [place] [address] Isaura Maldonado, RN 08/31/2024 Telephone [facility] ([facility]) [address] [place] [address] Anh Schwartz Test Results (Left breast biopsy 08/30/24) 08/30/2024 11:04 AM CDT - 08/30/2024 11:59 PM CDT Hospital Encounter [facility] [place] - Breast Imaging [address] [facility] [address] [place] [address] Abnormal mammogram Discharge Disposition: Discharge to home or self care 08/30/2024 9:18 AM CDT - 08/30/2024 11:59 PM CDT Hospital Encounter [facility] - Breast Imaging [address] [facility] [address] [facility] [address] [place] [address] Abnormal mammogram Discharge Disposition: Discharge to home or self care 08/30/2024 9:19 AM CDT - 08/30/2024 11:59 PM CDT Hospital Encounter [facility] - Breast Imaging [address] [facility] [address] [place] [address] Abnormal mammogram Discharge Disposition: Discharge to home or self care 07/21/2024 Telephone [facility] ([facility]) [address] [place] [address] Arielle Bland, MARVIN 07/20/2024 Telephone [facility] ([facility]) [address] [place] [address] Thania Gant RN 07/20/2024 Telephone [facility] ([facility]) [address] [place] [address] Thania Gant RN 06/18/2024 Telephone [facility] ([facility]) [address] [place] [address] Thania Gant RN 06/18/2024 Telephone [facility] ([facility]) [address] [place] [address] Thania Gant, MARVIN 06/17/2024 9:56 PM TOURISM RADIO PRESENTER - 06/17/2024 11:59 PM TOURISM RADIO PRESENTER Hospital Encounter [facility] ([facility]) [address] [place] [address] Discharge Disposition: Discharge to home or self [...] PCP Assessment & Plan (04/11/2022 11:37 AM TOURISM RADIO PRESENTER): Controlled with medication - continue treatment plan [...] results. Assessment & Plan (04/11/2022 11:36 AM TOURISM RADIO PRESENTER): Detected on Thyroid ultrasound on 12/26/21 Right [...] repeat thyroid ultrasound. Consider repeating thyroid biopsy [facility] to obtain better sample. Follow up and further recommendation will be decided after we obtai above test results. Hoarseness of voice 04/11/2022 Assessment & Plan (04/11/2022 11:37 AM TOURISM RADIO PRESENTER): Chronic and evaluated by ENT years ago, [...] on file Legal Sex Female 10:33 AM TOURISM RADIO PRESENTER Gender Identity Not on file Sexual Orientation Not on file Last Filed Vital Signs Vital Sign Reading Time Taken Comments Blood Pressure 126/62 10/21/2022 10:45 AM CDT Pulse 57 03/09/2014 11:39 AM TOURISM RADIO PRESENTER Temperature - - Respiratory Rate - - Oxygen Saturation 95% 03/09/2014 11:39 AM TOURISM RADIO PRESENTER Inhaled Oxygen Concentration - - Weight 63.7 kg (140 lb 6.4 oz) 10/21/2022 10:45 AM CDT Height 154.9 cm (5' 1) 10/21/2022 10:45 AM CDT Body Mass Index 26.53 10/21/2022 10:45 AM CDT Plan of Treatment Not on file Medical Devices Implanted Type Area Correspondence Clerk Device Identifier Shelf Expiration Date Model / Serial / Lot ThrowMotion Marker Biospy Site Mini Cork Shape Deployment Device [employer] Eviva 13cm Olcke-Ohfft-66 - [id number] Implanted:Qty: 1 on 08/30/2024 by Pham Mora MD at [facility] Left: Breast [employer] [id number] 03/18/2025 [facility] / / [id number] Procedures Procedure Name Priority Date/Time Associated Diagnosis [...] DIAGNOSTIC OUTSIDE CONSULT Routine 06/17/2024 9:57 PM TOURISM RADIO PRESENTER from Last 3 Months Results * Donny [...] will be discussed with the patient by [facility] or referring provider staff and will be [...] 11:4 2 AM CDT Addenda Addendum by hPam Mora MD on 08/31/2024 3:52 PM CDT [...] are included within the tissue cores. A [employer] Mini Cork tissue marker clip was placed [...] Placement Electronically signed by: Pham Mora M.D. us Sowmya Lilly MD IMG MAMMO PROCEDURES Edited Result - Final * Surgical pathology (08/30/2024 10:51 AM CDT) Tissue (Breast biopsy, needle core) 08/30/2024 10:51 AM CDT Narrative PATHOLOGY TEMP LLB FOR ASP - 08/31/2024 3:03 PM CDT EPIC results best viewed via link to PDF [facility] Surgical Pathology [address] [place] [address] Note to Patients: This report may contain [...] Gender: F : 1945 (Age: 78) Address: [address] [place] [address] Hospital #: [id number] Taken:08/30/2024 Received:08/30/2024 Reported: 08/31/2024 Patient Type: [facility] Ancillary Service: Laboratory Location: Physician(s): Balaji Flores M.D. Diagnosis: A. Breast, left, stereotactic guided core needle biopsy - Benign breast tissue with fibroadenomatoid changes and associated calcifications - Negative for atypia or malignancy joey/08/31/2024 13:55 By this signature, I attest that [...] Surgical Pathology and Flow Cytometry Departments at [facility] as part of an ongoing quality engineer program and in compliance with federally mandated [...] Surgical Pathology and Flow Cytometry Departments of [facility]. It has not been cleared or [...] Imaging DX Outside Consult (06/17/2024 9:57 PM TOURISM RADIO PRESENTER) Anatomical Region Laterality Modality Breast N/A Mammography 06/18/2024 10:5 9 AM TOURISM RADIO PRESENTER Impressions 06/18/2024 12:10 PM TOURISM RADIO PRESENTER 1. Developing grouped calcifications in the posterior [...] images may or may not represent the [place] source data set and thus may contain changes which may lower the sensitivity of the second opinion interpretation. Dictated by: Jackelyn Lomeli MD The radiology attending physician has personally reviewed this study, and had reviewed and/or edited this written report and agrees with it. Electronically signed by: Anabel uDran M.D. Narrative 06/18/2024 12:10 PM TOURISM RADIO PRESENTER EXAMINATION: REVIEW AND INTERPRETATION OF OUTSIDE IMAGING FACILITY PERFORMING OUTSIDE IMAGING: [place], [place] EXAM(S) REVIEWED: 1. BILATERAL SCREENING MAMMOGRAM [...] OF OUTSIDE IMAGING FACILITY PERFORMING OUTSIDE IMAGING: [place], [place] EXAM(S) REVIEWED: 1. BILATERAL SCREENING MAMMOGRAM [...] images may or may not represent the [place] source data set and thus may contain changes which may lower the sensitivity of the second opinion interpretation. Dictated by: Jackelyn Lomeli MD The radiology attending physician has personally reviewed this study, and had reviewed and/or edited this written report and agrees with it. Electronically signed by: Anabel Duran M.D. Zully Schaeffer NP IMG MAMMO PROCEDURES Final Result from Last 3 Months Insurance [facility] MEDICARE ADVANTAGE [place] [id number] [facility] MEDICARE ADVANTAGE [place] [id number] [facility] MEDICARE ADVANTAGE [place] [id number] Care Teams Molasses Preparer Relationship Specialty Start Date End Date Sowmya Lilly MD [address] [place] [address] PCP - General Internal Medicine 07/09/24 Sowmya Lilly MD [address] [place] [address] Referring Physician Internal Medicine 05/31/24
--- OUTSIDE RECORDS SUMMARY | 2024-09-14 02:19 | XMS_ITS | Encounter Summary ---
Author Organization [facility] Healthcare Address [address] [place] [address] Care Team Providers Care Skills Instructor Name Role Phone Tai Adams MD Primary Care Provider [phone] Reason for Visit * Diagnostic Imaging (Routine) - Pending Review Specialty Diagnoses / Procedures Referred By Tammy baker Referred To Contact Procedures Breast Imaging Screening Outside Reference Zully Schaeffer NP [address] [facility] [id number] [place] [address] Phone: tel: fax: Referral ID Status Reason Start Date Expiration Date V isits Requested Visits Authorized [id number] Pending Review 06/17/2024 07/17/2025 1 1 Encounter Details Date Type Department Care Team (Late st Contact Info) Description 05/05/2019 Hospital Encounter [facility]) [address] [place] [id number] Social History Tobacco Use Types Packs/Day Years Used Date Smoking Tobacco: Former Cigarettes Q uit: 1980 Alcohol Use Standard Drinks/Week Comments Yes 0 (1 standard drink = 0.6 oz pur e alcohol) Comments Unknown Sex and Gender Information Value Date Recorded Sex Assigned at Not on file Legal Sex Female 10:33 AM CONSUMER LENDER Gender Identity Not on file Sexual Orientation Not on file documented as of this encounter Plan of Treatment Not on file documented as of this encounter Procedures Procedure Name Priority Date/Time Associated Diagnosis Comments BREAST IMAGING MG SCREENING OUTSIDE REFERENCE Routine 05/05/2019 12:00 AM CONSUMER LENDER documented in this encounter Results * Breast Imaging Screening Outside Reference (05/05/2019 12:00 AM CONSUMER LENDER) Impressions [facility] - 06/17/2024 9:48 PM CONSUMER LENDER These images are for Reference purposes only and have not been reviewed by [facility]. There will be no report generated by a [facility] Radiologist. Narrative [facility] - 06/17/2024 9:48 PM CONSUMER LENDER EXAMINATION: Images For Reference Purposes Only Zully Schaeffer NP IMG MAMMO PROCEDURES Final Result [facility] documented in this encounter Visit Diagnoses Not on filedocumented in this encounter Care Teams Skills Instructor Relationship Specialty Start Date End Date Tai Adams MD [address] [address] PCP - General 03/08/14 07/08/24 documented as of this encounter
[2024-09-14 08:06] VITALS: BP 139/62; PULSE 68; RESP 18; TEMP 36.2; O2SAT 100; BMI 24.5
[2024-09-14] MEDS: LACTATED RINGERS 1,000 ML 150 ML IV CONT (08:17)
--- NOTE | 2024-09-14 09:32 | PM.IMHP ---
H&P: HPI History of Present Illness Date/Time: 09/14/24 09:32 Chief Complaint: Chest pain Narrative: the patient has been complaining of intermittent localized chest pain to the lower portion of her sternum, sometimes relieved by eating. There is no dysphagia, heartburn, nausea vomiting. She is referred for EGD. Review of Systems Review of Systems: All systems reviewed & are unremarkable except as noted in HPI and below PMFSH Past Medical History Medical History (Updated 09/14/24 @ 07:29 by Aguila Lea DO) Endometriosis Backache, unspecified (08/26/17) Mass of left chest wall Hypertension Hypersomnia Osteoporosis Depression GERD (gastroesophageal reflux disease) Surgical History Surgical History History of hysterectomy H/O removal of cyst Breast cyst removed-Benign History of surgery on arm History of back surgery 2018. Herniated Disk. Family History Family History Other Heart disease Social History Social History Smoking packs per day: 0.5 Smoking cigarettes per day: 10.0 Years smoked: 15 Smoking pack-years: 7.50 Smoking status: Former smoker Tobacco type: cigarettes Smoking end date: 04/14/79 Alcohol intake: current Drinks per week: 14 Alcohol use details: RED WINE Substance use: never Substance use type: does not use Living arrangements: with family Additional living arrangements comments: . Spiritual care concerns: No Meds Home Medications and Allergies Home Medications ?Medication ?Instructions ?Recorded ?Confirmed ?Type losartan 50 mg-hydrochlorothiazide 1 tablet PO DAILY 12/06/21 09/07/24 History 12.5 mg tablet acetaminophen 325 mg capsule 650 mg (2 x 325 mg) PO Q8H PRN 12/23/21 09/10/24 Rx (Tylenol) pain #20 caps amlodipine 5 mg tablet 5 mg PO DAILY 09/07/24 09/14/24 History mirabegron 50 mg tablet,extended 50 mg PO DAILY 09/07/24 09/14/24 History release 24 hr (Myrbetriq) pantoprazole 40 mg tablet,delayed 40 mg PO DAILY 09/07/24 09/14/24 History release venlafaxine 150 mg 150 mg PO DAILY 09/07/24 09/14/24 History capsule,extended release 24 hr Allergies Allergy/AdvReac Type Severity Reaction Status Date / Time Sulfa (Sulfonamide Allergy Intermediate HIVES Verified 09/14/24 08:05 Antibiotics) DIARRHEA Vital Signs Vital Signs - 24 hr 09/14/24 08:06 Temperature 97.2 F L Pulse Rate 68 Respiratory Rate 18 Blood Pressure 139/62 Pulse Oximetry 100 Oxygen Delivery Room Air Exam Const: General: cooperative and healthy appearing Resp: Effort & Inspection: normal respiratory effort and able to speak in complete sentences Auscultation: clear to auscultation bilaterally Cardio: Rate: regular rate Rhythm: regular rhythm GI: Inspection: normal to inspection GI Palp: No No hepatosplenomegaly present Auscultation: normal bowel sounds Rectal Exam: deferred Skin: General skin exam: normal color Psych: Appearance: grossly normal Mental Status: mental status grossly normal Assessment and Plan Assessment and plan (1) GERD (gastroesophageal reflux disease): Code(s): K21.9 - Gastro-esophageal reflux disease without esophagitis Status: Chronic Assessment and Plan: The patient has possible atypical GERD versus 1 variant of functional esophageal disorder. an EGD is a starting point for the evaluation, and if negative, will see her in GI clinic and evaluate the possibility of more esophageal testing such as esophageal manometry.
[2024-09-14] MEDS: SIMETHICONE ORAL SUSPENSION 20 MG/0.3 ML 30 ML BOTTLE 0.6 ML IRRIGATION (09:45)
--- NOTE | 2024-09-14 09:49 | S_PTH ---
PATIENT: Cesia Doss LOC: [facility] Almanzar#:[id number] AGE/SX: 78/F ROOM: RE09/14/[address]: Keyon Tracy MD : 1945 BED: DIS: 09/14/2024 SPEC #: [id number] RECD: 09/14/24 11:10 STATUS: STEPHEN REQ #: [id number] [place]: 09/14/24 09:[address]: Keyon Tracy DEPT: [facility] Surgical RECD BY: Harinder Garcia ENTERED: 09/14/24 11:11 SP TYPE: Surgical OTHR DR: Sowmya Lilly MD Tissues: A - Gastric Biopsy B - Gastric Biopsy Procedures: Hematoxylin and Eosin Stain Gross and Microscopic Level 4
[2024-09-14 09:54] VITALS: BP 108/56; PULSE 80; RESP 20; O2SAT 100
[2024-09-14 10:04] VITALS: BP 124/64; PULSE 73; RESP 17; O2SAT 96
[2024-09-14 10:14] VITALS: BP 151/70; PULSE 68; RESP 23; O2SAT 100
== END 2024-09-14 10:30 | disposition home or self-care (01) ==
PROVIDERS: PCP Internal Medicine; Referring Provider Internal Medicine; Visit Provider Internal Medicine Gastroenterology
PROC: 0DJ08ZZ Inspection of Upper Intestinal Tract, Via Natural or Artificial Opening Endoscopic (ICD-10-PCS; CPT 43239; principal; 2024-09-14 09:30)
DX: K21.9 Gastro-esophageal reflux disease without esophagitis (principal); I10 Essential (primary) hypertension; F32.A Depression, unspecified; M81.0 Age-related osteoporosis without current pathological fracture; G47.10 Hypersomnia, unspecified; N80.9 Endometriosis, unspecified; Z98.890 Other specified postprocedural states; Z98.1 Arthrodesis status; Z87.891 Personal history of nicotine dependence; Z82.49 Family history of ischemic heart disease and other diseases of the circulatory system
CPT/HCPCS: 43239; 88305; J2003; J2704; J7120

== ENCOUNTER 2024-09-15 13:55 | Outpatient (CLI) | payer MEDICARE, SELFPAY ==
--- OUTSIDE RECORDS SUMMARY | 2024-09-15 14:09 | XMS_ITS | Encounter Summary ---
Author Organization [facility] Healthcare Address [address] [place] [address] Care Team Providers Care Video Production Intern Name Role Phone Tai Adams MD Primary Care Provider Reason for Visit * Diagnostic Imaging (Routine) - Pending Review Specialty Diagnoses / Procedures Referred By Tammy baker Referred To Contact Procedures Breast Imaging Screening Outside Reference Zully Schaeffer NP [address] [facility] [phone] [place] [address] Phone: tel: fax: Referral ID Status Reason Start Date Expiration Date V isits Requested Visits Authorized [id number] Pending Review 06/17/2024 07/17/2025 1 1 Encounter Details Date Type Department Care Team (Late st Contact Info) Description 05/05/2019 Hospital Encounter [facility] [address] [place] [id number] Social History Tobacco Use Types Packs/Day Years Used Date Smoking Tobacco: Former Cigarettes Q uit: 1980 Alcohol Use Standard Drinks/Week Comments Yes 0 (1 standard drink = 0.6 oz pur e alcohol) Comments Unknown Sex and Gender Information Value Date Recorded Sex Assigned at Not on file Legal Sex Female 10:33 AM PUG MILL OPERATOR Gender Identity Not on file Sexual Orientation Not on file documented as of this encounter Plan of Treatment Not on file documented as of this encounter Procedures Procedure Name Priority Date/Time Associated Diagnosis Comments BREAST IMAGING MG SCREENING OUTSIDE REFERENCE Routine 05/05/2019 12:00 AM PUG MILL OPERATOR documented in this encounter Results * Breast Imaging Screening Outside Reference (05/05/2019 12:00 AM PUG MILL OPERATOR) Impressions [facility] - 06/17/2024 9:48 PM PUG MILL OPERATOR These images are for Reference purposes only and have not been reviewed by [facility]. There will be no report generated by a [facility] Radiologist. Narrative [facility] - 06/17/2024 9:48 PM PUG MILL OPERATOR EXAMINATION: Images For Reference Purposes Only Zully Schaeffer NP IMG MAMMO PROCEDURES Final Result [facility] documented in this encounter Visit Diagnoses Not on filedocumented in this encounter Care Teams Video Production Intern Relationship Specialty Start Date End Date Tai Adams MD [address] [address] PCP - General 03/08/14 07/08/24 documented as of this encounter
--- OUTSIDE RECORDS SUMMARY | 2024-09-15 14:09 | XMS_ITS | Clinical Summary ---
Author Organization [facility] Address [address] [place] [address] Care Team Providers Care Parts Counter Associate Name Role Phone Sowmya Llily MD Primary Care Provider [phone] Source Comments [facility],non-owned Affiliates and Associated Physician Practices is amultiple site organization consisting of ambulatory clinics and hospital sitesin [place], [place], [place] and [place]. This disclosure is being madepursuant to the Care Everywhere program and may not contain all information available regarding this patient. Last updated 18.[facility] Allergies Active Allergy Reactions Criticality Noted Date [...] age to complete this topic Insurance MEDICARE [facility] MEDICARE Care Teams Parts Counter Associate Relationship Specialty Start Date End Date Sowmya Lilly MD [address] [place] [address] PCP - General 12/14/21
--- OUTSIDE RECORDS SUMMARY | 2024-09-15 14:09 | XMS_ITS | Clinical Summary ---
Author Organization [facility] Address [address] [place] [address] Care Team Providers Care Fuel Storage Technician Name Role Phone Sowmya Lilly MD Unavailable [phone] Sowmya Lilly MD Primary Care Provider [phone] Allergies Active Allergy Reactions Criticality Noted Date Comments Sulfa (Sulfonamide Antibiotics) Medications citalopram (CeleXA) 40 mg tablet 04/10/2022 Active losartan-hydroCHLO ROthiazide (HYZAAR) 50-12.5 mg per tablet 03/26/2022 Activ e Active Problems Problem Noted Date Diagnosed Date Primary hypertension 04/11/2022 Assessment & Plan (10/21/2022 11:01 AM CDT): Controlled with medication - continue treatment plan per PCP Assessment & Plan (04/11/2022 11:37 AM LABOR RELATIONS MANAGER): Controlled with medication - continue treatment [...] results. 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 - I recommend that she has an evaluation by ENT. 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 Encounters Date Type Department Care Team Description 09/02/2024 Telephone [facility] ([facility]) [facility] [place] [address] Isaura Maldonado, RN Test Results (Left Breast Biopsy Results 08/30/24) 09/01/2024 Telephone [facility] ([facility]) [address] [place] [address] Isaura Maldonado, RN 08/31/2024 Telephone [facility] ([facility]) [address] [place] [address] Anh Schwartz Test Results (Left breast biopsy 08/30/24) 08/30/2024 11:04 AM CDT - 08/30/2024 11:59 PM CDT Hospital Encounter [facility] - Breast Imaging [address] [facility] Floor [address] [place] [address] Abnormal mammogram Discharge Disposition: Discharge to home or self care 08/30/2024 9:19 AM CDT - 08/30/2024 11:59 PM CDT Hospital Encounter [facility] - Breast Imaging [address] [facility] [address] [place] [address] Abnormal mammogram Discharge Disposition: Discharge to home or self care 08/30/2024 9:18 AM CDT - 08/30/2024 11:59 PM CDT Hospital Encounter [facility] - Breast Imaging [address] [facility] Floor [address] [place] [address] Abnormal mammogram Discharge Disposition: Discharge to home or self care 07/21/2024 Telephone [facility] ([facility]) [address] [place] [address] Arielle Bland, MARVIN 07/20/2024 Telephone [facility] for [facility] ([facility]) [address] [place] [address] Thania Gant, MARVIN 07/20/2024 Telephone [facility] ([facility]) [address] [place] [address] Thania Gant, RN 06/18/2024 Telephone [facility] for [facility] ([facility]) [address] [place] [address] Thania Gant, MARVIN 06/18/2024 Telephone [facility] for [facility] ([facility]) [address] [place] [address] Thania Gant, MARVIN 06/17/2024 9:56 PM LABOR RELATIONS MANAGER - 06/17/2024 11:59 PM LABOR RELATIONS MANAGER Hospital Encounter [facility] ([facility]) [address] [place] [address] Discharge Disposition: Discharge to home or self [...] on file Legal Sex Female 10:33 AM LABOR RELATIONS MANAGER Gender Identity Not on file Sexual Orientation Not on file Obstetrics History Last Filed Vital Signs Vital Sign Reading Time Taken Comments Blood Pressure 126/62 10/21/2022 10:45 AM CDT Pulse 57 03/09/2014 11:39 AM LABOR RELATIONS MANAGER Temperature - - Respiratory Rate - - Oxygen Saturation 95% 03/09/2014 11:39 AM LABOR RELATIONS MANAGER Inhaled Oxygen Concentration - - Weight [...] 21, 02/15/2020 Medical Devices Implanted Type Area Eligibility Analyst Device Identifier Shelf Expiration Date Model / Serial / Lot [employer] Partnership Marker Biospy Site Mini Cork Shape Deployment Device Titanium Securmark Eviva 13cm [id number]-Otaaj-73 - [id number] Implanted:Qty: 1 on 08/30/2024 by Pham Mora MD at [facility] Left: Breast [employer] Partnership [id number] 03/18/2025 [facility] / / [id number] Procedures Procedure Name Priority Date/Time Associated Diagnosis [...] DIAGNOSTIC OUTSIDE CONSULT Routine 06/17/2024 9:57 PM LABOR RELATIONS MANAGER from Last 3 Months Results * Donny [...] are included within the tissue cores. A As[employer] Mini Cork tissue marker clip was placed [...] will be discussed with the patient by [facility] or referring provider staff and will [...] results best viewed via link to PDF [facility] [place] [address] Note to Patients: This report may contain [...] Gender: F : 1945 (Age: 78) Address: [address] [place] [address] Hospital #: [id number] Taken:08/30/2024 Received:08/30/2024 Reported: 08/31/2024 Patient Type: [facility] Ancillary Service: Laboratory Location: Physician(s): Balaji Flores [...] Pathology and Flow Cytometry Departments at [facility] as part of an ongoing principal quality engineer program and in compliance with [...] Pathology and Flow Cytometry Departments of [facility]. It has not been cleared or approved [...] Imaging DX Outside Consult (06/17/2024 9:57 PM LABOR RELATIONS MANAGER) Anatomical Region Laterality Modality Breast N/A Mammography 06/18/2024 10:5 9 AM LABOR RELATIONS MANAGER Impressions 06/18/2024 12:10 PM LABOR RELATIONS MANAGER 1. Developing grouped calcifications in the posterior [...] images may or may not represent the [place] source data set and thus may contain changes which may lower the sensitivity of the second opinion interpretation. Dictated by: Jackelyn Lomeli MD The radiology attending physician has personally reviewed this study, and had reviewed and/or edited this written report and agrees with it. Electronically signed by: Anabel Duran M.D. Narrative 06/18/2024 12:10 PM LABOR RELATIONS MANAGER EXAMINATION: REVIEW AND INTERPRETATION OF OUTSIDE IMAGING FACILITY PERFORMING OUTSIDE IMAGING: [place], [place] EXAM(S) REVIEWED: 1. BILATERAL SCREENING MAMMOGRAM [...] OF OUTSIDE IMAGING FACILITY PERFORMING OUTSIDE IMAGING: [place], [place] EXAM(S) REVIEWED: 1. BILATERAL SCREENING MAMMOGRAM [...] images may or may not represent the [place] source data set and thus may contain changes which may lower the sensitivity of the second opinion interpretation. Dictated by: Jackelyn Lomeli MD The radiology attending physician has personally reviewed this study, and had reviewed and/or edited this written report and agrees with it. Electronically signed by: Anabel Duran M.D. Zully Schaeffer SALES OPERATIONS ANALYST IMG MAMMO PROCEDURES Final Result from Last 3 Months Insurance [id number] UHC MEDICARE ADVANTAGE [facility] MEDICARE ADVANTAGE [facility] MEDICARE ADVANTAGE Care Teams Fuel Storage Technician Relationship Specialty Start Date End Date Sowmya Lilly MD [address] [place] [address] PCP - General Internal Medicine 07/09/24 Sowmya Lilly MD [address] [place] [address] Referring Physician Internal Medicine 05/31/24
--- OUTSIDE RECORDS SUMMARY | 2024-09-15 14:09 | XMS_ITS | Referral Summary ---
Author Organization [facility] Address [address] [place] [address] Care Team Providers Care Tool Filer Name Role Phone Sowmya Lilly MD Unavailable [phone] Sowmya Lilly MD Primary Care Provider [phone] Encounters Date Type Department Care Team Description 09/02/2024 Telephone [facility] ([facility]) [address] [place] [address] Isaura Maldonado, RN Test Results (Left Breast Biopsy Results 08/30/24) 09/01/2024 Telephone [facility] ([facility]) [address] [place] [address] Isaura Maldonado, RN 08/31/2024 Telephone [facility] ([facility]) [address] [place] [address] Anh Schwartz Test Results (Left breast biopsy 08/30/24) 08/30/2024 11:04 AM CDT - 08/30/2024 11:59 PM CDT Hospital Encounter [facility] - Breast Imaging [address] [facility] Floor [address] [place] [address] Abnormal mammogram Discharge Disposition: Discharge to home or self care 08/30/2024 9:18 AM CDT - 08/30/2024 11:59 PM CDT Hospital Encounter [facility] - Breast Imaging [address] [facility] Floor [address] [place] [address] Abnormal mammogram Discharge Disposition: Discharge to home or self care 08/30/2024 9:19 AM CDT - 08/30/2024 11:59 PM CDT Hospital Encounter [facility] - Breast Imaging [address] [facility] Floor [address] [place] [address] Abnormal mammogram Discharge Disposition: Discharge to home or self care 07/21/2024 Telephone [facility] ([facility]) [address] [place] [address] Arielle Bland, MARVIN 07/20/2024 Telephone [facility] ([facility] [address] [place] [address] Thania Gant RN 07/20/2024 Telephone [facility] ([facility]) [address] [place] [address] Thania Gant RN 06/18/2024 Telephone [facility] ([facility] [address] [place] [address] Thania Gant RN 06/18/2024 Telephone [facility] ([facility]) [address] [place] [address] Thania Gant, MARVIN 06/17/2024 9:56 PM CAFE ASSOCIATE - 06/17/2024 11:59 PM CAFE ASSOCIATE Hospital Encounter [facility] ([facility]) [address] [place] [address] Discharge Disposition: Discharge to home or self [...] PCP Assessment & Plan (04/11/2022 11:37 AM CAFE ASSOCIATE): Controlled with medication - continue treatment plan [...] results. Assessment & Plan (04/11/2022 11:36 AM CAFE ASSOCIATE): Detected on Thyroid ultrasound on 12/26/21 Right [...] repeat thyroid ultrasound. Consider repeating thyroid biopsy @[facility] to obtain better sample. Follow up and further recommendation will be decided after we obtai above test results. Hoarseness of voice 04/11/2022 Assessment & Plan (04/11/2022 11:37 AM CAFE ASSOCIATE): Chronic and evaluated by ENT years ago, [...] on file Legal Sex Female 10:33 AM CAFE ASSOCIATE Gender Identity Not on file Sexual Orientation Not on file Last Filed Vital Signs Vital Sign Reading Time Taken Comments Blood Pressure 126/62 10/21/2022 10:45 AM CDT Pulse 57 03/09/2014 11:39 AM CAFE ASSOCIATE Temperature - - Respiratory Rate - - Oxygen Saturation 95% 03/09/2014 11:39 AM CAFE ASSOCIATE Inhaled Oxygen Concentration - - Weight 63.7 kg (140 lb 6.4 oz) 10/21/2022 10:45 AM CDT Height 154.9 cm (5' 1) 10/21/2022 10:45 AM CDT Body Mass Index 26.53 10/21/2022 10:45 AM CDT Plan of Treatment Not on file Medical Devices Implanted Type Area Abrasives Sales Representative Device Identifier Shelf Expiration Date Model / Serial / Lot IlluminOss Medical Marker Biospy Site Mini Cork Shape Deployment Device Titanium Securmark Eviva 13cm Eensu-Nridi-76 - [id number] Implanted:Qty: 1 on 08/30/2024 by Pham Mora MD at [facility] Left: Breast [employer] Partnership [id number] 03/18/2025 [facility] VA-13 / / [id number] Procedures Procedure Name Priority Date/Time Associated Diagnosis [...] DIAGNOSTIC OUTSIDE CONSULT Routine 06/17/2024 9:57 PM CAFE ASSOCIATE from Last 3 Months Results * Donny [...] will be discussed with the patient by [facility] or referring provider staff and will [...] are included within the tissue cores. A eCertur[employer] Mini Cork tissue marker clip was placed [...] results best viewed via link to PDF [facility] [place] [address] Note to Patients: This report may contain [...] SURGICAL PATHOLOGY REPORT FINAL Patient Name: CESIA CRAVEN Gender: F : 1945 (Age: 78) Address: [address] [place] [address] Hospital #: [id number] Taken:08/30/2024 Received:08/30/2024 Reported: 08/31/2024 Patient Type: [facility] Ancillary Service: Laboratory Location: Physician(s): Balaji [...] Surgical Pathology and Flow Cytometry Departments at [facility] as part of an ongoing it quality analyst program and in compliance with federally mandated [...] Surgical Pathology and Flow Cytometry Departments of [facility]. It has not been cleared or approved [...] Imaging DX Outside Consult (06/17/2024 9:57 PM CAFE ASSOCIATE) Anatomical Region Laterality Modality Breast N/A Mammography 06/18/2024 10:5 9 AM CAFE ASSOCIATE Impressions 06/18/2024 12:10 PM CAFE ASSOCIATE 1. Developing grouped calcifications in the posterior [...] images may or may not represent the [place] source data set and thus may contain changes which may lower the sensitivity of the second opinion interpretation. Dictated by: Jackelyn Lomeli MD The radiology attending physician has personally reviewed this study, and had reviewed and/or edited this written report and agrees with it. Electronically signed by: Anabel Duran M.D. Narrative 06/18/2024 12:10 PM CAFE ASSOCIATE EXAMINATION: REVIEW AND INTERPRETATION OF OUTSIDE IMAGING FACILITY PERFORMING OUTSIDE IMAGING: [place], [place] EXAM(S) REVIEWED: 1. BILATERAL SCREENING MAMMOGRAM [...] OF OUTSIDE IMAGING FACILITY PERFORMING OUTSIDE IMAGING: [place], [place] EXAM(S) REVIEWED: 1. BILATERAL SCREENING MAMMOGRAM [...] images may or may not represent the [place] source data set and thus may contain changes which may lower the sensitivity of the second opinion interpretation. Dictated by: Jackelyn Lomeli MD The radiology attending physician has personally reviewed this study, and had reviewed and/or edited this written report and agrees with it. Electronically signed by: Anabel Duran M.D. Zully Schaeffer NP IMG MAMMO PROCEDURES Final Result from Last 3 Months Insurance [facility] MEDICARE ADVANTAGE [facility] Address: [address] [address] [place] [id number] [facility] MEDICARE ADVANTAGE [facility] Address: [address] [address] [place] [phone] [facility] MEDICARE ADVANTAGE [facility] MED[facility] Address: [address] [address] [place] [phone] Care Teams Tool Filer Relationship Specialty Start Date End Date Sowmya Lilly MD [address] [place] [address] PCP - General Internal Medicine 07/09/24 Sowmya Lilly MD [address] [place] [address] Referring Physician Internal Medicine 05/31/24
[2024-09-15 14:18] LABS: Basophils Absolute Auto 0.03 K/mm3 (0.00-0.10); Basophils Percent Auto 0.5 % (0.0-1.0); Eosinophils Absolute Auto 0.06 K/mm3 (0.02-0.50); Hematocrit 36.6 % (35.0-42.0); Hemoglobin 11.9 g/dL (11.7-13.8); Immature Granulocyte Absolute 0.01 K/mm3 (0.00-0.00); Immature Granulocyte Percent A 0.2 % (0.0-0.0); Immature Reticulocyte Fraction 8.7 % (2.0-16.52); Lymphocytes Absolute Auto 1.81 K/mm3 (1.10-4.50); Lymphocytes Percent Auto 31.6 % (18.0-42.0); Mean Corpuscular HGB Conc 32.5 g/dL (32-36); Mean Corpuscular Hemoglobin 32.7 pg (27.0-31.0); Mean Corpuscular Volume 100.5 fL (78.0-102.0); Mean Platelet Volume 11.4 fl (9.2-11.8); Monocytes Absolute Auto 0.53 K/mm3 (0.10-0.90); Monocytes Percent Auto 9.2 % (2.0-11.0); Neutrophils Absolute Auto 3.29 K/mm3 (1.70-7.20); Neutrophils Percent Auto 57.5 % (50.0-70.0); Platelet Count Result 252 K/mm3 (150-420); Red Blood Count 3.64 M/mm3 (4.20-5.40); Red Cell Distribution Width 12.2 % (11.6-14.4); Reticulocyte Percent 0.99 % (0.50-1.50); Reticulocytes Absolute 0.04 M/mm3 (0.02-0.10); White Blood Count 5.7 K/mm3 (4.8-10.8)
[2024-09-15 14:53] LABS: Alanine Aminotransferase 12 U/L (6-35); Albumin Level 4.4 g/dL (3.5-5.1); Alkaline Phosphatase 58 U/L (38-126); Anion Gap 6 mmol/L (4-12); Aspartate Amino Transferase 26 U/L (14-36); Bilirubin,Total 0.6 mg/dL (0.2-1.3); Blood Urea Nitrogen 21 mg/dL (7-17); Calcium 9.8 mg/dL (8.4-10.2); Carbon Dioxide 30 mmol/L (22-30); Chloride 105 mmol/L (98-107); Estimated Glomerular Filt Rate 39; Glucose 116 mg/dL (65-110); Iron 95 ug/dL (37-170); Osmolality Calculated 296 mOsm/kg (285-295); Potassium 4.1 mmol/L (3.4-5.0); Sodium 141 mmol/L (137-145); Total Protein 6.9 g/dL (6.3-8.2)
[2024-09-15 15:02] LABS: Percent Iron Saturation 33 % (20-50)
[2024-09-15 15:59] LABS: Folic Acid 11.2 ng/mL (2.76->20)
[2024-09-16 07:48] LABS: Protein, Total 6.7 g/dL (6.1-8.1)
[2024-09-17 08:40] LABS: Immunoglobulin A 199 mg/dL (70-320); Immunoglobulin G 942 mg/dL (600-1540); Immunoglobulin M 178 mg/dL (50-300)
[2024-09-17 09:53] LABS: Abnormal Protein Band 1 0.1 g/dL (NONE DETECTED); Albumin 4.2 g/dL (3.8-4.8); Alpha 1 Globulin 0.3 g/dL (0.2-0.3); Alpha 2 Globulin 0.7 g/dL (0.5-0.9); Beta 1 Globulin 0.4 g/dL (0.4-0.6); Gamma Globulin 0.8 g/dL (0.8-1.7)
[2024-09-17 11:29] LABS: Kappa\\Lambda Light Chains 1.57 (0.26-1.65); Lambda Light Chain 15.7 mg/L (5.7-26.3)
== END 2024-09-15 13:56 | disposition home or self-care (01) ==
PROVIDERS: PCP Internal Medicine; Visit Provider Internal Medicine Hematology
DX: D47.2 Monoclonal gammopathy (principal); I12.9 Hypertensive chronic kidney disease with stage 1 through stage 4 chronic kidney disease, or unspecified chronic kidney disease; N18.32 Chronic kidney disease, stage 3b; D64.9 Anemia, unspecified
CPT/HCPCS: 36415; 80053; 82607; 82746; 82784; 83540; 83550; 83883; 84155; 84165; 84443; 85025; 85046; 86334

== ENCOUNTER 2024-09-24 12:13 | Outpatient (CLI) | payer MEDICARE, SELFPAY ==
--- NOTE | ~2024-09-24 | CT_ITS ---
CT of the Abdomen and Pelvis: Indication: Abdominal pain Technique: 2.5 mm axial scans were obtained through the abdomen and pelvis following intravenous adm inistration of 100 cc of Omnipaque 350. Dose reduction technique was used on this scan by utilizing a utomated exposure control and iterative reconstruction technique. The dose-length product (DLP) was 2 16.73 mGy-cm. Findings: Scans through the lung bases are unremarkable. Diffuse hepatic steatosis noted. The spleen, pancreas, gallbladder, adrenals and kidneys are within n ormal limits. No evidence of aortic aneurysm. No lymphadenopathy. No bowel obstruction or bowel wall thickening. There is no evidence to suggest acute appendicitis. Pr ominent stool suggests constipation. Images through the pelvis were performed. Urinary bladder unremarkable. No pelvic mass seen. No ascit es. Severe L1 compression fracture deformity present. Impression: Constipation. Diffuse hepatic steatosis. Severe L1 compression fracture, somewhat age indeterminate. Reviewed, dictated and finalized at [facility]. Impression: Constipation. Diffuse hepatic steatosis. Severe L1 compression fracture, somewhat age indeterminate.
--- OUTSIDE RECORDS SUMMARY | 2024-09-24 12:16 | XMS_ITS | Clinical Summary ---
Author Organization [facility] B Address [address] [place] [address] Care Team Providers Care Pediatric Social Worker Name Role Phone Sowmya Lilly MD Unavailable [phone] Sowmya Lilly MD Primary Care Provider [phone] Allergies Active Allergy Reactions Criticality Noted Date Comments Sulfa (Sulfonamide Antibiotics) Medications citalopram (CeleXA) 40 mg tablet 04/10/2022 Active losartan-hydroCHLO ROthiazide (HYZAAR) 50-12.5 mg per tablet 03/26/2022 Activ e Active Problems Problem Noted Date Diagnosed Date Primary hypertension 04/11/2022 Assessment & Plan (10/21/2022 11:01 AM CDT): Controlled with medication - continue treatment plan per PCP Assessment & Plan (04/11/2022 11:37 AM C T TECH): Controlled with medication - continue treatment plan [...] results. Assessment & Plan (04/11/2022 11:36 AM C T TECH): Detected on Thyroid ultrasound on 12/26/21 Right [...] thyroid ultrasound. Consider repeating thyroid biopsy [facility] to obtain better sample. Follow up and further recommendation will be decided after we obtai above test results. 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 - I recommend that she has an evaluation by ENT. 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 Encounters Date Type Department Care Team Description 09/02/2024 Telephone [facility] Advanced [facility] ([facility]) [facility] [place] [address] Isaura Maldonado, RN Test Results (Left Breast Biopsy Results 08/30/24) 09/01/2024 Telephone [facility] ([facility]) [address] [place] [address] Isaura Maldonado, RN 08/31/2024 Telephone [facility] ([facility]) [address] [place] [address] Anh Schwartz Test Results (Left breast biopsy 08/30/24) 08/30/2024 11:04 AM CDT - 08/30/2024 11:59 PM CDT Hospital Encounter [facility] - Breast Imaging [address] [facility] [address] [place] [address] Abnormal mammogram Discharge Disposition: Discharge to home or self care 08/30/2024 9:19 AM CDT - 08/30/2024 11:59 PM CDT Hospital Encounter [facility] - Breast Imaging [address] [facility] [address] [place] [address] Abnormal mammogram Discharge Disposition: Discharge to home or self care 08/30/2024 9:18 AM CDT - 08/30/2024 11:59 PM CDT Hospital Encounter [facility] - Breast Imaging [address] [facility] Floor [address] [place] [address] Abnormal mammogram Discharge Disposition: Discharge to home or self care 07/21/2024 Telephone [facility] ([facility]) [address] [place] [address] Arielle Bland RN 07/20/2024 Telephone [facility] ([facility]) [address] [place] [address] Thania Gant, MARVIN 07/20/2024 Telephone [facility] ([facility]) [address] [place] [address] Thania Gant, RN from Last 3 Months Surgical History Surgery [...] on file Legal Sex Female 10:33 AM C T TECH Gender Identity Not on file Sexual Orientation Not on file Obstetrics History Last Filed Vital Signs Vital Sign Reading Time Taken Comments Blood Pressure 126/62 10/21/2022 10:45 AM CDT Pulse 57 03/09/2014 11:39 AM C T TECH Temperature - - Respiratory Rate - - Oxygen Saturation 95% 03/09/2014 11:39 AM C T TECH Inhaled Oxygen Concentration - - Weight 63.7 [...] Influenza Vaccine (Season Ended) 2024 12/07/19, 02/15/2020 Medical Devices Implanted Type Area Retail Merchandising Specialist Device Identifier Shelf Expiration Date Model / Serial / Lot [employer] Partnership Marker Biospy Site Mini Cork Shape Deployment Device Titanium Securmark Eviva 13cm [id number]-Udwrf-[id number] - [id number] Implanted:Qty: 1 on 08/30/2024 by Pham Mora MD at [facility] Left: Breast [employer] [id number] 03/18/2025 [facility] VA-13 / / [id number] Procedures Procedure Name Priority Date/Time Associated Diagnosis [...] Routine) 08/30/2024 10:12 AM CDT Abnormal mammogram from Last 3 Months Results * Donny [...] will be discussed with the patient by [facility] or referring provider staff and [...] are included within the tissue cores. A [employer] Mini Cork tissue marker clip was placed [...] [facility] [place] [address] Note to Patients: This report may contain [...] Gender: F : 1945 (Age: 78) Address: [address] [place] [address] Hospital #: [id number] Taken:08/30/2024 Received:08/30/2024 Reported: 08/31/2024 Patient Type: [facility] Ancillary Service: Laboratory Location: Physician(s): Balaji Flores [...] Surgical Pathology and Flow Cytometry Departments at [facility] as part of an ongoing aerospace quality engineer program and in compliance with [...] Surgical Pathology and Flow Cytometry Departments of [facility]. It has not been cleared or [...] MD IMG MAMMO PROCEDURES Final R esult from Last 3 [place] [phone] [facility] [place] [address] [facility] [place] [phone] Care Teams Pediatric Social Worker Relationship Specialty Start Date End Date Sowmya Lilly MD [address] [place] [address] PCP - General Internal Medicine 07/09/24 Sowmya Lilly MD [address] [place] [address] Referring Physician Internal Medicine 05/31/24
--- OUTSIDE RECORDS SUMMARY | 2024-09-24 12:16 | XMS_ITS | Encounter Summary ---
Author Organization [facility] Healthcare Address [address] [place] [address] Care Team Providers Care Naturalist Name Role Phone Tai Adams MD Primary Care Provider [phone] Reason for Visit * Diagnostic Imaging (Routine) - Pending Review Specialty Diagnoses / Procedures Referred By Tammy baker Referred To Contact Procedures Breast Imaging Screening Outside Reference Zully Schaeffer NP [address] [facility] [id number] [place] [address] Phone: tel: fax: Referral ID Status Reason Start Date Expiration Date V isits Requested Visits Authorized [id number] Pending Review 06/17/2024 07/17/2025 1 1 Encounter Details Date Type Department Care Team (Late st Contact Info) Description 05/05/2019 Hospital Encounter [facility] [address] [place] [address] Social History Tobacco Use Types Packs/Day Years Used Date Smoking Tobacco: Former Cigarettes Q uit: 1980 Alcohol Use Standard Drinks/Week Comments Yes 0 (1 standard drink = 0.6 oz pur e alcohol) Comments Unknown Sex and Gender Information Value Date Recorded Sex Assigned at Not on file Legal Sex Female 10:33 AM SENIOR WINDOWS SYSTEMS ADMINISTRATOR Gender Identity Not on file Sexual Orientation Not on file documented as of this encounter Plan of Treatment Not on file documented as of this encounter Procedures Procedure Name Priority Date/Time Associated Diagnosis Comments BREAST IMAGING MG SCREENING OUTSIDE REFERENCE Routine 05/05/2019 12:00 AM SENIOR WINDOWS SYSTEMS ADMINISTRATOR documented in this encounter Results * Breast Imaging Screening Outside Reference (05/05/2019 12:00 AM SENIOR WINDOWS SYSTEMS ADMINISTRATOR) Impressions [facility] - 06/17/2024 9:48 PM SENIOR WINDOWS SYSTEMS ADMINISTRATOR These images are for Reference purposes only and have not been reviewed by [facility] Radiology. There will be no report generated by a [facility] Radiologist. Narrative [facility] - 06/17/2024 9:48 PM SENIOR WINDOWS SYSTEMS ADMINISTRATOR EXAMINATION: Images For Reference Purposes Only Zully Schaeffer NP IMG MAMMO PROCEDURES Final Result [facility] documented in this encounter Visit Diagnoses Not on filedocumented in this encounter Care Teams Naturalist Relationship Specialty Start Date End Date Tai Adams MD [address] [address] PCP - General 03/08/14 07/08/24 documented as of this encounter
--- OUTSIDE RECORDS SUMMARY | 2024-09-24 12:16 | XMS_ITS | Clinical Summary ---
Author Organization [facility] Address [address] [place] [address] Care Team Providers Care Aviation Warfare Systems Operator Name Role Phone Sowmya Lilly MD Primary Care Provider [phone] Source Comments [facility],non-owned Affiliates and Associated Physician Practices is amultiple site organization consisting of ambulatory clinics and hospital sitesin [place], [place], [place] and [place]. This disclosure is being madepursuant to the Care Everywhere program and may not contain all information available regarding this patient. Last updated 18.[facility] Allergies Active Allergy Reactions Criticality Noted Date [...] complete this topic Insurance MEDICARE [facility] MANAGED MEDICARE ADV SELF PAY NO INSURANCE Member Subscriber Plan / Payer (Ef fective for All Dates) Name:SayraJosé Miguel barragan Member ID:Not on file Relation to Subscriber:Not on file Name:PATRICIABRAIN RAMONOTHY Cheryl Subscriber ID:Not on file (Home) Address: [address] [place] [address] Payer ID:Not on file Group ID:Not on file Type:Self Pay Address: [place], [place] MEDICARE Care Teams Aviation Warfare Systems Operator Relationship Specialty Start Date End Date Sowmya Lilly MD [address] [place] [id number] PCP - General 12/14/21
--- OUTSIDE RECORDS SUMMARY | 2024-09-24 12:16 | XMS_ITS | Referral Summary ---
Author Organization [facility] Address [address] [place] [address] Care Team Providers Care School Inspector Name Role Phone Sowmya Lilly MD Unavailable [phone] Sowmya Lilly MD Primary Care Provider [phone] Encounters Date Type Department Care Team Description 09/02/2024 Telephone [facility] ([facility]) [address] [place] [address] Isaura Maldonado, RN Test Results (Left Breast Biopsy Results 08/30/24) 09/01/2024 Telephone [facility] ([facility]) [address] [place] [address] Isarua Maldonado, RN 08/31/2024 Telephone [facility] ([facility]) [address] [place] [address] Anh Schwartz Test Results (Left breast biopsy 08/30/24) 08/30/2024 11:04 AM CDT - 08/30/2024 11:59 PM CDT Hospital Encounter [facility] [place] - Breast Imaging [address] [place] [address] Abnormal mammogram Discharge Disposition: Discharge to home or self care 08/30/2024 9:18 AM CDT - 08/30/2024 11:59 PM CDT Hospital Encounter [facility] - Breast Imaging [address] [place] [address] Abnormal mammogram Discharge Disposition: Discharge to home or self care 08/30/2024 9:19 AM CDT - 08/30/2024 11:59 PM CDT Hospital Encounter [facility] - Breast Imaging [address] [place] [address] Abnormal mammogram Discharge Disposition: Discharge to home or self care 07/21/2024 Telephone [facility] Breast Imaging [place] [facility] ([facility]) [address] [place] [address] Arielle Bland, MARVIN 07/20/2024 Telephone [facility] ([facility]) [address] [place] [address] Thania Gant RN 07/20/2024 Telephone [facility] ([facility]) [address] [place] [address] Thania Gant, MARVIN from Last 3 Months Allergies Active Allergy [...] PCP Assessment & Plan (04/11/2022 11:37 AM LAMP ASSEMBLER): Controlled with medication - continue treatment plan [...] results. Assessment & Plan (04/11/2022 11:36 AM LAMP ASSEMBLER): Detected on Thyroid ultrasound on 12/26/21 Right [...] thyroid ultrasound. Consider repeating thyroid biopsy [facility] to obtain better sample. Follow up and further recommendation will be decided after we obtai above test results. Hoarseness of voice 04/11/2022 Assessment & Plan (04/11/2022 11:37 AM LAMP ASSEMBLER): Chronic and evaluated by ENT years ago, [...] on file Legal Sex Female 10:33 AM LAMP ASSEMBLER Gender Identity Not on file Sexual Orientation Not on file Last Filed Vital Signs Vital Sign Reading Time Taken Comments Blood Pressure 126/62 10/21/2022 10:45 AM CDT Pulse 57 03/09/2014 11:39 AM LAMP ASSEMBLER Temperature - - Respiratory Rate - - Oxygen Saturation 95% 03/09/2014 11:39 AM LAMP ASSEMBLER Inhaled Oxygen Concentration - - Weight 63.7 kg (140 lb 6.4 oz) 10/21/2022 10:45 AM CDT Height 154.9 cm (5' 1) 10/21/2022 10:45 AM CDT Body Mass Index 26.53 10/21/2022 10:45 AM CDT Plan of Treatment Not on file Medical Devices Implanted Type Area Solar Sales Representative And Assessor Device Identifier Shelf Expiration Date Model / Serial / Lot [facility] Marker Biospy Site Mini Cork Shape Deployment Device Titanium Securmark Eviva 13cm [id number] - [id number] Implanted:Qty: 1 on 08/30/2024 by Pham Mora MD at [facility] Left: Breast [facility] [id number] 03/18/2025 [employer] [place]-13 / / [id number] Procedures Procedure Name Priority Date/Time Associated Diagnosis [...] be discussed with the patient by Breast [facility] or referring provider staff and will [...] are included within the tissue cores. A Vimbly Mini Cork tissue marker clip was placed [...] are included within the tissue cores. A IndiegogourMark Mini Cork tissue marker clip was placed [...] will be discussed with the patient by [facility] or referring provider staff and will be [...] are included within the tissue cores. A Vimbly Mini Cork tissue marker clip was placed [...] results best viewed via link to PDF [facility] [place] [address] Note to Patients: This report may contain [...] Gender: F : 1945 (Age: 78) Address: [address] [place] [address] Hospital #: [id number] Taken:08/30/2024 Received:08/30/2024 Reported: 08/31/2024 Patient Type: [facility] Ancillary Service: Laboratory Location: Physician(s): Balaji [...] Surgical Pathology and Flow Cytometry Departments at [facility] as part of an ongoing quality lead program and in compliance with federally mandated [...] Surgical Pathology and Flow Cytometry Departments of [facility]. It has not been cleared or [...] Julio. Electronically signed by: Pham Mora M.D. Sowmya Lilly MD IMG MAMMO PROCEDURES Final R esult from Last 3 Months Insurance MEDICARE ADVANTAGE U[employer] MEDICARE ADVANTAGE U[employer] MEDICARE ADVANTAGE Care Teams School Inspector Relationship Specialty Start Date End Date Sowmya Lilly MD [address] [place] [address] PCP - General Internal Medicine 07/09/24 Sowmya Lilly MD [address] [place] [address] Referring Physician Internal Medicine 05/31/24
== END 2024-09-24 12:14 | disposition home or self-care (01) ==
LOC: CHSIMG 12:14
PROVIDERS: PCP Internal Medicine; Visit Provider Internal Medicine Hematology
DX: R10.9 Unspecified abdominal pain (principal); K59.00 Constipation, unspecified; K76.0 Fatty (change of) liver, not elsewhere classified; M48.56XA Collapsed vertebra, not elsewhere classified, lumbar region, initial encounter for fracture
CPT/HCPCS: 74177; Q9967

== ENCOUNTER 2024-10-01 10:34 | Outpatient (RCR) | payer MEDICARE, SELFPAY ==
--- NOTE | 2024-10-01 11:38 | OPREHPOC ---
Outpatient Therapy Plan of Care This is a Multidisciplinary Plan of Care that may contain components documented by all disciplines (PT, OT, and ST.) PT Problem 1 PT Problem #1 Knowledge Deficit PT Goal 1 Goal / Goal Update Independent with HEP addressing vestibular rehab and habituation. Target Visit 2 PT Problem 2 PT Problem #2 Impaired Functional Mobility PT Goal 1 Goal / Goal Update Pt to report no bouts of dizziness in the last 5 days. Pt to report 10% or less perceived disability on DHI. Target Visit 4
--- NOTE | 2024-10-01 11:38 | PTOPEVAL1 ---
Assessment and note entered by Marilyn Regalado, PT Evaluation Information Assessment Status Evaluation ICD-10 Condition Codes (PT) Dizziness and Giddiness R42,BPPV right ear H81.11 Onset 06/03/24 Subjective Information See vestibular evaluation section. Reported Pain Level Pain Score 0: Self Report Assessment PT Clinical Summary Mrs. Doss is an 78 yo female who presents to skilled PT with reports of dizziness when lying down and sitting up in bed and when bending forward. Subjective reports of feeling like the room is spinning when getting into bed from the L side along with nausea/vomiting and occasional lightheadedness/imbalance indicate potential BPPV of the R ear. Upon objective examination pt was negative for symptom reproduction and nystagmus on both the roll test and ann hallpike bilaterally, however dizziness was reproduced during testing of head shakes with fixation. Given these findings pt may have had bouts of vertigo but is currently asymptomatic and instead presents with s/s more consistent with motion sensitivity. She will benefit from skilled PT to address these deficits to reduce symptoms and return to normal activities without interference. Plan of Care Interventions Neuro Re-education,Patient/Caregiver Education, Therapeutic Activities,Therapeutic Exercise,Self- Care/Home Management Other Interventions PLUNGER SHOVEL OPERATOR PT Services Indicated Yes Treatment Frequency and 1x/week for 4 visits Duration These treatments will address the objective and functional deficits as defined above. The patient will be advanced safely and appropriately in order for the patient to progress towards his/her prior level of function. Additional exercises will be introduced and as well as a comprehensive home exercise program upon discharge, if needed, ?to ensure carryover of functional gains achieved in the clinic. This treatment plan has been reviewed and agreement upon by the patient.
--- NOTE | 2024-12-30 07:39 | PCPTNOTE ---
pt attends her initial evaluation for vertigo. pt reports no longer having symptoms and does not attend follow up appointments. pt's auth on 11/25/24. pt is being discharged from therapy.
== END 2024-12-30 23:59 | disposition home or self-care (01) ==
LOC: CHSPT 10:34
PROVIDERS: PCP Internal Medicine; Visit Provider Internal Medicine
DX: H81.11 Benign paroxysmal vertigo, right ear (principal)
CPT/HCPCS: 97110; 97161

== ENCOUNTER 2024-11-01 14:20 | Outpatient (CLI) | payer MEDICARE, SELFPAY ==
--- OUTSIDE RECORDS SUMMARY | 2024-11-01 14:25 | XMS_ITS | Referral Summary ---
Author Organization [facility] Address [address] [place] [address] Care Team Providers Care Ceo Na Name Role Phone Sowmya Lilly MD Unavailable [phone] Sowmya Lilly MD Primary Care Provider [phone] Encounters Date Type Department Care Team Description 09/02/2024 Telephone [facility] ([facility]) [address] [place] [address] Isaura Maldonado, RN Test Results (Left Breast Biopsy Results 08/30/24) 09/01/2024 Telephone [facility] ([facility]) [address] [place] [address] Isaura Maldonado, RN 08/31/2024 Telephone [facility] ([facility]) [address] [place] [address] Anh Schwartz Test Results (Left breast biopsy 08/30/24) 08/30/2024 11:04 AM CDT - 08/30/2024 11:59 PM CDT Hospital Encounter [facility] [place] - Breast Imaging [address] [place] [address] Abnormal mammogram Discharge Disposition: Discharge to home or self care 08/30/2024 9:18 AM CDT - 08/30/2024 11:59 PM CDT Hospital Encounter [facility] - Breast Imaging [address] [place] [address] Abnormal mammogram Discharge Disposition: Discharge to home or self care 08/30/2024 9:19 AM CDT - 08/30/2024 11:59 PM CDT Hospital Encounter [facility] - Breast Imaging [address] [place] [address] Abnormal mammogram Discharge Disposition: Discharge to home [...] PCP Assessment & Plan (04/11/2022 11:37 AM 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 Assessment & Plan (04/11/2022 11:36 AM SHELLFISH PROCESSING LABORER): Detected on Thyroid ultrasound on 12/26/21 Right [...] ultrasound. Consider repeating thyroid biopsy @[facility] to obtain better sample. Follow up and further recommendation will be decided after we obtai above test results. Hoarseness of voice 04/11/2022 Assessment & Plan (04/11/2022 11:37 AM SHELLFISH PROCESSING LABORER): Chronic and evaluated by ENT years ago, [...] on file Legal Sex Female 10:33 AM SHELLFISH PROCESSING LABORER Gender Identity Not on file Sexual Orientation Not on file Last Filed Vital Signs Vital Sign Reading Time Taken Comments Blood Pressure 126/62 10/21/2022 10:45 AM CDT Pulse 57 03/09/2014 11:39 AM SHELLFISH PROCESSING LABORER Temperature - - Respiratory Rate - - Oxygen Saturation 95% 03/09/2014 11:39 AM SHELLFISH PROCESSING LABORER Inhaled Oxygen Concentration - - Weight 63.7 kg (140 lb 6.4 oz) 10/21/2022 10:45 AM CDT Height 154.9 cm (5' 1) 10/21/2022 10:45 AM CDT Body Mass Index 26.53 10/21/2022 10:45 AM CDT Plan of Treatment Not on file Medical Devices Implanted Type Area Retail Visual Merchandiser Device Identifier Shelf Expiration Date Model / Serial / Lot [employer] Limited Partnership Marker Biospy Site Mini Cork Shape Deployment Device Titanium Securmark Eviva 13cm [id number] - [id number] Implanted:Qty: 1 on 08/30/2024 by Pham Mora MD at [facility] Left: Breast [employer] Partnership [id number] 03/18/2025 [facility] [place]-13 / / [id number] Procedures Procedure Name Priority Date/Time Associated Diagnosis [...] are included within the tissue cores. A piALGO TechnologiesurMark Mini Cork tissue marker clip was placed [...] are included within the tissue cores. A SMX Mini Cork tissue marker clip was placed [...] are included within the tissue cores. A Cloud Sherpask tissue marker clip was placed at the [...] results best viewed via link to PDF [facility] [place] [address] Note to Patients: This report may contain [...] Gender: F : 1945 (Age: 78) Address: [address] [place] [address] [facility] #: [id number] Taken:08/30/2024 Received:08/30/2024 Reported: 08/31/2024 Patient Type: [facility] Ancillary Service: Laboratory Location: Physician(s): Balaji [...] Surgical Pathology and Flow Cytometry Departments at [facility] as part of an ongoing senior quality assurance engineer program and in compliance with federally [...] Surgical Pathology and Flow Cytometry Departments of [facility]. It has not been cleared or [...] R esult from Last 3 Months Insurance [facility] MEDICARE ADVANT[facility] Address: [address] [address] [place] [address] [facility] MEDICARE ADVANTAGE [facility]IC[facility] Address: [address] [address] [place] [address] [facility] MEDICARE ADVANTAGE [facility] MEDICARE Address: [address] [address] [place] [address] Care Teams Ceo Na Relationship Specialty Start Date End Date Sowmya Lilly MD [address] [place], [place] [id number] PCP - General Internal Medicine 07/09/24 Sowmya Lilly MD [address] [place] [address] Referring Physician Internal Medicine 05/31/24
--- OUTSIDE RECORDS SUMMARY | 2024-11-01 14:25 | XMS_ITS | Clinical Summary ---
Author Organization [facility] Address [address] [place] [address] Care Team Providers Care Fire Services Plumber Name Role Phone Arcadio Leggett MD Unavailable [phone] Sowmya Lilly MD Primary Care Provider [phone] Allergies Active Allergy Reactions Criticality Noted Date [...] Comments Blood Pressure 120/60 03/19/2022 3:48 PM FRONT DESK Pulse 66 03/19/2022 3:48 PM FRONT DESK Temperature - - Respiratory Rate 18 03/19/2022 3:48 PM FRONT DESK Oxygen Saturation 99% 02/28/2021 12:53 PM FRONT DESK Inhaled Oxygen Concentration - - Weight 63.5 kg (140 lb) 03/19/2022 3:48 PM FRONT DESK Height 154.9 cm (5' 1) 03/19/2022 3:48 PM FRONT DESK Body Mass Index 26.45 03/19/2022 3:48 PM FRONT DESK Plan of Treatment Health Maintenance Due Date [...] Documents on File Type Date Recorded Patient Paperhanger Expl anation Power of Facing Grinder 02/28/2021 12:46 PM POA Vu Doss Advance Directives and Living Will 05/02/2017 SHORT FORM POWER OF FINISHER FIBERGLASS [employer] Healthcare Agents on File Name Relationship Healthcare Agent Relationshi p Communication Kayla Valentin Other First Alternate Health Care Agent Thuan Kenrick Doss Other Second Alternate [facility] Care Agent Care Teams Fire Services Plumber Relationship Specialty Start Date End Date Sowmya Lilly MD [address] [place] [address] PCP - General INTERNAL MEDICINE 11/09/19 Arcadio Leggett MD CARDIOVASCULAR DISEASE 04/25/17
--- OUTSIDE RECORDS SUMMARY | 2024-11-01 14:25 | XMS_ITS | Patient Health Record ---
Author Organization [facility] Address [address] [place], [place] [address] Care Team Providers Care Architect Name Role Phone SarinaBROCK duggan Unavailable [phone] Sowmya Lilly Unavailable Unavailable Reason For Referral No Information Medications Medication SIG (Take, Route, Frequency, Duration) Notes Start Date End Date Status furosemide 40 MG Oral Tablet [Lasix] ORAL furosemide 40 MG Oral Tablet [Lasix]Original Medicationfurosemide 40 MG Oral Tablet [Lasix] *Reorder from Pops for eRx and Interaction Alerts* 10/04/2019 Active Plan Of Treatment No Information Insurance Providers Payer Name Payer Address Payer Phone Subscriber Number Group Number Insured Name Patient Relationship to Insured Coverage Start Date Coverage End Date Medicare Part B [place] [address] [place] [address] [id number] JOSÉ MIGUEL BERNARD Self - patient is the insured [facility] ATTN CLAIMS [address] [place] [address] [id number] JOSÉ MIGUEL BERNARD Self - patient is the insured
--- OUTSIDE RECORDS SUMMARY | 2024-11-01 14:25 | XMS_ITS | Encounter Summary ---
Author Organization [facility] Address [address] [place] [address] Care Team Providers Care Intervention Analyst Name Role Phone Tai Adams MD Primary Care Provider [phone] Reason for Visit * Diagnostic Imaging (Routine) - Pending Review Specialty Diagnoses / Procedures Referred By Tammy baker Referred To Contact Procedures Breast Imaging Screening Outside Reference Zully Schaeffer NP [address] [facility] [id number] [place] [address] Phone: tel: fax: Referral ID Status Reason Start Date Expiration Date V isits Requested Visits Authorized [id number] Pending Review 06/17/2024 07/17/2025 1 1 Encounter Details Date Type Department Care Team (Late st Contact Info) Description 05/05/2019 Hospital Encounter [facility] [address] [place] [id number] Social History Tobacco Use Types Packs/Day Years Used Date Smoking Tobacco: Former Cigarettes Q uit: 1980 Alcohol Use Standard Drinks/Week Comments Yes 0 (1 standard drink = 0.6 oz pur e alcohol) Comments Unknown Sex and Gender Information Value Date Recorded Sex Assigned at Not on file Legal Sex Female 10:33 AM ORTHODONTIC TECHNICIAN Gender Identity Not on file Sexual Orientation Not on file documented as of this encounter Plan of Treatment Not on file documented as of this encounter Procedures Procedure Name Priority Date/Time Associated Diagnosis Comments BREAST IMAGING MG SCREENING OUTSIDE REFERENCE Routine 05/05/2019 12:00 AM ORTHODONTIC TECHNICIAN documented in this encounter Results * Breast Imaging Screening Outside Reference (05/05/2019 12:00 AM ORTHODONTIC TECHNICIAN) Impressions [facility] - 06/17/2024 9:48 PM ORTHODONTIC TECHNICIAN These images are for Reference purposes only and have not been reviewed by [facility] Radiology. There will be no report generated by a [facility] Radiologist. Narrative [facility] - 06/17/2024 9:48 PM ORTHODONTIC TECHNICIAN EXAMINATION: Images For Reference Purposes Only Zully Schaeffer NP IMG MAMMO PROCEDURES Final Result [facility] documented in this encounter Visit Diagnoses Not on filedocumented in this encounter Care Teams Intervention Analyst Relationship Specialty Start Date End Date Tai Adams MD [address] [address] PCP - General 03/08/14 07/08/24 documented as of this encounter
--- OUTSIDE RECORDS SUMMARY | 2024-11-01 14:25 | XMS_ITS | Clinical Summary ---
Author Organization [facility] [employer] Address [address] [facility] [address] Care Team Providers Care Cold Rolling Supervisor Name Role Phone Sowmya Lilly MD Primary Care Provider [phone] Source Comments [facility] [employer],non-owned Affiliates and Associated Physician Practices is amultiple site organization consisting of ambulatory clinics and hospital sitesin [place], [place], [place] and [place]. This disclosure is being madepursuant to the Care Everywhere program and may not contain all information available regarding this patient. Last updated 18.[facility] [employer] Allergies Active Allergy Reactions Criticality Noted [...] season) 2023 DEPRESSION SCREENING 04/14/2024 INFLUENZA VACCINE (#1) 2024 HEPATITIS B VACCINE Aged Out No [...] to complete this topic Insurance MEDICARE [facility]IA [facility] MANAGED MEDICARE ADV SELF PAY NO INSURANCE Member Subscriber Plan / Payer (Ef fective for All Dates) Name:SayraJosé Miguel barragan Member ID:Not on file Relation to Subscriber:Not on file Name:JOSÉ MIGUEL CRAVEN Subscriber ID:Not on file (Home) Address: [address] [place] [id number] Payer ID:Not on file Group ID:Not on file Type:Self Pay Address: [place], [place] MEDICARE Care Teams Cold Rolling Supervisor Relationship Specialty Start Date End Date Sowmya Lilly MD [address] [place] [address] PCP - General 12/14/21
--- OUTSIDE RECORDS SUMMARY | 2024-11-01 14:25 | XMS_ITS | Clinical Summary ---
Author Organization [facility] Address [address] [place] [address] Care Team Providers Care Morgue Keeper Name Role Phone Sowmya Lilly MD Unavailable [phone] Sowmya Lilly MD Primary Care Provider [phone] Allergies Active Allergy Reactions Criticality Noted Date Comments Sulfa (Sulfonamide Antibiotics) Medications citalopram (CeleXA) 40 mg tablet 04/10/2022 Active losartan-hydroCHLO ROthiazide (HYZAAR) 50-12.5 mg per tablet 03/26/2022 Activ e Active Problems Problem Noted Date Diagnosed Date Primary hypertension 04/11/2022 Assessment & Plan (10/21/2022 11:01 AM CDT): Controlled with medication - continue treatment plan per PCP Assessment & Plan (04/11/2022 11:37 AM PRODUCT DEVELOPMENT SPECIALIST): Controlled with medication - continue treatment plan [...] results. Assessment & Plan (04/11/2022 11:36 AM PRODUCT DEVELOPMENT SPECIALIST): Detected on Thyroid ultrasound on 12/26/21 Right [...] ultrasound. Consider repeating thyroid biopsy @[facility] to obtain better sample. Follow up and further recommendation will be decided after we obtai above test results. Hoarseness of voice 04/11/2022 Assessment & Plan (04/11/2022 11:37 AM PRODUCT DEVELOPMENT SPECIALIST): Chronic and evaluated by ENT years ago, patient reports history of vocal cord issues. - I recommend that she has an evaluation by ENT. 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 Encounters Date Type Department Care Team Description 09/02/2024 Telephone [facility] Replaced by [facility] [place] [address] Isaura Maldonado, RN Test Results (Left Breast Biopsy Results 08/30/24) 09/01/2024 Telephone [facility] [address] [place] [address] Isaura Maldonado, RN 08/31/2024 Telephone [facility] [address] [place] [address] Anh Schwartz Test Results (Left breast biopsy 08/30/24) 08/30/2024 11:04 AM CDT - 08/30/2024 11:59 PM CDT Hospital Encounter [facility] - [facility] [address] [address] Abnormal mammogram Discharge Disposition: Discharge to home or self care 08/30/2024 9:19 AM CDT - 08/30/2024 11:59 PM CDT Hospital Encounter [facility] - Breast [facility] [address] [address] Abnormal mammogram Discharge Disposition: Discharge to home or self care 08/30/2024 9:18 AM CDT - 08/30/2024 11:59 PM CDT Hospital Encounter [facility] - Breast Imaging [address] [place], [place] [address] Floor 8 [address] Abnormal mammogram Discharge Disposition: Discharge to home [...] on file Legal Sex Female 10:33 AM PRODUCT DEVELOPMENT SPECIALIST Gender Identity Not on file Sexual Orientation Not on file Obstetrics History Last Filed Vital Signs Vital Sign Reading Time Taken Comments Blood Pressure 126/62 10/21/2022 10:45 AM CDT Pulse 57 03/09/2014 11:39 AM PRODUCT DEVELOPMENT SPECIALIST Temperature - - Respiratory Rate - - Oxygen Saturation 95% 03/09/2014 11:39 AM PRODUCT DEVELOPMENT SPECIALIST Inhaled Oxygen Concentration - - Weight 63.7 [...] - season) 2023, 06/07/2020 Influenza Vaccine (#1) 2024 12/06/2020, 2019 Medical Devices Implanted Type Area Knot Tier Device Identifier Shelf Expiration Date Model / Serial / Lot Soko Partnership Marker Biospy Site Mini Cork Shape Deployment Device Titanium Securmark Eviva 13cm [id number] - [id number] Implanted:Qty: 1 on 08/30/2024 by Pham Mora MD at [facility] Left: Breast S[employer] Partnership [id number] 03/18/2025 CelsiasRBakedCodeI VA-13 / / [id number] Procedures Procedure Name Priority Date/Time Associated Diagnosis [...] be discussed with the patient by Breast [facility] or referring provider staff and will [...] are included within the tissue cores. A Brandma.cok tissue marker clip was placed at the [...] will be discussed with the patient by [facility] or referring provider staff and will [...] are included within the tissue cores. A EverpurseurTouchPal Mini Cork tissue marker clip was placed [...] are included within the tissue cores. A EverpurseurMark Mini Cork tissue marker clip was placed [...] best viewed via link to PDF [facility] Surgical Pathology [facility] [place] [address] Note to Patients: This report may contain [...] Gender: F : 1945 (Age: 78) Address: [address] [place], [place] [address] Hospital #: [id number] Taken:08/30/2024 Received:08/30/2024 Reported: 08/31/2024 Patient Type: [facility] Ancillary Service: Laboratory Location: Physician(s): Balaji Flores M.D. Diagnosis: A. Breast, left, stereotactic guided core needle biopsy - Benign breast tissue with fibroadenomatoid changes and associated calcifications - Negative for atypia or malignancy 08/31/2024 13:55 By this signature, I attest that [...] Surgical Pathology and Flow Cytometry Departments at [facility] as part of an ongoing quality assurance intern program and in compliance with federally mandated [...] Surgical Pathology and Flow Cytometry Departments of [facility]. It has not been cleared or approved by the U. S. Food and Drug Administration. IMAGES AND SCANNED DOCUMENTS, IF INCLUDED, ONLY VIEWABLE IN PDF VERSION OF REPORT Sowmya Lilly MD LAB PATHOLOGY ORDERABLES Fin [...] R esult from Last 3 Months Insurance [id number] UHC MEDICARE ADVANTAGE UHC MEDICARE ADVANTAGE [place] [id number] UHC MEDICARE ADVANTAGE Care Teams Morgue Keeper Relationship Specialty Start Date End Date Sowmya Lilly MD [address] [place] [address] PCP - General Internal Medicine 07/09/24 Sowmya Lilly MD [address] [place] [address] Referring Physician Internal Medicine 05/31/24
[2024-11-01 14:49] LABS: Total Protein Urine Random < 7 mg/dL; Ur Ttl Prot Creatinine Ratio 0.04 mg/mg (0-0.20)
[2024-11-01 15:06] LABS: Albumin Level 4.6 g/dL (3.5-5.1); Anion Gap 7 mmol/L (4-12); Blood Urea Nitrogen 25 mg/dL (7-17); Calcium 9.8 mg/dL (8.4-10.2); Carbon Dioxide 28 mmol/L (22-30); Chloride 103 mmol/L (98-107); Estimated Glomerular Filt Rate 39; Glucose 96 mg/dL (65-110); Osmolality Calculated 290 mOsm/kg (285-295); Potassium 4.4 mmol/L (3.4-5.0); Sodium 138 mmol/L (137-145)
[2024-11-03 09:08] LABS: ANA by IFA Rfx Titer/Pattern Negative (.)
== END 2024-11-01 14:21 | disposition home or self-care (01) ==
LOC: CHSLAB 14:21
PROVIDERS: PCP Internal Medicine; Visit Provider Internal Medicine Nephrology
DX: I12.9 Hypertensive chronic kidney disease with stage 1 through stage 4 chronic kidney disease, or unspecified chronic kidney disease (principal); N18.32 Chronic kidney disease, stage 3b
CPT/HCPCS: 36415; 80069; 82570; 84156; 86036; 86038; 86160; 86225; 86364

== ENCOUNTER 2025-03-30 10:40 | Outpatient (CLI) | payer MEDICARE, SELFPAY ==
--- OUTSIDE RECORDS SUMMARY | 2019-05-05 | XMS_ITS | Encounter Summary ---
Author Organization [facility] Address [address] [place] [address] Care Team Providers Care Blood Typer Name Role Phone Tai Adams MD Primary Care Provider [phone] Reason for Visit * Diagnostic Imaging (Routine) - Pending Review Specialty Diagnoses / Procedures Referred By Tammy baker Referred To Contact Procedures Breast Imaging Screening Outside Reference Zully Schaeffer NP [address] [facility] [place] [phone] [place] [address] Phone: tel: fax: Referral ID Status Reason Start Date Expiration Date V isits Requested Visits Authorized [id number] Pending Review 06/17/2024 07/17/2025 1 1 Encounter Details Date Type Department Care Team (Late st Contact Info) Description 05/05/2019 Hospital Encounter [facility] [address] [place] [id number] Social History Tobacco Use Types Packs/Day Years Used Date Smoking Tobacco: Former Cigarettes Q uit: 1980 Alcohol Use Standard Drinks/Week Comments Yes 0 (1 standard drink = 0.6 oz pur e alcohol) Comments Unknown Sex and Gender Information Value Date Recorded Sex Assigned at Not on file Legal Sex Female 10:33 AM [employer] Gender Identity Not on file Sexual Orientation Not on file documented as of this encounter Functional Status * BP Location Answer Date of Assessment Author Left arm 10/21/2022 10:45 AM CDT Lewis Noble MA * BP Location Answer Date of Assessment Author Left arm 10/21/2022 10:45 AM JAZT Lewis Noble MA documented as of this encounter Plan of Treatment Not on file documented as of this encounter Procedures Procedure Name Priority Date/Time Associated Diagnosis Comments BREAST IMAGING MG SCREENING OUTSIDE REFERENCE Routine 05/05/2019 12:00 AM [employer] documented in this encounter Results * Breast Imaging Screening Outside Reference (05/05/2019 12:00 AM [employer]) Impressions [facility] - 06/17/2024 9:48 PM [employer] These images are for Reference purposes only and have not been reviewed by [facility]. There will be no report generated by a [facility] Radiologist. Narrative [facility] - 06/17/2024 9:48 PM [employer] EXAMINATION: Images For Reference Purposes Only us Zully Schaeffer SOLAR PROJECT MANAGER IMG MAMMO PROCEDURES Final Result [facility] documented in this encounter Visit Diagnoses Not on filedocumented in this encounter Care Teams Blood Typer Relationship Specialty Start Date End Date Tai Adams MD PCP - General 03/08/14 07/08/24 documented as of this encounter
--- NOTE | ~2025-03-30 | US_ITS ---
EXAMINATION: US thyroid DATE: 03/30/2025 11:24 INDICATION: Nodules TECHNIQUE: Multiple ultrasound images of the thyroid were obtained. COMPARISON: None. FINDINGS: No right lobe seen. The left thyroid lobe measures 4.4 x 2.2 x 2.0 cm. Multiple nodules are noted in the left lobe with the largest measuring 2.0 x 1.5 x 1.2 cm. This nodule measured 2.5 x 2.0 x 1.5 cm on the previous exam. This is TR 4 nodule. A second TR 4 8 mm nodules also noted on today's exam in the mid to lower pole region. Isthmus: 5 mm IMPRESSION: 1. Slightly decreased size of 2.0 cm TR 4 nodule in the left lobe which measure 2.5 cm on the previous exam. 2. New 8mm TR 4 nodule. 3. Recommend correlation with follow-up thyroid ultrasound in 12 months. Reviewed, dictated and finalized at location A. H SCIENCE TECHNICAL OFFICER
--- NOTE | ~2025-03-30 | DEXA_ITS ---
Bone Density Report Name: JOSÉ MIGUEL CRAVEN Age: 79 Sex: Female Ethnicity: White Date of : 1945 Indication: postmenopausal; screening for osteoporosis; height loss; prior fracture; hysterectomy; Referring Provider: Sowmya Lilly Study: Bone densitometry was performed. Exam Date: March 30, 2025 Accession number: [id number] Bone Density: Region BMD T-score Z-score Classification AP Spine(L2, L3, L4) 1.023 -0.5 2.3 Normal Femoral Neck (Left) 0.578 -2.4 -0.1 Osteopenia Total Hip (Left) 0.852 -0.7 1.4 Normal Femoral Neck (Right) 0.573 -2.5 -0.1 Osteoporosis Total Hip (Right) 0.859 -0.7 1.4 Normal Femoral Neck Mean 0.576 -2.5 -0.1 Osteoporosis Total Hip Mean 0.855 -0.7 1.4 Normal World Health Organization criteria for BMD impression classify patients as: Normal (T-score at or above -1.0), Osteopenia (T-score between -1.0 and -2.5), or Osteoporosis (T-score at or below -2.5). 10-year Fracture Risk: FRAX not reported because: Some T-score for Spine Total or Hip Total or Femoral Neck at or below -2.5 Prior hip or vertebral fracture Clinical Information Provided by Patient: Have had a previous hip or vertebral fracture Has had a low trauma fracture Has used the following medications: Reclast (i.e. zoledronate), Multivitamin Has the following medical conditions: Hysterectomy Patient maximum height was 61 Menopause Age: 44 No regular weight bearing exercise Does not regularly consume dairy products Onset of menses at age 11 Number of children 4 Impression: The patient has established osteoporosis, based on the Right Femoral Neck T-score and the existence of a prior fracture. The patient has risk factors, including: previous fracture. Discussion: HIGH RISK OF FRACTURE. BONE DENSITY IS UNDESIRABLY LOW AT ONE OR MORE SKELETAL SITES, CONSISTENT WITH POSTMENOPAUSAL OSTEOPOROSIS. This patient's lowest T-score, in a patient who has previously fractured, meets the World Health Organization's (WHO) criteria for severe osteoporosis. In untreated patients, the risk of osteoporotic fracture increases approximately two-fold for each 1.0 SD decrease in T-score. Low bone density is not the only risk factor for fracture; also consider factors such as patient's age, frailty or poor health, risk of falling, risk of injury, previous osteoporotic fracture, family history of osteoporosis, cigarette smoking, low body weight, etc. Not everyone with low bone mineral density has osteoporosis; osteomalacia and other metabolic bone disorders should also be considered. Patients who have osteoporosis should be evaluated for specific diseases and conditions (secondary causes) that may cause or contribute to bone loss. The [place] Association of Clinical Endocrinologists (AACE) and National Osteoporosis Foundation (NOF) recommend pharmacologic intervention for all postmenopausal women with a previous hip or vertebral fracture and a T-score in this range. The patient should follow a healthful lifestyle (good nutrition with adequate calcium and vitamin D, and appropriate weight-bearing exercise). Follow-Up: Consider a repeat BMD and Vertebral Fracture Assessment (VFA) exam in 2 years or sooner if medically necessary, to reassess this patient's status. Reported by: ALVIN on 03/30/2025 11:14:00 AM. Reviewed, dictated and finalized at location A.
--- OUTSIDE RECORDS SUMMARY | 2025-03-30 12:50 | XMS_ITS | Clinical Summary ---
[facility] Address [address] [place] [address] Care Team Providers Care Procedures Rn Name Role Phone Sowmya Lilly MD Unavailable [phone] Sowmya Lilly MD Primary Care Provider [phone] Allergies Active Allergy Reactions Criticality Noted Date Comments Sulfa (Sulfonamide Antibiotics) Medications citalopram (CeleXA) 40 mg tablet 04/10/2022 Active losartan-hydroCHLO ROthiazide (HYZAAR) 50-12.5 mg per tablet 03/26/2022 Activ e Active Problems Problem Noted Date Diagnosed Date Primary hypertension 04/11/2022 Assessment & Plan (10/21/2022 11:01 AM CDT): Controlled with medication - continue treatment plan per PCP Assessment & Plan (04/11/2022 11:37 AM PICKERS MATERIAL HANDLERS): Controlled with medication - continue treatment plan [...] results. Assessment & Plan (04/11/2022 11:36 AM PICKERS MATERIAL HANDLERS): Detected on Thyroid ultrasound on 12/26/21 Right [...] thyroid ultrasound. Consider repeating thyroid biopsy [facility] to obtain better sample. Follow up and further recommendation will be decided after we obtai above test results. Hoarseness of voice 04/11/2022 Assessment & Plan (04/11/2022 11:37 AM PICKERS MATERIAL HANDLERS): Chronic and evaluated by ENT years ago, patient reports history of vocal cord issues. - I recommend that she has an evaluation by ENT. 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 Surgical History Surgery Date Site/Laterality Comments BREAST [...] on file Legal Sex Female 10:33 AM PICKERS MATERIAL HANDLERS Gender Identity Not on file Sexual Orientation Not on file Last Filed Vital Signs Vital Sign Reading Time Taken Comments Blood Pressure 126/62 10/21/2022 10:45 AM CDT Pulse 57 03/09/2014 11:39 AM PICKERS MATERIAL HANDLERS Temperature - - Respiratory Rate - - Oxygen Saturation 95% 03/09/2014 11:39 AM PICKERS MATERIAL HANDLERS Inhaled Oxygen Concentration - - Weight 63.7 [...] Visit 65+ 12/10/2008 Covid-19 Vaccine (3 - 2024- season) 2024, 06/07/2020 Influenza Vaccine (#1) 2024 12/06/2020, 2019 Medical Devices Implanted Type Area Photographers' Model Device Identifier Shelf Expiration Date Model / Serial / Lot dotCloud Limited Partnership Marker Biospy Site Mini Cork Shape Deployment Device Titanium Securmark Eviva 13cm [id number] - [id number] Implanted:Qty: 1 on 08/30/2024 by Pham Mora MD at [facility] Left: Breast dotCloud Limited Partnership [id number] 03/18/2025 [facility]-13 / / [id number] Insurance [facility] MEDICARE ADVANTAGE [facility] MEDICARE Address: [address] [address] [place] [address] [facility] MEDICARE ADVANTAGE [facility] MEDICARE Address: [address] [phone] [facility] MEDICARE ADVANT[facility] MEDICARE Address: [address] [place] [phone] Care Teams Procedures Rn Relationship Specialty Start Date End Date Sowmya Lilly MD [address] [place] [address] PCP - General Internal Medicine 07/09/24 Sowmya Lilly MD [address] [place] [address] Referring Physician Internal Medicine 05/31/24
--- OUTSIDE RECORDS SUMMARY | 2025-03-30 12:50 | XMS_ITS | Clinical Summary ---
Author Organization [facility] [employer] Address [address] [place] [address] Care Team Providers Care Animal Care Taker Name Role Phone Sowmya Lilly MD Primary Care Provider [phone] Source Comments [facility],non-owned Affiliates and Associated Physician Practices is amultiple site organization consisting of ambulatory clinics and hospital sitesin [place], [place], [place] and [place]. This disclosure is being madepursuant to the Care Everywhere program and may not contain all information available regarding this patient. Last updated 18.[facility] Allergies Active Allergy Reactions Criticality Noted Date [...] yrs (1 - 1-dose 75+ series) 12/10/2018 DEPRESSION SCREENING 04/14/2024 COVID-19 VACCINE ( - 2024-2 6 season) 2024 INFLUENZA VACCINE (#1) 2024 HEPATITIS B VACCINE [...] to complete this topic Insurance MEDICARE [facility] MANAGED MEDICARE ADV SELF PAY NO INSURANCE Member Subscriber Plan / Payer (Ef fective for All Dates) Name:SayraJosé Miguel barragan Member ID:Not on file Relation to Subscriber:Not on file Name:JOSÉ MIGUEL CRAVEN Subscriber ID:Not on file (Home) Address: [address] [place] [phone] Payer ID:Not on file Group ID:Not on file Type:Self Pay Address: [place], [place] MEDICARE Care Teams Animal Care Taker Relationship Specialty Start Date End Date Sowmya Lilly MD [address] [place] [address] PCP - General 12/14/21
== END 2025-03-30 10:41 | disposition home or self-care (01) ==
LOC: CHSIMG 10:44
PROVIDERS: PCP Internal Medicine; Visit Provider Internal Medicine
DX: E04.1 Nontoxic single thyroid nodule (principal); Z78.0 Asymptomatic menopausal state; Z79.899 Other long term (current) drug therapy; M85.88 Other specified disorders of bone density and structure, other site; M81.0 Age-related osteoporosis without current pathological fracture
CPT/HCPCS: 76536; 77080